=== PATIENT | female | born 1935 | race Caucasian/White ===

== ENCOUNTER 2017-03-30 15:25 | Inpatient (IN) | payer OTHER ==
[~2017-03-30] VITALS: Ht 157.5 cm; Wt 77.6 kg
[~2017-03-30 15:25] MED LIST: ASPCH81X PO; ATOR-22 PO; DOCU-94 PO; GLIP-199 PO; LOSA50TA6 PO; METF500T PO; MULT-506 PO; NRN/100 PO
[2017-03-30 15:54] LABS: ISTAT CREATININE 0.9 mg/dl (0.6-1.3); ISTAT IONIZED CALCIUM 1.37 mmol/l (1.12-1.32)
[2017-03-30] MEDS ORDERED: GLIP10TA10 PO (15:57)
[2017-03-30] MEDS ORDERED: GLC500 PO (15:57)
--- NOTE | 2017-03-30 15:58 | DIAGNOSTIC IMAGING REPORT ---
SINGLE VIEW CHEST CLINICAL HISTORY: Generalized abdominal pain. FINDINGS: An AP, portable, upright chest radiograph is compared to study dated 12/19/2008. The examination is degraded by portable technique, large body habitus, and patient rotation. Cardiac pads project over the left chest. The heart is enlarged and there is pulmonary vascular congestion. A hiatal hernia is suspected. There is elevation of the right hemidiaphragm and bibasilar atelectasis. No airspace consolidation is seen typical for pneumonia and there is no large pleural effusion. No pneumothorax is seen. The skeletal structures are osteopenic. Chronic posttraumatic deformity is again seen in the left proximal humerus. Advanced arthritic change is noted in the shoulders. There are healed left-sided rib fractures. IMPRESSION: 1. Cardiomegaly with pulmonary vascular congestion. 2. No airspace consolidation or large pleural effusion is seen. Electronically signed by: Barry Klein M.D. 03/30/2017 3:57 PM Dictated Date/Time: 03/30/2017 3:55 PM
[2017-03-30 16:08] LABS: BUN/CREATININE RATIO 17.5 (10-20); CALCIUM 10.6 mg/dl (8.5-10.1); CREATININE 1.1 mg/dl (0.60-1.20); MAGNESIUM 1.6 mg/dl (1.8-2.4); POTASSIUM 4.8 mmol/L (3.5-5.1)
[2017-03-30] MEDS ORDERED: MAGNESIUM SULFATE 1GM / D5W 1 GM BAG IV STA (16:13)
[2017-03-30 16:16] LABS: CKMB/CK RATIO 5.5 (0-3.0)
[2017-03-30] MEDS ORDERED: FENTANYL CITRATE INJ 50 MCG/1 ML 2 ML VIAL ONE ×2 (16:28→16:30)
[2017-03-30] MEDS ORDERED: MIDAZOLAM HCL 1 MG/ML 2ML VIAL ONE (16:28)
[2017-03-30] MEDS ORDERED: ONDANSETRON INJ 2 MG/ML 2 ML VIAL ONE (16:35)
[2017-03-30 16:36] LABS: URINE APPEARANCE CLEAR (CLEAR); URINE BILIRUBIN NEG (NEG); URINE COLOR DK YELLOW; URINE NITRITE NEG (NEG); URINE PH 7.5 (4.5-7.5); URINE SPECIFIC GRAVITY 1.012 (1.000-1.030); UROBILINOGEN NEG (NEG)
[2017-03-30 16:38] LABS: MANUAL MICROSCOPIC REQUIRED? NO; REVIEW REQ? NO; SULFASALICYLIC ACID POS (NEG)
[2017-03-30 16:40] LABS: THYROID STIMULATING HORMONE 1.14 uIu/ml (0.300-4.500)
[2017-03-30 16:51] LABS: BASO % 0.3 %; BASO ABS # 0.02 K/uL (0-0.2); COMPLETE YES; EOS % 1.6 %; HEMATOCRIT 44.7 % (37-47); INR 1.1 (0.9-1.1); LYMPH % 16.9 %; MEAN CELL VOLUME 90.7 fL (80-100); MEAN CORPUSCULAR HEMOGLOBIN 29.2 pg (25-34); MEAN CORPUSCULAR HGB CONC 32.2 g/dl (32-36); MEAN PLATELET VOLUME 11.7 fL (7.4-10.4); MONO % 6.9 %; NEUT % 74.3 %; PLATELET COUNT 241 K/uL (130-400); PROTHROMBIN TIME (PATIENT) 11.4 SECONDS (9.0-12.0); RED BLOOD COUNT 4.93 M/uL (4.2-5.4); WHITE BLOOD COUNT 7.08 K/uL (4.8-10.8)
[2017-03-30] MEDS ORDERED: ATROPINE SULFATE 0.1 MG/ML 10 ML SYR ONE (17:13)
--- NOTE | 2017-03-30 17:14 | Cardiology Procedure Brief Nt ---
Preliminary Cardiology Note Procedure Date Placement of a temporary transvenous pacemaker via right subclavian vein, accomplished without difficulty or complication on March 30, 2017. Pre-Procedure Diagnosis Symptomatic bradycardia, heart block Post-Procedure Diagnosis Same Procedure(s) Performed Placement of a temporary transvenous pacemaker via right subclavian vein, accomplished without difficulty or complication on March 30, 2017. 6 bengali sheath with a 5 bengali balloon tipped pacing wire Manager Membership Dr. Patrice Hamilton Residential Manager(s) Keegan Hoang Estimated Blood Loss Less than 5 cc's Medication(s) Atropine 0.5mg given immediate pre-procedure, otherwise no meds given Preliminary Findings High grade heart block, bradycardia, with poor escape rhythm Recommendations The patient will likely need a permanent pacemaker Temporary pacer set at pacing mode VOO, 80 bpm, 5.0 mA Keep pacer site sterilely dressed and pacing wire secured to patient near entry site Consult EP Specimens No specimens Anesthesia No sedation given Complication(s) None Disposition Surgical ICU
[2017-03-30 17:17] LABS: LYME DISEASE AB IGG NEG (NEG)
[2017-03-30 17:18] LABS: LYME DISEASE AB IGM NEG (NEG)
--- NOTE | 2017-03-30 18:06 | CARDIOLOGY CONSULTATION ---
DATE OF CONSULTATION: 03/30/2017 TIME: 1655 p.m. CONSULTING PHYSICIAN: Heath Robles DO REASON FOR CONSULTATION: Complete heart block. HISTORY OF PRESENT ILLNESS: Mrs. Donaldson is a pleasant 81-year-old female with a history significant for type 2 diabetes, hypertension, left bundle branch block; who presented to [facility] in complete heart block. She is a poor historian and very hard of hearing and therefore it is difficult to obtain history. When asked why she came to the Emergency Department, she was not sure. According to nursing staff and Dr. Robles, her son found her in her apartment and she apparently had mental status changes or possibly some degree of unresponsiveness. She was reportedly found to be hypoglycemic; however, the actual lab value was not available at the time of this dictation. She reportedly was given D10 prehospital and was found to be in complete heart block. She initially had a heart rate in the 40s according to reports when I was contacted for consultation by Dr. Robles. She denies chest pain, shortness of breath, syncope, near syncope; however, it is difficult to communicate with her as she is very hard of hearing. She was able to maintain adequate blood pressure in the Emergency Department. These were obtained via manual cuff as the automatic cuffs were unable to obtain a blood pressure. She was uncertain of her medications. She brought a list but however, the list apparently is outdated. Nursing staff was able to track down the last time some of her medications were refilled; however, it is not clear if this is an accurate list completely. She states that she does not see a physician on a regular basis as it is difficult for her to travel. She is quite concerned about finances as well. REVIEW OF SYSTEMS: As above and review of systems otherwise unremarkable or unobtainable due to being a poor historian and possibly related somewhat to her hearing. PAST MEDICAL HISTORY: 1. Hypertension. 2. Dyslipidemia. 3. Left bundle branch block. 4. Type 2 diabetes. 5. According to Dr. Hampton's records, there is a history of DVT. 6. History of noncompliance with prescribed therapy. 7. Status post cholecystectomy. 8. Palatoplasty for cleft palate. HOME MEDICATIONS: Possibly; 1. Glipizide. 2. Metformin. 3. Gabapentin. It is difficult to know her update medications; however, she states that she takes a lot of medications. ALLERGIES: No known drug allergies. SOCIAL HISTORY: Denies smoking, alcohol or drug abuse. She had 3 children; however, 2 of her children have . She does have 1 living son. She reportedly lives in an apartment. Her son was not present at the bedside. Several attempts were made by Emergency Department physician, Dr. Robles to contact him via telephone; however, he was unsuccessful. He apparently is coming to the hospital at some point. FAMILY HISTORY: No known premature CAD. However, she states that her son may have some heart problem but does not know details. PHYSICAL EXAMINATION: VITAL SIGNS: Temperature 36.8 degrees, heart rate 25 beats per minute, respiration rate 19, blood pressure 112/80 mmHg, oxygen saturation 100% on 3 liters per nasal cannula. Weight 80 kg. GENERAL: No acute distress. She is alert and appears oriented. Very hard of hearing. HEENT: Anicteric sclerae. NECK: No appreciable JVD. No bruits. Normal carotid upstrokes bilaterally. CARDIAC EXAMINATION: PMI was nonpalpable. There was no ventricular heave. Regular with ectopy. Normal S1, S2. 1/6 systolic murmur best heard at the left and right upper sternal border. No rubs or gallops. LUNGS: Clear to auscultation bilaterally without wheezes, rales or rhonchi. ABDOMEN: Soft, nontender, nondistended, normoactive bowel sounds, no bruits. EXTREMITIES: No cyanosis or pitting edema. 2+ radial pulses bilaterally. 2+ dorsalis pedis pulses bilaterally. No palpable cords. PSYCHIATRIC: Affect appears appropriate. ECG personally reviewed. ECG on 03/30/2017 at 15:32, sinus rhythm with complete heart block and ventricular escape complexes and also PVCs. Heart rate on this ECG is 57 beats per minute. On telemetry, her heart rate after being in the Emergency Department for some time, was more consistently in the upper 20s with complete heart block and ventricular escape rhythm. She was able to maintain adequate perfusing blood pressure, however. LABORATORY DATA: Sodium 142, potassium 4.8, BUN 19, creatinine 1.1, glucose 193. Magnesium 1.6, total bilirubin 1.1, AST 12, ALT 18, CK-MB 42, troponin 0.059, albumin 3.7. TSH 1.14, free T4 of 1.25. Lyme titers are pending. INR is 1.1. WBC 7.08, hemoglobin 14.4, platelets 241. Chest x-ray image personally reviewed. No obvious infiltrate. Radiology has interpreted this as cardiomegaly with pulmonary vascular congestion. No airspace consolidation or large pleural effusion was noted. ASSESSMENT AND PLAN: 1. Complete heart block: She has ventricular escape rhythm/complexes and bradycardia. She does not appear to be overly symptomatic; however, heart rate is consistently in the 20s and with her very difficult hearing, it is difficult to know if she is experiencing any symptoms as she is a poor historian. Given the fact that her heart rate is more consistently in the upper 20s, a temporary venous pacemaker is recommended. Risks and benefits were discussed with her multiple times and also written down for her to review; however, she did not have glasses available. After multiple conversations, she consented to undergo the procedure and is provided informed written consent. Plan would then be for a permanent pacemaker placement when electrophysiology is available. The vegetable canner door to door salesperson, Dr. Hamilton presented to the bedside and presentation and plan of care were discussed with him. Continue to follow Lyme titers. Avoid AV malaika blocking agents or other medications that may slow her heart rate. 2. Elevated troponins: Troponin is slightly elevated and is not diagnostic of myocardial infarction. Could be due to strain/demand ischemia with significant bradycardia and also reported hypoglycemia earlier today. Trend troponin levels. Echocardiogram will be ordered at this time. 3. Hypertension: She has a history of hypertension but does not appear to be on any medications as far as we are able to know. She is not significantly hypertensive at this time and therefore would hold off on any new medications for this. 4. Diabetes: As per primary service. 5. Disposition: Plan of care has been discussed with Dr. Simons of the primary hospitalist service, who will be admitting Mrs. Donaldson following transvenous pacemaker placement. Dr. Gusman was also personally contacted via telephone to update him on Mrs. Donaldson's presentation and plan of care as he is the ICU termite helper door to door salesperson. Electrophysiology was also notified that she is receiving transvenous pacemaker for evaluation of permanent pacemaker placement when they are available, which will likely be in 2-3 days. Highly complex medical issues. Greater than 60 minutes critical care time was spent counseling patient, coordinating care with multiple providers, including for temporary transvenous pacemaker placement as well as permanent pacemaker placement. Greater than 60 minutes critical care time spent also reviewing images, chart and laboratory data. Plan of care was also discussed with Dr. Robles, who was also at the bedside. Thank for allowing me to participate in the care of Mrs. Donaldson.
[2017-03-30] MEDS ORDERED: GLUCOSE 40% GEL 15 GM TUBE PO PRN (18:15)
[2017-03-30] MEDS ORDERED: GLUCAGON FOR INJ 1 MG VIAL SQ PRN (18:15)
[2017-03-30] MEDS ORDERED: NITROGLYCERIN 0.4 MG SL PER TAB CHARGE SL PRN (18:15)
[2017-03-30] MEDS ORDERED: DEXTROSE 50% 50 ML SYR IV PRN (18:15)
[2017-03-30] MEDS ORDERED: GLUCOSE 10 TABS/TUBE PO PRN (18:15)
[2017-03-30 18:23] VITALS: BP 137/108; PULSE 80; TEMP 36.3; O2SAT 98; BMI 31.3
--- NOTE | 2017-03-30 18:33 | History and Physical ---
History & Physical Date & Time of Service: March 30, 2017 at 18:18 Chief Complaint: Cardiac Primary Care Physician: Mateo Hampton M.D. History of Present Illness Source: patient, family 81 y/o F who was brought to [facility] via EMS for SOB. Pt was seen in the ED by ED physician and cardiology, however no family was present and pt is extremely [place]. Once monitoring was initiated, pt was found to be in 3rd degree heart block. A heart alert was called and a temporary pacer was placed shortly after. Per cardiology, there were no complications. Pt is seen in coordinated with her family, including her son who lives with her. It was difficult to get information from pt as she is [place] and her hearing aids are not with her. Her son provided some details. He feels her biggest issue is a hernia that was supposed to have been repaired in the , however just prior to this happening the pt fell and broke her hip "and then no one would touch her". He is not able to clarify further, but repeats this story when asked about pt's health status. I was able to discern that pt always has SOB related to the hernia and has to lay on her L side. At some point this AM her SOB worsened. Son states she did not complain of any pain and that she ate breakfast without issue prior to this. At present, pt denies fever, SOB, chest pain, abd pain, n/v/c/d, LE pain or swelling. She states she is hungry, but otherwise feels fine. There was apparently some sort of concern over hypoglycemia, however this is unclear. ROS as noted above, otherwise neg. Son states that pt is very concerned about using her insurance. She does not go to see her PCP because she does not want claims on her policy. He states he tried to rock picker home O2 for her from [employer], but pt would not allow it because she is afraid her insurance will go up. She also declined an abd binder for her hernia for the same reason. Past Medical/Surgical History DM HLD HTN Hx of DVT LBBB s/p cholecystectomy Social History Smoking Status: Never Smoker Alcohol Use: none Drug Use: none Marital Status: Occupational Status: retired Immunizations History of Influenza Vaccine: Yes Influenza Vaccine Date: Aug 18, 2008 History of Tetanus Vaccine?: Yes Tetanus Immunization Date: Aug 18, 2008 History of Pneumococcal: Yes Pneumococcal Date: Aug 18, 2008 History of Hepatitis B Vaccine: No Multi-Drug Resistant Organisms History of MDRO: No Allergies Coded Allergies: No Known Allergies (Verified , 11/23/15) Home Medications Scheduled Aspirin (Aspirin Chewable), 81 MG PO QAM Atorvastatin (Lipitor), 20 MG PO QPM Docusate Sodium (Colace), 1 CAP PO BID Gabapentin (Neurontin), 100 MG PO BID Glipizide (Glipizide), 10 MG PO BID Losartan Potassium (Cozaar), 50 MG PO QAM Metformin HCl (Metformin HCl), 500 MG PO TID Multivitamin (Multivitamin), 1 TAB PO QAM Physical Exam Vital Signs Date Time Temp Pulse Resp B/P Pulse Ox O2 Delivery O2 Flow Rate FiO2 03/30/17 17:10 80 16 146/78 98 Room Air 03/30/17 17:05 80 16 152/82 98 Room Air 03/30/17 16:55 80 16 158/83 98 Room Air Manual NIBP 03/30/17 16:15 25 19 100 03/30/17 16:00 33 18 112/80 97 Nasal Cannula 3.0 03/30/17 15:53 24 19 120/44 99 Nasal Cannula 3.0 03/30/17 15:45 94 Room Air 03/30/17 15:45 25 23 96 Nasal Cannula 3.0 03/30/17 15:45 36.8 35 24 120/58 94 Room Air 03/30/17 15:35 34 25 146/68 91 03/30/17 15:35 52 General Appearance: WD/WN, no apparent distress Head: normocephalic, atraumatic Respiratory/Chest: lungs clear, normal breath sounds Cardiovascular: regular rate, rhythm, no edema Abdomen/GI: non tender, soft Extremities/Musculoskelatal: no calf tenderness, no pedal edema Neurologic/Psych: alert, normal mood/affect Skin: normal color, warm/dry Diagnostics Laboratory Results Results Past 24 Hours Test 03/30/17 14:35 03/30/17 15:38 03/30/17 15:41 03/30/17 16:16 Range/Units White Blood Count 7.08 4.8-10.8 K/uL Red Blood Count 4.93 4.2-5.4 M/uL Hemoglobin 14.4 12.0-16.0 g/dL Hematocrit 44.7 37-47 % Mean Corpuscular Volume 90.7 80-100 fL Mean Corpuscular Hemoglobin 29.2 25-34 pg Mean Corpuscular Hemoglobin Concent 32.2 32-36 g/dl Platelet Count 241 130-400 K/uL Mean Platelet Volume 11.7 7.4-10.4 fL Neutrophils (%) (Auto) 74.3 % Lymphocytes (%) (Auto) 16.9 % Monocytes (%) (Auto) 6.9 % Eosinophils (%) (Auto) 1.6 % Basophils (%) (Auto) 0.3 % Neutrophils # (Auto) 5.26 1.4-6.5 K/uL Lymphocytes # (Auto) 1.20 1.2-3.4 K/uL Monocytes # (Auto) 0.49 0.11-0.59 K/uL Eosinophils # (Auto) 0.11 0-0.5 K/uL Basophils # (Auto) 0.02 0-0.2 K/uL RDW Standard Deviation 50.0 36.4-46.3 fL RDW Coefficient of Variation 15.0 11.5-14.5 % Immature Granulocyte % (Auto) 0.0 % Immature Granulocyte # (Auto) 0.00 0.00-0.02 K/uL Prothrombin Time 11.4 9.0-12.0 SECONDS Prothromb Time International Ratio 1.1 0.9-1.1 Activated Partial Thromboplast Time 25.1 21.0-31.0 SECONDS Partial Thromboplastin Ratio 1.0 Sodium Level 142 136-145 mmol/L Potassium Level 4.8 3.5-5.1 mmol/L Chloride Level 104 98-107 mmol/L Carbon Dioxide Level 31 21-32 mmol/L Anion Gap 7.0 17.0 16-25 mmol/L Blood Urea Nitrogen 19 7-18 mg/dl Creatinine 1.10 0.60-1.20 mg/dl Est Creatinine Clear Calc Drug Dose 39.3 ml/min Estimated GFR () 54.5 Estimated GFR (Non- 47.0 BUN/Creatinine Ratio 17.5 10-20 Random Glucose 193 70-99 mg/dl Calcium Level 10.6 8.5-10.1 mg/dl Magnesium Level 1.6 1.8-2.4 mg/dl Total Bilirubin 1.1 0.2-1 mg/dl Direct Bilirubin 0.2 0-0.2 mg/dl Aspartate Amino Transf (AST/SGOT) 12 15-37 U/L Alanine Aminotransferase (ALT/SGPT) 18 12-78 U/L Alkaline Phosphatase 59 45-117 U/L Total Creatine Kinase 42 26-192 U/L Creatine Kinase MB 2.3 0.5-3.6 ng/ml Creatine Kinase MB Ratio 5.5 0-3.0 Troponin I 0.059 0-0.045 ng/ml Total Protein 6.6 6.4-8.2 gm/dl Albumin 3.7 3.4-5.0 gm/dl Lipase 212 73-393 U/L Thyroid Stimulating Hormone (TSH) 1.140 0.300-4.500 uIu/ml Free Thyroxine 1.25 0.80-1.60 ng/dl Lyme Disease IgG Antibody NEG NEG Lyme Disease IgM Antibody NEG NEG Bedside Lactic Acid Venous 1.97 0.90-1.70 mmol/L Bedside Hemoglobin 15.0 12.0-16.0 g/dl Bedside Hematocrit 44 37-47 % Bedside Sodium 139 135-144 mEq/L Bedside Potassium 4.7 3.3-5.0 mEq/L Bedside Chloride 100 101-112 mEq/L Bedside Total CO2 28 24-31 mEq/l Bedside Blood Urea Nitrogen 20 7-18 mg/dl Bedside Creatinine 0.9 0.6-1.3 mg/dl Bedside Glucose (other) 184 70-99 mg/dl Bedside Ionized Calcium (Mariaa) 1.37 1.12-1.32 mmol/l Urine Color DK YELLOW Urine Appearance CLEAR CLEAR Urine pH 7.5 4.5-7.5 Urine Specific Milnor 1.012 1.000-1.030 Urine Protein 1+ NEG Urine Glucose (UA) TRACE NEG Urine Ketones TRACE NEG Urine Occult Blood NEG NEG Urine Nitrite NEG NEG Urine Bilirubin NEG NEG Urine Urobilinogen NEG NEG Urine Leukocyte Esterase NEG NEG Urine WBC (Auto) 0 0-5 /hpf Urine RBC (Auto) 0-4 0-4 /hpf Urine Hyaline Casts (Auto) 1-5 0-5 /lpf Urine Epithelial Cells (Auto) 5-10 0-5 /lpf Urine Bacteria (Auto) NEG NEG Microbiology Results 03/30/17 Urine Culture, Received Pending Diagnostic Radiology CXR neg for acute Impression Assessment and Plan 81 y/o F who was admitted on 03/30 after having a temporary pacer placed for 3rd degree heart block 3rd degree heart block: uncertain etiology, currently paced with temporary pacer Trop elevated on admission at 0.059, will monitor and likely trend up TSH WNL CBC, PRP WNL Hx of LBBB Planning for permanent pacer in the next several days DM: SSI PRN Pt on PO only at baseline HTN: continue home meds HLD: continue home meds CAD prevention: pt on 81mg aspirin, will hold this in anticipation of permanent pacer Hx of DVT: not on other anticoagulation per son Will cover with heparin, should be held pre-op Other: Full code per family, this should be discussed with pt once hearing aids are available Heparin for DVT proph DM AHA diet Level of Care Critical Care Resuscitation Status FULL RESUSCITATION VTE Prophylaxis VTE Risk Assessment Done? Y/N: Yes Risk Level: Low
[2017-03-30] MEDS: INSULIN ASPART 100 UNITS/ML 3 ML PEN SC SCH ×2 (19:27→21:00)
[2017-03-30 20:00] VITALS: BP 140/92; PULSE 80; TEMP 37; O2SAT 100
[2017-03-30] MEDS: ATORVASTATIN 20 MG TAB PO SCH (21:09)
[2017-03-30] MEDS: DOCUSATE SODIUM 100 MG CAP PO SCH (21:09)
[2017-03-30] MEDS: GABAPENTIN 100 MG CAP PO SCH (21:09)
[2017-03-30] MEDS: HEPARIN SOD 5000 UNIT/0.5 ML CARP SQ SCH (21:11)
[2017-03-30 22:00] VITALS: BP 164/82; PULSE 80; O2SAT 96
[2017-03-30] MEDS: ACETAMINOPHEN 325 MG TAB PO PRN (22:13)
--- NOTE | 2017-03-30 23:41 | EMERGENCY ROOM VISIT NOTE ---
History Report prepared by Trixie: Saida Gibson Under the Supervision of: Dr. Heath Robles D.O. First contact with patient: 15:19 Stated Complaint: CARDIAC History of Present Illness The patient is an 81 year old female who presents to the Emergency Room with complaints of an episode of shortness of breath just prior to arrival. Per EMS, her son reports that she didn't get up out of bed today and wouldn't eat. EMS states that the son reported she wouldn't wake up and that when he tested her blood sugar, it was extremely low. The patient complains of being dizzy and nausea. She denies being sick recently. The patient reports a past history of a hernia. She denies a headache and weakness in arms and legs. Source of History: patient Onset: prior to arrival Position: other (global) Symptom Intensity: global Timing: other (episode) Associated Symptoms: + nausea, No headache, No weakness (in her arms and legs) Note: The patient complains of being dizzy. Review of Systems See HPI for pertinent positives & negatives. A total of 10 systems reviewed and were otherwise negative. Past Medical & Surgical Medical Problems: (1) Diab Debra Wo Compl, Type Ii Or Unspec Type, Uncontrolled (2) Hx-Venous Thrombosis&Embolism (3) Hypertension Nos (4) SOB (shortness of breath) Surgical Problems: (1) Ventral Hernia Nos Family History No pertinent family history Social History Smoking Status: Never Smoker Alcohol Use: none Marital Status: Housing Status: lives with family Current/Historical Medications Scheduled Aspirin (Aspirin Chewable), 81 MG PO QAM Atorvastatin (Lipitor), 20 MG PO QPM Docusate Sodium (Colace), 1 CAP PO BID Gabapentin (Neurontin), 100 MG PO BID Glipizide (Glipizide), 10 MG PO BID Losartan Potassium (Cozaar), 50 MG PO QAM Metformin HCl (Metformin HCl), 500 MG PO TID Multivitamin (Multivitamin), 1 TAB PO QAM Allergies Coded Allergies: No Known Allergies (Verified , 11/23/15) Physical Exam Vital Signs Date Time Temp Pulse Resp B/P Pulse Ox O2 Delivery O2 Flow Rate FiO2 03/30/17 17:10 80 16 146/78 98 Room Air 03/30/17 17:05 80 16 152/82 98 Room Air 5/27/17 16:55 80 16 158/83 98 Room Air Manual NIBP 03/30/17 16:15 25 19 100 03/30/17 16:00 33 18 112/80 97 Nasal Cannula 3.0 03/30/17 15:53 24 19 120/44 99 Nasal Cannula 3.0 03/30/17 15:45 94 Room Air 03/30/17 15:45 25 23 96 Nasal Cannula 3.0 03/30/17 15:45 36.8 35 24 120/58 94 Room Air 03/30/17 15:35 34 25 146/68 91 03/30/17 15:35 52 Physical Exam GENERAL: Patient is awake, alert, and in no acute distress. Patient is resting comfortably and appears mildly anxious. EYES: The conjunctivae are clear. The pupils are round and reactive. EARS, NOSE, MOUTH AND THROAT: The nose is without any evidence of any deformity. Mucous membranes are moist tongue is midline NECK: The neck is nontender and supple. RESPIRATORY: Diminished breath sounds throughout, no tachypnea. CARDIOVASCULAR: Bradycardiac rate, normal rhythm noted there no murmurs rubs or gallops normal S1 normal S2 GASTROINTESTINAL: Bowel sounds are present in all quadrants. Moderately distended but soft. No rebound or rigidity. Large ventral hernia noted. PELVIS: The Pelvis is stable. No tenderness to palpation is noted. BACK: No midline tenderness or or step-off noted range of motion in flexion extension as well as rotation no signs of muscle spasm noted MUSCULOSKELETAL/EXTREMITIES: There is no evidence of gross deformity full range of motion is noted in the hips and shoulders SKIN: There is no obvious evidence of any rash. There are no petechiae, pallor or cyanosis noted. NEUROLOGIC: Patient is awake alert and oriented x3 strength is symmetric patellar reflexes are 2+ bilaterally Medical Decision & Procedures ER Provider Diagnostic Interpretation: Radiology results as stated below per my review and radiologist interpretation: SINGLE VIEW CHEST CLINICAL HISTORY: Generalized abdominal pain. FINDINGS: An AP, portable, upright chest radiograph is compared to study dated 12/19/2008. The examination is degraded by portable technique, large body habitus, and patient rotation. Cardiac pads project over the left chest. The heart is enlarged and there is pulmonary vascular congestion. A hiatal hernia is suspected. There is elevation of the right hemidiaphragm and bibasilar atelectasis. No airspace consolidation is seen typical for pneumonia and there is no large pleural effusion. No pneumothorax is seen. The skeletal structures are osteopenic. Chronic posttraumatic deformity is again seen in the left proximal humerus. Advanced arthritic change is noted in the shoulders. There are healed left-sided rib fractures. IMPRESSION: 1. Cardiomegaly with pulmonary vascular congestion. 2. No airspace consolidation or large pleural effusion is seen. Electronically signed by: Barry Klein M.D. 03/30/2017 3:57 PM Laboratory Results 03/30/17 14:35 Red Blood Count 4.93, Mean Corpuscular Volume 90.7, Mean Corpuscular Hemoglobin 29.2, Mean Corpuscular Hemoglobin Concent 32.2, Mean Platelet Volume 11.7, Neutrophils (%) (Auto) 74.3, Lymphocytes (%) (Auto) 16.9, Monocytes (%) (Auto) 6.9, Eosinophils (%) (Auto) 1.6, Basophils (%) (Auto) 0.3, Neutrophils # (Auto) 5.26, Lymphocytes # (Auto) 1.20, Monocytes # (Auto) 0.49, Eosinophils # (Auto) 0.11, Basophils # (Auto) 0.02 03/30/17 14:35 Test 03/30/17 14:35 03/30/17 15:38 03/30/17 15:41 03/30/17 16:16 White Blood Count 7.08 K/uL (4.8-10.8) Red Blood Count 4.93 M/uL (4.2-5.4) Hemoglobin 14.4 g/dL (12.0-16.0) Hematocrit 44.7 % (37-47) Mean Corpuscular Volume 90.7 fL (80-100) Mean Corpuscular Hemoglobin 29.2 pg (25-34) Mean Corpuscular Hemoglobin Concent 32.2 g/dl (32-36) Platelet Count 241 K/uL (130-400) Mean Platelet Volume 11.7 fL (7.4-10.4) Neutrophils (%) (Auto) 74.3 % Lymphocytes (%) (Auto) 16.9 % Monocytes (%) (Auto) 6.9 % Eosinophils (%) (Auto) 1.6 % Basophils (%) (Auto) 0.3 % Neutrophils # (Auto) 5.26 K/uL (1.4-6.5) Lymphocytes # (Auto) 1.20 K/uL (1.2-3.4) Monocytes # (Auto) 0.49 K/uL (0.11-0.59) Eosinophils # (Auto) 0.11 K/uL (0-0.5) Basophils # (Auto) 0.02 K/uL (0-0.2) RDW Standard Deviation 50.0 fL (36.4-46.3) RDW Coefficient of Variation 15.0 % (11.5-14.5) Immature Granulocyte % (Auto) 0.0 % Immature Granulocyte # (Auto) 0.00 K/uL (0.00-0.02) Prothrombin Time 11.4 SECONDS (9.0-12.0) Prothromb Time International Ratio 1.1 (0.9-1.1) Activated Partial Thromboplast Time 25.1 SECONDS (21.0-31.0) Partial Thromboplastin Ratio 1.0 Est Creatinine Clear Calc Drug Dose 39.3 ml/min Estimated GFR () 54.5 Estimated GFR (Non- 47.0 BUN/Creatinine Ratio 17.5 (10-20) Calcium Level 10.6 mg/dl (8.5-10.1) Magnesium Level 1.6 mg/dl (1.8-2.4) Total Bilirubin 1.1 mg/dl (0.2-1) Direct Bilirubin 0.2 mg/dl (0-0.2) Aspartate Amino Transf (AST/SGOT) 12 U/L (15-37) Alanine Aminotransferase (ALT/SGPT) 18 U/L (12-78) Alkaline Phosphatase 59 U/L (45-117) Total Creatine Kinase 42 U/L (26-192) Creatine Kinase MB 2.3 ng/ml (0.5-3.6) Creatine Kinase MB Ratio 5.5 (0-3.0) Troponin I 0.059 ng/ml (0-0.045) Total Protein 6.6 gm/dl (6.4-8.2) Albumin 3.7 gm/dl (3.4-5.0) Lipase 212 U/L (73-393) Thyroid Stimulating Hormone (TSH) 1.140 uIu/ml (0.300-4.500) Free Thyroxine 1.25 ng/dl (0.80-1.60) Lyme Disease IgG Antibody NEG (NEG) Lyme Disease IgM Antibody NEG (NEG) Bedside Lactic Acid Venous 1.97 mmol/L (0.90-1.70) Bedside Hemoglobin 15.0 g/dl (12.0-16.0) Bedside Hematocrit 44 % (37-47) Bedside Sodium 139 mEq/L (135-144) Bedside Potassium 4.7 mEq/L (3.3-5.0) Bedside Chloride 100 mEq/L (101-112) Bedside Total CO2 28 mEq/l (24-31) Anion Gap 17.0 mmol/L (16-25) Bedside Blood Urea Nitrogen 20 mg/dl (7-18) Bedside Creatinine 0.9 mg/dl (0.6-1.3) Bedside Glucose (other) 184 mg/dl (70-99) Bedside Ionized Calcium (Mariaa) 1.37 mmol/l (1.12-1.32) Urine Color DK YELLOW Urine Appearance CLEAR (CLEAR) Urine pH 7.5 (4.5-7.5) Urine Specific [place] 1.012 (1.000-1.030) Urine Protein 1+ (NEG) Urine Glucose (UA) TRACE (NEG) Urine Ketones TRACE (NEG) Urine Occult Blood NEG (NEG) Urine Nitrite NEG (NEG) Urine Bilirubin NEG (NEG) Urine Urobilinogen NEG (NEG) Urine Leukocyte Esterase NEG (NEG) Urine WBC (Auto) 0 /hpf (0-5) Urine RBC (Auto) 0-4 /hpf (0-4) Urine Hyaline Casts (Auto) 1-5 /lpf (0-5) Urine Epithelial Cells (Auto) 5-10 /lpf (0-5) Urine Bacteria (Auto) NEG (NEG) Laboratory results per my review. Medications Administered Medications (Trade) Dose Ordered Sig/Linda Route Start Time Stop Time Status Last Admin Dose Admin Magnesium Sulfate (Magnesium Sulfate) 1 gm NOW STAT IV 03/30/17 16:13 03/30/17 16:14 DC 03/30/17 16:13 1 GM Ondansetron HCl (Zofran Inj) 4 mg STK-MED ONCE .ROUTE 03/30/17 16:35 03/30/17 16:36 DC 03/30/17 16:35 4 MG Atropine Sulfate (Atropine Sulfate) 1 mg STK-MED ONCE .ROUTE 5/27/17 17:13 03/30/17 17:14 DC 03/30/17 17:13 0.5 MG Acetaminophen (Tylenol Tab) 650 mg Q4H PRN PO 03/30/17 18:15 04/29/17 18:14 03/30/17 22:13 650 MG ECG Indication: SOB/dyspnea Rate (beats per minute): 57 Rhythm: other (3rd Degree Heart Block) Findings: PVC (frequent), RBBB (underlying) Comparison ECG Date: 12/19/2008 Change: Changes are new. ED Course 1526: The patient was evaluated in room B1. A complete history and physical examination were performed. 1530: I discussed the patient's case with Dr. Rayo.The patient will be further evaluated. 1613: Ordered Magnesium Sulfate 1 gm IV. Medical Decision Differential diagnosis: Etiologies such as metabolic, infection, hypo/hyperglycemia, electrolyte abnormalities, cardiac sources, intracerebral event, toxicologic, neurologic, as well as others were entertained. Medication Reconciliation: I attest that I have personally reviewed the patient' s current medications list. The patient is an 81-year-old female who presented to the emergency department for evaluation of palpitations and dizziness. The patient was found to be hypoglycemic prior to arrival but when this was treated her symptoms did not resolve. She was found to be in third-degree heart block by the prehospital personnel. I received a medical command call about this patient. The patient was treated with transcutaneous pacer in the emergency department. Her blood pressure was monitored closely and she did not require any external pacing. I discussed her case with the on-call container coordinator as well as the on-call dry can tender. She was felt to be a candidate for pacemaker placement at this time. She was taken to the cardiac catheterization lab for pacer placement. Consults Time Called: 152 Consulting Physician: Dr. Rayo Returned Call: 1530 I discussed the patient's case with Dr. Rayo. Impression Primary Impression: Weakness Additional Impressions: Hypoglycemia Third degree heart block Critical Care I have personally spent greater than 40 minutes of critical care time in the direct management of this patient. This includes bedside care, interpretation of diagnostic studies, and testing, discussion with consultants, patient, and family members, and other required patient management activities. This 40 minutes is in excess of all separately billable procedures. Scribe Attestation The scribe's documentation has been prepared under my direction and personally reviewed by me in its entirety. I confirm that the note above accurately reflects all work, treatment, procedures, and medical decision making performed by me. Departure Information Dispostion Being Evaluated By Surgeon Problem Qualifiers
[2017-03-31] VITALS (30 sets, daily range): BP systolic 97–165; BP diastolic 60–99; PULSE 70–81; TEMP 36.8–36.9; O2SAT 87–100
[2017-03-31 05:55] LABS: BASO % 0.3 %; BASO ABS # 0.02 K/uL (0-0.2); COMPLETE YES; EOS % 3.2 %; HEMATOCRIT 43.4 % (37-47); IG% 0.1 %; LYMPH % 19.7 %; LYMPH ABS # 1.35 K/uL (1.2-3.4); MEAN CELL VOLUME 91.6 fL (80-100); MEAN CORPUSCULAR HEMOGLOBIN 29.5 pg (25-34); MEAN CORPUSCULAR HGB CONC 32.3 g/dl (32-36); MEAN PLATELET VOLUME 10.9 fL (7.4-10.4); MONO % 9.6 %; NEUT % 67.1 %; PLATELET COUNT 218 K/uL (130-400); RED BLOOD COUNT 4.74 M/uL (4.2-5.4); WHITE BLOOD COUNT 6.84 K/uL (4.8-10.8)
[2017-03-31] MEDS: HEPARIN SOD 5000 UNIT/0.5 ML CARP SQ SCH ×3 (06:20→20:29)
[2017-03-31 06:25] LABS: BUN/CREATININE RATIO 17.8 (10-20); CALCIUM 10.3 mg/dl (8.5-10.1); MAGNESIUM 1.9 mg/dl (1.8-2.4); PHOSPHORUS 5.3 mg/dl (2.5-4.9); POTASSIUM 4.7 mmol/L (3.5-5.1)
[2017-03-31] MEDS ORDERED: PERFLUTREN LIPID MICROSPHERE (DEFINITY) IV ONE (06:48)
[2017-03-31] MEDS: GABAPENTIN 100 MG CAP PO SCH ×2 (08:15→20:28)
[2017-03-31] MEDS: MULTIVITAMIN TAB PO SCH (08:15)
[2017-03-31] MEDS: LOSARTAN POTASSIUM 50 MG TAB PO SCH (08:18)
[2017-03-31] MEDS: DOCUSATE SODIUM 100 MG CAP PO SCH ×2 (08:18→20:27)
--- NOTE | 2017-03-31 09:41 | DIAGNOSTIC IMAGING REPORT ---
CHEST ONE VIEW PORTABLE CLINICAL HISTORY: Temporary pacer. COMPARISON STUDY: Chest radiograph March 30, 2017. FINDINGS: Chronic deformity of the proximal left humerus is incidentally noted. There are old bilateral rib fractures. A small left pleural effusion is noted. There is left basilar opacity. Moderate cardiomegaly is noted. There is a suspected hiatal hernia. A right subclavian catheter is in place. Catheter tip is difficult to visualize but likely projects over the right atrium. There is pulmonary congestion. IMPRESSION: 1. Interval placement of a right subclavian catheter. Catheter tip partially obscured but likely projects over the right atrium 2. Small bilateral pleural effusions with left basilar opacity. 3. Pulmonary vascular congestion. Electronically signed by: Abram Peck M.D. 03/31/2017 9:39 AM Dictated Date/Time: 03/31/2017 9:37 AM
[2017-03-31] MEDS: INSULIN ASPART 100 UNITS/ML 3 ML PEN SC SCH ×4 (09:51→20:28)
--- NOTE | 2017-03-31 10:20 | Critical Care Consultation ---
Critical Care Consultation Date of Consultation: March 31, 2017. Attending Physician: Iban Yousif MD Reason for Consultation: Complete Heart Block Temporary Pacemaker placement Awaiting permanent pacemaker History of Present Illness 81 year old female was brought to the ED by ambulance yesterday for shortness of breath. In the ED she was found to be in complete heart block. Cardiology was consulted in the ED and brought to the cardiac catheterization lab for transvenous pacemaker placement as a bridge to permanent pacemaker placement. She was subsequently transferred to the ICU for monitoring. Other medical history includes: HTN, hyperlipidemia, LBBB, type 2 DM. Surgical history includes cholecystectomy and palatoplasty. There is no known history of myocardial infarction. I do not see in the EMR that she had a recent echocardiogram. Patient at this time is doing well. She denies chest pain, shortness of breath , coughing, wheezing, orthopnea or leg swelling. She has not had fevers, chills nightsweats or malaise. The patient is very hard of hearing and it is difficult to obtain a cogent history otherwise. Family History No other known family history, though patient is a poor historian Social History Smoking Status: Never Smoker Alcohol Use: none Drug Use: none Marital Status: Housing Status: lives with family Occupation Status: retired Allergies Coded Allergies: No Known Allergies (Verified , 11/23/15) Home Medications Scheduled Aspirin (Aspirin Chewable), 81 MG PO QAM Atorvastatin (Lipitor), 20 MG PO QPM Docusate Sodium (Colace), 1 CAP PO BID Gabapentin (Neurontin), 100 MG PO BID Glipizide (Glipizide), 10 MG PO BID Losartan Potassium (Cozaar), 50 MG PO QAM Metformin HCl (Metformin HCl), 500 MG PO TID Multivitamin (Multivitamin), 1 TAB PO QAM Current Inpatient Medications Current Inpatient Medications Medications (Trade) Dose Ordered Sig/Linda Route Start Time Stop Time Status Last Admin Dose Admin Acetaminophen (Tylenol Tab) 650 mg Q4H PRN PO 03/30/17 18:15 04/29/17 18:14 03/30/17 22:13 650 MG Nitroglycerin (Nitrostat Tab) 0.4 mg UD PRN SL 03/30/17 18:15 04/29/17 18:14 Insulin Aspart (novoLOG ASPART) SLIDING SCALE If C... ACHS SC 03/30/17 18:30 04/29/17 18:29 03/31/17 09:51 2 UNITS Glucose (Glucose 40% Gel) 15-30 GRAMS 15 GRAMS... UD PRN PO 03/30/17 18:15 04/29/17 18:14 Glucose (Glucose Chew Tab) 4-8 Tablets 4 Tabl... UD PRN PO 03/30/17 18:15 04/29/17 18:14 Dextrose (Dextrose 50% 50ML Syringe) 25-50ML OF 50% DW IV FOR... UD PRN IV 03/30/17 18:15 04/29/17 18:14 Glucagon (Glucagon Inj) 1 mg UD PRN SQ 03/30/17 18:15 04/29/17 18:14 Atorvastatin Calcium (Lipitor Tab) 20 mg QPM PO 03/30/17 21:00 04/29/17 20:59 03/30/17 21:09 20 MG Docusate Sodium (coLACE CAP) 100 mg BID PO 03/30/17 21:00 04/29/17 20:59 03/31/17 08:18 100 MG Gabapentin (Neurontin Cap) 100 mg BID PO 03/30/17 21:00 04/29/17 20:59 03/31/17 08:15 100 MG Losartan Potassium (coZAAR TAB) 50 mg QAM PO 03/31/17 09:00 04/30/17 08:59 03/31/17 08:18 50 MG Multivitamins (Multivitamin Tab) 1 tab QAM PO 03/31/17 09:00 04/30/17 08:59 03/31/17 08:15 1 TAB Heparin Sodium (Porcine) (Heparin Sq 5000 Unit/0.5ml) 5,000 unit Q8 SQ 03/30/17 22:00 04/29/17 21:59 03/31/17 06:20 5,000 UNIT Review of Systems A 10 point review of systems was negative unless stated above. Physical Exam Date Time Temp Pulse Resp B/P Pulse Ox O2 Delivery O2 Flow Rate FiO2 03/31/17 06:00 80 22 98/63 96 03/31/17 04:00 80 15 100/68 97 Nasal Cannula 3.0 03/31/17 04:00 97 Nasal Cannula 3.0 03/31/17 02:00 80 13 111/71 96 Nasal Cannula 3.0 03/31/17 00:01 36.9 80 23 165/99 96 Nasal Cannula 3.0 03/31/17 00:00 100 Nasal Cannula 2.0 03/30/17 22:00 80 18 164/82 96 Nasal Cannula 3.0 03/30/17 20:00 100 Nasal Cannula 2.0 03/30/17 20:00 37.0 80 22 140/92 100 Nasal Cannula 2.0 03/30/17 18:23 36.3 80 21 137/108 98 Nasal Cannula 2.0 03/30/17 17:10 80 16 146/78 98 Room Air 03/30/17 17:05 80 16 152/82 98 Room Air 03/30/17 16:55 80 16 158/83 98 Room Air Manual NIBP 03/30/17 16:15 25 19 100 03/30/17 16:00 33 18 112/80 97 Nasal Cannula 3.0 03/30/17 15:53 24 19 120/44 99 Nasal Cannula 3.0 03/30/17 15:45 94 Room Air 03/30/17 15:45 25 23 96 Nasal Cannula 3.0 03/30/17 15:45 36.8 35 24 120/58 94 Room Air 03/30/17 15:35 34 25 146/68 91 03/30/17 15:35 52 General Appearance: well-appearing, WD/WN Head: normocephalic, atraumatic Eyes: PERRLA, EOMI ENT: normal ear exam, normal nasal exam, normal mouth exam Neck: no tenderness, no stridor, supple Respiratory: breath sounds normal, clear to auscultation, other (mild crackles at bases) Cardiovasular: regular rate/rhythm, normal S1S2, no murmur, no JVD, other ( Transvenous pacemaker in situ with right subclavian approach) Abdomen: non tender, normal bowel sounds, no rebound Back: normal inspection, no CVA tenderness Upper Extremities: no edema Lower Extremities: no edema Neuro: alert, oriented x 3 Psychiatric: normal affect Laboratory Results Last 24 Hours Test 03/30/17 14:35 03/30/17 15:38 03/30/17 15:41 03/30/17 16:16 White Blood Count 7.08 K/uL Red Blood Count 4.93 M/uL Hemoglobin 14.4 g/dL Hematocrit 44.7 % Mean Corpuscular Volume 90.7 fL Mean Corpuscular Hemoglobin 29.2 pg Mean Corpuscular Hemoglobin Concent 32.2 g/dl Platelet Count 241 K/uL Mean Platelet Volume 11.7 fL Neutrophils (%) (Auto) 74.3 % Lymphocytes (%) (Auto) 16.9 % Monocytes (%) (Auto) 6.9 % Eosinophils (%) (Auto) 1.6 % Basophils (%) (Auto) 0.3 % Neutrophils # (Auto) 5.26 K/uL Lymphocytes # (Auto) 1.20 K/uL Monocytes # (Auto) 0.49 K/uL Eosinophils # (Auto) 0.11 K/uL Basophils # (Auto) 0.02 K/uL RDW Standard Deviation 50.0 fL RDW Coefficient of Variation 15.0 % Immature Granulocyte % (Auto) 0.0 % Immature Granulocyte # (Auto) 0.00 K/uL Prothrombin Time 11.4 SECONDS Prothromb Time International Ratio 1.1 Activated Partial Thromboplast Time 25.1 SECONDS Partial Thromboplastin Ratio 1.0 Sodium Level 142 mmol/L Potassium Level 4.8 mmol/L Chloride Level 104 mmol/L Carbon Dioxide Level 31 mmol/L Anion Gap 7.0 mmol/L 17.0 mmol/L Blood Urea Nitrogen 19 mg/dl Creatinine 1.10 mg/dl Est Creatinine Clear Calc Drug Dose 39.3 ml/min Estimated GFR () 54.5 Estimated GFR (Non- 47.0 BUN/Creatinine Ratio 17.5 Random Glucose 193 mg/dl Calcium Level 10.6 mg/dl Magnesium Level 1.6 mg/dl Total Bilirubin 1.1 mg/dl Direct Bilirubin 0.2 mg/dl Aspartate Amino Transf (AST/SGOT) 12 U/L Alanine Aminotransferase (ALT/SGPT) 18 U/L Alkaline Phosphatase 59 U/L Total Creatine Kinase 42 U/L Creatine Kinase MB 2.3 ng/ml Creatine Kinase MB Ratio 5.5 Troponin I 0.059 ng/ml Total Protein 6.6 gm/dl Albumin 3.7 gm/dl Lipase 212 U/L Thyroid Stimulating Hormone (TSH) 1.140 uIu/ml Free Thyroxine 1.25 ng/dl Lyme Disease IgG Antibody NEG Lyme Disease IgM Antibody NEG Bedside Lactic Acid Venous 1.97 mmol/L Bedside Hemoglobin 15.0 g/dl Bedside Hematocrit 44 % Bedside Sodium 139 mEq/L Bedside Potassium 4.7 mEq/L Bedside Chloride 100 mEq/L Bedside Total CO2 28 mEq/l Bedside Blood Urea Nitrogen 20 mg/dl Bedside Creatinine 0.9 mg/dl Bedside Glucose (other) 184 mg/dl Bedside Ionized Calcium (Mariaa) 1.37 mmol/l Urine Color DK YELLOW Urine Appearance CLEAR Urine pH 7.5 Urine Specific [place] 1.012 Urine Protein 1+ Urine Glucose (UA) TRACE Urine Ketones TRACE Urine Occult Blood NEG Urine Nitrite NEG Urine Bilirubin NEG Urine Urobilinogen NEG Urine Leukocyte Esterase NEG Urine WBC (Auto) 0 /hpf Urine RBC (Auto) 0-4 /hpf Urine Hyaline Casts (Auto) 1-5 /lpf Urine Epithelial Cells (Auto) 5-10 /lpf Urine Bacteria (Auto) NEG Test 03/30/17 21:09 03/30/17 23:30 03/31/17 05:29 03/31/17 05:30 Bedside Glucose 86 mg/dl 73 mg/dl 74 mg/dl White Blood Count 6.84 K/uL Red Blood Count 4.74 M/uL Hemoglobin 14.0 g/dL Hematocrit 43.4 % Mean Corpuscular Volume 91.6 fL Mean Corpuscular Hemoglobin 29.5 pg Mean Corpuscular Hemoglobin Concent 32.3 g/dl Platelet Count 218 K/uL Mean Platelet Volume 10.9 fL Neutrophils (%) (Auto) 67.1 % Lymphocytes (%) (Auto) 19.7 % Monocytes (%) (Auto) 9.6 % Eosinophils (%) (Auto) 3.2 % Basophils (%) (Auto) 0.3 % Neutrophils # (Auto) 4.58 K/uL Lymphocytes # (Auto) 1.35 K/uL Monocytes # (Auto) 0.66 K/uL Eosinophils # (Auto) 0.22 K/uL Basophils # (Auto) 0.02 K/uL RDW Standard Deviation 50.4 fL RDW Coefficient of Variation 14.9 % Immature Granulocyte % (Auto) 0.1 % Immature Granulocyte # (Auto) 0.01 K/uL Sodium Level 144 mmol/L Potassium Level 4.7 mmol/L Chloride Level 107 mmol/L Carbon Dioxide Level 33 mmol/L Anion Gap 4.0 mmol/L Blood Urea Nitrogen 18 mg/dl Creatinine 1.00 mg/dl Est Creatinine Clear Calc Drug Dose 42.2 ml/min Estimated GFR () 61.2 Estimated GFR (Non- 52.8 BUN/Creatinine Ratio 17.8 Random Glucose 72 mg/dl Calcium Level 10.3 mg/dl Phosphorus Level 5.3 mg/dl Magnesium Level 1.9 mg/dl Diagnostic Results CHEST ONE VIEW PORTABLE CLINICAL HISTORY: Temporary pacer. COMPARISON STUDY: Chest radiograph March 30, 2017. FINDINGS: Chronic deformity of the proximal left humerus is incidentally noted. There are old bilateral rib fractures. A small left pleural effusion is noted. There is left basilar opacity. Moderate cardiomegaly is noted. There is a suspected hiatal hernia. A right subclavian catheter is in place. Catheter tip is difficult to visualize but likely projects over the right atrium. There is pulmonary congestion. IMPRESSION: 1. Interval placement of a right subclavian catheter. Catheter tip partially obscured but likely projects over the right atrium 2. Small bilateral pleural effusions with left basilar opacity. 3. Pulmonary vascular congestion. Assessment & Plan (1) Third degree heart block (2) History of temporary cardiac pacemaker treatment (3) Hypertension (4) Hyperlipidemia (5) Type 2 diabetes mellitus NEUROLOGICAL - CGS 15; CAM negative; A and O x 3 - Continue home dose of Gabapentin CARDIOVASCULAR - BP: Variable BP 100-160 systolic; goal MAP > 60 - No vasopressor support or IV fluid 3rd Degree AV Block - Temporary transvenous pacemaker as bridge to permanent pacemaker insertion - Cardiology following; recommendations appreciated - Elevated troponin likely 2/2 supply-demand mismatch from bradycardia; no active chest pain or evidence of ACS at this time Hypertension - Continue Losartan Hyperlipidemia - Continue Atorvastatin RESPIRATORY - RR: 50-20 - SpO2 > 96% on 2 L; no known home oxygen need; wean down as tolerated - Stable otherwise; continue to assess daily GASTROINTESTINAL - Diet:Type 2 Diabetes, AHA diet - GI Prophylaxis: None indicated as the patient is taking PO - Bowel regimen: Monitor for BM daily RENAL//ENDOCRINE - Cumulatively - 460 ml; monitor daily I/Os Some congestion on CXR unchanged since admission Good urine output noted; will give small dose of Lasix 20 mg IV today - Cr: 1.0 at baseline - Electrolytes: K 4.7; expected to come down with low dose of Lasix No other gross electrolyte abnormalities - IV Fluids: None, patient tolerating PO diet Type 2 Diabetes - BS-90 Sliding scale insulin Hold home meds HEMATOLOGY/INFECTIOUS DISEASE - Tmax: Afebrile No leukocytosis - Hb/Hct DVT Prophylaxis - Heparin 5000 TID LINES/IV ACCESS - Right Antecubital 18G - Left antecubital 20G - Subclavian introducer with transvenous pacer - [place] Catheter CODE STATUS - Full Code DISPOSITION - OT/PT: ordered - ICU for monitoring s/p pacemaker placement Resident Physician Supervision Note: Dr. Eng was resident physician during care of patient. I separately evaluated patient and did history and exam. I discussed the case with the resident and generally agree with the findings and plan. Likely have permanent pacer Saturday or Saturday. Documented By: Mario Gusman DO
[2017-03-31] MEDS ORDERED: FUROSEMIDE INJ 20 MG in SYRINGE 0 ML IV ONE (10:45)
--- NOTE | 2017-03-31 13:47 | CARDIOLOGY PROGRESS NOTE ---
DATE: 03/31/2017 TIME: 11:48 a.m. SUBJECTIVE: She states that she feels well. She denies shortness of breath, chest pain, syncope, palpitations. Transvenous temporary pacemaker has been placed via the right subclavian vein by Dr. Hamilton yesterday. She is tolerating it well. OBJECTIVE: VITAL SIGNS: Temperature is 36.9 degrees, heart rate 80 beats per minute, respiration rate 22, blood pressure 98/63 mmHg; however, her blood pressure has otherwise been normotensive or hypotensive, oxygen saturation 96% on room air. I's and O's negative 450 mL yesterday. Weight is 76.4 kg. GENERAL: No acute distress. She is alert and hard of hearing. NECK: Minimal JVD. CARDIAC EXAM: No ventricular heave, regular, normal S1, S2, no audible murmurs, rubs or gallops. LUNGS: Clear to auscultation bilaterally without wheezes, rales or rhonchi. ABDOMEN: Soft, nontender, nondistended. Normoactive bowel sounds. EXTREMITIES: No cyanosis or edema. CHEST: Right subclavian transvenous pacemaker site noted. No erythema noted. MEDICATIONS: Include atorvastatin 20 mg daily, heparin 5,000 units subQ q. 8 hours, losartan 50 mg daily. Telemetry reviewed. Paced rhythm. While watching telemetry, the pacemaker was adjusted. The heart rate was turned down and she remained in heart block without AV malaika conduction. The pacemaker was then placed at 70 beats per minute. She was asymptomatic with any adjustment despite heart rate to 30 beats per minute. LABORATORY DATA: White blood cell count 6.84, hemoglobin 14, platelets 218. Sodium 144, potassium 4.7, BUN 18, creatinine 1, magnesium 1.9. Lyme titers are negative. Chest x-ray image reviewed from 03/31/2017. Right subclavian catheter noted. No infiltrate noted. Echocardiogram done 03/31/2017 personally reviewed. Low normal LV systolic function. Septal motion consistent with pacemaker. Cannot exclude other wall motion abnormalities. Mild LVH. Left atrial pressure elevation is suggested by tissue Doppler. No significant valvular abnormalities noted. There is mild RV systolic dysfunction. ASSESSMENT AND PLAN: 1. Complete heart block: Continue temporary transvenous pacemaker at this time. Electrophysiology to evaluate her when available for permanent pacemaker placement. She is agreeable. She is asymptomatic and actually tolerated the complete heart block well despite heart rates in the upper 20s. Can continue with pacing; however, the rate was turned down to 70 beats per minute. 2. Elevated troponins: Troponin was slightly elevated. She had no angina. Possibly secondary to demand ischemia as she was both reportedly hypoglycemic and also quite bradycardic and may have not been perfusing adequately. We will add on a troponin level to this morning's labs to make sure that it has not significantly elevated. 3. Hypervolemia: She does appear slightly hypervolemic with minimal JVD and also estimated left atrial pressure elevation on echo. This may have been due to her heart block. She was given a small dose of Lasix today by primary service. Monitor closely. 4. Hypertension: She has been placed on ARB by primary service. Monitor blood pressure closely. She was slightly hypotensive this morning, but blood pressure currently is normal. 5. Disposition: Cardiology will continue to follow. The patient's care has been discussed with Dr. Yousif of the primary service.
--- NOTE | 2017-03-31 17:44 | Progress Note ---
Subjective Date of Service: March 31, 2017. Subjective Pt evaluation today including: conversation w/ patient, physical exam, chart review, lab review, review of studies (echo), conversation w/ pre sales technical consultant ( critical care, cardiology) Pain: none voiced PO Intake: normal Voiding: kilpatrick catheter in place events of overnight reviewed she continues to be paced via temporary transvenous pacer she is very hard of hearing but based on the limited discussion she has no complaints Problem List Medical Problems: (1) Hypoglycemia Status: Acute (2) Third degree heart block Status: Acute (3) Weakness Status: Acute Review of Systems very difficult to obtain ROS due to hearing impairment Objective Vital Signs Date Time Temp Pulse Resp B/P Pulse Ox O2 Delivery O2 Flow Rate FiO2 03/31/17 16:10 96 Nasal Cannula 3.0 03/31/17 16:01 36.8 70 20 114/70 96 Nasal Cannula 3.0 03/31/17 15:02 70 26 97/60 97 03/31/17 15:01 70 25 96 03/31/17 14:01 70 27 121/66 96 03/31/17 13:01 70 22 124/70 98 Nasal Cannula 3.0 03/31/17 13:00 70 24 98 03/31/17 12:03 70 26 119/77 97 03/31/17 12:00 70 24 98 03/31/17 11:30 97 Nasal Cannula 3.0 03/31/17 11:01 81 22 106/70 03/31/17 11:00 80 26 87 03/31/17 10:02 79 25 115/81 95 03/31/17 10:00 81 24 96 03/31/17 09:00 80 17 96 03/31/17 08:16 80 21 111/76 96 03/31/17 08:00 96 Room Air 03/31/17 08:00 80 23 96 03/31/17 07:01 80 20 123/79 95 03/31/17 07:00 81 21 95 03/31/17 06:00 80 22 98/63 96 03/31/17 04:00 80 15 100/68 97 Nasal Cannula 3.0 03/31/17 04:00 97 Nasal Cannula 3.0 03/31/17 02:00 80 13 111/71 96 Nasal Cannula 3.0 03/31/17 00:01 36.9 80 23 165/99 96 Nasal Cannula 3.0 03/31/17 00:00 100 Nasal Cannula 2.0 03/30/17 22:00 80 18 164/82 96 Nasal Cannula 3.0 03/30/17 20:00 100 Nasal Cannula 2.0 03/30/17 20:00 37.0 80 22 140/92 100 Nasal Cannula 2.0 03/30/17 18:23 36.3 80 21 137/108 98 Nasal Cannula 2.0 Physical Exam General Appearance: no apparent distress ENT: pharynx normal Neck: + JVD Respiratory/Chest: no respiratory distress, no accessory muscle use, + crackles (both bases, worse on left) Cardiovascular: regular rate, rhythm, no gallop, no murmur Abdomen: normal bowel sounds, non tender, soft, no organomegaly Extremities: no pedal edema Neurologic/Psychiatric: alert, oriented x 3 Skin: + pertinent finding (transvenous pacer in place right upper chest ) Laboratory Results Last 24 Hours Test 03/30/17 21:09 03/30/17 23:30 03/31/17 05:29 03/31/17 05:30 Bedside Glucose 86 mg/dl 73 mg/dl 74 mg/dl White Blood Count 6.84 K/uL Red Blood Count 4.74 M/uL Hemoglobin 14.0 g/dL Hematocrit 43.4 % Mean Corpuscular Volume 91.6 fL Mean Corpuscular Hemoglobin 29.5 pg Mean Corpuscular Hemoglobin Concent 32.3 g/dl Platelet Count 218 K/uL Mean Platelet Volume 10.9 fL Neutrophils (%) (Auto) 67.1 % Lymphocytes (%) (Auto) 19.7 % Monocytes (%) (Auto) 9.6 % Eosinophils (%) (Auto) 3.2 % Basophils (%) (Auto) 0.3 % Neutrophils # (Auto) 4.58 K/uL Lymphocytes # (Auto) 1.35 K/uL Monocytes # (Auto) 0.66 K/uL Eosinophils # (Auto) 0.22 K/uL Basophils # (Auto) 0.02 K/uL RDW Standard Deviation 50.4 fL RDW Coefficient of Variation 14.9 % Immature Granulocyte % (Auto) 0.1 % Immature Granulocyte # (Auto) 0.01 K/uL Sodium Level 144 mmol/L Potassium Level 4.7 mmol/L Chloride Level 107 mmol/L Carbon Dioxide Level 33 mmol/L Anion Gap 4.0 mmol/L Blood Urea Nitrogen 18 mg/dl Creatinine 1.00 mg/dl Est Creatinine Clear Calc Drug Dose 42.2 ml/min Estimated GFR () 61.2 Estimated GFR (Non- 52.8 BUN/Creatinine Ratio 17.8 Random Glucose 72 mg/dl Calcium Level 10.3 mg/dl Phosphorus Level 5.3 mg/dl Magnesium Level 1.9 mg/dl Test 03/31/17 11:43 03/31/17 16:07 Bedside Glucose 190 mg/dl 125 mg/dl Assessment and Plan 81yo female: 1. 3rd degree AV block s/p transvenous pacer placement yesterday - plan for permanent pacemaker next 48 hours by EP. 2. acute/chronic diastolic CHF - lasix x 1 IV today. 3. T2DM - glycemic control adequate; defer management to critical care. Hold oral agents. 4. h/o DVT - noted. On heparin SC for DVT proph. 5. HTN - controlled with current meds. 6. hyperlipidemia - statin. 7. CKD stage 3 - Cr stable; bmp in am. 8. hypomagnesemia - replaced, now normal. 9. +troponin - likely due to myocardial demand ischemia. Continued [facility] stay due to: multiple IV medications needed, other (pacemaker placement) Discharge planning: uncertain
[2017-03-31] MEDS: ATORVASTATIN 20 MG TAB PO SCH (20:28)
[2017-03-31] MEDS: ACETAMINOPHEN 325 MG TAB PO PRN (22:13)
[2017-04-01] VITALS (108 sets, daily range): BP systolic 11–161; BP diastolic 51–116; PULSE 27–89; TEMP 36.5–37; O2SAT 83–99; BMI 30.8
--- NOTE | 2017-04-01 04:41 | Progress Note ---
Progress Note Date of Service April 01, 2017. Progress Note transvenous pacer was not catching rhythm, HR was in the 40s and BP was in low 100s systolic, after patient was repositioned and sitting up the pacer started to capture rhythm again and BP improved to 155 systolic CXR was retaken, Dr Rayo was contacted and made aware Patient to be left attached to defibb with crash cart in room in case this were to recur
--- NOTE | 2017-04-01 05:44 | Critical Care Progress Note ---
Critical Care Progress Note Date of Service April 01, 2017. Critical Care Progress Note Notified of loss of pacer capture with patient repositioning. Improved secondary to upright position. I advanced the pacer wire 2 cm and achieved capture. Bedside staff therapist replacing sterile dressing. I reviewed the chest x- ray, pacer wire appears to be in the apex of the right ventricle. Pacer settings remain the same 5 mA output rate 70.
[2017-04-01 05:46] LABS: BASO % 0.2 %; BASO ABS # 0.01 K/uL (0-0.2); COMPLETE YES; EOS % 6.2 %; HEMATOCRIT 42.8 % (37-47); IG% 0.2 %; MEAN CELL VOLUME 91.8 fL (80-100); MEAN CORPUSCULAR HEMOGLOBIN 29.6 pg (25-34); MEAN CORPUSCULAR HGB CONC 32.2 g/dl (32-36); MEAN PLATELET VOLUME 10.9 fL (7.4-10.4); MONO % 9.3 %; NEUT % 59.1 %; PLATELET COUNT 192 K/uL (130-400); RED BLOOD COUNT 4.66 M/uL (4.2-5.4)
[2017-04-01 06:23] LABS: BUN/CREATININE RATIO 19.1 (10-20); CALCIUM 8.8 mg/dl (8.5-10.1); CREATININE 1.4 mg/dl (0.60-1.20); MAGNESIUM 1.8 mg/dl (1.8-2.4); PHOSPHORUS 3.8 mg/dl (2.5-4.9); POTASSIUM 4.7 mmol/L (3.5-5.1)
[2017-04-01] MEDS ORDERED: MIDAZOLAM HCL 1 MG/ML 2ML VIAL ONE (06:49)
[2017-04-01] MEDS: INSULIN ASPART 100 UNITS/ML 3 ML PEN SC SCH ×4 (07:00→20:15)
[2017-04-01 07:33] LABS: ESTIMATED AVERAGE GLUCOSE 128 mg/dl; HA1C FLAG Normal (Normal)
--- NOTE | 2017-04-01 08:11 | DIAGNOSTIC IMAGING REPORT ---
CHEST ONE VIEW PORTABLE HISTORY: pacemaker placement COMPARISON: Chest 04/01/2017. FINDINGS: No pneumothorax. The heart remains enlarged. Mild central pulmonary vascular congestion without overt edema. Old, healed left humeral neck fracture. Low lung volumes. Trace bilateral pleural effusions. Patchy bibasilar densities favor atelectasis. There is a right jugular catheter which terminates over the midline of the lower thoracic spine. Therefore, this likely resides within the proximal main pulmonary artery. IMPRESSION: There is a right jugular catheter which terminates over the midline of the lower thoracic spine. Therefore, this likely resides within the proximal main pulmonary artery. Electronically signed by: Tyrone Salcedo M.D. 04/01/2017 8:10 AM Dictated Date/Time: 04/01/2017 8:07 AM
--- NOTE | 2017-04-01 08:12 | Procedure Note ---
Procedure Note Procedure Date April 01, 2017. Central Line Procedure time out: side/site verified, patient ID confirmed, sterile procedure used Consent obtained: emergent consent implied Time of procedure: 05:00 Performed by: attending Indications: other (transvenous pacer placement) Contraindications: other Prep: chlorhexadine prep Anesthesia: lidocaine 1% without epi (5 ML's) Volume anesthetic (ml's): 5 Central line lumen: double Central line location: internal jugular (R) Additional details: ultrasound guidance, Selinger technique used, line sutured , good blood return CXR: appropriate position, no pneumothorax Complications: none Patient tolerated procedure: well Post-procedure vital signs: reviewed and stable Comments: Temporary pacemaker was inserted down the 6 Mohawk sheath. At 15 mA we were able to achieve ventricular capture intermittently approximately 35 cm. The catheter was adjusted with decrease in the intermittent capture so the catheter was finally positioned at 35 cm secured with the locking mechanism of the CAT 8 post procedure chest x-ray was reviewed which did not reveal a pneumothorax and the patient was directed to the manager labor delivery for formal repositioning under fluoroscopy.
[2017-04-01] MEDS ORDERED: ONDANSETRON INJ 2 MG/ML 2 ML VIAL ONE ×2 (08:19→13:23)
[2017-04-01] MEDS ORDERED: ATROPINE SULFATE 0.1 MG/ML 10 ML SYR ONE (08:27)
--- NOTE | 2017-04-01 08:30 | DIAGNOSTIC IMAGING REPORT ---
CHEST ONE VIEW PORTABLE HISTORY: pacer placement COMPARISON: Chest 03/31/2017. FINDINGS: No pneumothorax. Trace bilateral pleural effusions. The heart is mildly enlarged. Mild central pulmonary vascular congestion without overt edema. There is a right subclavian central venous catheter which terminates in the expected location of the right ventricle. Old, healed left-sided rib fractures. IMPRESSION: The right subclavian catheter terminates in the expected location of the right ventricle. Electronically signed by: Tyrone Salcedo M.D. 04/01/2017 8:28 AM Dictated Date/Time: 04/01/2017 8:26 AM
--- NOTE | 2017-04-01 08:31 | DIAGNOSTIC IMAGING REPORT ---
CHEST ONE VIEW PORTABLE HISTORY: check placement of pacer post reposition COMPARISON: Chest 04/01/2017. FINDINGS: Right subclavian catheter terminates in the expected location of the right ventricle. The heart remains mildly enlarged. Mild central pulmonary vascular congestion without overt edema. No pneumothorax. IMPRESSION: Right subclavian catheter terminates in the expected location of the right ventricle. Electronically signed by: Tyrone Salcedo M.D. 04/01/2017 8:30 AM Dictated Date/Time: 04/01/2017 8:29 AM
--- NOTE | 2017-04-01 09:05 | Procedure Note ---
Procedure Note Procedure Date April 01, 2017. Procedure Description Procedure Name: Temporary venous pacemaker placement Procedure time out: side/site verified Consent obtained: verbal, emergent consent implied Performed by: attending (Perri) Indications: therapeutic Contraindications: none Description: There was a 5 Welsh balloon tipped temporary pacemaker in place via the 6 Welsh right internal jugular sheath. Initially, she was brought to the microbiological lab technician to attempt to reposition of this temporary pacemaker. The pacemaker tip was noted to be intermittently extending into the pulmonary artery. Repositioning was attempted however this catheter was unable to be repositioned into a suitable, pacing position within the right ventricle. Therefore the 5 Welsh temporary pacemaker catheter was removed and a stiffer 5 Welsh balloon tipped temporary pacemaker (Bard) was placed through the 6 Welsh IJ venous sheath which was already in place. This was done with sterile technique. Due to complete heart block with long pauses, she was given atropine 0.5 mg IV x1 when making this change. With the stiffer temporary pacemaker, it was able to be positioned within the right ventricle. Adequate pacing was not obtained with the tip near the RV apex. The tip of the temporary pacemaker was in the inferior portion of the right ventricle but pacing occurred appropriately and continued to capture at 5 mA. The heart rate was placed at 80 bpm. The patient did experience nausea and Zofran 0.4 mg intravenously was administered. Her symptoms resolved after adequate pacing was achieved. Her blood pressure was adequate and her pulse remained strong throughout the procedure. There was no blood loss. Sedation was not administered. Complications: none Patient tolerated procedure: well Post-procedure vital signs: reviewed and stable Comments: After the temporary pacemaker was secured, it was noted under fluoroscopy to remain in stable position with adequate pacing.
[2017-04-01] MEDS: LOSARTAN POTASSIUM 50 MG TAB PO SCH (09:28)
[2017-04-01] MEDS: MULTIVITAMIN TAB PO SCH (09:28)
[2017-04-01] MEDS: DOCUSATE SODIUM 100 MG CAP PO SCH ×2 (09:28→20:08)
[2017-04-01] MEDS: GABAPENTIN 100 MG CAP PO SCH ×2 (09:28→20:08)
[2017-04-01] MEDS: HEPARIN SOD 5000 UNIT/0.5 ML CARP SQ SCH ×3 (09:30→21:47)
--- NOTE | 2017-04-01 11:09 | CARDIOLOGY PROGRESS NOTE ---
DATE: 04/01/2017 TIME: 10:13 a.m. SUBJECTIVE: I was notified at approximately 4:30 a.m. that her temporary pacemaker was not capturing. They repositioned her and it was capturing well. She was asymptomatic with capture and there was no reported symptoms when she was having difficulty with capture. She then apparently developed further issues with noncapture and Dr. Gusman of the minor league baseball player team was present in the unit. He was attempting to reposition the temporary venous pacemaker. He reports that he actually did that at approximately 4:00 a.m. as well and that this issue had reportedly started at approximately 2:00 a.m. He was unable to obtain adequate pacing and states that the pacer wire had actually backed out of the sheath somewhat. He then made the decision to place an right IJ sheath and place a new temporary pacemaker through the right IJ. I was called emergently to the bedside. When I entered the room, he was in the process of removing the old temporary pacemaker. I assisted him in this and then he placed the new pacemaker. Unfortunately, it only intermittently captured in the ventricle. When it was not capturing, she was having pauses that lasted approximately 4-5 seconds long. It was not clear if she was symptomatic. She stated that she felt as though she was not going to do well; however, this apparently occurred when they covered her face with a sterile drape. She denied any chest pain, but did state she was short of breath at times. Because the repositioning was not completely successful, the decision was made to take her to the cardiac catheterization lab to use fluoroscopy and to try to reposition the lead. She continued to complain of shortness of breath; however, when the mask was replaced with nasal cannula she felt much better. She was taken to the pharmaceutical laboratory technician and because the temporary pacemaker was unable to be successfully repositioned, a stiffer pacemaker wire was placed with adequate positioning and capture. Following that procedure, she denied chest pain. She states that her breathing improved. She had intermittent nausea which had resolved after Zofran and adequate pacing. She had no other complaints. OBJECTIVE: VITAL SIGNS: Temperature 36.5 degrees, heart rate 80 beats per minute, respiration rate 16, blood pressure 136/94 mmHg, oxygen saturation 96% on 4 liters per nasal cannula. I's and O's negative 15 mL yesterday. GENERAL: No acute distress even when not pacing adequately; however, perhaps was symptomatic with nausea. HEENT: Anicteric sclerae. NECK: Right IJ sheath was noted. CARDIOVASCULAR: No ventricular heave. Regular, while pacing. No audible murmurs, rubs or gallops. Normal S1, S2. LUNGS: Clear on anterior auscultation without wheezes, rales or rhonchi. ABDOMEN: Soft, nontender, nondistended. Normoactive bowel sounds. EXTREMITIES: No cyanosis or edema. PSYCHIATRIC: Affect appears appropriate. MEDICATIONS: Include heparin 5000 units subQ q. 8 hours, losartan 50 mg daily, atorvastatin 20 mg daily. LABORATORY DATA: White blood cell count is 6, hemoglobin 13.8, platelets 192. Sodium 142, potassium 4.7, and BUN 27 up from 18, creatinine 1.4, glucose 188, magnesium 1.8. Peak troponin was 0.059. Chest x-ray image personally reviewed. No obvious infiltrate. Pacemaker tip noted, possibly near the RVOT or pulmonary artery. This is before the new pacemaker was placed in the pharmaceutical laboratory technician. Radiology interpretation is that the tip likely resides within the proximal main pulmonary artery. ASSESSMENT AND PLAN: 1. Complete heart block: She is now capturing well in the ventricle after placement of a stiffer 5-Mohawk transvenous temporary pacemaker. She did develop some nausea while not pacing adequately and is currently now asymptomatic. She also complained of intermittent shortness of breath. Now that she is asymptomatic, she will await permanent pacemaker placement. Electrophysiology has been notified so that they can place the pacemaker when available. Recommend that she remain at rest in bed, so as not to dislodge the current pacemaker. 2. Elevated troponins: They are not diagnostic of myocardial infarction. She has not presented with acute coronary syndrome or any other anginal symptoms. They are only very slightly elevated and may be due to demand ischemia from port perfusion when she was significantly bradycardic. 3. Hypervolemia: She appeared slightly hypervolemic yesterday. She was given some Lasix. Her BUN and creatinine are elevated today somewhat. From a volume standpoint, she appears reasonable at this time. She did receive some IV fluids from the critical care team earlier today. Would continue to monitor. 4. Hypertension: Blood pressure is normal now. She was transiently hypotensive overnight according to nursing staff and the charted vital signs. This was apparently when she was not capturing well. Would recommend manual blood pressure cuff if she has intermittent issues with noncapture to get a better blood pressure reading. Would not adjust antihypertensive regimen at this point. 5. Disposition: Cardiology will continue to follow. Electrophysiology will assume her cardiology care tomorrow when they are available. The patient's care has been discussed with the critical care team, Dr. Vann and also Dr. Gusman. Sixty minutes critical care time was spent assisting in her critical care, not including the time spent in the pharmaceutical laboratory technician replacing the temporary transvenous pacemaker. The patient's care was also discussed with her son, Ed, who was present in the waiting room. TALHA
--- NOTE | 2017-04-01 11:24 | Critical Care Progress Note ---
Critical Care Progress Note Date of Service April 01, 2017. Attending Dr. Vann Subjective - The patient was admitted with 3rd degree Av block yesterday and a temporary R SC transvenous pacemaker was placed initially with goof capture but later in the night the pacer stopped capturing after the patient moved and desplaced the tip. In the occupational health nurse manager hours Dr Mccartney stabilized it but then the capture was lost and the patient was taked to the laborer with a new pacemaker wire placed in with good capture. She is hard of hearing and has no coomplaints and understands that she will get a permanent pacer. She agrees to that. Objective General Appearance: no acute distress Head: normocephalic, atraumatic Eyes: PERRLA, EOMI ENT: normal nasal exam, normal mouth exam Neck: no tenderness, no stridor, supple, right SC pacer Respiratory: breath sounds normal, clear to auscultation, Cardiovasular: regular rate/rhythm, normal S1S2, no murmur, no JVD, other ( Transvenous pacemaker in situ with right subclavian approach) Abdomen: non tender, normal bowel sounds, no rebound, she has an oblique scar of prior surgery and a ventral hernia. Back: normal inspection, no CVA tenderness Extremities: no edema no cyanosis no clubbing Neuro: alert, oriented x 3 Psychiatric: normal affect Current SOFA Score SOFA Score Response (Comments) Value PaO2/FiO2 (mmHg) < 400 1 Platelets (x10) > 150 0 Bilirubin (mg/dL) 1.2 - 1.9 1 Shabbir Coma Score 15 0 Level of Hypotension No Hypotension 0 Creatinine (mg/dL) < 1.2 0 Total 2 Previous SOFA Scores not done on day 1 Assessment & Plan Assessment & Plan (1) Third degree heart block of unclear etiology but given DM, HT and hyperlipidemia underlying CAD may be the culprit. (2) History of temporary cardiac pacemaker treatment (3) Hypertension (4) Hyperlipidemia (5) Type 2 diabetes mellitus NEUROLOGICAL - Continue home dose of Gabapentin CARDIOVASCULAR MAP maintained > 60 NTG to continue. 3rd Degree AV Block - Temporary transvenous pacemaker as bridge to permanent pacemaker insertion - Cardiology following and management appreciated - Elevated troponin likely 2/2 supply-demand mismatch from bradycardia and it is trending down at this point. no active chest pain or evidence of ACS at this time Hypertension - Continue Losartan Hyperlipidemia - Continue Atorvastatin RESPIRATORY - SpO2 > 96% on 2 L; no known home oxygen need but patient desaturates when she sleeps even on 2 liters and requires 3 liters. She may need outpatient sleep study. CXR shows mild congestion likely due to bradycardia GASTROINTESTINAL - Diet:Type 2 Diabetes, AHA diet - GI Prophylaxis: None indicated as the patient is taking PO - Bowel regimen: Monitor for BM daily RENAL//ENDOCRINE - Cumulatively - 475ml; monitor daily I/Os Good urine output noted FU and replete lytes. endocrine Type 2 Diabetes - BS-90 Sliding scale insulin Hold home meds INFECTIOUS DISEASE - Tmax: Afebrile No leukocytosis - Hb/Hct DVT Prophylaxis - Heparin 5000 TID LINES/IV ACCESS - Right Antecubital 18G - Left antecubital 20G - Subclavian introducer with transvenous pacer - Arroyo Catheter CODE STATUS - Full Code DISPOSITION - OT/PT: ordered - ICU for monitoring s/p pacemaker placement 40 minutes of critical care time Consults & Procedures Consultants: Cardiology Dr Kaplan please see his procedure and recommendations below Procedures: ASSESSMENT AND PLAN: 1. Complete heart block: She is now capturing well in the ventricle after placement of a stiffer 5-Ecu[place] transvenous temporary pacemaker. She did develop some nausea while not pacing adequately and is currently now asymptomatic. She also complained of intermittent shortness of breath. Now that she is asymptomatic, she will await permanent pacemaker placement. Electrophysiology has been notified so that they can place the pacemaker when available. Recommend that she remain at rest in bed, so as not to dislodge the current pacemaker. 2. Elevated troponins: They are not diagnostic of myocardial infarction. She has not presented with acute coronary syndrome or any other anginal symptoms. They are only very slightly elevated and may be due to demand ischemia from port perfusion when she was significantly bradycardic. 3. Hypervolemia: She appeared slightly hypervolemic yesterday. She was given some Lasix. Her BUN and creatinine are elevated today somewhat. From a volume standpoint, she appears reasonable at this time. She did receive some IV fluids from the critical care team earlier today. Would continue to monitor. 4. Hypertension: Blood pressure is normal now. She was transiently hypotensive overnight according to nursing staff and the charted vital signs. This was apparently when she was not capturing well. Would recommend manual blood pressure cuff if she has intermittent issues with noncapture to get a better blood pressure reading. Would not adjust antihypertensive regimen at this point. 5. Disposition: Cardiology will continue to follow. Electrophysiology will assume her cardiology care tomorrow when they are available. The patient's care has been discussed with the critical care team, Dr. Vann and also Dr. Gusman. Data Medications: Current Inpatient Medications Medications (Trade) Dose Ordered Sig/Linda Route Start Time Stop Time Status Last Admin Dose Admin Acetaminophen (Tylenol Tab) 650 mg Q4H PRN PO 03/30/17 18:15 04/29/17 18:14 03/31/17 22:13 650 MG Nitroglycerin (Nitrostat Tab) 0.4 mg UD PRN SL 03/30/17 18:15 04/29/17 18:14 Insulin Aspart (novoLOG ASPART) SLIDING SCALE If C... ACHS SC 03/30/17 18:30 04/29/17 18:29 03/31/17 17:35 4 UNITS Glucose (Glucose 40% Gel) 15-30 GRAMS 15 GRAMS... UD PRN PO 03/30/17 18:15 04/29/17 18:14 Glucose (Glucose Chew Tab) 4-8 Tablets 4 Tabl... UD PRN PO 03/30/17 18:15 04/29/17 18:14 Dextrose (Dextrose 50% 50ML Syringe) 25-50ML OF 50% DW IV FOR... UD PRN IV 03/30/17 18:15 04/29/17 18:14 Glucagon (Glucagon Inj) 1 mg UD PRN SQ 03/30/17 18:15 04/29/17 18:14 Atorvastatin Calcium (Lipitor Tab) 20 mg QPM PO 03/30/17 21:00 04/29/17 20:59 03/31/17 20:28 20 MG Docusate Sodium (coLACE CAP) 100 mg BID PO 03/30/17 21:00 04/29/17 20:59 04/01/17 09:28 100 MG Gabapentin (Neurontin Cap) 100 mg BID PO 03/30/17 21:00 04/29/17 20:59 04/01/17 09:28 100 MG Losartan Potassium (coZAAR TAB) 50 mg QAM PO 03/31/17 09:00 04/30/17 08:59 04/01/17 09:28 50 MG Multivitamins (Multivitamin Tab) 1 tab QAM PO 03/31/17 09:00 04/30/17 08:59 04/01/17 09:28 1 TAB Heparin Sodium (Porcine) (Heparin Sq 5000 Unit/0.5ml) 5,000 unit Q8 SQ 03/30/17 22:00 04/29/17 21:59 04/01/17 09:30 5,000 UNIT I & O: 24-Hour Column 04/01/17 07:59 Intake Total 1385 ml Output Total 1400 ml Balance -15 ml Vital Signs: Date Time Temp Pulse Resp B/P Pulse Ox O2 Delivery O2 Flow Rate FiO2 04/01/17 09:01 94 Nasal Cannula 3.0 04/01/17 08:45 80 16 136/94 96 Nasal Cannula 4 04/01/17 06:18 89 30 98 04/01/17 06:17 30 12 98 04/01/17 06:16 33 10 97 04/01/17 06:15 53 8 99 04/01/17 06:14 70 25 99 04/01/17 06:13 62 22 161/71 89 04/01/17 06:12 27 11 97 04/01/17 06:11 61 22 97 04/01/17 06:10 69 16 98 04/01/17 06:09 70 21 97 04/01/17 06:08 70 22 97 04/01/17 06:07 70 23 97 04/01/17 06:06 70 23 97 04/01/17 06:05 70 24 97 04/01/17 06:04 70 24 96 04/01/17 06:03 70 27 97 04/01/17 06:02 69 14 97 04/01/17 06:01 70 29 134/98 04/01/17 06:00 70 18 97 04/01/17 05:02 70 25 158/101 98 04/01/17 04:39 70 21 98 04/01/17 04:38 70 20 98 04/01/17 04:37 70 26 98 04/01/17 04:36 70 23 99 04/01/17 04:35 70 24 98 04/01/17 04:34 70 27 98 04/01/17 04:33 70 21 99 04/01/17 04:32 70 20 98 04/01/17 04:31 71 19 155/86 98 04/01/17 04:31 71 19 155/86 98 04/01/17 04:30 72 21 88 04/01/17 04:29 71 24 97 04/01/17 04:28 71 26 99 04/01/17 04:27 72 20 97 04/01/17 04:26 69 23 97 04/01/17 04:25 61 19 92 04/01/17 04:24 53 24 95 04/01/17 04:23 49 19 96 04/01/17 04:22 43 14 95 04/01/17 04:21 30 19 95 04/01/17 04:20 56 25 95 04/01/17 04:19 44 15 95 04/01/17 04:18 56 37 95 04/01/17 04:17 60 14 97 04/01/17 04:16 59 14 96 04/01/17 04:15 52 19 99 04/01/17 04:14 61 18 139/91 94 04/01/17 04:13 47 14 93 04/01/17 04:12 48 15 97 04/01/17 04:11 67 18 95 04/01/17 04:10 55 26 96 04/01/17 04:09 60 22 96 04/01/17 04:08 70 15 97 04/01/17 04:07 61 15 97 04/01/17 04:06 70 20 98 04/01/17 04:05 70 22 98 04/01/17 04:04 70 23 97 04/01/17 04:03 70 23 97 04/01/17 04:02 70 23 98 04/01/17 04:01 69 25 131/85 04/01/17 04:01 36.5 69 25 131/85 04/01/17 04:00 70 22 97 04/01/17 04:00 96 Nasal Cannula 3.0 04/01/17 03:01 71 25 130/86 96 04/01/17 02:10 70 24 111/68 97 04/01/17 02:02 56 23 85/51 96 04/01/17 02:00 64 23 11/68 97 Nasal Cannula 3.0 04/01/17 01:44 54 21 97 04/01/17 01:43 61 23 96 04/01/17 01:42 60 26 96 04/01/17 01:41 58 21 95 04/01/17 01:40 59 20 96 04/01/17 01:39 63 23 97 04/01/17 01:38 60 21 96 04/01/17 01:37 59 21 97 04/01/17 01:36 59 19 96 04/01/17 01:35 65 23 96 04/01/17 01:34 56 19 97 04/01/17 01:33 52 20 96 04/01/17 01:30 70 23 98 04/01/17 00:01 36.9 70 24 130/74 96 04/01/17 00:00 96 Nasal Cannula 3.0 03/31/17 22:00 70 19 140/99 97 03/31/17 20:00 36.9 70 22 107/67 97 03/31/17 20:00 96 Nasal Cannula 3.0 03/31/17 18:02 70 15 122/90 95 03/31/17 18:00 70 22 96 03/31/17 17:01 71 26 110/86 03/31/17 17:00 70 29 97 03/31/17 16:10 96 Nasal Cannula 3.0 03/31/17 16:01 36.8 70 20 114/70 96 Nasal Cannula 3.0 03/31/17 15:02 70 26 97/60 97 03/31/17 15:01 70 25 96 03/31/17 14:01 70 27 121/66 96 03/31/17 13:01 70 22 124/70 98 Nasal Cannula 3.0 03/31/17 13:00 70 24 98 03/31/17 12:03 70 26 119/77 97 03/31/17 12:00 70 24 98 03/31/17 11:30 97 Nasal Cannula 3.0 Laboratory Results: Last 24 Hours Test 03/31/17 11:43 03/31/17 16:07 03/31/17 20:26 04/01/17 02:18 Bedside Glucose 190 mg/dl 125 mg/dl 133 mg/dl 182 mg/dl Test 04/01/17 05:24 White Blood Count 6.00 K/uL Red Blood Count 4.66 M/uL Hemoglobin 13.8 g/dL Hematocrit 42.8 % Mean Corpuscular Volume 91.8 fL Mean Corpuscular Hemoglobin 29.6 pg Mean Corpuscular Hemoglobin Concent 32.2 g/dl Platelet Count 192 K/uL Mean Platelet Volume 10.9 fL Neutrophils (%) (Auto) 59.1 % Lymphocytes (%) (Auto) 25.0 % Monocytes (%) (Auto) 9.3 % Eosinophils (%) (Auto) 6.2 % Basophils (%) (Auto) 0.2 % Neutrophils # (Auto) 3.55 K/uL Lymphocytes # (Auto) 1.50 K/uL Monocytes # (Auto) 0.56 K/uL Eosinophils # (Auto) 0.37 K/uL Basophils # (Auto) 0.01 K/uL RDW Standard Deviation 49.6 fL RDW Coefficient of Variation 14.8 % Immature Granulocyte % (Auto) 0.2 % Immature Granulocyte # (Auto) 0.01 K/uL Sodium Level 142 mmol/L Potassium Level 4.7 mmol/L Chloride Level 104 mmol/L Carbon Dioxide Level 33 mmol/L Anion Gap 5.0 mmol/L Blood Urea Nitrogen 27 mg/dl Creatinine 1.40 mg/dl Est Creatinine Clear Calc Drug Dose 30.2 ml/min Estimated GFR () 40.7 Estimated GFR (Non- 35.1 BUN/Creatinine Ratio 19.1 Random Glucose 188 mg/dl Calcium Level 8.8 mg/dl Phosphorus Level 3.8 mg/dl Magnesium Level 1.8 mg/dl Troponin I 0.051 ng/ml
--- NOTE | 2017-04-01 13:01 | ECHOCARDIOGRAM REPORT ---
*NOTICE TO RECEIVING REPUBLICAN AGENCY This information is strictly Confidential and protected under [place] law. [place] law prohibits you from making any further disclosure of this information unless further disclosure is expressly permitted by the written consent of the person to whom it pertains or is authorized by law. A general authorization for the release of medical or other information is not sufficient for this purpose. Hospital accepts no responsibility if the information is made available to any other person, INCLUDING THE PATIENT. Interpretation Summary * Name: GENET RAZO Study Date: 03/31/2017 06:31 AM BP: 100/68 mmHg * Patient Location: .MSICU\S\E103\S\1 HR: 80 * : 1935 (M/d/yyy) Gender: Female Height: 62 in * Age: 81 yrs Ethnicity: [place] Weight: 176 lb * Ordering Physician: Cisco Rayo MD * Performed By: Ramya Gomez * * Reason For Study: COMPLETE HEART BLOCK * BSA: 1.8 m2 * -- Conclusions -- * 1. Normal left ventricular size with low-normal systolic function. Estimated EF 50-55%. Septal motion consistent with pacemaker. Cannot exclude other wall motion abnormalities. Mild concentric left ventricular hypertrophy. * 2. The right ventricle is normal size. The right ventricular systolic function is mildly reduced. * 3. The left atrium is moderately dilated. * 4. No significant valvular abnormalities visualized. * 5. Normal estimated right ventricular systolic pressure; RVSP 22 mmHg. * 6. Tissue Doppler suggests elevated left atrial pressure. * 7. Technically difficult study, enhanced with IV Definity. * 8. No prior study available for comparison. Procedure Details * A complete two-dimensional transthoracic echocardiogram was performed (2D, M-mode, Doppler and color flow Doppler). * The study was technically difficult. * There were technical limitations due to patient'sinability to cooperate * A contrast injection of Definity was performed to improve assessment of LV function. * Contrast was injected into an intravenous site in the right arm. * One vial of Definity ultrasound contrast was diluted in normal saline to a total volume of 10 ml. A total of '4' ml of solution was administered during imaging. * Lot # [id number] of Definity utilized for procedure. * Expiration date 04/21. Left Ventricle * Normal left ventricular size with low-normal systolic function. Estimated EF 50-55%. Septal motion consistent with pacemaker. Cannot exclude other wall motion abnormalities. Mild concentric left ventricular hypertrophy. * Ejection Fraction = 45-50%. Right Ventricle * There is a pacemaker lead in the right ventricle. * The right ventricle is normal size. * The right ventricular systolic function is reduced as assessed by tricuspid annular plane systolic excursion (TAPSE) (TAPSE <1.6 cm). * The right ventricular systolic function is mildly reduced. Atria * The left atrium is moderately dilated. * Right atrial size is normal. * There is no evidence of atrial septal defect, but resolution does not allow assessment for a patent foramen ovale. Mitral Valve * The mitral valve is grossly normal. * There is no mitral valve stenosis. * Significant mitral regurgitation is absent. Tricuspid Valve * The tricuspid valve is not well visualized, but is grossly normal. * There is no tricuspid stenosis. * Significant tricuspid regurgitation is absent. Aortic Valve * The aortic valve is trileaflet. * No hemodynamically significant valvular aortic stenosis. * No aortic regurgitation is present. Pulmonic Valve * The pulmonary valve is inadequately visualized, but the Doppler data is adequate for interpretation. * There is no pulmonic valvular stenosis. * There is no significant pulmonary regurgitation. Great Vessels * The aortic root is normal size. Pericardium/Pleural * There is no pericardial effusion. Great Vessels * Normal inferior vena cava size and collapsability with sniff indicates a normal right atrial pressure of 3 mmHg MMode 2D Measurements and Calculations IVSd 1.3 cm IVSs 2.0 cm LVIDd 4.3 cm LVIDs 3.2 cm LVPWd 1.2 cm LVPWs 1.3 cm IVS/LVPW 1.1 FS 24.4 % EDV(Teich) 81.0 ml ESV(Teich) 41.4 ml EF(Teich) 48.8 % EDV(cubed) 77.0 ml ESV(cubed) 33.2 ml EF(cubed) 56.8 % % IVS thick 48.5 % % LVPW thick 4.1 % LV mass(C)d 198.5 grams LV mass(C)dI 109.6 grams/m\S\2 LV mass(C)s 197.4 grams LV mass(C)sI 109.0 grams/m\S\2 SV(Teich) 39.6 ml SI(Teich) 21.8 ml/m\S\2 SV(cubed) 43.8 ml SI(cubed) 24.2 ml/m\S\2 Ao root diam 3.0 cm Ao root area 6.9 cm\S\2 ACS 1.3 cm asc Aorta Diam 3.4 cm LVOT diam 1.9 cm LVOT area 2.9 cm\S\2 LVAd ap4 30.2 cm\S\2 LVLd ap4 7.4 cm EDV(MOD-sp4) 99.4 ml EDV(sp4-el) 103.8 ml LVAs ap4 20.0 cm\S\2 LVLs ap4 6.7 cm ESV(MOD-sp4) 50.2 ml ESV(sp4-el) 50.8 ml EF(MOD-sp4) 49.5 % EF(sp4-el) 51.1 % LVAd ap2 22.8 cm\S\2 LVLd ap2 6.6 cm EDV(MOD-sp2) 64.4 ml EDV(sp2-el) 66.5 ml LVAs ap2 14.0 cm\S\2 LVLs ap2 6.0 cm ESV(MOD-sp2) 27.3 ml ESV(sp2-el) 27.8 ml EF(MOD-sp2) 57.7 % EF(sp2-el) 58.1 % LVLd %diff -12.09 % EDV(MOD-bp) 85.3 ml LVLs %diff -11.40 % ESV(MOD-bp) 39.7 ml EF(MOD-bp) 53.5 % SV(MOD-sp4) 49.2 ml SI(MOD-sp4) 27.2 ml/m\S\2 SV(MOD-sp2) 37.2 ml SI(MOD-sp2) 20.5 ml/m\S\2 SV(MOD-bp) 45.6 ml SI(MOD-bp) 25.2 ml/m\S\2 SV(sp4-el) 53.1 ml SI(sp4-el) 29.3 ml/m\S\2 SV(sp2-el) 38.7 ml SI(sp2-el) 21.3 ml/m\S\2 Doppler Measurements and Calculations MV E max maurilio 69.6 cm/sec MV dec time 0.21 sec Ao V2 max 110.7 cm/sec Ao max PG 4.9 mmHg Ao max PG (full) 0.78 mmHg JOSH(V,A) 2.7 cm\S\2 JOSH(V,D) 2.7 cm\S\2 LV V1 max PG 4.1 mmHg LV V1 max 101.4 cm/sec PA V2 max 88.4 cm/sec PA max PG 3.1 mmHg TR max maurilio 216.2 cm/sec RVSP(TR) 21.7 mmHg RAP systole 3.0 mmHg
--- NOTE | 2017-04-01 15:06 | DIAGNOSTIC IMAGING REPORT ---
CHEST ONE VIEW PORTABLE CLINICAL HISTORY: Pacemaker changed and is coughing ? pneumothorax. COMPARISON STUDY: Chest radiograph April 01, 2017 at 7:56 AM. FINDINGS: A right internal jugular catheter remains in place. The tip is difficult to visualize but likely projects over the proximal aspect of the right ventricle. There is no pneumothorax. There is a trace right pleural effusion. There is pleural vascular congestion without overt pulmonary edema. Cardiomegaly is unchanged. Mediastinal widening is unchanged and accentuated by patient rotation. IMPRESSION: 1. Tip of right internal jugular catheter likely projects over the proximal right ventricle. 2. No pneumothorax. 3. Small bilateral pleural effusions and pulmonary vascular congestion. Electronically signed by: Abram Peck M.D. 04/01/2017 3:04 PM Dictated Date/Time: 04/01/2017 2:55 PM
--- NOTE | 2017-04-01 15:09 | DIAGNOSTIC IMAGING REPORT ---
LOAN CLINICAL HISTORY: Intractable vomiting. Large abdominal hernia. COMPARISON STUDY: KUB July 09, 2008. FINDINGS: There is no evidence for a bowel obstruction. There is a moderate to large amount stool within the colon and rectum. Gas-filled loops of bowel projecting over the pelvis may be within the hernia. IMPRESSION: 1. No evidence for a bowel obstruction. 2. Moderate to large amount stool within the colon and rectum. Electronically signed by: Abram Peck M.D. 04/01/2017 3:07 PM Dictated Date/Time: 04/01/2017 3:06 PM
--- NOTE | 2017-04-01 15:28 | Progress Note ---
Subjective Date of Service: April 01, 2017. Subjective heart alert called this am and pt taken to cardiac lab[facility] to replace temp pacemaker, earlier in the night the pacemaker lead did move. The pt herself is without chest pain, she has complaints of shortness of breath which resolved with removal of NRB mask, did have central line site moved at night, emergent CXR this am without pathology. Problem List Medical Problems: (1) Hypoglycemia Status: Acute (2) Third degree heart block Status: Acute (3) Weakness Status: Acute Review of Systems Constitutional: + weakness, No chills, No fever Respiratory: + shortness of breath, No cough, No sputum Cardiac: No PND, No chest pain, No edema Abdomen: No diarrhea, No nausea, No pain, No vomiting Musculoskeletal: No joint pain, No muscle pain, No swelling Neurologic: + memory loss, + problem reported (extreme hard of hearing) Objective Vital Signs Date Time Temp Pulse Resp B/P Pulse Ox O2 Delivery O2 Flow Rate FiO2 04/01/17 12:15 95 Nasal Cannula 3.0 04/01/17 11:03 36.8 79 14 132/74 93 Nasal Cannula 3.0 04/01/17 11:00 81 21 93 04/01/17 10:06 80 20 150/76 93 04/01/17 10:02 82 15 135/104 83 04/01/17 10:00 82 26 95 04/01/17 09:10 80 21 150/116 92 04/01/17 09:06 78 20 152/106 95 04/01/17 09:05 36.7 81 23 143/112 97 Nasal Cannula 3.0 04/01/17 09:01 94 Nasal Cannula 3.0 04/01/17 08:45 80 16 136/94 96 Nasal Cannula 4 04/01/17 07:02 31 11 148/89 99 04/01/17 07:00 35 11 99 04/01/17 06:18 89 30 98 04/01/17 06:17 30 12 98 04/01/17 06:16 33 10 97 04/01/17 06:15 53 8 99 04/01/17 06:14 70 25 99 04/01/17 06:13 62 22 161/71 89 04/01/17 06:12 27 11 97 04/01/17 06:11 61 22 97 04/01/17 06:10 69 16 98 04/01/17 06:09 70 21 97 04/01/17 06:08 70 22 97 04/01/17 06:07 70 23 97 04/01/17 06:06 70 23 97 04/01/17 06:05 70 24 97 04/01/17 06:04 70 24 96 04/01/17 06:03 70 27 97 04/01/17 06:02 69 14 97 04/01/17 06:01 70 29 134/98 04/01/17 06:00 70 18 97 04/01/17 05:02 70 25 158/101 98 04/01/17 04:39 70 21 98 04/01/17 04:38 70 20 98 04/01/17 04:37 70 26 98 04/01/17 04:36 70 23 99 04/01/17 04:35 70 24 98 04/01/17 04:34 70 27 98 04/01/17 04:33 70 21 99 04/01/17 04:32 70 20 98 04/01/17 04:31 71 19 155/86 98 04/01/17 04:31 71 19 155/86 98 04/01/17 04:30 72 21 88 04/01/17 04:29 71 24 97 04/01/17 04:28 71 26 99 04/01/17 04:27 72 20 97 04/01/17 04:26 69 23 97 04/01/17 04:25 61 19 92 04/01/17 04:24 53 24 95 04/01/17 04:23 49 19 96 04/01/17 04:22 43 14 95 04/01/17 04:21 30 19 95 04/01/17 04:20 56 25 95 04/01/17 04:19 44 15 95 04/01/17 04:18 56 37 95 04/01/17 04:17 60 14 97 04/01/17 04:16 59 14 96 04/01/17 04:15 52 19 99 04/01/17 04:14 61 18 139/91 94 04/01/17 04:13 47 14 93 04/01/17 04:12 48 15 97 04/01/17 04:11 67 18 95 04/01/17 04:10 55 26 96 04/01/17 04:09 60 22 96 04/01/17 04:08 70 15 97 04/01/17 04:07 61 15 97 04/01/17 04:06 70 20 98 04/01/17 04:05 70 22 98 04/01/17 04:04 70 23 97 04/01/17 04:03 70 23 97 04/01/17 04:02 70 23 98 04/01/17 04:01 69 25 131/85 04/01/17 04:01 36.5 69 25 131/85 04/01/17 04:00 70 22 97 04/01/17 04:00 96 Nasal Cannula 3.0 04/01/17 03:01 71 25 130/86 96 04/01/17 02:10 70 24 111/68 97 04/01/17 02:02 56 23 85/51 96 04/01/17 02:00 64 23 97 Nasal Cannula 3.0 04/01/17 01:44 54 21 97 04/01/17 01:43 61 23 96 04/01/17 01:42 60 26 96 04/01/17 01:41 58 21 95 04/01/17 01:40 59 20 96 04/01/17 01:39 63 23 97 04/01/17 01:38 60 21 96 04/01/17 01:37 59 21 97 04/01/17 01:36 59 19 96 04/01/17 01:35 65 23 96 04/01/17 01:34 56 19 97 04/01/17 01:33 52 20 96 04/01/17 01:30 70 23 98 04/01/17 00:01 36.9 70 24 130/74 96 04/01/17 00:00 96 Nasal Cannula 3.0 03/31/17 22:00 70 19 140/99 97 03/31/17 20:00 36.9 70 22 107/67 97 03/31/17 20:00 96 Nasal Cannula 3.0 03/31/17 18:02 70 15 122/90 95 03/31/17 18:00 70 22 96 03/31/17 17:01 71 26 110/86 03/31/17 17:00 70 29 97 03/31/17 16:10 96 Nasal Cannula 3.0 03/31/17 16:01 36.8 70 20 114/70 96 Nasal Cannula 3.0 Physical Exam General Appearance: WD/WN, + mild distress Eyes: PERRL, EOMI Neck: supple, no JVD Respiratory/Chest: chest non-tender, lungs clear, normal breath sounds Cardiovascular: + bradycardia, + systolic murmur Abdomen: normal bowel sounds, non tender, soft Extremities: no pedal edema, no calf tenderness Laboratory Results Last 24 Hours Test 03/31/17 16:07 03/31/17 20:26 04/01/17 02:18 04/01/17 05:24 Bedside Glucose 125 mg/dl 133 mg/dl 182 mg/dl White Blood Count 6.00 K/uL Red Blood Count 4.66 M/uL Hemoglobin 13.8 g/dL Hematocrit 42.8 % Mean Corpuscular Volume 91.8 fL Mean Corpuscular Hemoglobin 29.6 pg Mean Corpuscular Hemoglobin Concent 32.2 g/dl Platelet Count 192 K/uL Mean Platelet Volume 10.9 fL Neutrophils (%) (Auto) 59.1 % Lymphocytes (%) (Auto) 25.0 % Monocytes (%) (Auto) 9.3 % Eosinophils (%) (Auto) 6.2 % Basophils (%) (Auto) 0.2 % Neutrophils # (Auto) 3.55 K/uL Lymphocytes # (Auto) 1.50 K/uL Monocytes # (Auto) 0.56 K/uL Eosinophils # (Auto) 0.37 K/uL Basophils # (Auto) 0.01 K/uL RDW Standard Deviation 49.6 fL RDW Coefficient of Variation 14.8 % Immature Granulocyte % (Auto) 0.2 % Immature Granulocyte # (Auto) 0.01 K/uL Sodium Level 142 mmol/L Potassium Level 4.7 mmol/L Chloride Level 104 mmol/L Carbon Dioxide Level 33 mmol/L Anion Gap 5.0 mmol/L Blood Urea Nitrogen 27 mg/dl Creatinine 1.40 mg/dl Est Creatinine Clear Calc Drug Dose 30.2 ml/min Estimated GFR () 40.7 Estimated GFR (Non- 35.1 BUN/Creatinine Ratio 19.1 Random Glucose 188 mg/dl Calcium Level 8.8 mg/dl Phosphorus Level 3.8 mg/dl Magnesium Level 1.8 mg/dl Troponin I 0.051 ng/ml Test 04/01/17 11:49 04/01/17 14:25 Bedside Glucose 239 mg/dl Assessment and Plan 81F with 3rd degree heart block and elevated troponin 3rd degree AV block s/p transvenous pacer with requirement for replacement plan for permanent pacemaker by EP. acute/chronic diastolic CHF - lasix x 1, elevated troponin felt not to be acs but likely supply demand. T2DM -Hold oral agents, ssi h/o DVT - heparin SC for DVT proph. CKD stage 3 - remains stable follow with bradycardia Continued [facility] stay due to: multiple IV medications needed, other (pacemaker placement) Discharge planning: uncertain
[2017-04-01] MEDS: ATORVASTATIN 20 MG TAB PO SCH (20:08)
[2017-04-01] MEDS: ACETAMINOPHEN 325 MG TAB PO PRN (21:49)
[2017-04-02] VITALS (55 sets, daily range): BP systolic 70–151; BP diastolic 45–93; PULSE 60–80; TEMP 36.7; O2SAT 90–99
[2017-04-02] MEDS: HEPARIN SOD 5000 UNIT/0.5 ML CARP SQ SCH (05:37)
[2017-04-02] MEDS: INSULIN ASPART 100 UNITS/ML 3 ML PEN SC SCH ×4 (05:38→22:19)
[2017-04-02 06:01] LABS: BASO % 0.1 %; BASO ABS # 0.01 K/uL (0-0.2); COMPLETE YES; EOS % 6.9 %; HEMATOCRIT 43.1 % (37-47); IG% 0.3 %; LYMPH % 17.7 %; LYMPH ABS # 1.36 K/uL (1.2-3.4); MEAN CELL VOLUME 92.9 fL (80-100); MEAN CORPUSCULAR HEMOGLOBIN 28.7 pg (25-34); MEAN CORPUSCULAR HGB CONC 30.9 g/dl (32-36); MONO % 11.4 %; NEUT % 63.6 %; PLATELET COUNT 199 K/uL (130-400); RED BLOOD COUNT 4.64 M/uL (4.2-5.4)
[2017-04-02 06:42] LABS: BUN/CREATININE RATIO 27.6 (10-20); CALCIUM 8.6 mg/dl (8.5-10.1); CREATININE 1.2 mg/dl (0.60-1.20); MAGNESIUM 1.9 mg/dl (1.8-2.4); PHOSPHORUS 3.3 mg/dl (2.5-4.9); POTASSIUM 4.9 mmol/L (3.5-5.1)
--- NOTE | 2017-04-02 07:07 | OPERATIVE REPORT ---
DATE OF OPERATION: 03/30/2017 INDICATIONS: The patient is a pleasant 81-year-old woman who presented to the hospital with poor responsiveness and near syncope and was found to be extremely bradycardic with high grade heart block and a poor to absent escape rhythm. She was, however, awake and alert, although extremely hard of hearing. She had a stable blood pressure of 100 mmHg systolic and higher. As best as we can ascertain, she is not on any medications that would cause her bradycardia or heart block. She was seen by cardiology in consultation. I was consulted for the placement of a temporary transvenous pacemaker. DESCRIPTION OF PROCEDURE: The patient was brought to the cardiac catheterization laboratory. Utilizing fluoroscopic guidance, we successfully placed a temporary pacing wire into the right ventricle. The approach was the right subclavian vein. Using a sterile Seldinger technique, the right subclavian vein was successfully cannulated with a 6-Uzbek sheath. Then under fluoroscopic guidance, a 5 Uzbek balloon tip pacing wire was advanced into the RV and as best we can tell positioned in the RV apex. The patient's cardiac silhouette is rotated and therefore image interpretation and wire location was challenging. We did, however, confirm optimal pacing thresholds, capture established with less than 1 milliamp current. The introducer sheath was then sutured in place. The pacing wire was sutured as well at its entry to the venous sheath. The entire site was then sterilely dressed. The temporary pacemaker is now programmed at VOO 80 beats per minute with 5 milliamperes. Please note the patient's blood pressure was stable throughout the procedure. Moderate conscious sedation was not administered with this procedure. There was a minimal procedure related blood loss, less than 5 mL. There were no specimens collected. There were no complications. Successful placement of a temporary transvenous pacemaker via the right subclavian vein with the pacemaker were now programmed at 80 beats per minute, pacing mode VOO, 5 milliamperes. Electrophysiology will be consulted for likely need of a permanent pacemaker. I attest to the content of the Intraoperative Record and any orders documented therein. Any exceptio ns are noted below.
--- NOTE | 2017-04-02 08:55 | Cardiology Follow-Up ---
Subjective Date of Service: April 02, 2017. Pt evaluation today including: conversation w/ patient, conversation w/ family , physical exam, lab review, review of studies, review of inpatient medication list History of Present Illness This is a very pleasant 81-year-old woman with a history of diabetes, hypertension and prior left bundle branch block. She was evidently found with mental status changes and some degree of unresponsiveness, and she was identified as having complete heart block with a slow escape rhythm. There appeared to be no readily reversible cause for her heart block and a temporary pacemaker was urgently placed. Evidently capture was poor at the right ventricular apex and the temporary pacemaker lost capture, necessitating repositioning. There is no evidence that she was on AV malaika blocking medications prior to admission but she is not certain about her medications but in any case has been on none here (she is now day 3 of admission) and her Lyme test was negative. This therefore appears to be progression of left bundle branch block to complete heart block. Today she feels well, she has no discomfort at the pacemaker site, no chest discomfort and no complaints. It is difficult to communicate with her due to extreme hardness of hearing, she can hear somewhat in her left ear. Her son is also present to help. Social History Smoking Status: Never Smoker History of Alcohol Use: No Review of Systems Respiratory: No cough, No shortness of breath, No sputum Cardiac: + see HPI, No PND, No chest pain, No edema Medications Cardiovascular: Item Value Date Time Losartan Potassium 50 mg 03/31/17 0900 (coZAAR TAB) QAM/PO 04/01/17 0928 Heparin Sodium 5,000 unit 03/30/17 2200 (Porcine) Q8/SQ 04/02/17 0537 (Heparin Sq 5000 Unit/0.5ml) Atorvastatin 20 mg 03/30/17 2100 Calcium QPM/PO 04/01/172007 (Lipitor Tab) Objective Vital Signs Past 12 Hours Date Time Temp Pulse Resp B/P Pulse Ox O2 Delivery O2 Flow Rate FiO2 04/02/17 06:00 80 25 117/79 90 Room Air 04/02/17 04:00 98 Nasal Cannula 3.0 04/02/17 04:00 80 23 105/78 96 Nasal Cannula 3.0 04/02/17 02:01 80 25 97/58 95 04/02/17 00:02 36.7 80 26 105/61 96 Nasal Cannula 3.0 04/01/17 23:59 98 Nasal Cannula 3.0 04/01/17 22:01 80 19 114/64 95 Nasal Cannula 3.0 Last Recorded Weight-Kilograms: 74.000 Intake & Output 8-Hour Column 04/01/17 04/01/17 04/02/17 15:59 23:59 07:59 Intake Total 607 ml 640 ml 230 ml Output Total 350 ml 450 ml 250 ml Balance 257 ml 190 ml -20 ml 24-Hour Column 04/02/17 07:59 Intake Total 1477 ml Output Total 1050 ml Balance 427 ml Physical Exam Constitutional: Level of Distress: NAD Lungs: Auscultation: breath sounds normal Cardiovascular: Heart Auscultation: RRR, no rubs Extremities: no edema Data Laboratory Results: Last 24 Hours Test 04/01/17 11:49 04/01/17 15:53 04/01/17 16:23 04/01/17 20:11 Bedside Glucose 239 mg/dl 124 mg/dl 146 mg/dl Troponin I 0.106 ng/ml Test 04/02/17 05:29 04/02/17 05:30 Bedside Glucose 122 mg/dl White Blood Count 7.70 K/uL Red Blood Count 4.64 M/uL Hemoglobin 13.3 g/dL Hematocrit 43.1 % Mean Corpuscular Volume 92.9 fL Mean Corpuscular Hemoglobin 28.7 pg Mean Corpuscular Hemoglobin Concent 30.9 g/dl Platelet Count 199 K/uL Mean Platelet Volume 11.0 fL Neutrophils (%) (Auto) 63.6 % Lymphocytes (%) (Auto) 17.7 % Monocytes (%) (Auto) 11.4 % Eosinophils (%) (Auto) 6.9 % Basophils (%) (Auto) 0.1 % Neutrophils # (Auto) 4.90 K/uL Lymphocytes # (Auto) 1.36 K/uL Monocytes # (Auto) 0.88 K/uL Eosinophils # (Auto) 0.53 K/uL Basophils # (Auto) 0.01 K/uL RDW Standard Deviation 49.5 fL RDW Coefficient of Variation 14.5 % Immature Granulocyte % (Auto) 0.3 % Immature Granulocyte # (Auto) 0.02 K/uL Sodium Level 145 mmol/L Potassium Level 4.9 mmol/L Chloride Level 109 mmol/L Carbon Dioxide Level 33 mmol/L Anion Gap 3.0 mmol/L Blood Urea Nitrogen 33 mg/dl Creatinine 1.20 mg/dl Est Creatinine Clear Calc Drug Dose 35.2 ml/min Estimated GFR () 49.1 Estimated GFR (Non- 42.4 BUN/Creatinine Ratio 27.6 Random Glucose 138 mg/dl Calcium Level 8.6 mg/dl Phosphorus Level 3.3 mg/dl Magnesium Level 1.9 mg/dl Telemetry reviewed: Pacemaker functioning normally, set at 80 bpm Temp or a pacemaker: When turning the rate of temporary pacemaker down to 40 bpm she was pacing at that rate consistent with complete heart block remaining Assessment and Plan #1. Complete heart block: She remains in complete heart block, there is no evidence of a reversible cause. This probably represents progression of conduction system disease. Her temporary pacemaker is working and she remains dependent on it. She will need a permanent pacemaker. I did discussed the indications, procedure, risks and alternatives of pacemaker implantation with her and her son. Although she is hard of hearing speaking loudly in her left ear allows her to understand and she seems to comprehend. We'll plan on pacemaker implantation secondary. She did sign consent for the procedure. #2. Temporary pacemaker: Her temporary pacemaker continues to work well and will remain in place, we will remove that at the time of the terminal pacemaker implantation. Thank you for allowing me to participate in her care.
[2017-04-02] MEDS ORDERED: LACTATED RINGER'S 1000ML 1,000 ML IV ONE (08:56)
[2017-04-02] MEDS: LOSARTAN POTASSIUM 50 MG TAB PO SCH ×2 (09:00→09:07)
[2017-04-02] MEDS: DOCUSATE SODIUM 100 MG CAP PO SCH ×2 (09:07→19:45)
[2017-04-02] MEDS: MULTIVITAMIN TAB PO SCH (09:07)
[2017-04-02] MEDS: GABAPENTIN 100 MG CAP PO SCH ×2 (09:07→19:45)
[2017-04-02] MEDS ORDERED: NURSING VERBAL MED ORDER ONE (09:15)
--- NOTE | 2017-04-02 09:30 | Critical Care Progress Note ---
Critical Care Progress Note Date of Service April 02, 2017. Attending Dr. Edwar Lloyd The patient was admitted 03/30 with 3rd degree heart block. She received a temporary pacemaker (VVI) via R SC route and then failed to capture early on so ultimately that was changed to R IJ pacer in the cathlab and she briefly developped intractable cough. The cough subsided with decreasing the current to 3 mAmp with good capture and she is ready to go to permanent pacemaker this pm. by Dr Salcedo. She will get 1 gm ancef preop. Overnight there were no events and she has no complaints son Ed is at bedside. Objective General Appearance: no acute distress Head: normocephalic, atraumatic Eyes: PERRLA, EOMI ENT: normal nasal exam, normal mouth exam Neck: no tenderness, no stridor, supple, right IJ pacer wires Respiratory: breath sounds normal, clear to auscultation, Cardiovasular: regular rate/rhythm, normal S1S2, no murmur, no JVD, other ( Transvenous pacemaker in situ with right IJ approach) Abdomen: non tender, normal bowel sounds, no rebound, she has an oblique scar of prior surgery and a large ventral hernia. Back: normal inspection, no CVA tenderness Extremities: no edema no cyanosis no clubbing Neuro: alert, oriented x 3 Psychiatric: normal affect Current SOFA Score SOFA Score Response (Comments) Value PaO2/FiO2 (mmHg) < 400 1 Platelets (x10) > 150 0 Bilirubin (mg/dL) 1.2 - 1.9 1 Shabbir Coma Score 15 0 Level of Hypotension No Hypotension 0 Creatinine (mg/dL) 1.2 - 1.9 1 Total 3 Previous SOFA Scores 2 Assessment & Plan A/P (1) Third degree heart block of unclear etiology but given DM, HT and hyperlipidemia underlying CAD may be the culprit. (2) History of temporary cardiac pacemaker treatment (3) Hypertension (4) Hyperlipidemia (5) Type 2 diabetes mellitus NEUROLOGICAL - Continue home dose of Gabapentin CARDIOVASCULAR MAP maintained > 60 NTG to continue. 3rd Degree AV Block - Temporary transvenous pacemaker as bridge to permanent pacemaker insertion - Cardiology following and management appreciated - Elevated troponin likely 2/2 supply-demand mismatch from bradycardia and it is trending down at this point. no active chest pain or evidence of ACS at this time. Post manipulation of the pacer it went up again. Hypertension - Continue Losartan but hold if SBP <100 Hyperlipidemia - Continue Atorvastatin RESPIRATORY - SpO2 > 96% on 2 L; no known home oxygen need but patient desaturates when she sleeps even on 2 liters and requires 3 liters. She may need outpatient sleep study. CXR shows mild congestion likely due to bradycardia GASTROINTESTINAL - Diet:Type 2 Diabetes, AHA diet - GI Prophylaxis: None indicated as the patient is taking PO - Bowel regimen: Monitor for BM daily RENAL//ENDOCRINE - 48 ml; monitor daily I/Os Good urine output noted 0.57 ml/Kg BW-hr FU and replete lytes. endocrine Type 2 Diabetes - BS-182 with one level at 239. It seems he highest levels are at 11-12 noon. Sliding scale insulin Hold home meds INFECTIOUS DISEASE - Tmax: Afebrile No leukocytosis Will give ancef preop DVT Prophylaxis - Heparin 5000 TID her Cr was 1.4 yesterday. If it stabilizes at a GFR >60 will use lovenox LINES/IV ACCESS peripheral lines - IJ introducer with transvenous pacer one day old - Arroyo Catheter CODE STATUS - Full Code DISPOSITION - OT/PT: ordered - ICU for monitoring s/p pacemaker placement 42 minutes of critical care time Consults & Procedures Consultants: Cardiology Dr Kaplan Consults & Procedures Consultants: Cardiology Apple Rayo and Tunde Procedures: had 2 transvernous pacer IJ nd SC Data Medications: Current Inpatient Medications Medications (Trade) Dose Ordered Sig/Linda Route Start Time Stop Time Status Last Admin Dose Admin Acetaminophen (Tylenol Tab) 650 mg Q4H PRN PO 03/30/17 18:15 04/29/17 18:14 04/01/17 21:49 650 MG Nitroglycerin (Nitrostat Tab) 0.4 mg UD PRN SL 03/30/17 18:15 04/29/17 18:14 Insulin Aspart (novoLOG ASPART) SLIDING SCALE If C... ACHS SC 03/30/17 18:30 04/29/17 18:29 04/01/17 20:15 1 UNITS Glucose (Glucose 40% Gel) 15-30 GRAMS 15 GRAMS... UD PRN PO 03/30/17 18:15 04/29/17 18:14 Glucose (Glucose Chew Tab) 4-8 Tablets 4 Tabl... UD PRN PO 03/30/17 18:15 04/29/17 18:14 Dextrose (Dextrose 50% 50ML Syringe) 25-50ML OF 50% DW IV FOR... UD PRN IV 03/30/17 18:15 04/29/17 18:14 Glucagon (Glucagon Inj) 1 mg UD PRN SQ 03/30/17 18:15 04/29/17 18:14 Atorvastatin Calcium (Lipitor Tab) 20 mg QPM PO 03/30/17 21:00 04/29/17 20:59 04/01/17 20:08 20 MG Docusate Sodium (coLACE CAP) 100 mg BID PO 03/30/17 21:00 04/29/17 20:59 04/02/17 09:07 100 MG Gabapentin (Neurontin Cap) 100 mg BID PO 03/30/17 21:00 04/29/17 20:59 04/02/17 09:07 100 MG Losartan Potassium (coZAAR TAB) 50 mg QAM PO 03/31/17 09:00 04/30/17 08:59 04/02/17 09:07 50 MG Multivitamins 1 tab 1 tab QAM PO 03/31/17 09:00 04/30/17 08:59 04/02/17 09:07 1 TAB Lactated Ringer's 1,000 ml @ 15 mls/hr Q24H ONCE IV 04/02/17 08:56 04/03/17 08:55 04/02/17 09:06 15 MLS/HR Cefazolin Sodium/ Dextrose (Ancef Iv/D5 50ml) 55 ml @ 110 mls/hr PREOP IV 04/02/17 12:00 04/02/17 12:29 Miscellaneous Information (Nursing Verbal Med Order) 1 ea ONE ONCE N/A 04/02/17 09:15 04/02/17 09:16 UNV I & O: 24-Hour Column 04/02/17 08:00 Intake Total 1477 ml Output Total 1050 ml Balance 427 ml Vital Signs: Date Time Temp Pulse Resp B/P Pulse Ox O2 Delivery O2 Flow Rate FiO2 04/02/17 06:00 80 25 117/79 90 Room Air 04/02/17 04:00 98 Nasal Cannula 3.0 04/02/17 04:00 80 23 105/78 96 Nasal Cannula 3.0 04/02/17 02:01 80 25 97/58 95 04/02/17 00:02 36.7 80 26 105/61 96 Nasal Cannula 3.0 04/01/17 23:59 98 Nasal Cannula 3.0 04/01/17 22:01 80 19 114/64 95 Nasal Cannula 3.0 04/01/17 20:00 37.0 80 23 130/76 98 Nasal Cannula 3.0 04/01/17 20:00 98 Nasal Cannula 3.0 04/01/17 19:02 82 17 101/63 96 Nasal Cannula 3.0 04/01/17 19:00 72 26 96 04/01/17 18:00 80 21 97 04/01/17 17:59 80 19 137/102 96 04/01/17 17:01 81 16 137/102 04/01/17 17:00 36.7 80 16 96 04/01/17 16:00 96 Nasal Cannula 3.0 04/01/17 16:00 80 27 96 Nasal Cannula 3.0 04/01/17 15:01 80 21 120/80 04/01/17 15:00 83 20 96 04/01/17 14:23 84 20 112/86 96 Nasal Cannula 3.0 04/01/17 14:00 79 14 93 04/01/17 13:01 80 15 131/81 95 04/01/17 13:00 81 15 97 04/01/17 12:15 95 Nasal Cannula 3.0 04/01/17 12:00 79 16 96 04/01/17 11:03 36.8 79 14 132/74 93 Nasal Cannula 3.0 04/01/17 11:00 81 21 93 04/01/17 10:06 80 20 150/76 93 04/01/17 10:02 82 15 135/104 83 04/01/17 10:00 82 26 95 Laboratory Results: Last 24 Hours Test 04/01/17 11:49 04/01/17 15:53 04/01/17 16:23 04/01/17 20:11 Bedside Glucose 239 mg/dl 124 mg/dl 146 mg/dl Troponin I 0.106 ng/ml Test 04/02/17 05:29 04/02/17 05:30 Bedside Glucose 122 mg/dl White Blood Count 7.70 K/uL Red Blood Count 4.64 M/uL Hemoglobin 13.3 g/dL Hematocrit 43.1 % Mean Corpuscular Volume 92.9 fL Mean Corpuscular Hemoglobin 28.7 pg Mean Corpuscular Hemoglobin Concent 30.9 g/dl Platelet Count 199 K/uL Mean Platelet Volume 11.0 fL Neutrophils (%) (Auto) 63.6 % Lymphocytes (%) (Auto) 17.7 % Monocytes (%) (Auto) 11.4 % Eosinophils (%) (Auto) 6.9 % Basophils (%) (Auto) 0.1 % Neutrophils # (Auto) 4.90 K/uL Lymphocytes # (Auto) 1.36 K/uL Monocytes # (Auto) 0.88 K/uL Eosinophils # (Auto) 0.53 K/uL Basophils # (Auto) 0.01 K/uL RDW Standard Deviation 49.5 fL RDW Coefficient of Variation 14.5 % Immature Granulocyte % (Auto) 0.3 % Immature Granulocyte # (Auto) 0.02 K/uL Sodium Level 145 mmol/L Potassium Level 4.9 mmol/L Chloride Level 109 mmol/L Carbon Dioxide Level 33 mmol/L Anion Gap 3.0 mmol/L Blood Urea Nitrogen 33 mg/dl Creatinine 1.20 mg/dl Est Creatinine Clear Calc Drug Dose 35.2 ml/min Estimated GFR () 49.1 Estimated GFR (Non- 42.4 BUN/Creatinine Ratio 27.6 Random Glucose 138 mg/dl Calcium Level 8.6 mg/dl Phosphorus Level 3.3 mg/dl Magnesium Level 1.9 mg/dl
[2017-04-02] MEDS ORDERED: CEFAZOLIN IV 1,000 MG in DEXTROSE 5% 50ML 50 ML IV SCH (12:00)
[2017-04-02] MEDS ORDERED: CEFAZOLIN SOD 1000MG/55 ML D5W IV ONE (12:00)
[2017-04-02] MEDS ORDERED: SODIUM CHLORIDE 0.9% 500ML 500 ML IV ONE (12:45)
[2017-04-02] MEDS ORDERED: LIDOCAINE HCL 1% 20 ML VIAL ONE (13:11)
[2017-04-02] MEDS ORDERED: BACITRACIN 50000 UNIT VIAL ONE (13:11)
[2017-04-02] MEDS ORDERED: BACITRACIN OINT 0.9 GM PKT ONE (13:11)
--- NOTE | 2017-04-02 13:29 | Procedure Note ---
Pre-Mod Sedation Assessment General Date of Moderate Sedation: April 02, 2017. Vital Signs: Vital Signs Past 12 Hours Date Time Temp Pulse Resp B/P Pulse Ox O2 Delivery O2 Flow Rate FiO2 04/02/17 12:52 70 23 99/59 96 Nasal Cannula 3.0 04/02/17 12:46 70 23 92/62 97 Nasal Cannula 3.0 04/02/17 12:36 68 19 89/56 96 Nasal Cannula 3.0 04/02/17 12:30 79 24 73/55 93 Nasal Cannula 3.0 04/02/17 12:27 69 23 77/49 95 Nasal Cannula 3.0 04/02/17 12:19 69 25 74/51 96 Nasal Cannula 3.0 04/02/17 12:18 65 20 70/45 95 Nasal Cannula 3.0 04/02/17 12:00 Nasal Cannula 3.0 04/02/17 12:00 36.7 66 18 116/84 96 Nasal Cannula 3.0 04/02/17 09:00 69 19 90/73 96 Nasal Cannula 3.0 04/02/17 08:00 Nasal Cannula 3.0 04/02/17 08:00 80 21 113/61 97 Nasal Cannula 3.0 04/02/17 06:00 80 25 117/79 90 Room Air 04/02/17 04:00 98 Nasal Cannula 3.0 04/02/17 04:00 80 23 105/78 96 Nasal Cannula 3.0 04/02/17 02:01 80 25 97/58 95 Review Cardiovascular: regular rate, rhythm Abdomen: normal bowel sounds Lungs: lungs clear Pre-Sedation Airway Assessment Smoking Status: Never Smoker Procedure Planning Contraindications-for Mod Sed: None Yes Notes The planned sedation has been discussed with the patient and consent obtained. I have identified the patient, determined the appropriateness of sedation and have assessed the patient immediately prior to the procedure. All medicine(s) and interventions are by my order.
[2017-04-02] MEDS ORDERED: FENTANYL CITRATE INJ 50 MCG/1 ML 2 ML VIAL ONE (13:42)
[2017-04-02] MEDS ORDERED: MIDAZOLAM HCL 1 MG/ML 2ML VIAL ONE ×2 (13:43→14:40)
--- NOTE | 2017-04-02 15:09 | Procedure Note ---
Post-Mod Sedation Assessment General Date of Moderate Sedation April 02, 2017. Vital Signs: Vital Signs Past 12 Hours Date Time Temp Pulse Resp B/P Pulse Ox O2 Delivery O2 Flow Rate FiO2 04/02/17 12:52 70 23 99/59 96 Nasal Cannula 3.0 04/02/17 12:46 70 23 92/62 97 Nasal Cannula 3.0 04/02/17 12:36 68 19 89/56 96 Nasal Cannula 3.0 04/02/17 12:30 79 24 73/55 93 Nasal Cannula 3.0 04/02/17 12:27 69 23 77/49 95 Nasal Cannula 3.0 04/02/17 12:19 69 25 74/51 96 Nasal Cannula 3.0 04/02/17 12:18 65 20 70/45 95 Nasal Cannula 3.0 04/02/17 12:00 Nasal Cannula 3.0 04/02/17 12:00 36.7 66 18 116/84 96 Nasal Cannula 3.0 04/02/17 09:00 69 19 90/73 96 Nasal Cannula 3.0 04/02/17 08:00 Nasal Cannula 3.0 04/02/17 08:00 80 21 113/61 97 Nasal Cannula 3.0 04/02/17 06:00 80 25 117/79 90 Room Air 04/02/17 04:00 98 Nasal Cannula 3.0 04/02/17 04:00 80 23 105/78 96 Nasal Cannula 3.0 Review - Discharge Criteria Vital Signs Stable: Yes Alert/Oriented/Conversant: Yes Returned to Baseline Mental St: Yes Nausea Absent/Minimal: Yes Pain/Discomfort/Absent/Minimal: Yes Normal/Baseline Respirations: Yes Active Bleeding?: No
--- NOTE | 2017-04-02 15:13 | Cardiology Procedure Brief Nt ---
Preliminary Cardiology Note Procedure Date April 02, 2017. Pre-Procedure Diagnosis [facility]B Post-Procedure Diagnosis Same Procedure(s) Performed Left subclavian venogram Dual chamber pacemaker implantation Right IJ pacemaker removal Parole Supervisor Dr. 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 This necessitated venous access beneath the clavicle, the artery was entered but no hematoma was evident, the long was not entered. Good lead measurements with a very rotated right ventricle. Right IJ temporary pacemaker removed under echo guidance to look for a change in pericardial effusion. Recommendations Monitored overnight in ICU, repeat echo in a.m. Specimens None Anesthesia local with sedation Complication(s) None Disposition Surgical ICU
[2017-04-02] MEDS ORDERED: ACETAMINOPHEN 325 MG TAB PO PRN (15:15)
[2017-04-02] MEDS ORDERED: KETOROLAC TROMETHAMINE 10 MG TAB PO PRN (15:15)
--- NOTE | 2017-04-02 16:26 | ECHOCARDIOGRAM REPORT ---
*NOTICE TO RECEIVING LIBERTARIAN AGENCY This information is strictly Confidential and protected under [place] law. [place] law prohibits you from making any further disclosure of this information unless further disclosure is expressly permitted by the written consent of the person to whom it pertains or is authorized by law. A general authorization for the release of medical or other information is not sufficient for this purpose. Hospital accepts no responsibility if the information is made available to any other person, INCLUDING THE PATIENT. Interpretation Summary * Name: GENET RAZO Study Date: 04/02/2017 03:25 PM BP: 130/70 mmHg * Patient Location: [facility] HR: 60 * : 1935 (M/d/yyyy) Gender: Female Height: 62 in * Age: 81 yrs Ethnicity: CA Weight: 163 lb * Ordering Physician: Nadir Griffiths MD * Performed By: Ramya Gomez/Deonte Bedolla * * Reason For Study: FOLLOW UP- EFFUSION * BSA: 1.8 m2 * -- Conclusions -- * Left ventricular systolic function is low normal. * Regional wall motion abnormalities cannot be excluded due to limited visualization. * Ejection Fraction = 50-55%. * The pericardium appears mildly thickened. * Trivial pericardial effusion. Procedure Details * The study was technically limited. Left Ventricle * The left ventricle is normal in size. * There is mild concentric left ventricular hypertrophy. * Left ventricular systolic function is low normal. * Ejection Fraction = 50-55%. * Regional wall motion abnormalities cannot be excluded due to limited visualization. * Apical wall motion abnormality may reflect pacemaker activation. Right Ventricle * The right ventricle is not well visualized. * Right ventricular function cannot be assessed due to poor image quality. Atria * The left atrial size is normal. * Right atrium not well visualized. Mitral Valve * The mitral valve is grossly normal. * Significant mitral regurgitation is absent. Tricuspid Valve * The tricuspid valve is not well visualized, but is grossly normal. * Significant tricuspid regurgitation is absent. Aortic Valve * The aortic valve is not well visualized. * The aortic valve opens well. * No hemodynamically significant valvular aortic stenosis. * There is no significant aortic regurgitation. Pulmonic Valve * The pulmonic valve is not well visualized. Great Vessels * The aortic root is normal size. Pericardium/Pleural * The pericardium appears mildly thickened. * Trivial pericardial effusion. Great Vessels * Normal inferior vena cava size and collapsability with sniff indicates a normal right atrial pressure of 3 mmHg MMode 2D Measurements and Calculations IVSd 2.0 cm IVSs 2.4 cm LVIDd 4.1 cm LVIDs 3.0 cm LVPWd 1.4 cm LVPWs 2.3 cm IVS/LVPW 1.5 FS 26.7 % EDV(Teich) 74.1 ml ESV(Teich) 35.1 ml EF(Teich) 52.6 % EDV(cubed) 68.7 ml ESV(cubed) 27.1 ml EF(cubed) 60.6 % % IVS thick 17.8 % % LVPW thick 70.2 % LV mass(C)d 294.7 grams LV mass(C)dI 168.2 grams/m\S\2 LV mass(C)s 362.7 grams LV mass(C)sI 207.0 grams/m\S\2 SV(Teich) 39.0 ml SI(Teich) 22.2 ml/m\S\2 SV(cubed) 41.7 ml SI(cubed) 23.8 ml/m\S\2 LA dimension 4.0 cm
--- NOTE | 2017-04-02 16:36 | Progress Note ---
Subjective Date of Service: April 02, 2017. Subjective pt is resting comfortably has no complaints other than neck issues from right IJ line, for permanent placement of Pacer, son at bedside and updated. Problem List Medical Problems: (1) Hypoglycemia Status: Acute (2) Third degree heart block Status: Acute (3) Weakness Status: Acute Review of Systems Constitutional: + fatigue, + weakness, No chills, No fever ENT: + hearing loss, No unusual epistaxis Respiratory: No cough, No shortness of breath Cardiac: No chest pain, No edema, No orthopnea Abdomen: No diarrhea, No nausea, No pain Neurologic: No memory loss, No paralysis Objective Vital Signs Date Time Temp Pulse Resp B/P Pulse Ox O2 Delivery O2 Flow Rate FiO2 04/02/17 04:00 98 Nasal Cannula 3.0 04/02/17 04:00 80 23 105/78 96 Nasal Cannula 3.0 04/02/17 02:01 80 25 97/58 95 04/02/17 00:02 36.7 80 26 105/61 96 Nasal Cannula 3.0 04/01/17 23:59 98 Nasal Cannula 3.0 04/01/17 22:01 80 19 114/64 95 Nasal Cannula 3.0 04/01/17 20:00 37.0 80 23 130/76 98 Nasal Cannula 3.0 04/01/17 20:00 98 Nasal Cannula 3.0 04/01/17 19:02 82 17 101/63 96 Nasal Cannula 3.0 04/01/17 19:00 72 26 96 04/01/17 18:00 80 21 97 04/01/17 17:59 80 19 137/102 96 04/01/17 17:01 81 16 137/102 04/01/17 17:00 36.7 80 16 96 04/01/17 16:00 96 Nasal Cannula 3.0 04/01/17 16:00 80 27 96 Nasal Cannula 3.0 04/01/17 15:01 80 21 120/80 04/01/17 15:00 83 20 96 04/01/17 14:23 84 20 112/86 96 Nasal Cannula 3.0 04/01/17 14:00 79 14 93 04/01/17 13:01 80 15 131/81 95 04/01/17 13:00 81 15 97 04/01/17 12:15 95 Nasal Cannula 3.0 04/01/17 12:00 79 16 96 04/01/17 11:03 36.8 79 14 132/74 93 Nasal Cannula 3.0 04/01/17 11:00 81 21 93 04/01/17 10:06 80 20 150/76 93 04/01/17 10:02 82 15 135/104 83 04/01/17 10:00 82 26 95 04/01/17 09:10 80 21 150/116 92 04/01/17 09:06 78 20 152/106 95 04/01/17 09:05 36.7 81 23 143/112 97 Nasal Cannula 3.0 04/01/17 09:01 94 Nasal Cannula 3.0 04/01/17 08:45 80 16 136/94 96 Nasal Cannula 4 04/01/17 07:02 31 11 148/89 99 04/01/17 07:00 35 11 99 04/01/17 06:18 89 30 98 04/01/17 06:17 30 12 98 04/01/17 06:16 33 10 97 04/01/17 06:15 53 8 99 04/01/17 06:14 70 25 99 04/01/17 06:13 62 22 161/71 89 04/01/17 06:12 27 11 97 04/01/17 06:11 61 22 97 04/01/17 06:10 69 16 98 04/01/17 06:09 70 21 97 04/01/17 06:08 70 22 97 04/01/17 06:07 70 23 97 Physical Exam General Appearance: WD/WN, no apparent distress Neck: supple, no JVD Respiratory/Chest: chest non-tender, lungs clear, normal breath sounds Cardiovascular: no murmur, + bradycardia Abdomen: normal bowel sounds, non tender, soft Extremities: no pedal edema, no calf tenderness Neurologic/Psychiatric: alert, oriented x 3 Laboratory Results Last 24 Hours Test 04/01/17 11:49 04/01/17 15:53 04/01/17 16:23 04/01/17 20:11 Bedside Glucose 239 mg/dl 124 mg/dl 146 mg/dl Troponin I 0.106 ng/ml Test 04/02/17 05:29 04/02/17 05:30 Bedside Glucose 122 mg/dl White Blood Count 7.70 K/uL Red Blood Count 4.64 M/uL Hemoglobin 13.3 g/dL Hematocrit 43.1 % Mean Corpuscular Volume 92.9 fL Mean Corpuscular Hemoglobin 28.7 pg Mean Corpuscular Hemoglobin Concent 30.9 g/dl Platelet Count 199 K/uL Mean Platelet Volume 11.0 fL Neutrophils (%) (Auto) 63.6 % Lymphocytes (%) (Auto) 17.7 % Monocytes (%) (Auto) 11.4 % Eosinophils (%) (Auto) 6.9 % Basophils (%) (Auto) 0.1 % Neutrophils # (Auto) 4.90 K/uL Lymphocytes # (Auto) 1.36 K/uL Monocytes # (Auto) 0.88 K/uL Eosinophils # (Auto) 0.53 K/uL Basophils # (Auto) 0.01 K/uL RDW Standard Deviation 49.5 fL RDW Coefficient of Variation 14.5 % Immature Granulocyte % (Auto) 0.3 % Immature Granulocyte # (Auto) 0.02 K/uL Assessment and Plan 81F with 3rd degree heart block and elevated troponin 3rd degree AV block s/p transvenous pacer with requirement for permanent pacemaker by EP 04/02. acute/chronic diastolic CHF - elevated troponin felt not to be acs but likely supply demand. fluid overload from bradycardia T2DM resume oral agents, post procedure when taking po well, ssi h/o DVT - heparin SC for DVT proph. CKD stage 3 - remains stable follow with bradycardia Continued [facility] stay due to: multiple IV medications needed, other (pacemaker placement) Discharge planning: uncertain
--- NOTE | 2017-04-02 18:13 | OPERATIVE REPORT ---
DATE OF OPERATION: 04/02/2017 PREOPERATIVE DIAGNOSIS: Complete heart block. POSTOPERATIVE DIAGNOSIS: Same. PROCEDURES: 1. Left subclavian venography. 2. Dual-chamber pacemaker implantation. 3. Right IJ temporary pacemaker removal. SURGEON: Nadir Griffiths MD ANESTHESIA: Local with sedation. HISTORY: This is an 81-year-old woman with a long history of left bundle-branch block, who presented with some degree of unresponsiveness and complete heart block. She had a temporary pacemaker placed, subsequently that lost capture and required repositioning, which was not successful, though the catheter was replaced in the wharf laborer. That second temporary pacemaker has remained stable. She remains in complete heart block and is therefore brought to the laboratory for permanent pacemaker implantation. DESCRIPTION OF PROCEDURE: After obtaining informed consent for the procedure, she was brought to the laboratory on the afternoon of 04/02/2017 being n.p.o. after midnight. She was identified in the laboratory, prepped and draped in standard sterile manner for a left-sided pacemaker implantation. The left prepectoral region was anesthetized with 1% lidocaine local anesthetic and left subclavian venipuncture was attempted by percutaneous technique. The artery was entered several times, venous access could not be obtained. Left subclavian venography was therefore performed using dye injected via the left arm IV site. Left subclavian venography showed that the vein was stenotic and nearly occluded or possibly completely occluded where the vein crossed under the left clavicle. It reconstituted with collateral flow just medial to the clavicle. Once visualized, left subclavian venipuncture was performed by percutaneous technique at a site medial to the left clavicle. The guidewire was placed through the left subclavian vein into the right atrium. The area was further infiltrated with 1% lidocaine local anesthetic and a 5 cm incision was made 2 cm below the left clavicle and carried down to the anterior pectoralis fascia. A pacemaker pocket was formed by blunt dissection anterior to the pectoralis fascia and a bacitracin-soaked sponge (50,000 units in 50 mL normal saline solution) was placed in the pocket. An 8-[place] Medtronic lead introducer was placed over the guidewire into the left subclavian vein, the dilator and guidewire were removed and a bipolar active fixation steroid-tipped ventricular lead was advanced through the introducer into the superior vena cava. The guidewire was placed through the introducer and introducer stripped away from lead and guidewire. Another 8-[place] Medtronic lead introducer was placed over the guidewire into the left subclavian vein, the dilator and guidewire were removed and a bipolar active fixation steroid-tipped atrial lead was advanced through introducer into the superior vena cava. The guidewire was placed through the introducer and introducer stripped away from lead and guidewire. Using a curved stylette, the ventricular lead was advanced through the right ventricular outflow tract into the pulmonary artery and then using a straight stylette was positioned in the right ventricular apex. Once in position, the ventricular pacing threshold was evaluated in bipolar configuration at a pulse width of 0.5 milliseconds. The final ventricular pacing threshold was 0.6 volts with a current of 0.8 milliamp, 5-volt lead impedance was 884 ohms and diaphragmatic pacing was not present with a 10 volt bipolar output. The atrial lead was then positioned in the region of the atrial appendage and the screw extended fixing the lead in position. Atrial pacing threshold was evaluated in bipolar configuration at a pulse width of 0.5 milliseconds. Final atrial pacing threshold was 0.5 volts with a current of 1.3 milliamp, 5-volt lead impedance was 456 ohms and P-waves were sensed at 3.0 millivolts. Diaphragmatic pacing was not present with a 10 volt bipolar output. Once leads were in position, they were attached to the anterior pectoralis fascia using 2 sutures of 2-0 silk around each lead collar. The bacitracin-soaked sponge was removed from the pocket, the guidewire was removed from the left subclavian vein and hemostasis was obtained. The pacemaker was connected to the leads and found to be functioning normally. It was placed in the pocket with the leads coiled beneath it and the incision was closed with a running double subcutaneous closure of 3-0 Vicryl followed by running subcuticular skin closure of 4-0 Vicryl. Bacitracin ointment was placed on incision and a pressure dressing applied. Of note, the ventricle was very much rotated in a counterclockwise direction, an RAMOS 30 projection yielded a similar view to a PA projection normally does. A small pericardial effusion had been observed prior to surgery, possibly from one of the prior temporary pacemakers, therefore echocardiography was performed at the time of temporary pacemaker removal in the laboratory. The initial echo images did not look much different from preop, the temporary pacemaker was removed and after several minutes, there was a possibility the fusion was slightly larger although it may have just been projection. Hemodynamically, the patient was very stable. There is no evidence of tamponade. The sheath was also removed from the right IJ location. The patient tolerated the procedure well, there were no complications and estimated blood loss was 30 mL. The patient was transferred to the ICU for observation. The atrial lead is a Medtronic model 5076, serial #[id number] and is a bipolar active fixation steroid-tipped MRI compatible lead. The ventricular lead is a Medtronic model 5076, serial #[id number] and is a bipolar active fixation steroid-tipped MRI compatible lead. The pacemaker is a Medtronic Advisa DR MRI SureScan model A2DR01, serial #[id number]. The pacemaker was reprogrammed in the laboratory to final settings. TALHA
[2017-04-02] MEDS: CEFAZOLIN IV 1,000 MG in DEXTROSE 5% 50ML 50 ML IV SCH (19:44)
[2017-04-02] MEDS: ATORVASTATIN 20 MG TAB PO SCH (19:44)
[2017-04-03] VITALS (13 sets, daily range): BP systolic 115–168; BP diastolic 59–83; PULSE 60–87; TEMP 36.6–37.3; O2SAT 90–100; Ht 157.5 cm; Wt 77.6 kg
[2017-04-03] MEDS: CEFAZOLIN IV 1,000 MG in DEXTROSE 5% 50ML 50 ML IV SCH ×2 (04:05→11:43)
[2017-04-03 05:47] LABS: BASO % 0.3 %; BASO ABS # 0.02 K/uL (0-0.2); COMPLETE YES; EOS % 6.7 %; HEMATOCRIT 41.9 % (37-47); IG% 0.1 %; LYMPH % 11.4 %; LYMPH ABS # 0.78 K/uL (1.2-3.4); MEAN CELL VOLUME 93.3 fL (80-100); MEAN CORPUSCULAR HEMOGLOBIN 27.8 pg (25-34); MEAN CORPUSCULAR HGB CONC 29.8 g/dl (32-36); MEAN PLATELET VOLUME 10.8 fL (7.4-10.4); MONO % 9.5 %; PLATELET COUNT 172 K/uL (130-400); RED BLOOD COUNT 4.49 M/uL (4.2-5.4); WHITE BLOOD COUNT 6.82 K/uL (4.8-10.8)
[2017-04-03 06:20] LABS: BUN/CREATININE RATIO 32.3 (10-20); CALCIUM 8.4 mg/dl (8.5-10.1); CREATININE 0.91 mg/dl (0.60-1.20); MAGNESIUM 1.9 mg/dl (1.8-2.4); PHOSPHORUS 3.1 mg/dl (2.5-4.9); POTASSIUM 4.5 mmol/L (3.5-5.1)
[2017-04-03] MEDS: INSULIN ASPART 100 UNITS/ML 3 ML PEN SC SCH ×4 (06:45→21:00)
[2017-04-03] MEDS ORDERED: SODIUM CHLORIDE 0.9% 1000ML 1,000 ML IV SCH (08:00)
[2017-04-03] MEDS ORDERED: MAGNESIUM SULFATE 1GM / D5W 1 GM in PREMIXED IN D5W 100 ML IV STA (08:02)
--- NOTE | 2017-04-03 08:06 | DIAGNOSTIC IMAGING REPORT ---
CHEST 2 VIEWS ROUTINE HISTORY: Pacemaker placement. EXACT TIME ORDERED Evaluate for pneumothorax and lead placement COMPARISON: Chest 04/01/2017. FINDINGS: Interval placement of a left-sided dual-chamber pacemaker. The leads appear intact. No pneumothorax. Low lung volumes. Cardiomegaly, mild pulmonary vascular congestion, and small bilateral pleural effusions persist. IMPRESSION: 1. Left-sided dual-chamber pacemaker. No pneumothorax. 2. Mild pulmonary vascular congestion and small bilateral pleural effusions, unchanged. Electronically signed by: Tyrone Salcedo M.D. 04/03/2017 8:05 AM Dictated Date/Time: 04/03/2017 8:04 AM
[2017-04-03] MEDS: MULTIVITAMIN TAB PO SCH (08:53)
[2017-04-03] MEDS: LOSARTAN POTASSIUM 50 MG TAB PO SCH (08:54)
[2017-04-03] MEDS: DOCUSATE SODIUM 100 MG CAP PO SCH ×2 (08:54→21:20)
[2017-04-03] MEDS: GABAPENTIN 100 MG CAP PO SCH ×2 (08:54→21:20)
[2017-04-03] MEDS: ACETAMINOPHEN 325 MG TAB PO PRN (08:54)
[2017-04-03] MEDS: ENOXAPARIN 40 MG/0.4 ML SYR SQ SCH (08:55)
--- NOTE | 2017-04-03 10:04 | Cardiology Follow-Up ---
Subjective Date of Service: April 03, 2017. Pt evaluation today including: conversation w/ patient, physical exam, lab review, review of studies, review of inpatient medication list History of Present Illness This is a very pleasant 81-year-old woman with a history of diabetes, hypertension and prior left bundle branch block. She was evidently found with mental status changes and some degree of unresponsiveness, and she was identified as having complete heart block with a slow escape rhythm. There appeared to be no readily reversible cause for her heart block and a temporary pacemaker was urgently placed. Evidently capture was poor at the right ventricular apex and the temporary pacemaker lost capture, necessitating repositioning. There is no evidence that she was on AV malaika blocking medications prior to admission but she is not certain about her medications but in any case has been on none here (she is now day 3 of admission) and her Lyme test was negative. This therefore appears to be progression of left bundle branch block to complete heart block. A pacemaker was implanted yesterday with no significant difficulty. Today she is doing well. It is difficult to communicate with her due to extreme hardness of hearing, she can hear somewhat in her left ear. Her son is also present to help. She does not seem to be having any significant discomfort or incisional pain. Social History Smoking Status: Never Smoker History of Alcohol Use: No Review of Systems Respiratory: No cough, No shortness of breath Cardiac: No chest pain, No edema, No orthopnea Objective Vital Signs Past 12 Hours Date Time Temp Pulse Resp B/P Pulse Ox O2 Delivery O2 Flow Rate FiO2 04/03/17 09:42 37.0 69 22 90 2.0 04/03/17 09:30 37.0 69 22 141/68 90 Nasal Cannula 2.0 04/03/17 07:30 97 Nasal Cannula 3.0 04/03/17 07:30 37.0 60 22 135/83 95 Nasal Cannula 3.0 04/03/17 06:02 63 26 168/73 97 Nasal Cannula 3.0 04/03/17 04:02 37.2 60 19 151/80 98 Nasal Cannula 3.0 04/03/17 04:00 100 Nasal Cannula 3.0 04/03/17 02:02 87 19 142/67 96 Nasal Cannula 3.0 04/03/17 00:02 36.9 62 24 121/71 96 Nasal Cannula 3.0 04/02/17 23:59 98 Nasal Cannula 3.0 04/02/17 23:02 61 21 110/71 98 Nasal Cannula 3.0 04/02/17 23:00 61 22 97 04/02/17 22:33 65 25 114/66 99 04/02/17 22:17 64 24 106/68 96 Nasal Cannula 3.0 04/02/17 22:02 62 21 110/70 97 04/02/17 22:00 64 21 96 Last Recorded Weight-Kilograms: 74.000 Intake & Output 8-Hour Column 04/02/17 04/02/17 04/03/17 15:59 23:59 07:59 Intake Total 810 ml 425 ml 337 ml Output Total 200 ml 250 ml 250 ml Balance 610 ml 175 ml 87 ml 24-Hour Column 04/03/17 07:59 Intake Total 1572 ml Output Total 700 ml Balance 872 ml Physical Exam Constitutional: Level of Distress: NAD Lungs: Auscultation: breath sounds normal Cardiovascular: Heart Auscultation: RRR, no rubs Extremities: no edema The incision is clean and dry, no swelling or ecchymosis. Data Laboratory Results: Last 24 Hours Test 04/02/17 11:43 04/02/17 12:45 04/02/17 12:55 04/02/17 16:24 Bedside Glucose 116 mg/dl 139 mg/dl Creatine Kinase MB Ratio Creatine Kinase MB 1.0 ng/ml Troponin I 0.065 ng/ml Test 04/02/17 22:12 04/03/17 05:18 04/03/17 06:47 Bedside Glucose 180 mg/dl 107 mg/dl White Blood Count 6.82 K/uL Red Blood Count 4.49 M/uL Hemoglobin 12.5 g/dL Hematocrit 41.9 % Mean Corpuscular Volume 93.3 fL Mean Corpuscular Hemoglobin 27.8 pg Mean Corpuscular Hemoglobin Concent 29.8 g/dl Platelet Count 172 K/uL Mean Platelet Volume 10.8 fL Neutrophils (%) (Auto) 72.0 % Lymphocytes (%) (Auto) 11.4 % Monocytes (%) (Auto) 9.5 % Eosinophils (%) (Auto) 6.7 % Basophils (%) (Auto) 0.3 % Neutrophils # (Auto) 4.90 K/uL Lymphocytes # (Auto) 0.78 K/uL Monocytes # (Auto) 0.65 K/uL Eosinophils # (Auto) 0.46 K/uL Basophils # (Auto) 0.02 K/uL RDW Standard Deviation 49.3 fL RDW Coefficient of Variation 14.5 % Immature Granulocyte % (Auto) 0.1 % Immature Granulocyte # (Auto) 0.01 K/uL Sodium Level 144 mmol/L Potassium Level 4.5 mmol/L Chloride Level 107 mmol/L Carbon Dioxide Level 33 mmol/L Anion Gap 4.0 mmol/L Blood Urea Nitrogen 29 mg/dl Creatinine 0.91 mg/dl Est Creatinine Clear Calc Drug Dose 45.7 ml/min Estimated GFR () 68.6 Estimated GFR (Non- 59.2 BUN/Creatinine Ratio 32.3 Random Glucose 89 mg/dl Calcium Level 8.4 mg/dl Phosphorus Level 3.1 mg/dl Magnesium Level 1.9 mg/dl Imaging: Chest x-ray shows good lead position, no pneumothorax EKG: AV sequential pacing with appropriate atrial and ventricular capture Telemetry reviewed: Predominantly dual chamber pacemaking, some ventricular pacing. Pacemaker evaluation: Excellent pacing and sensing characteristics. Normal pacer operation. Assessment and Plan #1. Dual-chamber pacemaker: Functioning well, the site looks good and the chest x-ray looks good. She is stable from my standpoint, she can go home when she is stable otherwise. We will arrange follow-up. #2. Complete heart block: She remains in complete heart block. This probably represents progression of conduction system disease. Now with a ventricular paced rhythm appropriately. Thank you for allowing me to participate in her care.
--- NOTE | 2017-04-03 16:44 | Progress Note ---
Subjective Date of Service: April 03, 2017. Subjective this pt is smiling and has no complaints, her son at the bedside is requesting her go to [facility] for rehab after discharge, case managment is involved she has no chest pain or shortness of breath and feels improved overall, has minor pain at venous access sites in neck Problem List Medical Problems: (1) Hypoglycemia Status: Acute (2) Third degree heart block Status: Acute (3) Weakness Status: Acute Review of Systems Constitutional: + weakness, No chills, No fever Respiratory: No cough, No dyspnea on exertion, No shortness of breath Cardiac: No PND, No chest pain, No edema, No orthopnea Abdomen: No diarrhea, No nausea, No pain Musculoskeletal: No joint pain, No muscle pain Female : No dysuria, No urinary frequency Neurologic: + balance problems, + weakness Objective Vital Signs Date Time Temp Pulse Resp B/P Pulse Ox O2 Delivery O2 Flow Rate FiO2 04/03/17 16:00 Nasal Cannula 2.0 04/03/17 15:31 36.7 60 18 121/75 97 Nasal Cannula 2.0 04/03/17 12:00 37.3 62 20 122/59 93 Nasal Cannula 2.0 04/03/17 12:00 Nasal Cannula 2.0 04/03/17 11:41 65 96 04/03/17 09:42 37.0 69 22 90 2.0 04/03/17 09:30 37.0 69 22 141/68 90 Nasal Cannula 2.0 04/03/17 07:30 97 Nasal Cannula 3.0 04/03/17 07:30 37.0 60 22 135/83 95 Nasal Cannula 3.0 04/03/17 06:02 63 26 168/73 97 Nasal Cannula 3.0 04/03/17 04:02 37.2 60 19 151/80 98 Nasal Cannula 3.0 04/03/17 04:00 100 Nasal Cannula 3.0 04/03/17 02:02 87 19 142/67 96 Nasal Cannula 3.0 04/03/17 00:02 36.9 62 24 121/71 96 Nasal Cannula 3.0 04/02/17 23:59 98 Nasal Cannula 3.0 04/02/17 23:02 61 21 110/71 98 Nasal Cannula 3.0 04/02/17 23:00 61 22 97 04/02/17 22:33 65 25 114/66 99 04/02/17 22:17 64 24 106/68 96 Nasal Cannula 3.0 04/02/17 22:02 62 21 110/70 97 04/02/17 22:00 64 21 96 04/02/17 21:47 61 25 119/63 96 04/02/17 21:32 60 27 119/57 96 Nasal Cannula 3.0 04/02/17 21:17 62 21 109/68 97 04/02/17 21:02 67 17 120/64 97 04/02/17 21:00 36.7 65 17 97 04/02/17 20:17 69 18 131/70 97 Nasal Cannula 3.0 04/02/17 20:02 63 21 138/78 97 04/02/17 20:00 97 Nasal Cannula 3.0 04/02/17 20:00 72 17 97 04/02/17 19:47 64 22 120/86 98 Nasal Cannula 3.0 04/02/17 19:32 67 18 146/84 97 04/02/17 19:30 69 20 97 04/02/17 19:17 61 20 133/83 99 Nasal Cannula 3.0 04/02/17 19:02 62 20 135/75 99 04/02/17 19:00 62 21 99 04/02/17 18:46 61 24 136/74 97 04/02/17 18:32 62 17 103/67 97 04/02/17 18:30 64 23 98 04/02/17 18:16 66 16 134/93 98 04/02/17 18:01 62 21 117/82 97 04/02/17 18:00 64 20 97 04/02/17 17:47 64 21 109/71 97 04/02/17 17:32 64 21 110/60 97 04/02/17 17:30 63 20 97 04/02/17 17:02 63 20 90/65 98 Nasal Cannula 3.0 04/02/17 17:00 64 21 98 04/02/17 16:47 62 20 127/70 97 04/02/17 16:45 62 25 98 Physical Exam General Appearance: WD/WN, + mild distress Eyes: PERRL, EOMI Neck: supple, no JVD, trachea midline Respiratory/Chest: chest non-tender, lungs clear, + decreased breath sounds ( bases) Cardiovascular: regular rate, rhythm, no murmur Abdomen: normal bowel sounds, non tender, soft Extremities: no calf tenderness, + pedal edema (trace) Laboratory Results Last 24 Hours Test 04/02/17 22:12 04/03/17 05:18 04/03/17 06:47 04/03/17 10:58 Bedside Glucose 180 mg/dl 107 mg/dl 237 mg/dl White Blood Count 6.82 K/uL Red Blood Count 4.49 M/uL Hemoglobin 12.5 g/dL Hematocrit 41.9 % Mean Corpuscular Volume 93.3 fL Mean Corpuscular Hemoglobin 27.8 pg Mean Corpuscular Hemoglobin Concent 29.8 g/dl Platelet Count 172 K/uL Mean Platelet Volume 10.8 fL Neutrophils (%) (Auto) 72.0 % Lymphocytes (%) (Auto) 11.4 % Monocytes (%) (Auto) 9.5 % Eosinophils (%) (Auto) 6.7 % Basophils (%) (Auto) 0.3 % Neutrophils # (Auto) 4.90 K/uL Lymphocytes # (Auto) 0.78 K/uL Monocytes # (Auto) 0.65 K/uL Eosinophils # (Auto) 0.46 K/uL Basophils # (Auto) 0.02 K/uL RDW Standard Deviation 49.3 fL RDW Coefficient of Variation 14.5 % Immature Granulocyte % (Auto) 0.1 % Immature Granulocyte # (Auto) 0.01 K/uL Sodium Level 144 mmol/L Potassium Level 4.5 mmol/L Chloride Level 107 mmol/L Carbon Dioxide Level 33 mmol/L Anion Gap 4.0 mmol/L Blood Urea Nitrogen 29 mg/dl Creatinine 0.91 mg/dl Est Creatinine Clear Calc Drug Dose 45.7 ml/min Estimated GFR () 68.6 Estimated GFR (Non- 59.2 BUN/Creatinine Ratio 32.3 Random Glucose 89 mg/dl Calcium Level 8.4 mg/dl Phosphorus Level 3.1 mg/dl Magnesium Level 1.9 mg/dl Assessment and Plan 81F with 3rd degree heart block and elevated troponin, now s/p permanent pacemaker04/02,for snf rehab 3rd degree AV block s/p transvenous pacer with requirement for permanent pacemaker by EP 04/02. acute/chronic diastolic CHF - elevated troponin felt not to be acs but likely supply demand. fluid overload from bradycardia has resolved T2DM resume oral agents, post procedure when taking po well, ssi h/o DVT - heparin SC for DVT proph. CKD stage 3 - remains stable Continued [facility] stay due to: multiple IV medications needed, other (pacemaker placement) Discharge planning: uncertain
--- NOTE | 2017-04-03 17:06 | ECHOCARDIOGRAM REPORT ---
*NOTICE TO RECEIVING [employer] This information is strictly Confidential and protected under [place] law. [place] law prohibits you from making any further disclosure of this information unless further disclosure is expressly permitted by the written consent of the person to whom it pertains or is authorized by law. A general authorization for the release of medical or other information is not sufficient for this purpose. Hospital accepts no responsibility if the information is made available to any other person, INCLUDING THE PATIENT. Interpretation Summary * Name: GENET RAZO Study Date: 04/03/2017 07:15 AM BP: 168/73 mmHg * Patient Location: .MSICU\S\E103\S\1 HR: 63 * : 1935 (M/d/yyyy) Gender: Female Height: 62 in * Age: 81 yrs Ethnicity: [place] Weight: 163 lb * Ordering Physician: Nadir Griffiths * Performed By: Ramya Gomez * * Reason For Study: FOLLOW UP- PERICARDIAL EFFUSION * BSA: 1.8 m2 * Low normal left ventricular systolic function. * Mild concentric left ventricular hypertrophy. * No significant pericardial effusion. * Compared to an echo of 04/02/17 there is no significant interval change. Procedure Details * Limited 2D follow up echocardiogram. * Limited views were obtained. * The study was technically difficult. Left Ventricle * The left ventricle is normal in size. * There is mild concentric left ventricular hypertrophy. * Left ventricular systolic function is low normal. * Ejection Fraction = 50-55%. * Septal motion is consistent with conduction abnormality. Right Ventricle * The right ventricle is normal in size and function. Atria * The left atrium is not well visualized. * Right atrium not well visualized. Mitral Valve * There is mild mitral annular calcification. * The mitral valve is not well visualized. * There is no mitral valve stenosis. Tricuspid Valve * The tricuspid valve is not well visualized. Aortic Valve * The aortic valve opens well. * The aortic valve is not well visualized. Great Vessels * The aortic root is not well visualized. Pericardium/Pleural * Can't exclude a very small posterior pericardial effusion. * There are no echocardiographic indications of cardiac tamponade. Great Vessels * Normal inferior vena cava diameter and respiratory variation suggests normal central venous pressure.
[2017-04-03] MEDS: METFORMIN HCL 500 MG TAB PO SCH (17:58)
[2017-04-03] MEDS: ATORVASTATIN 20 MG TAB PO SCH (21:20)
[2017-04-03] MEDS ORDERED: ZOLPIDEM TARTRATE 5 MG TAB PO PRN (23:45)
[2017-04-03] MEDS ORDERED: NURSING VERBAL MED ORDER ONE (23:45)
[2017-04-04 04:36] VITALS: BP 100/62; PULSE 60; TEMP 36; O2SAT 96
[2017-04-04] MEDS: INSULIN ASPART 100 UNITS/ML 3 ML PEN SC SCH ×4 (07:00→20:32)
[2017-04-04 07:36] LABS: BASO % 0.2 %; BASO ABS # 0.01 K/uL (0-0.2); COMPLETE YES; EOS % 5.2 %; HEMATOCRIT 40.4 % (37-47); IG% 0.2 %; LYMPH % 12.1 %; LYMPH ABS # 0.61 K/uL (1.2-3.4); MEAN CELL VOLUME 91.2 fL (80-100); MEAN CORPUSCULAR HEMOGLOBIN 28.9 pg (25-34); MEAN CORPUSCULAR HGB CONC 31.7 g/dl (32-36); MEAN PLATELET VOLUME 10.6 fL (7.4-10.4); NEUT % 74.3 %; PLATELET COUNT 154 K/uL (130-400); RED BLOOD COUNT 4.43 M/uL (4.2-5.4); WHITE BLOOD COUNT 5.03 K/uL (4.8-10.8)
[2017-04-04 08:05] LABS: BUN/CREATININE RATIO 31.2 (10-20); CREATININE 0.9 mg/dl (0.60-1.20); MAGNESIUM 1.9 mg/dl (1.8-2.4); PHOSPHORUS 2.6 mg/dl (2.5-4.9); POTASSIUM 4.3 mmol/L (3.5-5.1)
[2017-04-04 08:11] VITALS: BP 119/68; PULSE 71; TEMP 36.4; O2SAT 92
--- NOTE | 2017-04-04 08:16 | Discharge Instructions ---
Discharge Instructions Date of Service Apr 04, 2017. Admission Reason for Admission: SOB Discharge Discharge Diagnosis / Problem: bradycardia and heart failure realted to this Discharge Goals Goal(s): Diagnostic testing, Therapeutic intervention Activity Recommendations Activity Limitations: resume your previous activity . Instructions / Follow-Up Instructions / Follow-Up Call your Primary Care doctor if any of the following symptoms or problems start or get worse: * Shortness of breath or difficulty breathing * Wake up at night short of breath * Chest pain * Cough * Swelling of your hands, feet, or legs * More fatigued or tired with your normal activity * Palpitations - sudden fast heart beats WEIGHT * Weigh yourself every morning after using the bathroom. * Use the same scale. * Wear the same amount of clothing. * Write your weight down on a chart. * Call your Primary Care doctor if you gain more than 2-3 pounds in 1-2 days. MEDICATIONS * Use this discharge instruction sheet for medication instructions. * Take your medications at the time your doctor ordered. * Do not skip a dose of your medicines. * If you miss a dose of medicine, take it as soon as possible, but DO NOT DOUBLE A DOSE. * Read your medicine information when you get home. * Know all of the side effects of your medicine. If in doubt, ask your pharmacist * Call your Primary Care doctor's office if you have any side effects. * Be sure all of your doctors know what medicine and herbs you take (including cold, flu, and herbal medicine). Take the following with you to your follow-up doctor appointments: * Weight Chart * Medication List * List of questions Do not drink excessive alcohol, beer or wine. Current Hospital Diet Patient's current hospital diet: Diabetes Type 2 Diet, AHA Diet (Heart Healthy) Discharge Diet Recommended Diet: Diabetes Type 2 Diet Pending Studies Studies pending at discharge: no Laboratory Results Hemoglobin A1c Test 03/31/17 05:30 Range/Units Estimated Average Glucose 128 mg/dl Hemoglobin A1c 6.1 H 4.5-5.6 % Medical Emergencies . Who to Call and When: Call 911 or go to the Emergency Room if: * If at any time you feel your situation is an emergency * You have tightness or pain in your chest that does not go away with rest or Nitroglycerin * You are very short of breath even with rest . Non-Emergent Contact Non-Emergency issues call your: Primary Care Provider, Clinical Lab Clerk Call Non-Emergent contact if: temperature is above 101, your pain is unusual for you . . "Provider Documentation" section prepared by Mau Padilla. . VTE Core Measure Inpt VTE Proph given/why not?: Unfractionated heparin SQ
[2017-04-04 08:49] LABS: CALCIUM 9.1 mg/dl (8.5-10.1)
[2017-04-04] MEDS: GABAPENTIN 100 MG CAP PO SCH ×2 (08:55→20:32)
[2017-04-04] MEDS: ENOXAPARIN 40 MG/0.4 ML SYR SQ SCH (08:56)
[2017-04-04] MEDS: METFORMIN HCL 500 MG TAB PO SCH ×3 (08:57→16:45)
[2017-04-04] MEDS: MULTIVITAMIN TAB PO SCH (08:57)
[2017-04-04] MEDS: DOCUSATE SODIUM 100 MG CAP PO SCH ×2 (08:57→20:32)
[2017-04-04] MEDS: LOSARTAN POTASSIUM 50 MG TAB PO SCH (08:59)
--- NOTE | 2017-04-04 09:11 | Consultant Recommendations ---
Filling Machine Set Up Mechanic Recommendations Date of Service April 03, 2017. Filling Machine Set Up Mechanic Recommendations ACTIVITY RECOMMENDATIONS: * Do not raise affected arm over head for 2 weeks. SPECIAL CARE INSTRUCTIONS: * If bleeding occurs, apply direct pressure to area for 5 minutes. * Call your doctor if you have severe pain, fever, drainage or bleeding at site. * Keep dressing on and dry until 04/05/2017 then remove. * Keep any scheduled doctor's appointment. * Implant Card - hand held device with website information given. SKIN IRRITATION: * You may experience some redness and/or swelling in the area where radiation was administered. If any skin irritation occurs, please contact your family physician. FOLLOW UP VISIT: Keep any scheduled doctor appointments.
[2017-04-04 12:00] VITALS: BP 125/82; PULSE 78; TEMP 37; O2SAT 98
--- NOTE | 2017-04-04 13:04 | Discharge Summary ---
Discharge Summary Date of Service Apr 04, 2017. Discharge Summary Admission Date: March 30, 2017 at 18:15 Discharge Date: Apr 04, 2017 Discharge Disposition: Home with services Principal Diagnosis: bradycardia, acute diastolic heart failure resolved Immunizations: Have You Had Influenza Vaccine: Yes Influenza Vaccine Date: Aug 18, 2008 History of Tetanus Vaccine?: Yes Tetanus Immunization Date: Aug 18, 2008 History of Pneumococcal: Yes Pneumococcal Date: Aug 18, 2008 History of Hepatitis B Vaccine: No Procedures: PPM placement after temp pacer Consultations: Dr Griffiths Medication Reconciliation Continued Medications: Aspirin (Aspirin Chewable) 81 Mg Chew 81 MG PO QAM Atorvastatin (Lipitor) 20 Mg Tab 20 MG PO QPM, TAB Docusate Sodium (Colace) 100 Mg Cap 1 CAP PO BID for 30 Days, #60 CAP Gabapentin (Neurontin) 100 Mg Cap 100 MG PO BID, CAP Glipizide (Glipizide) 10 Mg Tab 10 MG PO BID, #60 Losartan Potassium (Cozaar) 50 Mg Tab 50 MG PO QAM, TAB Metformin HCl (Metformin HCl) 500 Mg Tab 500 MG PO TID, #90 Multivitamin (Multivitamin) Tab 1 TAB PO QAM, TAB Discharge Exam Review of Systems: Constitutional: No fever, No chills Respiratory: No cough, No sputum, No wheezing Cardiovascular: No chest pain, No orthopnea, No PND Physical Exam: General Appearance: no apparent distress, + obese Neck: supple, thyroid normal Respiratory/Chest: chest non-tender, lungs clear, normal breath sounds Cardiovascular: regular rate, rhythm, no murmur Hospital Course 81F with 3rd degree heart block and elevated troponin, now s/p permanent pacemaker04/02,for snf rehab but son refused, states he will care for mother at home himself 3rd degree AV block s/p transvenous pacer with requirement for permanent pacemaker by EP 04/02, will need follow up with dr griffiths and pcp acute/chronic diastolic CHF - elevated troponin felt not to be acs but likely supply demand. fluid overload from bradycardia has resolved T2DM resume oral agents, CKD stage 3 - remains stable Total Time Spent: Greater than 30 minutes This includes examination of the patient, discharge planning, medication reconciliation, and communication with other providers. Discharge Instructions Please refer to the electronic Patient Visit Report (Discharge Instructions) for additional information.
[2017-04-04 15:50] VITALS: BP 147/84; PULSE 88; TEMP 37.4; O2SAT 94
[2017-04-04 17:50] VITALS: BP 104/66; PULSE 156
[2017-04-04] MEDS: ATORVASTATIN 20 MG TAB PO SCH (20:32)
[2017-04-04 20:35] VITALS: BP 142/84; PULSE 82; TEMP 36.9; O2SAT 94
== END 2017-04-04 21:13 | disposition home health service (06) | DRG 242 ==
LOC: ENRESERVDT → ENRESERVTM → EDBD 15:25 → C.EDB 15:30 → C.MSICU 18:15 → C.2T 04-03 14:19
PROVIDERS: ADMIT Family Medicine; ATTEND Internal Medicine
PROC: 5A1213Z Performance of Cardiac Pacing, Intermittent (ICD-10-PCS; 2017-03-30)
PROC: 5A1213Z Performance of Cardiac Pacing, Intermittent (ICD-10-PCS; 2017-04-01)
PROC: 05HM33Z Insertion of Infusion Device into Right Internal Jugular Vein, Percutaneous Approach (ICD-10-PCS; 2017-04-01)
PROC: 02HK3JZ Insertion of Pacemaker Lead into Right Ventricle, Percutaneous Approach (ICD-10-PCS; principal; 2017-04-02 13:33)
PROC: 0JH606Z Insertion of Pacemaker, Dual Chamber into Chest Subcutaneous Tissue and Fascia, Open Approach (ICD-10-PCS; principal; 2017-04-02 13:33)
PROC: 02H63JZ Insertion of Pacemaker Lead into Right Atrium, Percutaneous Approach (ICD-10-PCS; principal; 2017-04-02 13:33)
DX: I44.2 Atrioventricular block, complete (principal); I50.33 Acute on chronic diastolic (congestive) heart failure; I13.0 Hypertensive heart and chronic kidney disease with heart failure and stage 1 through stage 4 chronic kidney disease, or unspecified chronic kidney disease; R00.1 Bradycardia, unspecified; E11.22 Type 2 diabetes mellitus with diabetic chronic kidney disease; N18.3 Chronic kidney disease, stage 3 (moderate); E78.5 Hyperlipidemia, unspecified; Z86.718 Personal history of other venous thrombosis and embolism; I25.10 Atherosclerotic heart disease of native coronary artery without angina pectoris; H91.90 Unspecified hearing loss, unspecified ear; E66.9 Obesity, unspecified; Z68.31 Body mass index [BMI] 31.0-31.9, adult; E87.70 Fluid overload, unspecified; E83.42 Hypomagnesemia; Z79.82 Long term (current) use of aspirin; Z79.899 Other long term (current) drug therapy; Z90.49 Acquired absence of other specified parts of digestive tract

== ENCOUNTER → 2017-05-14 | Outpatient (CLI) | payer OTHER ==
[~2017-05-14] MED LIST changes: +GLC500 PO; -GLIP-199 PO; +GLIP10TA10 PO; -METF500T PO
[2017-05-14 12:11] LABS: BASO % 0.4 %; BASO ABS # 0.03 K/uL (0-0.2); COMPLETE YES; EOS % 3.2 %; HEMATOCRIT 42.8 % (37-47); IG% 0.1 %; LYMPH % 13.8 %; LYMPH ABS # 1.04 K/uL (1.2-3.4); MEAN CELL VOLUME 91.3 fL (80-100); MEAN CORPUSCULAR HEMOGLOBIN 28.8 pg (25-34); MEAN CORPUSCULAR HGB CONC 31.5 g/dl (32-36); MEAN PLATELET VOLUME 10.3 fL (7.4-10.4); MONO % 6.6 %; NEUT % 75.9 %; PLATELET COUNT 284 K/uL (130-400); RED BLOOD COUNT 4.69 M/uL (4.2-5.4); WHITE BLOOD COUNT 7.56 K/uL (4.8-10.8)
[2017-05-14 12:21] LABS: ALT/SGPT 16 U/L (12-78); BLOOD UREA NITROGEN 14 mg/dl (7-18); BUN/CREATININE RATIO 15.8 (10-20); CALCIUM 9.4 mg/dl (8.5-10.1); CARBON DIOXIDE 31 mmol/L (21-32); CHLORIDE 105 mmol/L (98-107); CHOLESTEROL 205 mg/dl (0-200); CREATININE 0.91 mg/dl (0.60-1.20); GLUCOSE 138 mg/dl (70-99); POTASSIUM 4.1 mmol/L (3.5-5.1); SODIUM 141 mmol/L (136-145)
[2017-05-14 12:24] LABS: ALB/GLOB RATIO 1.1 (0.9-2); ALKALINE PHOSPHATASE 61 U/L (45-117); AST/SGOT 12 U/L (15-37); HDL CHOLESTEROL 69 mg/dl; LDL CHOLESTEROL CALCULATED 120 mg/dl; TRIGLYCERIDES 81 mg/dl (0-150); VERY LOW DENSITY LIPOPROT CALC 16 mg/dl
[2017-05-16 06:53] LABS: ESTIMATED AVERAGE GLUCOSE 126 mg/dl; HA1C FLAG Normal (Normal)
== END | disposition home or self-care (01) ==
LOC: C.LABBFT 10:38
PROVIDERS: ATTEND Physician Assistant Medical
DX: E11.9 Type 2 diabetes mellitus without complications (principal); R41.3 Other amnesia

== ENCOUNTER 2021-04-13 15:06 | Observation (INO) ==
[2021-04-13] MEDS: SODIUM CHLORIDE 0.9% 1000ML 1,000 ML IV SCH (15:44)
[2021-04-13 15:45] LABS: Basophils # (auto) 0.02 K/uL (0-0.2); Basophils % (auto) 0.4 %; Eosinophils # (auto) 0.22 K/uL (0-0.5); Eosinophils % (auto) 4.3 %; Hematocrit (blood only) 44.9 % (37-47); Immature Granulocytes # (auto) 0.01 K/uL (0.00-0.02); Immature Granulocytes % (auto) 0.2 %; Lymphocytes # (auto) 1.16 K/uL (1.2-3.4); Lymphocytes % (auto) 22.7 %; Mean Corpuscular Hemoglobin 30.2 pg (25-34); Mean Corpuscular Hgb Conc 33.4 g/dL (32-36); Mean Corpuscular Volume 90.5 fL (80-100); Mean Platelet Volume 10.4 fL (7.4-10.4); Monocytes # (auto) 0.36 K/uL (0.11-0.59); Neutrophils # (auto) 3.35 K/uL (1.4-6.5); Neutrophils % (auto) 65.4 %; Platelet Count 255 K/uL (130-400); RDW Coefficient of Variation 13.8 % (11.5-14.5); RDW Standard Deviation 45.5 fL (36.4-46.3); Red Blood Count 4.96 M/uL (4.2-5.4); White Blood Count 5.12 K/uL (4.8-10.8)
[2021-04-13 15:55] LABS: INR 1.1 (0.9-1.1); Partial Thromboplastin Ratio 0.9; Partial Thromboplastin Time 22.8 Seconds (21.0-31.0); Prothrombin Time 10.7 Seconds (9.0-12.0)
--- NOTE | 2021-04-13 15:56 | XRay Report ---
XR chest 1V portable HISTORY: SEPSIS COMPARISON: Chest 08/05/2020. FINDINGS: No pneumothorax. No pleural effusions. Stable linear density at the left lung base likely r epresenting scarring or atelectasis. Old, healed left-sided rib fractures are again noted. There is m ild chronic interstitial thickening. No new focal lung consolidations to suggest pneumonia. No eviden ce for pulmonary edema. There is a left-sided dual-chamber pacemaker. The heart remains mildly enlarg ed. There is a moderate hiatus hernia, unchanged. Old posttraumatic changes within the left humeral n heath. IMPRESSION: No significant change compared to the prior study. No acute process. ACT 112: Negative or not required by law. Electronically signed by: Tyrone Salcedo M.D. 04/13/2021 3:54 PM
[2021-04-13 16:12] LABS: Alanine Aminotransferase 14 U/L (12-78); Albumin Level 3.9 gm/dl (3.4-5.0); Aspartate Aminotransferase 10 U/L (15-37); BUN Creatinine Ratio 21.2 (10-20); Blood Urea Nitrogen 19 mg/dl (7-18); Calcium 9.6 mg/dl (8.5-10.1); Carbon Dioxide 26 mmol/L (21-32); Chloride 106 mmol/L (98-107); Creatinine Clr Calc Pharmacy 43.5 ml/min; Est GFR (African American) 68.5 ml/min; Est GFR (Non-African American) 59.1 ml/min; Glucose 106 mg/dl (70-99); Magnesium 1.9 mg/dl (1.8-2.4); Sodium 140 mmol/L (136-145)
--- NOTE | 2021-04-13 16:14 | CT Scan Report ---
CT head/brain wo con CLINICAL HISTORY: Acute change in mental status COMPARISON STUDY: 08/05/2020 TECHNIQUE: Axial CT of the brain is performed from the vertex to the skull base. IV contrast was not administered for this examination. A dose lowering technique was utilized adhering to the principles of ALARA. CT DOSE: 638.56 mGycm FINDINGS: No intra or extra-axial mass lesions are visualized. There is no CT evidence of acute cortical infarc tion. There is no evidence of midline shift. There is no acute hemorrhage. No calvarial fractures ar e visualized. There are patchy white matter hypodensities likely on a small vessel basis. There is no evidence of pathologic ventricular dilatation. There are chronic bilateral mastoid effusions. There is fluid within both middle ear cavities. IMPRESSION: 1. No acute intracranial findings 2. Chronic bilateral mastoid effusions. There is fluid within both middle ear cavities. ACT 112: Negative or not required by law. Electronically signed by: Alex Carpenter M.D. 04/13/2021 4:12 PM
[2021-04-13 16:17] LABS: Albumin Globulin Ratio 1.2 (0.9-2); Alkaline Phosphatase 70 U/L (45-117); Bilirubin,Total 1.4 mg/dl (0.2-1); Globulin 3.2 gm/dl (2.5-4.0); Total Protein 7.1 gm/dl (6.4-8.2); Troponin I < 0.015 ng/ml (0-0.045)
--- NOTE | 2021-04-13 17:26 | Emergency Department Note ---
Impression & Plan AMS (altered mental status), Fever ED Provider Note INFORMANT: Patient ED PROVIDER(S): Jose Ornelas MD CHIEF COMPLAINT: AMS PLAN: Disposition: Admitted Condition: Good Outpatient prescription management: none Referral: None MEDICAL DECISION MAKING: Patient presented to emergency department with reported fever by EMS and confusion. She was oriented to person only. Patient was gently hydrated. Blood work was obtained. Catheter urinalysis specimen was done. Head CT was negative for acute process. The patient has some fluid in the mastoids but she has no headache. CBC and chemistry panel are unremarkable. Urinalysis did have moderate white blood cells and esterase. No nitrite. Patient was treated with IV Rocephin. Urine culture sent. On reassessment she was doing well without any significant changes. Her family was present and they were notified. Patient will need further management in the hospital. Consultation was made with Dr. Stevens of the [facility] service. Patient was evaluated in the ER for further management. Triage Nursing notes reviewed and agree them. Vital Signs: reviewed and remarkable for no significant abnormalities Differential diagnosis: Infection, hypoglycemia, electrolyte abnormalities, overdose, toxicologic, cardiac sources, intracerebral event, neurologic, trauma, as well as other pathologies. Diagnostics interpreted by me: ECG: Twelve-lead ECG reveals a paced rhythm at 72 bpm. Atrial sensed ventricular paced. No ST elevation. No PVCs. Cardiac Monitoring: Cardiac monitoring ordered by me: The patient was placed on continuous cardiac monitoring and observed. It revealed a paced rhythm at 70 beats per minute without ectopy or evidence of dysrhythmia. Imaging studies: Chest x-ray. Findings: A chest x-ray was performed and revealed no pneumothorax, effusion, infiltrate, pulmonary edema, free air under the diaphragm, or wide mediastinum. Impression: No acute disease. Head CT: A noncontrast CT scan of the head was performed and was negative for tumor, fracture, intracranial hemorrhage, or other acute pathology. HPI: The patient is a 85 year old female who presents to the Emergency Room with altered mental status. This started afternoon. The patient was found on her porch by her neighbors and EMS noted that they were concerned about confusion. They were summoned. On their arrival the patient was disoriented and had a fever over 100. The patient was transported to the ER. The patient also notes the following associated symptoms, none. The patient is oriented to person only. Patient denies any pain. Pt denies LOC, headache, fevers, chills, neck pain, chest pain, breathing difficulties, nausea, vomiting, abdominal pain, back pain, urinary symptoms, or other complaints. History is limited secondary to patient's confusion. ROS: See above HPI for pertinent positives & negatives. Limited secondary to the patient's confusion. PAST MEDICAL HISTORY:See Below , high blood pressure PAST SURGICAL HISTORY:See Below, pacemaker FAMILY HISTORY:See Below SOCIAL HISTORY:See Below, lives alone HOME MEDICATIONS:See Below ALLERGIES:See Below VITALS:See Below PHYSICAL EXAMINATION: GENERAL: Awake, alert, [id number], in no distress HENT: Normocephalic, atraumatic. Oropharynx unremarkable. EYES: Normal conjunctiva. Sclera non-icteric. NECK: Inspection normal. Non-tender. Supple. No nuchal rigidity. FROM. No masses. RESPIRATORY: Clear to auscultation. No wheezes. No rales. Normal respiratory effort. CARDIAC: Normal rate. Normal rhythm. No murmurs. No rubs. Extremities warm and well perfused. Pulses equal. No JVD. GI: Soft, non-distended. No tenderness to palpation. No rebound or guarding. No masses. RECTAL: Deferred. MUSCULOSKELETAL: Atraumatic. Chest examination reveals no tenderness. The back is symmetrical on inspection without obvious abnormality. There is no CVA tenderness to palpation. No joint edema. LOWER EXTREMITIES: Calves are equal size bilaterally and non-tender. No edema. No discoloration. NEURO: Altered sensorium. Oriented to person only. No sensory or motor deficits noted. SKIN: No rash or jaundice noted. Jose Ornelas MD Past Med/Surg History Medical History Anxiety CHF (congestive heart failure) Constipation Debility Disc degeneration, lumbar Facial contusion Hernia History of temporary cardiac pacemaker treatment Hypercholesterolemia Hyperlipidemia Hypertension Impacted cerumen of both ears Left bundle-branch block Low back pain Memory loss Seborrheic keratosis Seborrheic keratosis SOB (shortness of breath) Tubular adenoma of colon Type 2 diabetes mellitus Urinary incontinence Surgical History History of ankle surgery History of cholecystectomy History of palate surgery History of throat surgery Family History Unknown Diabetes Mother Cancer Father Cancer Brother Cancer Other Hypertension Denies family history of Ovarian cancer Prostate cancer Myocardial infarction Breast cancer Colorectal cancer Social History Smoking Status: Unknown if ever smoked Preferred Language: Andorran Communication Ability: Effective Visual Impairment: No Limitations Hearing Ability: Hard of Hearing current occupational status: retired Feels Safe at Home: Yes Allergies Allergies Allergy/AdvReac Type Severity Reaction Status Date / Time No Known Drug Allergies Allergy Unknown Verified 04/13/21 15:32 Home Meds Home Medications Medication Instructions Recorded Confirmed metformin 500 mg tablet 1,000 mg PO BID tab 01/09/21 04/13/21 cholecalciferol (vitamin D3) 25 mcg PO DAILY 04/13/21 04/13/21 [Vitamin D3] multivitamin 1 tab PO DAILY 04/13/21 04/13/21 Results & Data (ED) Vital Signs Vital Signs - 24 hr 04/13/21 15:10 04/13/21 15:22 04/13/21 15:30 Temperature Temperature Source Pulse Rate 71 71 72 Pulse Rate [Right Finger] Pulse Rate from SpO2 Sensor 72 73 Pulse Rhythm Pulse Strength Respiratory Rate 18 16 19 Respiratory Effort / Characteristics Respiratory Depth Respiratory Pattern Blood Pressure 173/131 H Blood Pressure Mean 145 Blood Pressure Position Pulse Oximetry 91 96 Oxygen Delivery Method Room Air Room Air Room Air Sepsis Recent Fever Within 48 Hours Sepsis New/Unexplained Change in Mental Status Sepsis Action Taken by Nursing 04/13/21 15:40 04/13/21 15:50 04/13/21 16:35 Temperature 36.8 C Temperature Source Oral Pulse Rate 70 69 64 Pulse Rate [Right Finger] Pulse Rate from SpO2 Sensor 70 62 64 Pulse Rhythm Regular Pulse Strength Normal Respiratory Rate 36 H 14 17 Respiratory Effort / Characteristics Non-Labored Spontaneous Respiratory Depth Normal Respiratory Pattern Regular Blood Pressure 173/131 H Blood Pressure Mean 145 Blood Pressure Position Sitting Pulse Oximetry 94 96 96 Oxygen Delivery Method Room Air Room Air Room Air Sepsis Recent Fever Within 48 Hours No Sepsis New/Unexplained Change in Mental Status Yes Sepsis Action Taken by Nursing No Action Required 04/13/21 16:40 04/13/21 17:14 04/13/21 19:11 Temperature Temperature Source Pulse Rate 62 Pulse Rate [Right Finger] 60 Pulse Rate from SpO2 Sensor 62 Pulse Rhythm Pulse Strength Respiratory Rate 17 20 16 Respiratory Effort / Characteristics Non-Labored Spontaneous Respiratory Depth Respiratory Pattern Blood Pressure Blood Pressure Mean Blood Pressure Position Pulse Oximetry 96 93 Oxygen Delivery Method Room Air Room Air Room Air Sepsis Recent Fever Within 48 Hours Sepsis New/Unexplained Change in Mental Status Sepsis Action Taken by Nursing Laboratory Data Result diagrams: 04/13/21 15:36 04/13/21 15:36 Lab Results 04/13/21 04/13/21 04/13/21 Range/Units 15:36 15:36 15:36 WBC 5.12 (4.8-10.8) K/uL RBC 4.96 (4.2-5.4) M/uL Hgb 15.0 (12.0-16.0) g/dL Hct 44.9 (37-47) % MCV 90.5 (80-100) fL MCH 30.2 (25-34) pg MCHC 33.4 (32-36) g/dL RDW Std Deviation 45.5 (36.4-46.3) fL RDW Coeff of Sheridan 13.8 (11.5-14.5) % Plt Count 255 (130-400) K/uL MPV 10.4 (7.4-10.4) fL Immature Gran % (Auto) 0.2 % Neut % (Auto) 65.4 % Lymph % (Auto) 22.7 % Karnes % (Auto) 7.0 % Eos % (Auto) 4.3 % Baso % (Auto) 0.4 % Neut # (Auto) 3.35 (1.4-6.5) K/uL Lymph # (Auto) 1.16 L (1.2-3.4) K/uL Karnes # (Auto) 0.36 (0.11-0.59) K/uL Eos # (Auto) 0.22 (0-0.5) K/uL Baso # (Auto) 0.02 (0-0.2) K/uL Immature Gran # (Auto) 0.01 (0.00-0.02) K/uL PT 10.7 (9.0-12.0) Seconds INR 1.1 (0.9-1.1) APTT 22.8 (21.0-31.0) Seconds PTT Ratio 0.9 Sodium 140 (136-145) mmol/L Potassium 4.0 (3.5-5.1) mmol/L Chloride 106 (98-107) mmol/L Carbon Dioxide 26 (21-32) mmol/L Anion Gap 8.0 (3-11) BUN 19 H (7-18) mg/dl Creatinine 0.89 (0.6-1.2) mg/dl Est Cr Clr Drug Dosing 43.5 ml/min Est GFR ( Amer) 68.5 ml/min Est GFR (Non-Af Amer) 59.1 ml/min BUN/Creatinine Ratio 21.2 H (10-20) Glucose 106 H (70-99) mg/dl Lactate (0.4-2.0) mmol/L Calcium 9.6 (8.5-10.1) mg/dl Magnesium 1.9 (1.8-2.4) mg/dl Total Bilirubin 1.4 H (0.2-1) mg/dl AST 10 L (15-37) U/L ALT 14 (12-78) U/L Alkaline Phosphatase 70 (45-117) U/L Troponin I < 0.015 (0-0.045) ng/ml Total Protein 7.1 (6.4-8.2) gm/dl Albumin 3.9 (3.4-5.0) gm/dl Globulin 3.2 (2.5-4.0) gm/dl Albumin/Globulin Ratio 1.2 (0.9-2) Urine Color Urine Appearance (Clear) Urine pH (4.5-7.5) Ur Specific Sidman (1.000-1.030) Urine Protein (Negative) Urine Glucose (UA) (Negative) Urine Ketones (Negative) Urine Blood (Negative) Urine Nitrite (Negative) Urine Bilirubin (Negative) Urine Urobilinogen (Negative) Ur Leukocyte Esterase (Negative) Urine WBC (Auto) (0-5) /hpf Urine RBC (Auto) (0-4) /hpf U Hyaline Cast (Auto) (0-5) /lpf U Epithel Cells (Auto) (0-5) /lpf Urine Bacteria (Auto) (Negative) COVID-19 Eval Order SARS-CoV-2 (PCR) (Negative) 04/13/21 04/13/21 04/13/21 Range/Units 15:36 16:38 16:38 WBC (4.8-10.8) K/uL RBC (4.2-5.4) M/uL Hgb (12.0-16.0) g/dL Hct (37-47) % MCV (80-100) fL MCH (25-34) pg MCHC (32-36) g/dL RDW Std Deviation (36.4-46.3) fL RDW Coeff of Sheridan (11.5-14.5) % Plt Count (130-400) K/uL MPV (7.4-10.4) fL Immature Gran % (Auto) % Neut % (Auto) % Lymph % (Auto) % Karnes % (Auto) % Eos % (Auto) % Baso % (Auto) % Neut # (Auto) (1.4-6.5) K/uL Lymph # (Auto) (1.2-3.4) K/uL Karnes # (Auto) (0.11-0.59) K/uL Eos # (Auto) (0-0.5) K/uL Baso # (Auto) (0-0.2) K/uL Immature Gran # (Auto) (0.00-0.02) K/uL PT (9.0-12.0) Seconds INR (0.9-1.1) APTT (21.0-31.0) Seconds PTT Ratio Sodium (136-145) mmol/L Potassium (3.5-5.1) mmol/L Chloride (98-107) mmol/L Carbon Dioxide (21-32) mmol/L Anion Gap (3-11) BUN (7-18) mg/dl Creatinine (0.6-1.2) mg/dl Est Cr Clr Drug Dosing ml/min Est GFR ( Amer) ml/min Est GFR (Non-Af Amer) ml/min BUN/Creatinine Ratio (10-20) Glucose (70-99) mg/dl Lactate 1.2 (0.4-2.0) mmol/L Calcium (8.5-10.1) mg/dl Magnesium (1.8-2.4) mg/dl Total Bilirubin (0.2-1) mg/dl AST (15-37) U/L ALT (12-78) U/L Alkaline Phosphatase (45-117) U/L Troponin I (0-0.045) ng/ml Total Protein (6.4-8.2) gm/dl Albumin (3.4-5.0) gm/dl Globulin (2.5-4.0) gm/dl Albumin/Globulin Ratio (0.9-2) Urine Color Urine Appearance (Clear) Urine pH (4.5-7.5) Ur Specific Sidman (1.000-1.030) Urine Protein (Negative) Urine Glucose (UA) (Negative) Urine Ketones (Negative) Urine Blood (Negative) Urine Nitrite (Negative) Urine Bilirubin (Negative) Urine Urobilinogen (Negative) Ur Leukocyte Esterase (Negative) Urine WBC (Auto) (0-5) /hpf Urine RBC (Auto) (0-4) /hpf U Hyaline Cast (Auto) (0-5) /lpf U Epithel Cells (Auto) (0-5) /lpf Urine Bacteria (Auto) (Negative) COVID-19 Eval Order Covid19 at [facility] SARS-CoV-2 (PCR) NEGATIVE (Negative) 04/13/21 Range/Units 17:05 WBC (4.8-10.8) K/uL RBC (4.2-5.4) M/uL Hgb (12.0-16.0) g/dL Hct (37-47) % MCV (80-100) fL MCH (25-34) pg MCHC (32-36) g/dL RDW Std Deviation (36.4-46.3) fL RDW Coeff of Sheridan (11.5-14.5) % Plt Count (130-400) K/uL MPV (7.4-10.4) fL Immature Gran % (Auto) % Neut % (Auto) % Lymph % (Auto) % Karnes % (Auto) % Eos % (Auto) % Baso % (Auto) % Neut # (Auto) (1.4-6.5) K/uL Lymph # (Auto) (1.2-3.4) K/uL Karnes # (Auto) (0.11-0.59) K/uL Eos # (Auto) (0-0.5) K/uL Baso # (Auto) (0-0.2) K/uL Immature Gran # (Auto) (0.00-0.02) K/uL PT (9.0-12.0) Seconds INR (0.9-1.1) APTT (21.0-31.0) Seconds PTT Ratio Sodium (136-145) mmol/L Potassium (3.5-5.1) mmol/L Chloride (98-107) mmol/L Carbon Dioxide (21-32) mmol/L Anion Gap (3-11) BUN (7-18) mg/dl Creatinine (0.6-1.2) mg/dl Est Cr Clr Drug Dosing ml/min Est GFR ( Amer) ml/min Est GFR (Non-Af Amer) ml/min BUN/Creatinine Ratio (10-20) Glucose (70-99) mg/dl Lactate (0.4-2.0) mmol/L Calcium (8.5-10.1) mg/dl Magnesium (1.8-2.4) mg/dl Total Bilirubin (0.2-1) mg/dl AST (15-37) U/L ALT (12-78) U/L Alkaline Phosphatase (45-117) U/L Troponin I (0-0.045) ng/ml Total Protein (6.4-8.2) gm/dl Albumin (3.4-5.0) gm/dl Globulin (2.5-4.0) gm/dl Albumin/Globulin Ratio (0.9-2) Urine Color Yellow Urine Appearance Clear (Clear) Urine pH 7.0 (4.5-7.5) Ur Specific Sidman 1.012 (1.000-1.030) Urine Protein Negative (Negative) Urine Glucose (UA) Negative (Negative) Urine Ketones Trace H (Negative) Urine Blood Negative (Negative) Urine Nitrite Negative (Negative) Urine Bilirubin Negative (Negative) Urine Urobilinogen Negative (Negative) Ur Leukocyte Esterase 1+ H (Negative) Urine WBC (Auto) 10-30 H (0-5) /hpf Urine RBC (Auto) 0-4 (0-4) /hpf U Hyaline Cast (Auto) 1-5 (0-5) /lpf U Epithel Cells (Auto) >30 H (0-5) /lpf Urine Bacteria (Auto) Negative (Negative) COVID-19 Eval Order SARS-CoV-2 (PCR) (Negative) Administered Medications Sodium Chloride (Nss 1000ml) 1,000 mls @ 150 mls/hr IV [id number] CALEB Stop: 05/13/21 15:29 Last Admin: 04/13/21 15:44 Dose: 150 mls/hr Documented by: [id number] Discontinued Medications Ceftriaxone Sodium (Rocephin) 1,000 mg in 50 mls @ 100 mls/hr IV NOW STA Stop: 04/13/21 18:37 Last Infusion: 04/13/21 19:18 Dose: 0 mls/hr Documented by: [id number] Admin: 04/13/21 18:41 Dose: 100 mls/hr Documented by: [id number] Imaging Data Radiologist's Impression: Head CT 04/13/21 15:17 CT head/brain wo con CLINICAL HISTORY: Acute change in mental status COMPARISON STUDY: 08/05/2020 TECHNIQUE: Axial CT of the brain is performed from the vertex to the skull base. IV contrast was not administered for this examination. A dose lowering technique was utilized adhering to the principles of ALARA. CT DOSE: 638.56 mGycm FINDINGS: No intra or extra-axial mass lesions are visualized. There is no CT evidence of acute cortical infarction. There is no evidence of midline shift. There is no acute hemorrhage. No calvarial fractures are visualized. There are patchy white matter hypodensities likely on a small vessel basis. There is no evidence of pathologic ventricular dilatation. There are chronic bilateral mastoid effusions. There is fluid within both middle ear cavities. IMPRESSION: 1. No acute intracranial findings 2. Chronic bilateral mastoid effusions. There is fluid within both middle ear cavities. ACT 112: Negative or not required by law. Electronically signed by: Alex Carpenter M.D. 04/13/2021 4:12 PM Chest X-Ray 04/13/21 15:18 XR chest 1V portable HISTORY: SEPSIS COMPARISON: Chest 08/05/2020. FINDINGS: No pneumothorax. No pleural effusions. Stable linear density at the left lung base likely representing scarring or atelectasis. Old, healed left- sided rib fractures are again noted. There is mild chronic interstitial thickening. No new focal lung consolidations to suggest pneumonia. No evidence for pulmonary edema. There is a left-sided dual-chamber pacemaker. The heart remains mildly enlarged. There is a moderate hiatus hernia, unchanged. Old posttraumatic changes within the left humeral neck. IMPRESSION: No significant change compared to the prior study. No acute process. ACT 112: Negative or not required by law. Electronically signed by: Tyrone Salcedo M.D. 04/13/2021 3:54 PM Discharge Plan Visit Data Chief Complaint: Altered Mental Status Stated Complaint: AMS ED Provider: Jose Ornelas Discharge Problem: AMS (altered mental status), Fever Forms Stand Alone Forms: My [facility] Prescriptions Prescriptions: No Action metformin 500 mg tablet 1,000 mg PO BID RF: 0 multivitamin Tablet 1 tab PO DAILY RF: 0 cholecalciferol (vitamin D3) [Vitamin D3] 25 mcg (1,000 unit) Tablet 25 mcg PO DAILY RF: 0
[2021-04-13 17:33] LABS: Appearance Urine Clear (Clear); Bacteria Urine Automated Negative (Negative); Bilirubin Urine Negative (Negative); Blood Urine Negative (Negative); Color Urine Yellow; Epithelial Cell Urine Auto >30 /lpf (0-5); Glucose Urine UA Negative (Negative); Ketones Urine Trace (Negative); Leukocyte Esterase Urine 1+ (Negative); Nitrite Urine Negative (Negative); Protein Urine Negative (Negative); RBC Urine Automated 0-4 /hpf (0-4); Specific Gravity Urine 1.012 (1.000-1.030); Urobilinogen Urine Negative (Negative)
[2021-04-13] MEDS ORDERED: cefTRIAXone SODIUM 1,000 MG/50 ML BAG IV STA (18:08)
--- NOTE | 2021-04-13 20:04 | History & Physical Report ---
Date of Service April 13, 2021 Assessment & Plan (1) AMS (altered mental status): 85yo female presenting with confusion. Patient presently near baseline per grandson at bedside. No obvious source of confusion. Reported Tmax of 101 by EMS, patient has been afebrile here with no overt evidence of infection. Most likely with some underlying dementia. Afebrile, HD stable, NAD. No concerning laboratory findings. Patient administered IV Ceftriaxone x 1 dose for possible UTI Per ER attending - Office of Aging is presently assessing patient's home environment and safety. Her grandson states that he checks on her every other day - he cooks for her, does grocery shopping and helps her manage her medications. He is in the process of obtaining POA -Observation to medical floor -PT/OT evaluation for any placement needs or home services -Will check CK - patient down on porch, temp of 101 reported - ?exposure -Aspiration precautions -Fall precautions Present on Admission?: Yes (2) Hearing loss: Patient with bilateral hearing loss. Needs to have things written down for communication. Patient has been seen by Audiology in the past. Present on Admission?: Yes (3) Type 2 diabetes mellitus: Blood sugar 106. Last Hgb A1C = 6.3 on 12/21/20 -ISS -Goal blood sugar 100 - 140 Present on Admission?: Yes (4) Complete heart block: Patient with pacemaker in place -no issues F/E/N - administered IVF in ER - patient is able to tolerate PO without difficulty, appears euvolemic, encourage PO intake, electrolytes WNL, Regular diet as tolerated Ppx - Lovenox Code - Full Dispo - Observation to medical Present on Admission?: Yes History of Present Illness Chief Complaint: AMS Primary Care Provider: Mateo Hampton MD Kristal Donaldson is an 85 yo female with history of HTN, HLP, DM and anxiety presenting with concern for mental status. Patient lives alone. She has a grandson that checks on her every other day. Today she was found outside on her porch, confused. Neighbors called EMS due to concerns for AMS. By report, pat ient with elevated temperature initially 101. Presently she is doing well. She has no complaints. She does not recollect what happened this afternoon or why she is in the hospital. Her grandson states that she has good days and bad days. She will sometimes get confused which improves after eating. He states that she has significant gas pains on occasion which is relieved by GasX. Grandson is in the process of obtaining POA. ER Course: Ceftriaxone Allergies Allergy/AdvReac Type Severity Reaction Status Date / Time No Known Drug Allergies Allergy Unknown Verified 04/13/21 15:32 Home Medications Medication Instructions Recorded Confirmed Type metformin 500 mg tablet 1,000 mg PO BID tab 01/09/21 04/13/21 History cholecalciferol (vitamin D3) 25 mcg PO DAILY 04/13/21 04/13/21 History [Vitamin D3] multivitamin 1 tab PO DAILY 04/13/21 04/13/21 History Past Med/Surg History Medical History (Updated 04/13/21 @ 23:13 by Meenu Carrasco DO) Anxiety CHF (congestive heart failure) Constipation Debility Disc degeneration, lumbar Facial contusion Hernia History of temporary cardiac pacemaker treatment Hyperlipidemia Hypertension Impacted cerumen of both ears Left bundle-branch block Low back pain Memory loss Tubular adenoma of colon Type 2 diabetes mellitus Urinary incontinence Surgical History History of ankle surgery History of cholecystectomy History of palate surgery History of Palatoplasty For Cleft Palate Soft Palate History of throat surgery Family History Unknown Diabetes Mother Cancer Father Cancer Brother Cancer Other Hypertension Denies family history of Ovarian cancer Prostate cancer Myocardial infarction Breast cancer Colorectal cancer Social History Smoking Status: Unknown if ever smoked Preferred Language: Slovenian Communication Ability: Effective Visual Impairment: No Limitations Hearing Ability: Hard of Hearing current occupational status: retired Feels Safe at Home: Yes Review of Systems Review of Systems: All systems reviewed & are unremarkable except as noted in HPI & below Physical Exam Physical Exam: General: elderly female patient resting comfortably in bed eating without difficulty. Patient is extremely hard of hearing - needs things to be written down for her. She is able to read without difficulty. Skin: warm, dry, intact, no rashes or lesions HEENT: NC/AT, PERRL, EOMI, anicteric sclera, conjunctiva without injection, external ear normal to inspection and nontender, nares patent, moist mucus membranes, dentition intact, no oropharyngeal lesions, neck supple, trachea midline, no LAD, no thyromegaly, no JVD Heart: +S1/S2, regular, no m/r/g Lungs: equal air entry bilaterally, no rales/rhonchi/wheezes Abd: +BS, soft, NT/ND, no masses/organomegaly/ascites Ext: warm, 2+ pulses in UE/LE bilaterally, no clubbing/cyanosis or edema Neuro: nonfocal, patient AA&O to self and location, speech intact, no facial droop, moving all extremities on command with equal strength 5/5 Results & Data Results & Data ([facility]) Vital Signs (Past 12 Hours) Vital Signs Temp Pulse Pulse Resp BP Pulse Ox 04/13/21 19:11 60 16 93 04/13/21 17:14 20 04/13/21 16:40 62 17 96 04/13/21 16:35 64 17 96 04/13/21 15:50 36.8 C 69 14 173/131 H 96 04/13/21 15:40 70 36 H 94 04/13/21 15:30 72 19 96 04/13/21 15:22 71 16 91 04/13/21 15:10 71 18 173/131 H Laboratory Results Laboratory Results WBC 5.12 K/uL (4.8-10.8) 04/13/21 15:36 RBC 4.96 M/uL (4.2-5.4) 04/13/21 15:36 Hgb 15.0 g/dL (12.0-16.0) 04/13/21 15:36 Hct 44.9 % (37-47) 04/13/21 15:36 MCV 90.5 fL (80-100) 04/13/21 15:36 MCH 30.2 pg (25-34) 04/13/21 15:36 MCHC 33.4 g/dL (32-36) 04/13/21 15:36 RDW Std Deviation 45.5 fL (36.4-46.3) 04/13/21 15:36 RDW Coeff of Sheridan 13.8 % (11.5-14.5) 04/13/21 15:36 Plt Count 255 K/uL (130-400) 04/13/21 15:36 MPV 10.4 fL (7.4-10.4) 04/13/21 15:36 Immature Gran % (Auto) 0.2 % 04/13/21 15:36 Neut % (Auto) 65.4 % 04/13/21 15:36 Lymph % (Auto) 22.7 % 04/13/21 15:36 Will % (Auto) 7.0 % 04/13/21 15:36 Eos % (Auto) 4.3 % 04/13/21 15:36 Baso % (Auto) 0.4 % 04/13/21 15:36 Neut # (Auto) 3.35 K/uL (1.4-6.5) 04/13/21 15:36 Lymph # (Auto) 1.16 K/uL (1.2-3.4) L 04/13/21 15:36 Will # (Auto) 0.36 K/uL (0.11-0.59) 04/13/21 15:36 Eos # (Auto) 0.22 K/uL (0-0.5) 04/13/21 15:36 Baso # (Auto) 0.02 K/uL (0-0.2) 04/13/21 15:36 Immature Gran # (Auto) 0.01 K/uL (0.00-0.02) 04/13/21 15:36 PT 10.7 Seconds (9.0-12.0) 04/13/21 15:36 INR 1.1 (0.9-1.1) 04/13/21 15:36 APTT 22.8 Seconds (21.0-31.0) 04/13/21 15:36 PTT Ratio 0.9 04/13/21 15:36 Sodium 140 mmol/L (136-145) 04/13/21 15:36 Potassium 4.0 mmol/L (3.5-5.1) 04/13/21 15:36 Chloride 106 mmol/L (98-107) 04/13/21 15:36 Carbon Dioxide 26 mmol/L (21-32) 04/13/21 15:36 Anion Gap 8.0 (3-11) 04/13/21 15:36 BUN 19 mg/dl (7-18) H 04/13/21 15:36 Creatinine 0.89 mg/dl (0.6-1.2) 04/13/21 15:36 Est Cr Clr Drug Dosing 43.5 ml/min 04/13/21 15:36 Est GFR ( Amer) 68.5 ml/min 04/13/21 15:36 Est GFR (Non-Af Amer) 59.1 ml/min 04/13/21 15:36 BUN/Creatinine Ratio 21.2 (10-20) H 04/13/21 15:36 Glucose 106 mg/dl (70-99) H 04/13/21 15:36 Lactate 1.2 mmol/L (0.4-2.0) 04/13/21 15:36 Calcium 9.6 mg/dl (8.5-10.1) 04/13/21 15:36 Magnesium 1.9 mg/dl (1.8-2.4) 04/13/21 15:36 Total Bilirubin 1.4 mg/dl (0.2-1) H 04/13/21 15:36 AST 10 U/L (15-37) L 04/13/21 15:36 ALT 14 U/L (12-78) 04/13/21 15:36 Alkaline Phosphatase 70 U/L (45-117) 04/13/21 15:36 Troponin I < 0.015 ng/ml (0-0.045) 04/13/21 15:36 Total Protein 7.1 gm/dl (6.4-8.2) 04/13/21 15:36 Albumin 3.9 gm/dl (3.4-5.0) 04/13/21 15:36 Globulin 3.2 gm/dl (2.5-4.0) 04/13/21 15:36 Albumin/Globulin Ratio 1.2 (0.9-2) 04/13/21 15:36 Urine Color Yellow 04/13/21 17:05 Urine Appearance Clear (Clear) 04/13/21 17:05 Urine pH 7.0 (4.5-7.5) 04/13/21 17:05 Ur Specific [place] 1.012 (1.000-1.030) 04/13/21 17:05 Urine Protein Negative (Negative) 04/13/21 17:05 Urine Glucose (UA) Negative (Negative) 04/13/21 17:05 Urine Ketones Trace (Negative) H 04/13/21 17:05 Urine Blood Negative (Negative) 04/13/21 17:05 Urine Nitrite Negative (Negative) 04/13/21 17:05 Urine Bilirubin Negative (Negative) 04/13/21 17:05 Urine Urobilinogen Negative (Negative) 04/13/21 17:05 Ur Leukocyte Esterase 1+ (Negative) H 04/13/21 17:05 Urine WBC (Auto) 10-30 /hpf (0-5) H 04/13/21 17:05 Urine RBC (Auto) 0-4 /hpf (0-4) 04/13/21 17:05 U Hyaline Cast (Auto) 1-5 /lpf (0-5) 04/13/21 17:05 U Epithel Cells (Auto) >30 /lpf (0-5) H 04/13/21 17:05 Urine Bacteria (Auto) Negative (Negative) 04/13/21 17:05 COVID-19 Eval Order Covid19 at [facility] 04/13/21 16:38 SARS-CoV-2 (PCR) NEGATIVE (Negative) 04/13/21 16:[address] 04/13/21 15:17 CT head/brain wo con CLINICAL HISTORY: Acute change in mental status COMPARISON STUDY: 08/05/2020 TECHNIQUE: Axial CT of the brain is performed from the vertex to the skull base. IV contrast was not administered for this examination. A dose lowering technique was utilized adhering to the principles of ALARA. CT DOSE: 638.56 mGycm FINDINGS: No intra or extra-axial mass lesions are visualized. There is no CT evidence of acute cortical infarction. There is no evidence of midline shift. There is no acute hemorrhage. No calvarial fractures are visualized. There are patchy white matter hypodensities likely on a small vessel basis. There is no evidence of pathologic ventricular dilatation. There are chronic bilateral mastoid effusions. There is fluid within both middle ear cavities. IMPRESSION: 1. No acute intracranial findings 2. Chronic bilateral mastoid effusions. There is fluid within both middle ear cavities. ACT 112: Negative or not required by law. Electronically signed by: Alex Carpenter M.D. 04/13/2021 4:12 PM Chest X-Ray 04/13/21 15:18 XR chest 1V portable HISTORY: SEPSIS COMPARISON: Chest 08/05/2020. FINDINGS: No pneumothorax. No pleural effusions. Stable linear density at the left lung base likely representing scarring or atelectasis. Old, healed left- sided rib fractures are again noted. There is mild chronic interstitial thickening. No new focal lung consolidations to suggest pneumonia. No evidence for pulmonary edema. There is a left-sided dual-chamber pacemaker. The heart remains mildly enlarged. There is a moderate hiatus hernia, unchanged. Old posttraumatic changes within the left humeral neck. IMPRESSION: No significant change compared to the prior study. No acute process. ACT 112: Negative or not required by law. Electronically signed by: Tyrone Salcedo M.D. 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: without buttermilk drier operator use Diabetes mellitus complication status: without complication Complete heart block I44.2 (1) AMS (altered mental status) Altered mental status type: unspecified Qualified Code(s): R41.82 - Altered mental status, unspecified (2) Hearing loss Laterality: bilateral Hearing loss type: unspecified Qualified Code(s): H91.93 - Unspecified hearing loss, bilateral (3) Type 2 diabetes mellitus Diabetes mellitus custodial insulin use: without custodial use Diabetes mellitus complication status: without complication Qualified Code(s): E11.9 - Type 2 diabetes mellitus without complications
[2021-04-13] MEDS ORDERED: ACETAMINOPHEN 325 MG TAB PO PRN (23:05)
[2021-04-13] MEDS ORDERED: GLUCOSE 10 TABS/TUBE PO PRN (23:05)
[2021-04-13] MEDS ORDERED: DEXTROSE 50% 50 ML SYRINGE IV PRN (23:05)
[2021-04-13] MEDS ORDERED: CARBOHYDRATES FOR HYPOGLYCEMIA PO PRN (23:05)
[2021-04-13] MEDS ORDERED: ONDANSETRON INJ 2 MG/ML 2 ML VIAL IV PRN (23:05)
[2021-04-13] MEDS ORDERED: GLUCOSE 40% GEL 15 GM TUBE PO PRN (23:05)
[2021-04-13] MEDS ORDERED: GLUCAGON FOR INJ 1 MG VIAL SQ PRN (23:05)
[2021-04-14 00:15] LABS: Creatine Kinase 60 U/L (26-192)
[2021-04-14] MEDS: SODIUM CHLORIDE 0.9% 1000ML 1,000 ML IV SCH (06:04)
[2021-04-14 07:07] LABS: Basophils # (auto) 0.01 K/uL (0-0.2); Basophils % (auto) 0.2 %; Eosinophils # (auto) 0.29 K/uL (0-0.5); Eosinophils % (auto) 5.1 %; Hematocrit (blood only) 40.2 % (37-47); Hemoglobin 13.3 g/dL (12.0-16.0); Immature Granulocytes # (auto) 0.01 K/uL (0.00-0.02); Immature Granulocytes % (auto) 0.2 %; Lymphocytes % (auto) 21.2 %; Mean Corpuscular Hgb Conc 33.1 g/dL (32-36); Mean Corpuscular Volume 90.5 fL (80-100); Mean Platelet Volume 10.2 fL (7.4-10.4); Monocytes # (auto) 0.45 K/uL (0.11-0.59); Neutrophils # (auto) 3.69 K/uL (1.4-6.5); Neutrophils % (auto) 65.3 %; Platelet Count 227 K/uL (130-400); RDW Coefficient of Variation 13.9 % (11.5-14.5); Red Blood Count 4.44 M/uL (4.2-5.4); White Blood Count 5.65 K/uL (4.8-10.8)
[2021-04-14 07:43] LABS: Albumin Level 3.1 gm/dl (3.4-5.0); BUN Creatinine Ratio 20.3 (10-20); Bilirubin Direct 0.2 mg/dl (0-0.2); Calcium 8.5 mg/dl (8.5-10.1); Est GFR (African American) 82.9 ml/min; Est GFR (Non-African American) 71.5 ml/min; Potassium 3.8 mmol/L (3.5-5.1)
[2021-04-14 07:46] LABS: Total Protein 5.9 gm/dl (6.4-8.2)
[2021-04-14] MEDS ORDERED: ENOXAPARIN INJ 40 MG/0.4 ML SYR SQ SCH (09:00)
[2021-04-14] MEDS: INSULIN ASPART 100 UNITS/ML 3 ML PEN SC SCH ×2 (10:36→13:16)
--- NOTE | 2021-04-14 18:39 | Discharge Summary ---
Date of Service April 14, 2021 Admission HPI Per Admitting Provider Kristal Donaldson is an 85 yo female with history of HTN, HLP, DM and anxiety presenting with concern for mental status. Patient lives alone. She has a grandson that checks on her every other day. Today she was found outside on her porch, confused. Neighbors called EMS due to concerns for AMS. By report, patient with elevated temperature initially 101. Presently she is doing well. She has no complaints. She does not recollect what happened this afternoon or why she is in the hospital. Her grandson states that she has good days and bad days. She will sometimes get confused which improves after eating. He states that she has significant gas pains on occasion which is relieved by GasX. Grandson is in the process of obtaining POA. ER Course: Ceftriaxone Principal Diagnosis Confusion from Alzheimer's dementia Discharge Exam Constitutional WD/WN, vitals as above Hard of hearing Eyes EOM intact bilaterally; no conjunctival abnormality ENMT external ear and nose normal, oropharynx normal Neck trachea midline, no thyromegaly normal visual inspection Respiratory normal respiratory effort, lungs clear to auscultation no respiratory distress Cardiovascular RRR, no murmur, no edema Gastrointestinal (Abdomen) Inspection/Auscultation: abdomen normal to inspection; abdomen not distended Musculoskeletal no cyanosis or clubbing, extremities motor strength 5/5 Skin no rashes, warm and dry Neurologic moves all extremities and awake Psychiatric Orientation: alert, oriented to person and cooperative Discharge Data Allergies Allergy/AdvReac Type Severity Reaction Status Date / Time No Known Drug Allergies Allergy Unknown Verified 04/13/21 15:32 Consultations 04/13/21 18:09 ED Decision to Admit Stat Ordered Studies 04/13/21 15:17 CT head/brain wo con Stat Hospital Course (1) AMS (altered mental status): 85yo female presenting with confusion. Patient presently near baseline per grandson at bedside. No obvious source of confusion. Reported Tmax of 101 by EMS, patient has been afebrile here with no overt evidence of infection. - Met with patient's grandson, Enrique, at bedside. He felt patient was at baseline. He reports she has Alzheimer's, and he is working with a tetryl blender operator to obtain POA. He reports she *did not* fall at home, but was just out on her porch. The metformin causes gas pain, and he relates that the neighbors did not know this. He feels she is more confused in the hospital (which is likely true), and feels she would do best at home. I did discuss the PT/OT recs with him, but he felt that she would be safe at home and planned to stay with her for several nights. He is already arranging home RN care for the days he cannot visit her. I discussed with CM who also reached out. Gunjan is willing to do a direct admission if he feels she could benefit from rehab. [facility] will do a safety check next week. Given the fact that Enrique seems to be doing his best to take good care of his grandmother, I was willing to discharge her per his wishes and have her get follow-up outpatient. (2) Hearing loss: Patient with bilateral hearing loss. Needs to have things written down for communication. Patient has been seen by Audiology in the past. (3) Type 2 diabetes mellitus: Blood sugar 106. Last Hgb A1C = 6.3% on 12/21/20. Enrique (grandson) is already reducing the metformin to daily to reduce gas symptoms in conjunction with PCP. He preferred to follow up with PCP rather than make further adjustments in the hospital. (4) Complete heart block: Patient with pacemaker in place. - No issues Total Time Total Time Spent Total Time Spent (In Minutes): 35 Discharge Plan Discharge Items Patient Disposition: Home - Self-Care Reason For Visit: DISORIENTED AT HOME Discharge Diagnosis: Alzheimer's disease Activity: Resume your previous activity Non-emergency contact: Primary Care Provider Call non-emergency contact if: your symptoms worsen Follow-up/Referrals: Nicholas Hampton MD [Primary Care Provider] - 04/21/21 2:00 pm Diet: Carb Consistent or DM2 Addtl Attending Provider Instructions: Please follow up with your PCP. Pending Studies at Discharge: No Stand-Alone Forms: My [employer], Smoking Cessation Medications and DC Order Prescriptions: Continued multivitamin Tablet 1 tab PO DAILY RF: 0 cholecalciferol (vitamin D3) [Vitamin D3] 25 mcg (1,000 unit) Tablet 25 mcg PO DAILY RF: 0 Changed metformin 500 mg tablet 1,000 mg PO DAILY Qty: 0 RF: 0 Discharge Orders: Discharge Order (Routine); Ordered 04/14/21 Ordered By: Colin Crenshaw/Other Patient Handouts: ED Confusion Admission Data Admit Date/Time: 04/13/21 20:03 Attending Provider: Colin Gomez Admit Provider: Meenu Carrasco Primary Care Provider: Nicholas Hampton Other Providers: Colin Gomez ; [facility] Other Interventions: Discharge Summary Assessment (RN) Last Done: 04/14/21 15:26 Coding Level of Care Code 23627 OBS Care - Discharge Diagnoses AMS (altered mental status) R41.82 Altered mental status type: unspecified Hearing loss H91.93 Hearing loss type: unspecified Laterality: bilateral Type 2 diabetes mellitus E11.9 Diabetes mellitus long-term insulin use: without superintendent terminal use Diabetes mellitus complication status: without complication Complete heart block I44.2
--- NOTE | 2021-04-15 07:33 | Electrocardiogram Report ---
Test Reason : Blood Pressure : / mmHG Vent. Rate : 072 BPM Atrial Rate : 072 BPM P-R Int : 194 ms QRS Dur : 178 ms QT Int : 456 ms P-R-T Axes : 017 -56 099 degrees QTc Int : 499 ms Poor data quality, interpretation may be adversely affected Atrial-sensed ventricular-paced rhythm Abnormal ECG When compared with ECG of 05-AUG-2020 13:11, Vent. rate has increased BY 4 BPM Confirmed by Cisco Rayo ([id number]) on 04/15/2021 7:32:49 AM Referred By: Confirmed By:Cisco Rayo
== END 2021-04-14 15:53 | disposition home or self-care (01) ==
LOC: 3N 15:06 → ED 15:06 → SUATTDRO 20:03 → 3N 22:21

== ENCOUNTER 2022-05-19 23:35 | Inpatient (IN) ==
--- NOTE | 2022-05-20 00:02 | Emergency Department Note ---
Impression & Plan Elevated troponin ADMIT ED Provider Note HPI: The patient is an 86-year-old female with history of Alzheimer dementia, third- degree heart block status post pacemaker, presents emergency department after she was found outside her home. Per EMS report at some point the patient complained of chest discomfort. She is very hard of hearing and is unable to provide me with any history on arrival. Patient is hemodynamically stable on arrival, no apparent distress, no outward evidence of trauma is noted. ROS: -Cardio: Chest pain reported *10 point review systems was conducted and is otherwise negative unless stated above *Outpatient medications and allergy history reviewed PE: General: Alert, NAD, frail-appearing HEENT: Normocephalic, atraumatic Eyes: Extraocular eye movement is intact, no scleral erythema Pulmonary: Clear to auscultation bilaterally, no wheezing Cardio: Regular rate and rhythm GI: Abdomen is soft, nontender : No suprapubic tenderness MSK: No evidence of trauma or malformation of the extremities, no edema Skin: No evidence of rash Neuro: Alert, no focal deficits Psychiatric: Cooperative straightening machine feeder: - An order was placed for continuous cardiac monitoring - Patient was noted to be in a paced rhythm with a rate of 74 EKG: Rate: 74 Rhythm: Atrial sensed ventricular paced rhythm Intervals: AR interval 210 ms, QTC 510 ms, QRS [address] changes: No ST elevation Time: 2344 CT HEAD: No acute intracranial findings. Chronic, small vessel ischemic changes in the white matter. No change from August 05, 2020. Radiologist: Ed Chaves MD Medical Decision Making: Patient presented to the emergency department with a chief complaint of chest discomfort, she was found outside her home. Patient is very hard of hearing, it was discovered by the bedside RN that she actually is able to answer questions appropriately if you write them down on a piece of paper. I did do this, patient did state that she was having chest pain in the left upper chest area. States this had been ongoing since earlier today. Patient is a limited historian but is able to answer the simple questions appropriately. CT imaging of the head was obtained that does not show any evidence of any acute intracranial bleeding. Her EKG shows a paced rhythm, no apparent ischemic changes/sgarbossa criteria noted. High-sensitivity troponin level is elevated at 65, chest x-ray does not show any evidence of acute pathology per my interpretation, there is evidence of a chronic deformity of the proximal left humerus. This is noted on previous x-rays.. Patient does not have chest pain currently on my reevaluation. Given her elevated troponin I do feel that she should be admitted for trending of troponin levels and observation admission. Patient was informed of this and expressed an understanding. I did discuss the case with the patient's grandson, Enrique, on the phone who is aware that she is here and she will be staying tonight. He is unclear what her CODE STATUS would be and they have not discussed it previously according to the grandson. [facility] was consulted for admission and the patient was admitted in stable condition. Patient was given aspirin prior to admission. Diagnosis: 1. Chest pain, acute 2. Elevated high-sensitivity troponin level 3. History of dementia 4. History of pacemaker Disposition: Admission Erik Earl DO Emergency Medicine Past Med/Surg History Medical History Anxiety CHF (congestive heart failure) Constipation Debility Disc degeneration, lumbar Facial contusion Hernia History of temporary cardiac pacemaker treatment Hyperlipidemia Hypertension Impacted cerumen of both ears Left bundle-branch block Low back pain Memory loss Tubular adenoma of colon Type 2 diabetes mellitus Urinary incontinence Surgical History History of ankle surgery History of cholecystectomy History of palate surgery History of Palatoplasty For Cleft Palate Soft Palate History of throat surgery Family History Unknown Diabetes Mother Cancer Father Cancer Brother Cancer Other Hypertension Denies family history of Ovarian cancer Prostate cancer Myocardial infarction Breast cancer Colorectal cancer Social History Smoking Status: Unknown if ever smoked Preferred Language: [place] Communication Ability: Impaired Visual Impairment: No Limitations Hearing Ability: Hard of Hearing Beliefs That Will Affect Care: None Current Living Situation: Alone Current Living Situation Comment: unknown current occupational status: retired Feels Safe at Home: Yes Allergies Allergies Allergy/AdvReac Type Severity Reaction Status Date / Time No Known Drug Allergies Allergy Unknown Verified 04/21/21 13:59 Home Meds Home Medications Medication Instructions Recorded Confirmed cholecalciferol (vitamin D3) 25 25 mcg PO DAILY 04/13/21 04/21/21 mcg (1,000 unit) tablet (Vitamin D3) multivitamin 1 tab PO DAILY 04/13/21 04/21/21 Previous Rx's Medication Instructions Recorded metformin 500 mg tablet 1,000 mg PO DAILY #0 tabs 04/14/21 Results & Data (ED) Vital Signs Vital Signs - 24 hr 05/19/22 23:47 05/20/22 00:16 05/20/22 01:46 Temperature 37.0 C Temperature Source Oral Pulse Rate 79 Pulse Rate [Apical] 68 Respiratory Rate 20 18 Blood Pressure 163/92 H Blood Pressure [Right Arm] 162/89 H Blood Pressure Mean 115 Blood Pressure Mean [Right Arm] 113 Pulse Oximetry 94 94 93 Oxygen Delivery Method Room Air Room Air Room Air Sepsis Recent Fever Within 48 Hours No Sepsis New/Unexplained Change in Mental Status No Sepsis Action Taken by Nursing No Action Required Laboratory Data Result diagrams: 05/20/22 00:13 05/20/22 00:13 Lab Results 05/20/22 05/20/22 05/20/22 Range/Units 00:13 00:13 00:13 WBC 6.78 (4.8-10.8) K/ul RBC 4.54 (3.93-5.22) M/uL Hgb 13.3 (12.0-16.0) g/dl Hct 40.7 (34.1-44.9) % MCV 89.6 (80.0-100.0) fL MCH 29.3 (25.0-34.0) pg MCHC 32.7 (32.0-36.0) g/dL RDW Std Deviation 43.3 (36.4-46.3) fL RDW Coeff of Sheridan 13.2 (11.5-14.5) % Plt Count 207 (130-400) K/uL MPV 11.0 (9.4-12.3) fL Immature Gran % (Auto) 0.3 % Neut % (Auto) 68.3 % Lymph % (Auto) 14.9 % [place] % (Auto) 11.5 % Eos % (Auto) 4.4 % Baso % (Auto) 0.6 % Neut # (Auto) 4.63 (1.4-6.5) K/uL Lymph # (Auto) 1.01 L (1.2-3.4) K/uL [place] # (Auto) 0.78 (0.24-0.82) K/uL Eos # (Auto) 0.30 (0-0.50) K/uL Baso # (Auto) 0.04 (0-0.2) K/uL Immature Gran # (Auto) 0.02 (0.00-0.02) K/uL PT 11.7 (9.0-12.0) Seconds INR 1.1 (0.9-1.1) APTT 24.4 (21.0-31.0) Seconds PTT Ratio 0.9 Sodium 140 (136-145) mmol/L Potassium 3.7 (3.5-5.1) mmol/L Chloride 107 (98-107) mmol/L Carbon Dioxide 23 (21-32) mmol/L Anion Gap 10 (3-11) BUN 26 H (6-23) mg/dl Creatinine 0.94 (0.6-1.2) mg/dl Est Cr Clr Drug Dosing Not Reportable Est GFR ( Amer) 63.7 ml/min Est GFR (Non-Af Amer) 54.9 ml/min BUN/Creatinine Ratio 27.7 H (10-20) Glucose 134 H (70-99(Fasting)) mg/dl Calcium 8.5 (8.5-10.1) mg/dl Total Bilirubin 0.9 (0.2-1.0) mg/dl AST 12 L (13-39) U/L ALT 7 (7-52) U/L Alkaline Phosphatase 62 (34-104) U/L Troponin I High Sens 65.4 H* (0-14) pg/ml Total Protein 6.1 (6.0-8.3) gm/dl Albumin 3.7 (3.4-5.0) gm/dl Globulin 2.4 L (2.5-4.0) gm/dl Albumin/Globulin Ratio 1.5 (0.9-2) Lipase 30 (11-82) U/L Administered Medications Discontinued Medications Aspirin (Aspirin Chew 324 Mg) 324 mg PO NOW STA Stop: 05/20/22 01:58 Last Admin: 05/20/22 02:05 Dose: 324 mg Documented By: Discharge Plan Visit Data Chief Complaint: Chest Pain Stated Complaint: CHEST PAIN ED Provider: Erik Earl Discharge Problem: Elevated troponin Forms Stand Alone Forms: My [facility] Prescriptions Prescriptions: No Action multivitamin Tablet 1 tab PO DAILY cholecalciferol (vitamin D3) [Vitamin D3] 25 mcg (1,000 unit) Tablet 25 mcg PO DAILY metformin 500 mg tablet 1,000 mg PO DAILY Qty: 0 0RF Referrals Referrals: Mateo Hampton MD [Primary Care Provider] -
[2022-05-20 00:41] LABS: Basophils # (auto) 0.04 K/uL (0-0.2); Basophils % (auto) 0.6 %; Eosinophils % (auto) 4.4 %; Hematocrit (blood only) 40.7 % (34.1-44.9); Hemoglobin 13.3 g/dl (12.0-16.0); Immature Granulocytes # (auto) 0.02 K/uL (0.00-0.02); Immature Granulocytes % (auto) 0.3 %; Lymphocytes # (auto) 1.01 K/uL (1.2-3.4); Lymphocytes % (auto) 14.9 %; Mean Corpuscular Hemoglobin 29.3 pg (25.0-34.0); Mean Corpuscular Hgb Conc 32.7 g/dL (32.0-36.0); Mean Corpuscular Volume 89.6 fL (80.0-100.0); Monocytes # (auto) 0.78 K/uL (0.24-0.82); Monocytes % (auto) 11.5 %; Neutrophils # (auto) 4.63 K/uL (1.4-6.5); Neutrophils % (auto) 68.3 %; Platelet Count 207 K/uL (130-400); RDW Coefficient of Variation 13.2 % (11.5-14.5); RDW Standard Deviation 43.3 fL (36.4-46.3); Red Blood Count 4.54 M/uL (3.93-5.22); White Blood Count 6.78 K/ul (4.8-10.8)
[2022-05-20 00:54] LABS: INR 1.1 (0.9-1.1); Partial Thromboplastin Ratio 0.9; Partial Thromboplastin Time 24.4 Seconds (21.0-31.0); Prothrombin Time 11.7 Seconds (9.0-12.0)
[2022-05-20 01:18] LABS: Alanine Aminotransferase 7 U/L (7-52); Albumin Globulin Ratio 1.5 (0.9-2); Albumin Level 3.7 gm/dl (3.4-5.0); Alkaline Phosphatase 62 U/L (34-104); Anion Gap 10 (3-11); Aspartate Aminotransferase 12 U/L (13-39); BUN Creatinine Ratio 27.7 (10-20); Bilirubin,Total 0.9 mg/dl (0.2-1.0); Blood Urea Nitrogen 26 mg/dl (6-23); Calcium 8.5 mg/dl (8.5-10.1); Carbon Dioxide 23 mmol/L (21-32); Chloride 107 mmol/L (98-107); Est GFR (African American) 63.7 ml/min; Est GFR (Non-African American) 54.9 ml/min; Globulin 2.4 gm/dl (2.5-4.0); Glucose 134 mg/dl (70-99(Fasting)); Lipase 30 U/L (11-82); Potassium 3.7 mmol/L (3.5-5.1); Sodium 140 mmol/L (136-145); Total Protein 6.1 gm/dl (6.0-8.3)
[2022-05-20 01:20] LABS: Troponin I High Sensitivity 65.4 pg/ml (0-14)
[2022-05-20] MEDS ORDERED: ASPIRIN CHEW 324 MG PO STA (01:57)
--- NOTE | 2022-05-20 02:24 | History & Physical Report ---
Date of Service May 20, 2022 Assessment & Plan (1) Elevated troponin: Plan: 86yo female with history of HTN, HLP and DM presenting from home with chest pain. Now resolved. Patient HD stable. Troponin elevated at 65. No acute ischemic changes on EKG -Admit to medical with telemetry -Monitor troponin -EKG as needed -Nitro as needed -Check 2D echo (2) Alzheimer's dementia: Plan: Frequent orientation Avoid delirium inducing agents (3) CHF (congestive heart failure): Plan: Appears to be compensated -Monitor volume status (4) Hyperlipidemia: Plan: Chronic. Presently not on any medication -Check lipid panel (5) Hypertension: Plan: Blood pressure elevated at 173/91. Patient not on medication currently -Continue to monitor (6) Type 2 diabetes mellitus: Plan: On Metformin. Last KfyV7N=6.3 on 12/21/20 -ISS -Check A1C in AM -Goal blood sugar 100 - 140 History of Present Illness Chief Complaint: chest pain Primary Care Provider: Mateo Hampton MD Kristal Donalsdon is an 86yo female with history of HTN, HLP, DM and Alzheimer's dementia presenting with chest pain. Patient was found outside her home yelling that she was having chest pain. Patient is extremely brown of hearing and needs to have things written down so she can answer questions. She reports pain was in her left upper chest, ongoing throughout the day. Presently she has no chest pain. She denies shortness of breath, nausea, vomiting, diarrhea or constipation. No additional complaints at this time. ER Course: ASA Allergies Allergy/AdvReac Type Severity Reaction Status Date / Time No Known Drug Allergies Allergy Unknown Verified 04/21/21 13:59 Home Medications Medication Instructions Recorded Confirmed Type cholecalciferol (vitamin D3) 25 25 mcg PO DAILY 04/13/21 04/21/21 History mcg (1,000 unit) tablet (Vitamin D3) multivitamin 1 tab PO DAILY 04/13/21 04/21/21 History metformin 500 mg tablet 1,000 mg PO DAILY #0 tabs 04/14/21 04/21/21 Rx Past Med/Surg History Medical History Anxiety CHF (congestive heart failure) Constipation Debility Disc degeneration, lumbar Facial contusion Hernia History of temporary cardiac pacemaker treatment Hyperlipidemia Hypertension Impacted cerumen of both ears Left bundle-branch block Low back pain Memory loss Tubular adenoma of colon Type 2 diabetes mellitus Urinary incontinence Surgical History History of ankle surgery History of cholecystectomy History of palate surgery History of Palatoplasty For Cleft Palate Soft Palate History of throat surgery Family History Unknown Diabetes Mother Cancer Father Cancer Brother Cancer Other Hypertension Denies family history of Ovarian cancer Prostate cancer Myocardial infarction Breast cancer Colorectal cancer Social History Smoking Status: Unknown if ever smoked Preferred Language: Romanian Communication Ability: Impaired Visual Impairment: No Limitations Hearing Ability: Hard of Hearing Beliefs That Will Affect Care: None Current Living Situation: Alone Current Living Situation Comment: unknown current occupational status: retired Feels Safe at Home: Yes Review of Systems Review of Systems: All systems reviewed & are unremarkable except as noted in HPI & below Physical Exam Physical Exam: General: frail, elderly female patient resting comfortably, NAD, non-toxic in appearance, extremely hard of hearing - needs to have things written down to answer questions Skin: warm, dry, intact, no rashes or lesions HEENT: NC/AT, PERRL, EOMI, anicteric sclera, conjunctiva without injection, external ear normal to inspection and nontender, nares patent, moist mucus membranes, dentition intact, no oropharyngeal lesions, neck supple, trachea midline, no LAD, no thyromegaly, no JVD Heart: +S1/S2, regular, no m/r/g Lungs: equal air entry bilaterally, no rales/rhonchi/wheezes Abd: +BS, soft, NT/ND, no masses/organomegaly/ascites Ext: warm, 2+ pulses in UE/LE bilaterally, no clubbing/cyanosis or edema Neuro: nonfocal, speech intact, no facial droop, moving all extremities on command with equal strength 5/5 Results & Data Results & Data ([facility]) Vital Signs (Past 12 Hours) Vital Signs Temp Pulse Pulse Resp BP BP Pulse Ox 05/20/22 01:46 68 18 162/89 H 93 05/20/22 00:16 94 05/19/22 23:47 37.0 C 79 20 163/92 H 94 O2 Del Method 05/20/22 01:46 Room Air 05/20/22 00:16 Room Air 05/19/22 23:47 Room Air Laboratory Results Laboratory Results WBC 6.78 K/ul (4.8-10.8) 05/20/22 00:13 RBC 4.54 M/uL (3.93-5.22) 05/20/22 00:13 Hgb 13.3 g/dl (12.0-16.0) 05/20/22 00:13 Hct 40.7 % (34.1-44.9) 05/20/22 00:13 MCV 89.6 fL (80.0-100.0) 05/20/22 00:13 MCH 29.3 pg (25.0-34.0) 05/20/22 00:13 MCHC 32.7 g/dL (32.0-36.0) 05/20/22 00:13 RDW Std Deviation 43.3 fL (36.4-46.3) 05/20/22 00:13 RDW Coeff of Sheridan 13.2 % (11.5-14.5) 05/20/22 00:13 Plt Count 207 K/uL (130-400) 05/20/22 00:13 MPV 11.0 fL (9.4-12.3) 05/20/22 00:13 Immature Gran % (Auto) 0.3 % 05/20/22 00:13 Neut % (Auto) 68.3 % 05/20/22 00:13 Lymph % (Auto) 14.9 % 05/20/22 00:13 [place] % (Auto) 11.5 % 05/20/22 00:13 Eos % (Auto) 4.4 % 05/20/22 00:13 Baso % (Auto) 0.6 % 05/20/22 00:13 Neut # (Auto) 4.63 K/uL (1.4-6.5) 05/20/22 00:13 Lymph # (Auto) 1.01 K/uL (1.2-3.4) L 05/20/22 00:13 [place] # (Auto) 0.78 K/uL (0.24-0.82) 05/20/22 00:13 Eos # (Auto) 0.30 K/uL (0-0.50) 05/20/22 00:13 Baso # (Auto) 0.04 K/uL (0-0.2) 05/20/22 00:13 Immature Gran # (Auto) 0.02 K/uL (0.00-0.02) 05/20/22 00:13 PT 11.7 Seconds (9.0-12.0) 05/20/22 00:13 INR 1.1 (0.9-1.1) 05/20/22 00:13 APTT 24.4 Seconds (21.0-31.0) 05/20/22 00:13 PTT Ratio 0.9 05/20/22 00:13 Sodium 140 mmol/L (136-145) 05/20/22 00:13 Potassium 3.7 mmol/L (3.5-5.1) 05/20/22 00:13 Chloride 107 mmol/L (98-107) 05/20/22 00:13 Carbon Dioxide 23 mmol/L (21-32) 05/20/22 00:13 Anion Gap 10 (3-11) 05/20/22 00:13 BUN 26 mg/dl (6-23) H 05/20/22 00:13 Creatinine 0.94 mg/dl (0.6-1.2) 05/20/22 00:13 Est Cr Clr Drug Dosing Not Reportable 05/20/22 00:13 Est GFR ( Amer) 63.7 ml/min 05/20/22 00:13 Est GFR (Non-Af Amer) 54.9 ml/min 05/20/22 00:13 BUN/Creatinine Ratio 27.7 (10-20) H 05/20/22 00:13 Glucose 134 mg/dl (70-99(Fasting)) H 05/20/22 00:13 Calcium 8.5 mg/dl (8.5-10.1) 05/20/22 00:13 Total Bilirubin 0.9 mg/dl (0.2-1.0) 05/20/22 00:13 AST 12 U/L (13-39) L 05/20/22 00:13 ALT 7 U/L (7-52) 05/20/22 00:13 Alkaline Phosphatase 62 U/L (34-104) 05/20/22 00:13 Troponin I High Sens 65.4 pg/ml (0-14) H* 05/20/22 00:13 Total Protein 6.1 gm/dl (6.0-8.3) 05/20/22 00:13 Albumin 3.7 gm/dl (3.4-5.0) 05/20/22 00:13 Globulin 2.4 gm/dl (2.5-4.0) L 05/20/22 00:13 Albumin/Globulin Ratio 1.5 (0.9-2) 05/20/22 00:13 Lipase 30 U/L (11-82) 05/20/22 00:13 SARS-CoV-2, RNA, NAAT NEGATIVE (NEGATIVE) 05/20/22 01:57 ECG Additional Comments: A-sensed, V-paced, no acute ischemic changes PG Care Time/CCT Total # of Minutes Spent Total Time Spent with Patient: Total time spent is greater than 50% in coordination of care (as documented) at patient's floor/unit and/or counseling patient: Coding Level of Care Code INT OBSERVATION CARE 50M LVL 2 Diagnoses Elevated troponin R77.8 Alzheimer's dementia G30.9; F02.80 CHF (congestive heart failure) I50.9 Heart failure type: unspecified Hyperlipidemia E78.5 Hypertension I10 Type 2 diabetes mellitus E11.9 Diabetes mellitus net ui developer insulin use: without net ui developer use Diabetes mellitus complication status: without complication (1) CHF (congestive heart failure) Heart failure type: unspecified (2) Type 2 diabetes mellitus Diabetes mellitus net ui developer insulin use: without assisted use Diabetes mellitus complication status: without complication Qualified Code(s): E11.9 - Type 2 diabetes mellitus without complications
[2022-05-20] MEDS ORDERED: GLUCOSE 40% GEL 15 GM TUBE PO PRN (04:23)
[2022-05-20] MEDS ORDERED: CARBOHYDRATES FOR HYPOGLYCEMIA PO PRN (04:23)
[2022-05-20] MEDS ORDERED: NITROGLYCERIN SL 0.4 MG/TAB TAB SL PRN (04:23)
[2022-05-20] MEDS ORDERED: DEXTROSE 50% 50 ML SYRINGE IV PRN (04:23)
[2022-05-20] MEDS ORDERED: GLUCAGON FOR INJ 1 MG VIAL SQ PRN (04:23)
[2022-05-20] MEDS ORDERED: GLUCOSE 10 TAB/TUBE PO PRN (04:23)
[2022-05-20] MEDS ORDERED: ONDANSETRON INJ 2 MG/ML 2 ML VIAL IV PRN (04:23)
--- NOTE | 2022-05-20 07:10 | CT Scan Report ---
HEAD CT NONCONTRAST CT DOSE: 537.48 mGy.cm HISTORY: Altered mental status. TECHNIQUE: Multiaxial CT images of the head were performed without the use of intravenous contrast. A utomated exposure control was utilized for this study. A dose lowering technique was utilized adheri ng to the principles of ALARA. Comparison: Head CT 04/13/2021. Findings: The paranasal sinuses are clear. Chronic bilateral mastoid effusions, unchanged. The calvar ium and skull base are intact. There is no mass, hematoma, midline shift, acute infarct. White matter hypodensity is nonspecific but suggestive of microvascular ischemic change. The ventricles and sulci demonstrate mild age-related involutional changes. Impression: No significant change compared to the prior study. No acute intracranial abnormality. ACT 112: Negative or not required by law. Electronically signed by: Tyrone Salcedo M.D. 05/20/2022 7:07 AM
[2022-05-20 07:22] LABS: Chol HDL Ratio 3.4 (0-5); Magnesium 1.7 mg/dl (1.7-2.4); Phosphorus 3.2 mg/dl (2.5-4.9); Troponin I High Sensitivity 439.6 pg/ml (0-14)
--- NOTE | 2022-05-20 07:44 | Hospitalist Progress Note ---
Date of Service May 20, 2022 Assessment & Plan (1) Elevated troponin: Plan: 86yo female with history of HTN, HLP and DM presenting from home with chest pain. Now resolved. Patient HD stable. Troponin elevated at 65 [place]te to 439. No acute ischemic changes on EKG but difficult to determine as paced and LBBB on aspirin -Nitro as needed -Echo shows Left ventricular function is normal, no RWMA, mild valvular heart disease troponin peaked in 400 range, given age will likley have some CAD, will confer with cardiology has see EP may need medical management (2) Alzheimer's dementia: Plan: Frequent orientation Avoid delirium inducing agents (3) Hyperlipidemia: Plan: Chronic. Presently not on any medication (4) Hypertension: Plan: Blood pressure elevated at 173/91. Patient not on medication currently (5) Type 2 diabetes mellitus: Plan: On Metformin. Last [id number]=0.3 on 12/21/20 -ISS -Check A1C in AM -Goal blood sugar 100 - 140 Admission and Anticipated Discharge Date Admission Date: May 20, 2022 Subjective this pt is very hard of hearing and communicates by writing, she states she has no further chest pain but maybe mildly short of breath with walking Review of Systems Review of Systems: Mild distress and fatigue no headache, no visual changes no speech or swallowing issues no additional chest pain, pressure or palpitations exertional shortness of breath, cough or wheezes no abdominal pain, nausea or vomiting, diarrhea or constipation no dysuria, hematuria or frequency no focal joint pain or swelling no back pain, CVA tenderness or radicular pain no bruising, bleeding or rashes no focal signs of weakness or numbness or altered sensation no complaints of anxiety or depression.. Physical Exam Physical Exam: The patient appeared well nourished and normally developed. Patient is extremely hard of hearing needs to communicate by writing Vital signs as documented. Head exam is normocephalic atraumatic Neck is without JVD, thyromegaly, or carotid bruits. Lungs are clear but diminished at the left base Cardiac exam, Rhythm is regular.. yasmin is heard Abdominal exam reveals normal bowel sounds, soft non tender, no masses Extremities are nonedematous and both pedal pulses are present Neurologic exam is alert and oriented, no focal loss of strength or sensation Skin is without bruises or rashes Psychologically is without concerns for anxiety or depression.. Results & Data Results & Data ([facility]) Vital Signs (Past 12 Hours) Vital Signs Temp Pulse Pulse Pulse Resp BP BP 05/20/22 07:28 63 05/20/22 04:50 66 05/20/22 04:23 05/20/22 04:24 98.1 F 64 18 146/78 H 05/20/22 03:00 68 21 173/91 H 05/20/22 01:46 68 18 162/89 H 05/20/22 00:16 05/19/22 23:47 98.6 F 79 20 163/92 H Pulse Ox O2 Del Method 05/20/22 07:28 05/20/22 04:50 05/20/22 04:23 Room Air 05/20/22 04:24 94 Room Air 05/20/22 03:00 93 Room Air 05/20/22 01:46 93 Room Air 05/20/22 00:16 94 Room Air 05/19/22 23:47 94 Room Air PG Care Time/CCT Total # of Minutes Spent Total Time Spent with Patient: Total time spent is greater than 50% in coordination of care (as documented) at patient's floor/unit and/or counseling patient: Coding Level of Care Code 34114 Subseq Hosp Care Lvl 2 Diagnoses Elevated troponin R77.8 Alzheimer's dementia G30.9; F02.80 Hyperlipidemia E78.5 Hypertension I10 Type 2 diabetes mellitus E11.9 Diabetes mellitus complication status: without complication Diabetes mellitus chcf insulin use: without chcf use (1) Type 2 diabetes mellitus Diabetes mellitus complication status: without complication Diabetes mellitus roasterman insulin use: without roasterman use Qualified Code(s): E11.9 - Type 2 diabetes mellitus without complications
--- NOTE | 2022-05-20 08:39 | XRay Report ---
SINGLE VIEW CHEST CLINICAL HISTORY: Atypical chest pain. FINDINGS: An AP, portable, upright chest radiograph is compared to study dated 04/13/2021. A hiatal he rnia is noted. A 2-lead cardiac pacemaker is unchanged in position. The heart is enlarged noting athe rosclerotic calcification of the thoracic aorta. There is mild pulmonary vascular congestion. Chronic interstitial thickening similar to previous. There is bibasilar scarring/atelectasis. No airspace co nsolidation or large pleural effusion is identified. No pneumothorax is seen. The skeletal structures are osteopenic. There is chronic posttraumatic deformity of the left proximal humerus. IMPRESSION: 1. Cardiomegaly and cardiac pacemaker with mild pulmonary vascular congestion. 2. No airspace consolidation or large pleural effusion is identified. ACT 112: Negative or not required by law. Electronically signed by: Barry Klein M.D. 05/20/2022 8:38 AM
[2022-05-20] MEDS: INSULIN ASPART PER UNIT SC SCH ×4 (09:02→20:15)
[2022-05-20] MEDS: ASPIRIN 81 MG ECTAB PO SCH (09:02)
--- NOTE | 2022-05-20 12:09 | XCELERA ---
[id number]
--- NOTE | 2022-05-20 12:48 | Electrocardiogram Report ---
Test Reason : Blood Pressure : / mmHG Vent. Rate : 074 BPM Atrial Rate : 074 BPM P-R Int : 210 ms QRS Dur : 190 ms QT Int : 460 ms P-R-T Axes : 074 -61 106 degrees QTc Int : 510 ms Poor data quality, interpretation may be adversely affected Atrial-sensed ventricular-paced rhythm with prolonged AV conduction Abnormal ECG When compared with ECG of 13-APR-2021 15:21, Vent. rate has increased BY 2 BPM Confirmed by Heath Naylor ([id number]) on 05/20/2022 12:48:48 PM Referred By: REFERRED SELF Confirmed By:Heath Naylor
[2022-05-20] MEDS: ACETAMINOPHEN 325 MG TAB PO PRN (20:15)
[2022-05-20] MEDS ORDERED: POLYETHYLENE (MIRALAX) 17 GM PACK PO STA (20:59)
[2022-05-21 07:51] LABS: Basophils # (auto) 0.03 K/uL (0-0.2); Basophils % (auto) 0.6 %; Eosinophils # (auto) 0.38 K/uL (0-0.50); Eosinophils % (auto) 8.2 %; Hematocrit (blood only) 41.6 % (34.1-44.9); Hemoglobin 13.6 g/dl (12.0-16.0); Immature Granulocytes # (auto) 0.01 K/uL (0.00-0.02); Immature Granulocytes % (auto) 0.2 %; Lymphocytes # (auto) 0.91 K/uL (1.2-3.4); Lymphocytes % (auto) 19.6 %; Mean Corpuscular Hemoglobin 29.1 pg (25.0-34.0); Mean Corpuscular Hgb Conc 32.7 g/dL (32.0-36.0); Mean Corpuscular Volume 88.9 fL (80.0-100.0); Mean Platelet Volume 10.7 fL (9.4-12.3); Monocytes # (auto) 0.53 K/uL (0.24-0.82); Monocytes % (auto) 11.4 %; Neutrophils # (auto) 2.79 K/uL (1.4-6.5); Platelet Count 203 K/uL (130-400); RDW Coefficient of Variation 13.2 % (11.5-14.5); RDW Standard Deviation 42.8 fL (36.4-46.3); Red Blood Count 4.68 M/uL (3.93-5.22); White Blood Count 4.65 K/ul (4.8-10.8)
[2022-05-21 07:53] LABS: Estimated Average Glucose 134 mg/dl; Hemoglobin A1C 6.3 % (4.5-5.6)
[2022-05-21 08:20] LABS: BUN Creatinine Ratio 27.7 (10-20); Calcium 8.6 mg/dl (8.5-10.1); Creatinine Clr Calc Pharmacy 41.4 ml/min; Est GFR (Non-African American) 63.9 ml/min; Potassium 3.9 mmol/L (3.5-5.1)
[2022-05-21] MEDS: INSULIN ASPART PER UNIT SC SCH ×4 (08:25→20:10)
[2022-05-21] MEDS: POLYETHYLENE (MIRALAX) 17 GM PACK PO SCH (08:30)
[2022-05-21] MEDS: ASPIRIN 81 MG ECTAB PO SCH (08:30)
--- NOTE | 2022-05-21 11:19 | Cardiology Consultation ---
Date of Consultation May 21, 2022 History of Present Illness Reason for Consultation: Chest Pain/Elevated High Sensitivity Troponin Attending Physician: Mau Padilla MD History of Present Illness Kristal is an 86 F with PMH of complete heart block (requiring pacemaker in 2017), hypertension, hyperlipidemia, CHF and T2DM. Allergies Allergy/AdvReac Type Severity Reaction Status Date / Time No Known Drug Allergies Allergy Unknown Verified 04/21/21 13:59 Home Medications Medication Instructions Recorded Confirmed Type cholecalciferol (vitamin D3) 25 25 mcg PO DAILY 04/13/21 04/21/21 History mcg (1,000 unit) tablet (Vitamin D3) multivitamin 1 tab PO DAILY 04/13/21 04/21/21 History metformin 500 mg tablet 1,000 mg PO DAILY #0 tabs 04/14/21 04/21/21 Rx Patient History Medical History Anxiety CHF (congestive heart failure) Constipation Debility Disc degeneration, lumbar Facial contusion Hernia History of temporary cardiac pacemaker treatment Hyperlipidemia Hypertension Impacted cerumen of both ears Left bundle-branch block Low back pain Memory loss Tubular adenoma of colon Type 2 diabetes mellitus Urinary incontinence Surgical History History of ankle surgery History of cholecystectomy History of palate surgery History of Palatoplasty For Cleft Palate Soft Palate History of throat surgery Family History Unknown Diabetes Mother Cancer Father Cancer Brother Cancer Other Hypertension Denies family history of Ovarian cancer Prostate cancer Myocardial infarction Breast cancer Colorectal cancer Social History Smoking Status: Never smoker Hx Alcohol Use: No Hx Substance Use: No Preferred Language: Citizen Of [place] Communication Ability: Impaired Communication Ability Comment: Extremely hard of hearing Visual Impairment: No Limitations Hearing Ability: Hard of Hearing Stevedoring Superintendent Required: No Beliefs That Will Affect Care: None Current Living Situation: Alone Current Living Situation Comment: unknown current occupational status: retired Feels Safe at Home: Yes Safety Concerns: Feels Safe At This Time Assistive Devices: Cane and Walker Results & Data ([facility]) Vital Signs (Past 12 Hours) Vital Signs Temp Pulse Pulse Resp BP Pulse Ox O2 Del Method 07/18/22 08:23 36.7 C 61 18 157/83 H 94 Room Air 05/21/22 07:14 62 05/20/22 23:54 60
--- NOTE | 2022-05-21 11:26 | Cardiology Consultation ---
Date of Consultation May 21, 2022 Assessment & Plan (1) Elevated troponin: See plan below. (2) Complete heart block: S/p pacemaker placement in 2017. (3) History of cardiac pacemaker: Placed in 2017. (4) CHF (congestive heart failure): Patient sleeps flat, has an EF of 50-55%, and is not on a diuretic, which suggests Class I Chronic Diastolic Heart Failure/HFpEF. (5) Hypertension: Elevated blood pressure on admission. Not on antihypertensive. Continue to monitor BP. Plan Elevated High Sensitivity Troponin: Ddx: LVH Demand Ischemia vs. NSTEMI LVH - Supply demand mismatch supported by patient's chest pain, mild dyspnea, hypertension on admission, and mild concentric left ventricular hypertrophy on Echocardiogram. Patient's minimal elevation of troponin is more consistent with demand ischemia than that of a true NSTEMI. NSTEMI - While less likely d/t minimal elevation in troponin, this consideration is supported by patient's symptoms, lack of ST segment changes on EKG, and elevation in high sensitivity troponin. Patient is no longer having chest pain and is mildly short of breath (this may be her baseline). Will continue to monitor for symptoms and trend troponin levels. Patient already received 325 mg Aspirin on admission, will encourage the addition of a statin to her outpatient medications, recommend starting patient on isosorbide mononitrate. Patient is to follow up with Dr. Griffiths. Supervising Physician Co-Signing Physician Notes Patient seen and examined. Agree with Dr. Rodriguez' assessment and plan. Elevated high sensitivity troponin likely related to supply demand mismatch. Was hypertensive on presentation. She does have evidence of left ventricular hypertrophy along with normal left ventricular systolic function. Continue conservative medical care. Heath Naylor MD History of Present Illness Reason for Consultation: Chest Pain/ High Sensitivity Troponin Elevated Attending Physician: Mau Padilla MD History of Present Illness HPI: Kristal is an 86 F with PMH of complete heart block, hypertension, hyperlipidemia, CHF, and T2DM who who presented 05/19 for evaluation of chest pain after being found outside of her home complaining of pain in her left upper chest. On presentation, she noted that her symptoms started early in the day on Saturday. On presentation her troponin was found to be elevated to 65.4. Patient was admitted 05/20/22 for troponin trending and was given Aspirin 325 mg. At present, patient denies chest pain and is uncertain as to why she is here. Patient is significantly hard of hearing and repeatedly states that she does not know the answer when asked questions. She states that she is mildly short of breath but is uncertain if this is her normal. She denies nausea or emesis. Cardiac PMH: Complete Heart Block (req. Pacemaker in place since April 02, 2017) patient originally presented with mental status changes and was found to be in complete heart block, a temporary pacemaker was placed which ultimately turned into a permanent pacemaker. LBBB has been present since at least 2018 on EKG. CHF Consistently noted in PCP and ED notes since 2018 without NYHA Classification. Patient sleeps flat, has an EF of 50-55%, and is not on a diuretic, suggesting Class I Chronic Diastolic Heart Failure/HFpEF. HLD chronic, not on statin HTN current BP is elevated, not on antihypertensive T2DM managed with metformin 1000 mg daily SH: Living with grandson and [id number] as of December 2020 when her son . Per chart, patient is retired. Patient never smoked tobacco products. Patient does not use alcohol or any illicit substances. FH: Chart indicates that patients mother, father, and bother have unspecified cancer but that the patientenied any specific history of breast cancer, colon cancer, ovarian cancer, or prostate cancer. Patient also denied family history of myocardial infarction. Allergies Allergy/AdvReac Type Severity Reaction Status Date / Time No Known Drug Allergies Allergy Unknown Verified 04/21/21 13:59 Home Medications Medication Instructions Recorded Confirmed Type cholecalciferol (vitamin D3) 25 25 mcg PO DAILY 04/13/21 04/21/21 History mcg (1,000 unit) tablet (Vitamin D3) multivitamin 1 tab PO DAILY 04/13/21 04/21/21 History metformin 500 mg tablet 1,000 mg PO DAILY #0 tabs 04/14/21 04/21/21 Rx Patient History Medical History Anxiety CHF (congestive heart failure) Constipation Debility Disc degeneration, lumbar Facial contusion Hernia History of temporary cardiac pacemaker treatment Hyperlipidemia Hypertension Impacted cerumen of both ears Left bundle-branch block Low back pain Memory loss Tubular adenoma of colon Type 2 diabetes mellitus Urinary incontinence Surgical History History of ankle surgery History of cholecystectomy History of palate surgery History of Palatoplasty For Cleft Palate Soft Palate History of throat surgery Family History Unknown Diabetes Mother Cancer Father Cancer Brother Cancer Other Hypertension Denies family history of Ovarian cancer Prostate cancer Myocardial infarction Breast cancer Colorectal cancer Social History Smoking Status: Never smoker Hx Alcohol Use: No Hx Substance Use: No Preferred Language: Italian Communication Ability: Effective Communication Ability Comment: Extremely hard of hearing Visual Impairment: No Limitations Hearing Ability: Hard of Hearing [employer] Manager Required: No Beliefs That Will Affect Care: None Current Living Situation: Alone Current Living Situation Comment: unknown current occupational status: retired Feels Safe at Home: Yes Safety Concerns: Feels Safe At This Time Assistive Devices: Glasses and Hearing Aid - Bilateral Review of Systems Constitutional: No fever. Respiratory: Mild shortness of breath, no pain with breathing. Cardiovascular: Additional Comments: No chest pain today. No palpitations. Gastrointestinal: No nausea. No vomitting. Physical Exam Constitutional: well nourished, disoriented Respiratory: appropriate respiratory effort, CTAB, no wheezing/rhonchi/rales Cardiovascular: RRR, normal S1/S2, no murmurs/rubs/gallops, no peripheral edema, no JVD Neurologic: AOx1 (knows name, not place/time/reason for presentation) Results & Data ([facility]) Vital Signs (Past 12 Hours) Vital Signs Temp Pulse Pulse Resp BP Pulse Ox O2 Del Method 05/21/22 08:23 36.7 C 61 18 157/83 H 94 Room Air 05/21/22 07:14 62 05/20/22 23:54 60 Laboratory Results CBC/CMP - unremarkable, except BUN/Cr 27.7 H, GLucose 103 H Troponin - presentation 65.4 pg/ml H, peak 455.3 pg/ml H, today 379.5 pg/ml Diagnostic Findings XR Chest: 1. Cardiomegaly and cardiac pacemaker with mild pulmonary vascular congestion. 2. No airspace consolidation or large pleural effusion is identified. Echocardiogram: mild concentric left ventricular hypertrophy, EF 50-55%, mild mitral and tricuspid regurgitation CT Head: No acute intracranial findings Medications Administered Aspirin 325 mg given on admission. ECG Additional Comments: ECG: atrial sensed, ventricular paced rhythm with prolonged AV conduction PG Care Time/CCT Total # of Minutes Spent Total Time Spent with Patient: Total time spent is greater than 50% in coordination of care (as documented) at patient's floor/unit and/or counseling patient: 45 [place] [address] Inpt Consult Level 5 Patient Type New Medical Decision Making Moderate Complexity Diagnoses Elevated troponin R77.8 Complete heart block I44.2 History of cardiac pacemaker Z95.0 CHF (congestive heart failure) I50.9 Heart failure type: unspecified Hypertension I10 Time Spent (min) 45 (1) CHF (congestive heart failure) Heart failure type: unspecified
--- NOTE | 2022-05-21 17:47 | Hospitalist Progress Note ---
Date of Service May 21, 2022 Assessment & Plan (1) Elevated troponin: Plan: 86yo female with history of HTN, HLP and DM presenting from home with chest pain. Now resolved. Patient HD stable. Troponin elevated at 65 [address] to 439. No acute ischemic changes on EKG but difficult to determine as paced and LBBB on aspirin -demand ischemia. will use asa and isosorbide -Echo shows Left ventricular function is normal, no RWMA, mild valvular heart disease (2) Alzheimer's dementia: Plan: Frequent orientation Avoid delirium inducing agents (3) Hyperlipidemia: Plan: Chronic. Presently not on any medication (4) Hypertension: Plan: Blood pressure elevated at 173/91. Patient not on medication currently (5) Type 2 diabetes mellitus: Plan: On Metformin. Last AvaH4Y=8.3 on 12/21/20 -ISS -Check A1C in AM -Goal blood sugar 100 - 140 Admission and Anticipated Discharge Date Admission Date: May 20, 2022 Subjective this pt is very hard of hearing and communicates by writing, she states she has no further chest pain but maybe mildly short of breath with walking family updated at the bedside Review of Systems Review of Systems: Mild distress and fatigue no headache, no visual changes no speech or swallowing issues no additional chest pain, pressure or palpitations exertional shortness of breath, cough or wheezes no abdominal pain, nausea or vomiting, diarrhea or constipation no dysuria, hematuria or frequency no focal joint pain or swelling no back pain, CVA tenderness or radicular pain no bruising, bleeding or rashes no focal signs of weakness or numbness or altered sensation no complaints of anxiety or depression.. Physical Exam Physical Exam: The patient appeared well nourished and normally developed. Patient is extremely hard of hearing needs to communicate by writing Vital signs as documented. Head exam is normocephalic atraumatic Neck is without JVD, thyromegaly, or carotid bruits. Lungs are clear but diminished at the left base Cardiac exam, Rhythm is regular.. yasmin is heard Abdominal exam reveals normal bowel sounds, soft non tender, no masses Extremities are nonedematous and both pedal pulses are present Neurologic exam is alert and oriented, no focal loss of strength or sensation Skin is without bruises or rashes Psychologically is without concerns for anxiety or depression.. Results & Data Results & Data ([facility]) Vital Signs (Past 12 Hours) Vital Signs Temp Pulse Pulse Resp BP Pulse Ox O2 Del Method 05/21/22 16:11 98.2 F 59 L 18 106/71 94 Room Air 05/21/22 15:39 60 05/21/22 11:50 97.9 F 61 18 130/85 92 Room Air 05/21/22 08:23 98.1 F 61 18 157/83 H 94 Room Air 05/21/22 07:14 62 PG Care Time/CCT Total # of Minutes Spent Total Time Spent with Patient: Total time spent is greater than 50% in coordination of care (as documented) at patient's floor/unit and/or counseling patient: Coding Level of Care Code 86701 Subseq Hosp Care Lvl 2 Diagnoses Elevated troponin R77.8 Alzheimer's dementia G30.9; F02.80 Hyperlipidemia E78.5 Hypertension I10 Type 2 diabetes mellitus E11.9 Diabetes mellitus rodent exterminator insulin use: without rodent exterminator use Diabetes mellitus complication status: without complication (1) Type 2 diabetes mellitus Diabetes mellitus half-way insulin use: without rodent exterminator use Diabetes mellitus complication status: without complication Qualified Code(s): E11.9 - Type 2 diabetes mellitus without complications
[2022-05-21] MEDS: ISOSORBIDE DINITRATE 5 MG TAB PO SCH (18:22)
[2022-05-21] MEDS ORDERED: SODIUM CHLORIDE 0.9% 1000ML 500 ML IV ONE (19:39)
[2022-05-21] MEDS ORDERED: POLYETHYLENE (MIRALAX) 17 GM PACK PO STA (19:39)
--- NOTE | 2022-05-22 07:57 | XRay Report ---
XR KUB/Abdomen 1 view CLINICAL HISTORY: abdominal pain TECHNIQUE: 1 view of the abdomen was obtained. Comparison: Comparison is made to abdomen radiograph 04/01/2017 FINDINGS: Lung bases are unremarkable. Degenerative changes are seen in the visualized skeleton. Multiple ill-d efined loops of bowel are seen without evidence of huan obstruction. A moderate amount of stool is n oted within the large bowel. Partial visualization of a calcified fibroid. IMPRESSION: Nonobstructive bowel gas pattern. ACT 112: Negative or not required by law. Electronically signed by: Chuy Rossi M.D. 05/22/2022 7:54 AM
[2022-05-22] MEDS: POLYETHYLENE (MIRALAX) 17 GM PACK PO SCH (08:26)
[2022-05-22] MEDS: INSULIN ASPART PER UNIT SC SCH ×4 (08:26→20:22)
[2022-05-22] MEDS: ASPIRIN 81 MG ECTAB PO SCH (08:26)
[2022-05-22] MEDS: ISOSORBIDE DINITRATE 5 MG TAB PO SCH ×2 (08:26→12:19)
--- NOTE | 2022-05-22 16:49 | Cardiology Progress Note ---
Date of Service May 22, 2022 Assessment & Plan (1) Elevated troponin: (2) History of cardiac pacemaker: Plan 1. Elevated troponin: Although she may have underlying coronary artery disease her symptoms and troponin elevation is more consistent with demand ischemia rather than acute ischemic event. Her symptoms have resolved. I would not pursue further evaluation. Her left ventricular ejection fraction is normal on echocardiography. 2. Pacemaker: Her pacemaker is working well on telemetry. She tells me that she wants to go home, from my standpoint that would be acceptable. Admission and Anticipated Discharge Date Admission Date: May 20, 2022 Subjective She is hard to communicate with but tells me that she is feeling very well and is anxious to go home. She denies cardiovascular symptoms. She is sitting in a chair at her bedside. Physical Exam Physical Exam: Constitutional: Alert, cooperative and in no distress. HEENT: Unremarkable other than being extremely hard of hearing Neck: No jugular venous distention, carotid pulses are normal and equal bilaterally without bruits. Pulmonary: Clear to auscultation bilaterally. Cardiac: Regular rhythm with no murmur, gallop or rub. Abdomen: Soft, nontender with normal bowel sounds. Extremities: No edema. Distal pulses intact. Neurologic: No focal findings. Gait was not tested. Skin: The device site is well-healed without erythema, swelling or tenderness. No rash, ecchymoses or petechiae. Results & Data ([facility]) Vital Signs (Past 12 Hours) Vital Signs Temp Pulse Pulse Resp BP Pulse Ox O2 Del Method 05/22/22 16:22 36.9 C 75 94 H 111/64 94 Room Air 05/22/22 11:33 36.6 C 65 19 147/82 H 93 Room Air 05/22/22 08:28 36.6 C 64 18 145/78 H 92 Room Air 05/22/22 06:02 60 Laboratory Results Intake and Output 05/22/22 05/22/22 05/22/22 06:59 14:59 22:59 Intake Total 100 / 940 240 / 240 Balance 100 / 940 240 / 240 Intake: Oral 100 / 440 240 / 240 Other: Weight 65.5 kg Weight Measurement Method Built in [facility] Diagnostic Findings Telemetry: Ventricular pacing throughout PG Care Time/CCT Total # of Minutes Spent Total Time Spent with Patient: Total time spent is greater than 50% in coordination of care (as documented) at patient's floor/unit and/or counseling patient: Coding Level of Care Code 82485 Subseq Hosp Care Lvl 2 Diagnoses Elevated troponin R77.8 History of cardiac pacemaker Z95.0
--- NOTE | 2022-05-22 18:03 | Hospitalist Progress Note ---
Date of Service May 22, 2022 Assessment & Plan (1) Elevated troponin: Plan: 86yo female with history of HTN, HLP and DM presenting from home with chest pain. Now resolved. Patient HD stable. Troponin elevated at 65 [address] to 439. No acute ischemic changes on EKG but difficult to determine as paced and LBBB on aspirin -demand ischemia. will use asa and isosorbide increase isosorbide dose 05/22 Will add Pepcid per family's recommendation -Echo shows Left ventricular function is normal, no RWMA, mild valvular heart disease (2) Alzheimer's dementia: Plan: Frequent orientation Avoid delirium inducing agents (3) Hyperlipidemia: Plan: Chronic. Presently not on any medication (4) Hypertension: Plan: Blood pressure elevated at 173/91. Patient not on medication currently (5) Type 2 diabetes mellitus: Plan: On Metformin. Last GmlG6G=7.3 on 12/21/20 -ISS -Check A1C in AM -Goal blood sugar 100 - 140 Admission and Anticipated Discharge Date Admission Date: May 20, 2022 Subjective She is hard to communicate with but tells me that she is feeling very well and is anxious to go home. Patient denies chest pain with ambulation however Occupational Therapy states she complained of pain with ambulation Family seems to believe her chest pain is reflux Review of Systems Review of Systems: Mild distress and fatigue no headache, no visual changes no speech or swallowing issues no additional chest pain, by her account, no pressure or palpitations exertional shortness of breath, cough or wheezes no abdominal pain, nausea or vomiting, diarrhea or constipation no dysuria, hematuria or frequency no focal joint pain or swelling no back pain, CVA tenderness or radicular pain no bruising, bleeding or rashes no focal signs of weakness or numbness or altered sensation no complaints of anxiety or depression.. Physical Exam Physical Exam: The patient appeared well nourished and normally developed. Patient is extremely hard of hearing needs to communicate by writing Vital signs as documented. Head exam is normocephalic atraumatic Neck is without JVD, thyromegaly, or carotid bruits. Lungs are clear but diminished at the left base Cardiac exam, Rhythm is regular.. yasmin is heard Abdominal exam reveals normal bowel sounds, soft non tender, no masses Extremities are nonedematous and both pedal pulses are present Neurologic exam is alert and oriented, no focal loss of strength or sensation Skin is without bruises or rashes Psychologically is without concerns for anxiety or depression.. Results & Data Results & Data ([facility]) Vital Signs (Past 12 Hours) Vital Signs Temp Pulse Pulse Resp BP Pulse Ox O2 Del Method 05/22/22 14:18 84 05/22/22 16:22 98.4 F 75 94 H 111/64 94 Room Air 05/22/22 11:33 97.9 F 65 19 147/82 H 93 Room Air 05/22/22 08:28 97.9 F 64 18 145/78 H 92 Room Air 05/22/22 06:02 60 PG Care Time/CCT Total # of Minutes Spent Total Time Spent with Patient: Total time spent is greater than 50% in coordination of care (as documented) at patient's floor/unit and/or counseling patient: Coding Level of Care Code 95141 Subseq Hosp Care Lvl 2 Diagnoses Elevated troponin R77.8 Alzheimer's dementia G30.9; F02.80 Hyperlipidemia E78.5 Hypertension I10 Type 2 diabetes mellitus E11.9 Diabetes mellitus [facility] insulin use: without [facility] use Diabetes mellitus complication status: without complication (1) Type 2 diabetes mellitus Diabetes mellitus manager long term care insulin use: without [facility] use Diabetes mellitus complication status: without complication Qualified Code(s): E11.9 - T ype 2 diabetes mellitus without complications
[2022-05-22] MEDS: FAMOTIDINE 20 MG TAB PO SCH (20:23)
[2022-05-23] MEDS: ISOSORBIDE DINITRATE 10 MG TAB PO SCH ×2 (08:12→12:11)
[2022-05-23] MEDS: ASPIRIN 81 MG ECTAB PO SCH (08:12)
[2022-05-23] MEDS: INSULIN ASPART PER UNIT SC SCH ×4 (08:12→21:06)
[2022-05-23] MEDS: FAMOTIDINE 20 MG TAB PO SCH ×2 (08:12→21:05)
[2022-05-23] MEDS: POLYETHYLENE (MIRALAX) 17 GM PACK PO SCH (08:13)
--- NOTE | 2022-05-23 11:18 | Hospitalist Progress Note ---
Date of Service May 23, 2022 Assessment & Plan (1) Chest pain: Plan: present on admission. resolved. has not recurred. did have elevated troponin at admission, but seen by cardiology and ischemia felt unlikely. etiology? GI? other? monitor for recurrence. (2) Elevated troponin: Plan: Peak troponin 439. No acute ischemic changes on EKG but difficult to determine as paced and LBBB Echo with normal LV function and normal LV wall motion. Seen by cardiology - ACS felt unlikely; elevated troponin likely from demand ischemia. Remains on low-dose aspirin along with nitrates. (3) Alzheimer's dementia: Plan: no issues at this time pleasant confusion only (4) Hyperlipidemia: Plan: not on meds at this time (5) Hypertension: Plan: Patient placed on isosorbide dinitrate earlier this stay with improved BPs. Cont for now. (6) Type 2 diabetes mellitus: Plan: HgbA1C 6.3% this admission. BSGs controlled. Novolog SSI as needed. 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 no issues at this time Plan B12 level is low-normal -- add B12 1000mcg daily left message for pt's grandson this evening on voicemail cleared by PT for d/c home with family if they can provide 24/7 care will d/w case management in the am Admission and Anticipated Discharge Date Admission Date: May 22, 2022 Subjective tele overnight - pacing patient resting comfortably during the visit ate a good breakfast per nursing flowsheets I communicated with her by writing questions on paper - and she would answer by verbal answers denied ALL complaints denied cp, dyspnea, abd pain, nausea denied ANY pain in any location (no arthralgias, no myalgias, etc) per staff no issues overnight Review of Systems Review of Systems: gen - no fevers or chills cv - no chest pain, no orthopnea pulm - no cough GI - no pain or nausea/emesis Physical Exam Physical Exam: gen - NAD, pleasant HENT - MMM; hearing impairment neck - no JVD heart - RRR, s1 s2 lungs - CTA b/l abd - soft NT ND BS+ ext - no edema, pulses 2+ b/l musculo - no joint effusions Results & Data Results & Data ([facility]) Vital Signs (Past 12 Hours) Vital Signs Temp Pulse Pulse Resp BP Pulse Ox O2 Del Method 05/23/22 07:37 36.7 C 68 16 140/74 91 Room Air 05/23/22 06:10 73 Laboratory Results Laboratory Results - last 24 hr 05/23/22 05/23/22 05/23/22 07:48 11:24 11:24 WBC 6.28 RBC 4.72 Hgb 14.1 Hct 42.6 MCV 90.3 MCH 29.9 MCHC 33.1 RDW Std Deviation 44.3 RDW Coeff of [place] 13.4 Plt Count 247 MPV 10.8 Immature Gran % (Auto) 0.3 Neut % (Auto) 68.3 Lymph % (Auto) 14.6 [place] % (Auto) 10.5 Eos % (Auto) 5.7 Baso % (Auto) 0.6 Neut # (Auto) 4.28 Lymph # (Auto) 0.[address] [place] # (Auto) 0.66 Eos # (Auto) 0.36 Baso # (Auto) 0.04 Immature Gran # (Auto) 0.02 ESR Sodium 138 Potassium 4.5 Chloride 106 Carbon Dioxide 25 Anion Gap 7 BUN 25 H Creatinine 0.93 Est Cr Clr Drug Dosing 38.4 Est GFR ( Amer) 64.5 Est GFR (Non-Af Amer) 55.6 BUN/Creatinine Ratio 26.9 H Glucose 173 H POC Glucose 98 Calcium 9.1 Total Creatine Kinase 36 C-Reactive Protein < 0.50 Vitamin B12 TSH 05/23/22 05/23/22 05/23/22 11:24 11:24 11:24 WBC RBC Hgb Hct MCV MCH MCHC RDW Std Deviation RDW Coeff of [place] Plt Count MPV Immature Gran % (Auto) Neut % (Auto) Lymph % (Auto) [place] % (Auto) Eos % (Auto) Baso % (Auto) Neut # (Auto) Lymph # (Auto) [place] # (Auto) Eos # (Auto) Baso # (Auto) Immature Gran # (Auto) ESR 22 Sodium Potassium Chloride Carbon Dioxide Anion Gap BUN Creatinine Est Cr Clr Drug Dosing Est GFR ( Amer) Est GFR (Non-Af Amer) BUN/Creatinine Ratio Glucose POC Glucose Calcium Total Creatine Kinase C-Reactive Protein Vitamin B12 275 TSH 1.831 05/23/22 05/23/2222 11:27 16:26 20:01 WBC RBC Hgb Hct MCV MCH MCHC RDW Std Deviation RDW Coeff of [place] Plt Count MPV Immature Gran % (Auto) Neut % (Auto) Lymph % (Auto) [place] % (Auto) Eos % (Auto) Baso % (Auto) Neut # (Auto) Lymph # (Auto) [place] # (Auto) Eos # (Auto) Baso # (Auto) Immature Gran # (Auto) ESR Sodium Potassium Chloride Carbon Dioxide Anion Gap BUN Creatinine Est Cr Clr Drug Dosing Est GFR ( Amer) Est GFR (Non-Af Amer) BUN/Creatinine Ratio Glucose POC Glucose 164 H 113 H 139 H Calcium Total Creatine Kinase C-Reactive Protein Vitamin B12 TSH PG Care Time/CCT Total # of Minutes Spent Total Time Spent with Patient: Total time spent is greater than 50% in coordination of care (as documented) at patient's floor/unit and/or counseling patient: Coding Level of Care Code 86718 Subseq Hosp Care Lvl 2 Diagnoses Chest pain R07.9 Elevated troponin R77.8 Alzheimer's dementia G30.9; F02.80 Hyperlipidemia E78.5 Hypertension I10 Type 2 diabetes mellitus E11.9 Diabetes mellitus complication status: without complication Diabetes mellitus shelter insulin use: without termite renewal inspector use Chronic renal failure, stage 3b N18.32 DVT prophylaxis Z29.9 History of cardiac pacemaker Z95.0 (1) Type 2 diabetes mellitus Diabetes mellitus complication status: without complication Diabetes mellitus shelter insulin use: without termite renewal inspector use Qualified Code(s): E11.9 - Type 2 diabetes mellitus without complications
[2022-05-23 11:50] LABS: Basophils # (auto) 0.04 K/uL (0-0.2); Basophils % (auto) 0.6 %; Eosinophils # (auto) 0.36 K/uL (0-0.50); Eosinophils % (auto) 5.7 %; Hematocrit (blood only) 42.6 % (34.1-44.9); Hemoglobin 14.1 g/dl (12.0-16.0); Immature Granulocytes # (auto) 0.02 K/uL (0.00-0.02); Immature Granulocytes % (auto) 0.3 %; Lymphocytes # (auto) 0.92 K/uL (1.2-3.4); Lymphocytes % (auto) 14.6 %; Mean Corpuscular Hemoglobin 29.9 pg (25.0-34.0); Mean Corpuscular Hgb Conc 33.1 g/dL (32.0-36.0); Mean Corpuscular Volume 90.3 fL (80.0-100.0); Mean Platelet Volume 10.8 fL (9.4-12.3); Monocytes # (auto) 0.66 K/uL (0.24-0.82); Monocytes % (auto) 10.5 %; Neutrophils # (auto) 4.28 K/uL (1.4-6.5); Neutrophils % (auto) 68.3 %; Platelet Count 247 K/uL (130-400); RDW Coefficient of Variation 13.4 % (11.5-14.5); RDW Standard Deviation 44.3 fL (36.4-46.3); Red Blood Count 4.72 M/uL (3.93-5.22); White Blood Count 6.28 K/ul (4.8-10.8)
[2022-05-23 12:20] LABS: Anion Gap 7 (3-11); BUN Creatinine Ratio 26.9 (10-20); Blood Urea Nitrogen 25 mg/dl (6-23); C Reactive Protein < 0.50 mg/dl (0-0.5); Calcium 9.1 mg/dl (8.5-10.1); Carbon Dioxide 25 mmol/L (21-32); Chloride 106 mmol/L (98-107); Creatine Kinase 36 U/L (26-192); Creatinine Clr Calc Pharmacy 38.4 ml/min; Est GFR (African American) 64.5 ml/min; Est GFR (Non-African American) 55.6 ml/min; Glucose 173 mg/dl (70-99(Fasting)); Potassium 4.5 mmol/L (3.5-5.1); Sodium 138 mmol/L (136-145)
[2022-05-23] MEDS: CYANOCOBALAMIN (B-12) 500 MCG TABLET PO SCH (13:45)
[2022-05-23] MEDS: ACETAMINOPHEN 325 MG TAB PO PRN (21:04)
[2022-05-23] MEDS: HEPARIN SOD 5,000 UNIT/0.5 ML VIAL SQ SCH (21:06)
[2022-05-24] MEDS: ISOSORBIDE DINITRATE 10 MG TAB PO SCH ×2 (05:52→12:35)
[2022-05-24] MEDS: INSULIN ASPART PER UNIT SC SCH ×4 (08:31→20:55)
[2022-05-24] MEDS: POLYETHYLENE (MIRALAX) 17 GM PACK PO SCH (08:37)
[2022-05-24] MEDS: HEPARIN SOD 5,000 UNIT/0.5 ML VIAL SQ SCH ×2 (08:38→19:47)
[2022-05-24] MEDS: FAMOTIDINE 20 MG TAB PO SCH ×2 (08:38→19:46)
[2022-05-24] MEDS: CYANOCOBALAMIN (B-12) 500 MCG TABLET PO SCH (08:38)
[2022-05-24] MEDS: ASPIRIN 81 MG ECTAB PO SCH (08:38)
[2022-05-24 11:10] LABS: D Dimer 1040 ug/L FEU (0-500)
[2022-05-24] MEDS ORDERED: SODIUM CHLORIDE 0.9% 500 ML IV SCH (11:30)
[2022-05-24] MEDS ORDERED: OPTIRAY 320 125ml IV ONE (12:50)
--- NOTE | 2022-05-24 13:26 | CT Scan Report ---
CHEST CTA for PULMONARY ARTERIES CT DOSE: 476.85 mGycm HISTORY: recent chest pain, elevated dimer; eval PE TECHNIQUE: Multiaxial CT images of the chest were performed following the intravenous administration of contrast to evaluate the pulmonary arteries. Maximal intensity projection images were also obtaine d. A dose lowering technique was utilized adhering to the principles of ALARA. COMPARISON STUDY: None. FINDINGS: The visualized liver and spleen are unremarkable. Bilateral thyroid nodules with the larges t on the right measuring 1 cm. These do not meet CT criteria for follow-up. A right shoulder effusion is noted. This is likely chronic. No mediastinal or hilar lymphadenopathy. Is left-sided pacemaker n oted. There is a large hiatus hernia. The heart is mildly enlarged. Normal caliber thoracic aorta wit h no evidence for dissection. The right lower lobe segmental/subsegmental pulmonary arteries are esse ntially nondiagnostic due to the motion artifact. Otherwise, no filling defects within the remaining pulmonary arteries to suggest a pulmonary embolus. Moderate coronary artery calcifications are noted. There are old, healed left-sided rib fractures. Advanced degenerative changes within the bilateral s houlders with an old fracture deformity of the left humeral neck. No pneumothorax. The central airway s are patent. Mild dependent changes seen at the lung bases. No focal lung consolidations to suggest pneumonia. No evidence for pulmonary edema. IMPRESSION: 1. No evidence for pulmonary embolus with limitations as described above. 2. Bibasilar densities favor subsegmental atelectasis. Otherwise, no focal lung consolidations to sug gest pneumonia. 3. Mild cardiomegaly. 4. Large hiatus hernia. ACT 112: Negative or not required by law. Electronically signed by: Tyrone Salcedo M.D. 05/24/2022 1:25 PM
[2022-05-24] MEDS: ACETAMINOPHEN 325 MG TAB PO PRN (19:46)
--- NOTE | 2022-05-24 20:29 | Hospitalist Progress Note ---
Date of Service May 24, 2022 Assessment & Plan (1) Chest pain: Plan: present on admission. resolved. has not recurred. did have elevated troponin at admission, but seen by cardiology and ischemia felt unlikely. CTA chest today due to elevated D-dimer (even corrected for age) along with low- normal O2 sats at times -- NO PE. NO infiltrates. Large hiatal hernia, however. Given the large hiatal hernia perhaps the presenting chest pain was severe reflux disease/esophageal spasm. To that end start PPI once daily. Stop H2 ese. (2) Hiatal hernia: Plan: severe reflux episode in setting of her hiatal hernia may have been the cause of her presentation. PPI at discharge. (3) Elevated troponin: Plan: Peak troponin 439. No acute ischemic changes on EKG but difficult to determine as paced and LBBB. Echo with normal LV function and normal LV wall motion. Seen by cardiology - ACS felt unlikely; elevated troponin likely from demand ischemia. Remains on low-dose aspirin. Given that suspicion is that a GI etiology was the cause of her pain will stop the nitrates. (4) Alzheimer's dementia: Plan: no issues at this time pleasant confusion only (5) Hyperlipidemia: Plan: not on meds at this time (6) Hypertension: Plan: Patient placed on isosorbide dinitrate earlier this stay with improved BPs. Now BPs are low-normal. Stop isosorbide dinitrate. (7) Type 2 diabetes mellitus: Plan: HgbA1C 6.3% this admission. BSGs controlled. Novolog SSI as needed. (8) Chronic renal failure, stage 3b: Plan: BMP wnl yesterday. Give 500cc of NS post-CT contrast use. Repeat BMP am. (9) DVT prophylaxis: Plan: cont heparin 5000 BID (10) History of cardiac pacemaker: Plan: 2nd to complete heart block in 2017 no issues at this time Plan B12 level is low-normal -- added B12 1000mcg daily left message for pt's grandson this evening once again on voicemail cleared by PT for d/c home with family can d/c home tomorrow AM Admission and Anticipated Discharge Date Admission Date: May 22, 2022 Subjective no events overnight paced on tele sitting in chair during my visit using paper and pen to communicate with her she denies all complaints staff report good appetite Review of Systems Review of Systems: cv - no chest pain pulm - no dyspnea GI - no abd pain, nausea, emesis Physical Exam Physical Exam: gen - NAD, pleasant, sitting in chair comfortably HENT - MMM; hearing impairment - severe neck - no JVD heart - RRR, s1 s2, no murmur lungs - CTA b/l abd - soft NT ND BS+ ext - no edema, pulses 2+ b/l Results & Data Results & Data ([facility]) Vital Signs (Past 12 Hours) Vital Signs Temp Pulse Pulse Resp BP BP Pulse Ox 05/24/22 19:20 36.7 C 72 20 106/53 L 92 05/24/22 16:02 74 05/24/22 16:00 36.8 C 61 18 99/66 L 91 05/24/22 12:38 100/56 L 05/24/22 11:18 37.1 C 68 16 90/58 L 90 O2 Del Method 05/24/22 19:20 Room Air 05/24/22 16:02 05/24/22 16:00 05/24/22 12:38 05/24/22 11:18 Room Air Laboratory Results Laboratory Results - last 24 hr 05/24/22 05/24/22 05/24/22 07:35 09:47 11:37 D-Dimer 1040 H* POC Glucose 101 H 107 H 05/24/22 05/24/22 16:50 20:17 D-Dimer POC Glucose 144 H 107 H Diagnostic Findings Chest CTA 05/24/22 11:22 CHEST CTA for PULMONARY ARTERIES CT DOSE: 476.85 mGycm HISTORY: recent chest pain, elevated dimer; eval PE TECHNIQUE: Multiaxial CT images of the chest were performed following the intravenous administration of contrast to evaluate the pulmonary arteries. Maximal intensity projection images were also obtained. A dose lowering technique was utilized adhering to the principles of ALARA. COMPARISON STUDY: None. FINDINGS: The visualized liver and spleen are unremarkable. Bilateral thyroid nodules with the largest on the right measuring 1 cm. These do not meet CT criteria for follow-up. A right shoulder effusion is noted. This is likely chronic. No mediastinal or hilar lymphadenopathy. Is left-sided pacemaker noted. There is a large hiatus hernia. The heart is mildly enlarged. Normal caliber thoracic aorta with no evidence for dissection. The right lower lobe segmental/subsegmental pulmonary arteries are essentially nondiagnostic due to the motion artifact. Otherwise, no filling defects within the remaining pulmonary arteries to suggest a pulmonary embolus. Moderate coronary artery calcifications are noted. There are old, healed left-sided rib fractures. Advanced degenerative changes within the bilateral shoulders with an old fracture deformity of the left humeral neck. No pneumothorax. The central airways are patent. Mild dependent changes seen at the lung bases. No focal lung consolidations to suggest pneumonia. No evidence for pulmonary edema. IMPRESSION: 1. No evidence for pulmonary embolus with limitations as described above. 2. Bibasilar densities favor subsegmental atelectasis. Otherwise, no focal lung consolidations to suggest pneumonia. 3. Mild cardiomegaly. 4. Large hiatus hernia. ACT 112: Negative or not required by law. Electronically signed by: Tyrone Salcedo M.D. 05/24/2022 1:25 PM PG Care Time/CCT Total # of Minutes Spent Total Time Spent with Patient: Total time spent is greater than 50% in coordination of care (as documented) at patient's floor/unit and/or counseling patient: Coding Level of Care Code 45295 Subseq Hosp Care Lvl 2 Diagnoses Chest pain R07.9 Hiatal hernia K44.9 Elevated troponin R77.8 Alzheimer's dementia G30.9; F02.80 Hyperlipidemia E78.5 Hypertension I10 Type 2 diabetes mellitus E11.9 Diabetes mellitus complication status: without complication Diabetes mellitus custodial insulin use: without ferry terminal agent use Chronic renal failure, stage 3b N18.32 DVT prophylaxis Z29.9 History of cardiac pacemaker Z95.0 (1) Type 2 diabetes mellitus Diabetes mellitus complication status: without complication Diabetes mellitus ferry terminal agent insulin use: without custodial use Qualified Code(s): E11.9 - Type 2 diabetes mellitus without complications
[2022-05-25] MEDS ORDERED: PANTOprazole 40 MG TAB PO SCH (09:00)
[2022-05-25] MEDS: CYANOCOBALAMIN (B-12) 500 MCG TABLET PO SCH (09:02)
[2022-05-25] MEDS: ASPIRIN 81 MG ECTAB PO SCH (09:02)
[2022-05-25] MEDS: POLYETHYLENE (MIRALAX) 17 GM PACK PO SCH (09:04)
[2022-05-25] MEDS: HEPARIN SOD 5,000 UNIT/0.5 ML VIAL SQ SCH (09:06)
[2022-05-25] MEDS: INSULIN ASPART PER UNIT SC SCH ×2 (09:14→12:31)
[2022-05-25 11:13] LABS: BUN Creatinine Ratio 34.7 (10-20); Calcium 8.8 mg/dl (8.5-10.1); Est GFR (African American) 58.4 ml/min; Est GFR (Non-African American) 50.4 ml/min; Potassium 4.1 mmol/L (3.5-5.1)
--- NOTE | 2022-05-25 12:14 | Discharge Summary ---
Date of Service May 25, 2022 Admission HPI Per Admitting Provider Kristal Donaldson is an 86yo female with history of HTN, HLP, DM and Alzheimer's dementia presenting with chest pain. Patient was found outside her home yelling that she was having chest pain. Patient is extremely brown of hearing and needs to have things written down so she can answer questions. She reports pain was in her left upper chest, ongoing throughout the day. Presently she has no chest pain. She denies shortness of breath, nausea, vomiting, diarrhea or constipation. No additional complaints at this time. ER Course: ASA Discharge Data Allergies Allergy/AdvReac Type Severity Reaction Status Date / Time No Known Drug Allergies Allergy Unknown Verified 04/21/21 13:59 Consultations 05/21/22 08:12 Consult Cardiology Routine Ordered Studies 05/20/22 00:01 CT head/brain wo con Urgent 05/24/22 11:22 CT angio chest PE protocol Urgent Hospital Course (1) Chest pain: present on admission. resolved. has not recurred. did have elevated troponin at admission, but seen by cardiology and ischemia felt unlikely. CTA chest today due to elevated D-dimer (even corrected for age) along with low- normal O2 sats at times -- NO PE. NO infiltrates. Large hiatal hernia, however. Given the large hiatal hernia perhaps the presenting chest pain was severe reflux disease/esophageal spasm. To that end start PPI once daily. Stop H2 ese. (2) Hiatal hernia: severe reflux episode in setting of her hiatal hernia may have been the cause of her presentation. PPI at discharge. (3) Elevated troponin: Peak troponin 439. No acute ischemic changes on EKG but difficult to determine as paced and LBBB. Echo with normal LV function and normal LV wall motion. Seen by cardiology - ACS felt unlikely; elevated troponin likely from demand ischemia. Remains on low-dose aspirin. Given that suspicion is that a GI etiology was the cause of her pain will stop the nitrates. (4) Alzheimer's dementia: no issues at this time pleasant confusion only (5) Hyperlipidemia: not on meds at this time (6) Hypertension: Patient placed on isosorbide dinitrate earlier this stay with improved BPs. Now BPs are low-normal. Stop isosorbide dinitrate. (7) Type 2 diabetes mellitus: HgbA1C 6.3% this admission. BSGs controlled. Novolog SSI as needed. (8) Chronic renal failure, stage 3b: BMP wnl yesterday. Give 500cc of NS post-CT contrast use. Repeat BMP am. (9) DVT prophylaxis: cont heparin 5000 BID (10) History of cardiac pacemaker: 2nd to complete heart block in 2017 no issues at this time Plan B12 level is low-normal -- added B12 1000mcg daily left message for pt's grandson this evening once again on voicemail cleared by PT for d/c home with family can d/c home tomorrow AM Discharge Plan Discharge Items Patient Disposition: Home - Self-Care Reason For Visit: CHEST PAIN Discharge Diagnosis: 1. Chest pain - felt not to be due to a heart problem. Gastrointestinal cause suspected. 2. Large hiatal hernia. Activity: Resume your previous activity Non-emergency contact: Primary Care Provider Call non-emergency contact if: you have any medication questions, your symptoms worsen and your pain is not controlled Follow-up/Referrals: Mateo Hampton MD [Primary Care Provider] - (within 1 week ) Diet: Carb Consistent or DM2 and Heart Healthy Diet Texture: Easy to Chew Addtl Attending Provider Instructions: Mrs Donaldson, You were hospitalized for chest pain. The [facility] cardiologst saw you and felt that your chest pain was not coming from your heart. We did some additional tests including a CT scan. This showed a very large hiatal hernia (see handouts). We did NOT find blood clots, pneumonia, or any other lung condition that would have explained your chest pain. A hiatal hernia is when the stomach is no longer located in the abdomen but slides up into the chest cavity. People with hiatal hernias - especially when large - are prone to reflux disease, stomach upset, ulcers, etc. It is possible that your chest pain could have been coming from either the esophagus or stomach. I would recommend that you take a once-daily acid ingot stripper every morning. This will help prevent reflux disease and protect your stomach. Recommendations - 1. pantoprazole 40mg once daily every morning for reflux disease/stomach/hiatal hernia 2. your vitamin B12 level was borderline low. I would recommend an [id number] vitamin B12 supplement - 1000mcg every day for about 1 year. 3. Please HOLD your metformin at this time. Your blood sugars were nicely controlled without taking it during the hospital stay. Your hemoglobin a1c level was 6.3% - very good level. Again please hold your metformin at this time. Follow-up - see Dr Hsieh within 1 week Return to [facility] if - * you have fevers over 100 degrees * you have recurrent chest pains * you are short of breath * you have abdominal pains * any other concerns It was our pleasure caring for you at [facility]! Continue to feel better, Dr Yousif Pending Studies at Discharge: No Stand-Alone Forms: My [facility] [address], Smoking Cessation Medications and DC Order Prescriptions: New pantoprazole 40 mg Tablet,Delayed Release (Dr/Ec) 40 mg PO QAM Qty: 30 5RF cyanocobalamin (vitamin B-12) 1,000 mcg capsule 1,000 mcg PO DAILY Qty: 90 3RF Rx Instructions: purchase [id number] Continued multivitamin Tablet 1 tab PO DAILY cholecalciferol (vitamin D3) [Vitamin D3] 25 mcg (1,000 unit) Tablet 25 mcg PO DAILY Discontinued metformin 500 mg tablet 1,000 mg PO DAILY Qty: 0 0RF Discharge Orders: Discharge Order (Routine); Ordered 05/25/22 Ordered By: Iban Crenshaw/Other Patient Handouts: High Blood Sugar (Hyperglycemia), Hypoglycemia (Low Blood Sugar), Managing Type 2 Diabetes, What Is a Hiatal Hernia?, ED Hiatal Hernia Admission Data Admit Date/Time: 05/22/22 18:00 Attending Provider: Iban Yousif Admit Provider: Meenu Carrasco Primary Care Provider: Mateo Hampton Other Providers: Heath Naylor Coding Diagnoses Chest pain R07.9 Hiatal hernia K44.9 Elevated troponin R77.8 Alzheimer's dementia G30.9; F02.80 Hyperlipidemia E78.5 Hypertension I10 Type 2 diabetes mellitus E11.9 Diabetes mellitus jail insulin use: without termite technician use Diabetes mellitus complication status: without complication Chronic renal failure, stage 3b N18.32 DVT prophylaxis Z29.9 History of cardiac pacemaker Z95.0
== END 2022-05-25 14:40 | disposition home or self-care (01) | DRG 311 ==
LOC: ED 23:35 → 2N 05-20 02:48 → SUATTDRO 05-20 02:48 → INTOOBSV 05-20 02:48 → 2N 05-20 03:34 → SUATTDRO 05-22 18:00

== ENCOUNTER 2023-03-07 14:44 | Inpatient (IN) ==
[2023-03-07] MEDS ORDERED: SODIUM CHLORIDE 0.9% 500 ML IV STA (15:00)
--- NOTE | 2023-03-07 15:03 | Emergency Department Note ---
Impression & Plan Dementia ADMIT ED Provider Note HPI: The patient is an 87-year-old female with history of Alzheimer dementia, who presents the emergency department with a chief complaint of nosebleed. Patient presents with her grandson at the bedside, states that the patient developed a nosebleed earlier today and they were able to stop it at home. He states when he returned home from work around 2 PM he again noticed that she was having difficulty with nosebleed. He states that she may be picking at it, she is demented and unable to provide me with any history. On arrival the bleeding has stopped, edwige at the bedside states that he has been trying to get her placed in a fpc over the past several months that she has been wandering from home and at times has been picked up by police. Patient is otherwise alert and hemodynamically stable on arrival. ROS: - Per HPI *Outpatient medications and allergy history reviewed. *Pertinent external medical records reviewed. PE: General: Alert, frail-appearing HEENT: Normocephalic, trachea midline, dried blood at the bilateral nares without any active epistaxis Eyes: Extraocular eye movement is intact, no scleral erythema Pulmonary: Clear to auscultation bilaterally, no wheezing Cardio: Regular rate and rhythm GI: Abdomen is soft to palpation : No suprapubic tenderness MSK: No evidence of trauma or malformation of the extremities, no edema Skin: No evidence of rash Neuro: Alert, no focal deficits Psychiatric: Cooperative court recording monitor: (As interpreted by myself): - An order was placed for continuous cardiac monitoring - Patient was noted to be in paced rhythm with a rate of 65 EKG: (As interpreted by myself): Rate: 70 Rhythm: Paced rhythm Intervals: QRS 174 ms, QTc [address] changes: No ST elevation Time: 1512 Interventions provided in ED: -IV fluid bolus, oral potassium Differential Diagnosis: Acute anterior epistaxis, posterior epistaxis, dementia, nasal fracture/facial trauma, amongst other potential pathologies. Medical Decision Making: The patient is an 87-year-old female with history of Alzheimer dementia, presents to the emergency department with her grandson at the bedside over concern for epistaxis today. Edwige notes that she had 2 separate episodes of epistaxis, once in the morning that was resolved and then another such episode when he returned home from work around 2 PM and therefore was brought to the ED to be assessed. On arrival the bleeding is stopped. Patient is otherwise in no acute distress. She is frail appearing and also appears somewhat disheveled. He states that they have been having difficulty taking care of her at home and she frequently wanders off. They work for large portions of the day and they no longer feel that she is safe to be at home and he does feel that she needs placed in a fpc. He states he has been working on this with the office of [facility] but as of yet has been unsuccessful placing her. Given the grandson's concerns, I did consult case management, placement is not possible for today. Patient's lab work does not show any critical findings, chest x-ray does not show any evidence of pneumonia or acute process. Potassium was slightly low here in the ED and this was ordered for oral repletion. Given the patient's inability to care for self at home hospitalist service was consulted and I did discuss the case with the on-call midlevel provider. Patient was placed for admission in stable condition with plan for fpc placement. [facility] Disposition discussion held by myself with: Patient's grandson at the bedside Diagnosis: 1. Acute anterior epistaxis, resolved 2. Dementia 3. Inability to care for self Disposition: Admission Erik Earl DO Emergency Medicine Past Med/Surg History Medical History (Updated 03/07/23 @ 18:06 by Erik Earl DO) Alzheimer's dementia Anxiety Chest pain CHF (congestive heart failure) Chronic renal failure, stage 3b Complete heart block Constipation Debility Disc degeneration, lumbar Elevated troponin Facial contusion Hernia Hiatal hernia History of cardiac pacemaker Medtronic. Implanted 2016 History of temporary cardiac pacemaker treatment Hyperlipidemia Hypertension Impacted cerumen of both ears Left bundle-branch block Low back pain Memory loss Tubular adenoma of colon Type 2 diabetes mellitus Urinary incontinence Surgical History History of ankle surgery History of cholecystectomy History of palate surgery History of Palatoplasty For Cleft Palate Soft Palate History of throat surgery Family History Unknown Diabetes Mother Cancer Father Cancer Brother Cancer Other Hypertension Denies family history of Ovarian cancer Prostate cancer Myocardial infarction Breast cancer Colorectal cancer Social History (Updated 07/13/22 @ 16:15 by Cindy Sevilla LPN) Smoking Status: Unknown if ever smoked Hx Alcohol Use: No Hx Substance Use: No Preferred Language: Burmese Communication Ability: Impaired Communication Ability Comment: Extremely hard of hearing Communication Tools: Writing Tablet Visual Impairment: No Limitations Hearing Ability: Hard of Hearing Family Health Nurse Practitioner Required: Yes Beliefs That Will Affect Care: None Current Living Situation: Alone Current Living Situation Comment: unknown current occupational status: retired Feels Safe at Home: Yes Assistive Devices: Glasses and Hearing Aid - Bilateral Allergies Allergies Allergy/AdvReac Type Severity Reaction Status Date / Time No Known Allergies Allergy Verified 03/07/23 16:03 Home Meds Home Medications Medication Instructions Recorded Confirmed cholecalciferol (vitamin D3) 25 25 mcg PO DAILY 04/13/21 03/07/23 mcg (1,000 unit) tablet (Vitamin D3) multivitamin 1 tab PO DAILY 04/13/21 03/07/23 aluminum-mag hydroxide-simethicone 10 ml PO DIRECTED PRN 03/07/23 03/07/23 200 mg-200 mg-20 mg/5 mL oral susp HEARTBURN/INDIGESTION (Antacid) Previous Rx's Medication Instructions Recorded cyanocobalamin (vitamin B-12) 1,000 mcg PO DAILY #90 caps 05/25/22 1,000 mcg capsule Results & Data (ED) Vital Signs Vital Signs - 24 hr 03/07/23 14:51 03/07/23 15:28 03/07/23 15:31 Temperature 36.5 C Temperature Source Oral Pulse Rate 75 67 Pulse Rate [Apical] Pulse Rhythm [Apical] Respiratory Rate 18 Respiratory Effort / Characteristics Non-Labored Spontaneous Respiratory Depth Normal Respiratory Pattern Blood Pressure 121/72 Blood Pressure [Right Arm] Blood Pressure Mean 88 Blood Pressure Mean [Right Arm] Blood Pressure Position [Right Arm] Pulse Oximetry 95 96 Oxygen Delivery Method Room Air Room Air Sepsis Recent Fever Within 48 Hours No Sepsis New/Unexplained Change in Mental Status No Sepsis Action Taken by Nursing No Action Required 03/07/23 17:31 Temperature Temperature Source Pulse Rate Pulse Rate [Apical] 62 Pulse Rhythm [Apical] Regular Respiratory Rate 18 Respiratory Effort / Characteristics Non-Labored Spontaneous Respiratory Depth Normal Respiratory Pattern Regular Blood Pressure Blood Pressure [Right Arm] 154/86 H Blood Pressure Mean Blood Pressure Mean [Right Arm] 108 Blood Pressure Position [Right Arm] Lying Pulse Oximetry 98 Oxygen Delivery Method Room Air Sepsis Recent Fever Within 48 Hours Sepsis New/Unexplained Change in Mental Status Sepsis Action Taken by Nursing Laboratory Data 03/07/23 15:31 03/07/23 15:31 Lab Results 03/07/23 03/07/23 03/07/23 Range/Units 15:31 15:31 17:02 WBC 6.88 (4.8-10.8) K/ul RBC 4.48 (4.20-5.40) M/uL Hgb 13.4 (12.0-16.0) g/dl Hct 40.7 (37.0-47.0) % MCV 90.8 (80.0-100.0) fL MCH 29.9 (25.0-34.0) pg MCHC 32.9 (32.0-36.0) g/dL RDW Std Deviation 44.2 (36.4-46.3) fL RDW Coeff of [place]idan 13.3 (11.5-14.5) % Plt Count 248 (130-400) K/uL MPV 10.6 (9.4-12.4) fL Immature Gran % (Auto) 0.1 % Neut % (Auto) 76.0 % Lymph % (Auto) 12.4 % Woodward % (Auto) 9.3 % Eos % (Auto) 1.9 % Baso % (Auto) 0.3 % Neut # (Auto) 5.23 (1.40-6.50) K/uL Lymph # (Auto) 0.85 L (1.2-3.4) K/uL Woodward # (Auto) 0.64 H (0.11-0.59) K/uL Eos # (Auto) 0.13 (0-0.50) K/uL Baso # (Auto) 0.02 (0-0.2) K/uL Immature Gran # (Auto) 0.01 (0.01-0.20) K/uL Sodium 143 (136-145) mmol/L Potassium 3.4 L (3.5-5.1) mmol/L Chloride 111 H (98-107) mmol/L Carbon Dioxide 28 (21-32) mmol/L Anion Gap 4 (3-11) BUN 24 H (6-23) mg/dl Creatinine 0.87 (0.6-1.2) mg/dl Est Cr Clr Drug Dosing 39.3 ml/min Est GFR ( Amer) 69.4 ml/min Est GFR (Non-Af Amer) 59.9 ml/min BUN/Creatinine Ratio 27.6 H (10-20) Glucose 127 H (70-99(Fasting)) mg/dl Calcium 8.9 (8.6-10.3) mg/dl Magnesium 1.7 Cancelled (1.7-2.4) mg/dl Total Bilirubin 0.9 (0.2-1.0) mg/dl AST 14 (13-39) U/L ALT 9 (7-52) U/L Alkaline Phosphatase 64 (34-104) U/L Total Protein 6.3 (6.0-8.3) gm/dl Albumin 3.9 (3.4-5.0) gm/dl Globulin 2.4 L (2.5-4.0) gm/dl Albumin/Globulin Ratio 1.6 (0.9-2) Administered Medications Potassium Chloride (Potassium Chloride Crtab 20 Meq Tabcr) 20 meq PO Q2H CALEB Stop: 03/07/23 19:16 Last Admin: 03/07/23 17:29 Dose: 20 meq Documented By: PUJA Discontinued Medications Sodium Chloride (Nss) 500 mls @ 999 mls/hr IV .Q31M STA Stop: 03/07/23 15:30 Last Infusion: 03/07/23 17:39 Dose: 0 mls/hr Documented By: Admin: 03/07/23 15:26 Dose: 999 mls/hr Documented By: PUJA Imaging Data Radiologist's Impression: Chest X-Ray 03/07/23 15:00 XR chest 1V portable CLINICAL HISTORY: Chest pain, nonspecific COMPARISON STUDY: Chest CT May 24, 2022. Chest radiograph July 05, 2022. FINDINGS: A left subclavian pacer is in place. There is no pneumothorax or pleural effusion. Cardiomegaly is unchanged. A hiatal hernia is again noted. There is no consolidation to suggest pneumonia. Chronic deformity of the proximal left humerus is incidentally noted. This is unchanged. IMPRESSION: No acute cardiopulmonary findings. No significant change in appearance of the chest. ACT 112: Negative or not required by law. Electronically signed by: Abram Peck M.D. 03/07/2023 4:41 PM Discharge Plan Visit Data Chief Complaint: Nose Bleed (Minor) Stated Complaint: NOSE BLEED ED Provider: Erik Earl Discharge Problem: Dementia Forms Stand Alone Forms: [facility] Recommendo Prescriptions Prescriptions: No Action multivitamin Tablet 1 tab PO DAILY cholecalciferol (vitamin D3) [Vitamin D3] 25 mcg (1,000 unit) Tablet 25 mcg PO DAILY cyanocobalamin (vitamin B-12) 1,000 mcg capsule 1,000 mcg PO DAILY Qty: 90 3RF Rx Instructions: purchase [id number] alum-mag hydroxide-simeth [Antacid] 200-200-20 mg/5 mL Suspension 10 ml PO DIRECTED PRN (Reason: HEARTBURN/INDIGESTION) Referrals Referrals: Mateo Hampton MD [Primary Care Provider] -
[2023-03-07 16:02] LABS: Basophils # (auto) 0.02 K/uL (0-0.2); Basophils % (auto) 0.3 %; Eosinophils # (auto) 0.13 K/uL (0-0.50); Eosinophils % (auto) 1.9 %; Hematocrit (blood only) 40.7 % (37.0-47.0); Hemoglobin 13.4 g/dl (12.0-16.0); Immature Granulocytes # (auto) 0.01 K/uL (0.01-0.20); Immature Granulocytes % (auto) 0.1 %; Lymphocytes # (auto) 0.85 K/uL (1.2-3.4); Lymphocytes % (auto) 12.4 %; Mean Corpuscular Hemoglobin 29.9 pg (25.0-34.0); Mean Corpuscular Hgb Conc 32.9 g/dL (32.0-36.0); Mean Corpuscular Volume 90.8 fL (80.0-100.0); Mean Platelet Volume 10.6 fL (9.4-12.4); Monocytes # (auto) 0.64 K/uL (0.11-0.59); Monocytes % (auto) 9.3 %; Neutrophils # (auto) 5.23 K/uL (1.40-6.50); Platelet Count 248 K/uL (130-400); RDW Coefficient of Variation 13.3 % (11.5-14.5); RDW Standard Deviation 44.2 fL (36.4-46.3); Red Blood Count 4.48 M/uL (4.20-5.40); White Blood Count 6.88 K/ul (4.8-10.8)
[2023-03-07 16:12] LABS: Albumin Globulin Ratio 1.6 (0.9-2); Albumin Level 3.9 gm/dl (3.4-5.0); BUN Creatinine Ratio 27.6 (10-20); Bilirubin,Total 0.9 mg/dl (0.2-1.0); Calcium 8.9 mg/dl (8.6-10.3); Creatinine Clr Calc Pharmacy 39.3 ml/min; Est GFR (African American) 69.4 ml/min; Est GFR (Non-African American) 59.9 ml/min; Globulin 2.4 gm/dl (2.5-4.0); Potassium 3.4 mmol/L (3.5-5.1); Total Protein 6.3 gm/dl (6.0-8.3)
--- NOTE | 2023-03-07 16:44 | XRay Report ---
XR chest 1V portable CLINICAL HISTORY: Chest pain, nonspecific COMPARISON STUDY: Chest CT May 24, 2022. Chest radiograph July 05, 2022. FINDINGS: A left subclavian pacer is in place. There is no pneumothorax or pleural effusion. Cardiome yvan is unchanged. A hiatal hernia is again noted. There is no consolidation to suggest pneumonia. Ch ronic deformity of the proximal left humerus is incidentally noted. This is unchanged. IMPRESSION: No acute cardiopulmonary findings. No significant change in appearance of the chest. ACT 112: Negative or not required by law. Electronically signed by: Abram Peck M.D. 03/07/2023 4:41 PM
--- NOTE | 2023-03-07 17:00 | History & Physical Report ---
Date of Service March 07, 2023 Assessment & Plan (1) Failure to thrive: Plan: -Admit to med/surge -Patient is unsafe to live at home due to consistent wandering when family isn't there -Will need to be placed -PT/OT consults placed, will consult Case management -Fall precautions and aspiration precautions ordered -BL SCD's for DVT PPX -AM CBC, BMP, Mag (2) Bleeding from the nose: Plan: -Resolved -Hemodynamically stable with stable Hgb -Will order TID saline nasal spray to keep mucus membranes moist to try and prevent easy bleeding -If she bleeds again will order afrin (3) Hypokalemia: Plan: -Noted to be 3.4 today -likely due to poor oral intake -Will give 20 meq PO KCL q2h for 2 doses -Mag level ordered -Monitor am electrolytes (4) Alzheimer's dementia: Plan: -Severe and progressive -Not currently on medication for her dementia -Monitor and re-direct for now -Fall precautions and aspiration precautions ordered (5) Type 2 diabetes mellitus: Plan: -Previous history, was on metformin in the past -Hgb A1c was 6.3 on 05/20/22 -Will monitor BSG ACHS for now, goal is 110-160 -Will start with just a CF of 50 for now -AM A1C ordered -Adjust regimen as needed Plan The patient was discussed with Dr. Price at the time of the admission -Diet: Regular; minced and moist -DVT PPX:BL SCD's History of Present Illness Chief Complaint: Nosebleed Primary Care Provider: MD Kristal Burger is [place], HLP, S/P pacemaker placement, DM and Alzheimer's dementiawho presented to the [facility] via EMS on 03/07/23 due to a nosebleed. Per the ED staff the patient had a nosebleed prior to arriving to the ED, but this was controlled by EMS. The patient currently lives at home alone and all of her children have passed. Her grandchildren have been trying to care for her but are not able to be at the house 27/05, she has wandered out of the house multiple times and has been picked up by police. At this time the patient is unsafe to return home, her Grandson has been working with the area of aging to get her placed but she has still been on a waiting list. She has been stable since arrival. Labs were significant for a potassium of 3.4. Prior to admission the patient was given 500 mL NSS. At the time of the admission the patient was sitting in bed in no acute distress with her Grandson (Dyllan Donaldson [phone]) bedside; history was obtained from the patient's Grandson. He states that since he and his siblings have been trying to care for their grandmother she has wandered out of her multiple times. The latest time was 3 nights ago, during a rainstorm. Her grandson often works double shifts at work and is not able to be with her 27/05. At this time they would like assistance with placing the patient as it is unsafe for her to be home alone. We discussed code status, the patient is a DNR/DNI and Dyllan is the primary contact. Of note, the patient will act as though she cannot hear you at times. Her grandson explains that she can and she communicated with us while he was in the room. Please refer to Dr. Price's attestation for any changes to the treatment plan Allergies Allergy/AdvReac Type Severity Reaction Status Date / Time No Known Allergies Allergy Verified 03/07/23 16:03 Home Medications Medication Instructions Recorded Confirmed Type cholecalciferol (vitamin D3) 25 25 mcg PO DAILY 04/13/21 03/07/23 History mcg (1,000 unit) tablet (Vitamin D3) multivitamin 1 tab PO DAILY 04/13/21 03/07/23 History cyanocobalamin (vitamin B-12) 1,000 mcg PO DAILY #90 caps 05/25/22 03/07/23 Rx 1,000 mcg capsule aluminum-mag hydroxide-simethicone 10 ml PO DIRECTED PRN 03/07/23 03/07/23 History 200 mg-200 mg-20 mg/5 mL oral susp HEARTBURN/INDIGESTION (Antacid) Past Med/Surg History Medical History (Updated 03/07/23 @ 18:06 by Erik Earl DO) Alzheimer's dementia Anxiety Chest pain CHF (congestive heart failure) Chronic renal failure, stage 3b Complete heart block Constipation Debility Disc degeneration, lumbar Elevated troponin Facial contusion Hernia Hiatal hernia History of cardiac pacemaker Medtronic. Implanted 2016 History of temporary cardiac pacemaker treatment Hyperlipidemia Hypertension Impacted cerumen of both ears Left bundle-branch block Low back pain Memory loss Tubular adenoma of colon Type 2 diabetes mellitus Urinary incontinence Surgical History History of ankle surgery History of cholecystectomy History of palate surgery History of Palatoplasty For Cleft Palate Soft Palate History of throat surgery Family History Unknown Diabetes Mother Cancer Father Cancer Brother Cancer Other Hypertension Denies family history of Ovarian cancer Prostate cancer Myocardial infarction Breast cancer Colorectal cancer Social History (Updated 07/13/22 @ 16:15 by Cindy Sevilla LPN) Smoking Status: Unknown if ever smoked Hx Alcohol Use: No Hx Substance Use: No Preferred Language: Colombian Communication Ability: Unable Communication Ability Comment: Extremely hard of hearing Communication Tools: Writing Tablet Visual Impairment: No Limitations Hearing Ability: Hard of Hearing Professional Programmer Analyst Required: Yes Beliefs That Will Affect Care: None Current Living Situation: Family Current Living Situation Comment: unknown current occupational status: retired Feels Safe at Home: Declines to Answer Assistive Devices: None Physical Exam Physical Exam: Physical Exam: General: In no acute distress, stated age, chronically ill appearing and malnourished, non-toxic appearing HEENT: Normocephalic, patient with dried blood at the BL nares and on her chin, no active bleeding noted, no scleral icterus, pupils around round, symmetrical, and reactive to light, moist mucus membranes, trachea midline, no thyromegaly Chest/Pulm: No respiratory distress, symmetrical chest expansion, clear breath sounds throughout Cardiac: RRR, no murmurs noted Abdomen: Negative for ascites and bruising, normoactive bowel sounds, soft, non-tender to palpation throughout Musculoskeletal: Symmetrical and without signs of acute trauma, upper and lower extremities with full ROM, no atrophy, spasticity, or flaccidity Extremities: Radial, dorsalis pedis, and posterior tibial pulses are intact and symmetrical, no edema noted in the BL LE's Skin: Dried blood noted at the BL nares, chin, BL hands, and BL shins, no active bleeding noted Neuro: Alert, does not answer orientation questions appropiately, no focal defects, will not follow commands for CN testing Psych: No acute distress, pleasantly confused cooperative during the exam at times Results & Data Results & Data Vital Signs (Past 12 Hours) Vital Signs Temp Pulse Resp BP Pulse Ox O2 Del Method 03/07/23 15:31 67 03/07/23 15:28 96 Room Air 03/07/23 14:51 36.5 C 75 18 121/72 95 Room Air Laboratory Results Abnormal lab results 03/07/23 03/07/23 Range/Units 15:31 15:31 Lymph # (Auto) 0.85 L (1.2-3.4) K/uL [place] # (Auto) 0.64 H (0.11-0.59) K/uL Potassium 3.4 L (3.5-5.1) mmol/L Chloride 111 H (98-107) mmol/L BUN 24 H (6-23) mg/dl BUN/Creatinine Ratio 27.6 H (10-20) Glucose 127 H (70-99(Fasting)) mg/dl Globulin 2.4 L (2.5-4.0) gm/dl Diagnostic Findings Chest X-Ray 03/07/23 15:00 XR chest 1V portable CLINICAL HISTORY: Chest pain, nonspecific COMPARISON STUDY: Chest CT May 24, 2022. Chest radiograph July 05, 2022. FINDINGS: A left subclavian pacer is in place. There is no pneumothorax or pleural effusion. Cardiomegaly is unchanged. A hiatal hernia is again noted. There is no consolidation to suggest pneumonia. Chronic deformity of the proximal left humerus is incidentally noted. This is unchanged. IMPRESSION: No acute cardiopulmonary findings. No significant change in appearance of the chest. ACT 112: Negative or not required by law. Electronically signed by: Abram Peck M.D. 03/07/2023 4:41 PM ECG Additional Comments: Atrial-sensed ventricular-paced rhythm Abnormal ECG When compared with ECG of 05-JUL-2022 05:04, Vent. rate has decreased BY 10 BPM Code Status & VTE Plan Code Status DNR/DNI VTE Prophylaxis Plan VTE Prophylaxis will be ordered: Yes Supervising Physician Co-Signing Physician Notes I personally saw and examined the patient. I verified all kim points and agree with Nitin Stroud PA-C with the following exceptions and/or additions: 87 year old female presents to the ER with chief complaint of nose bleed without any active nose bleed in the ER. Increasingly unable to be at home safely and family now requesting custodial placement as unable to return home safely. Unable to get any history from the patient due to dementia. O/E Alert but not orientated x3, HS RRR, no murmurs, Chest CTAB, Abdo SNT A/P Failure to thrive - PT/OT case management to discuss placement with family Epistaxis - appears to be from her picking her nose. Appears to have resolved at this time. Continue to monitor. PG Care Time/CCT Total # of Minutes Spent Total Time Spent with Patient: Total time spent is greater than 50% in coordination of care (as documented) at patient's floor/unit and/or counseling patient: C[place] [address] INT INP/OBS CARE 1/40MIN Patient Type Established Medical Decision Making Moderate Complexity Diagnoses Failure to thrive Bleeding from the nose R04.0 Hypokalemia E87.6 Alzheimer's dementia G30.9; F02.80 Type 2 diabetes mellitus E11.9 Diabetes mellitus complication status: without complication Diabetes mellitus continuous churn buttermaker insulin use: without custodial use (5) Type 2 diabetes mellitus Diabetes mellitus complication status: without complication Diabetes mellitus continuous churn buttermaker insulin use: without continuous churn buttermaker use Qualified Code(s): E11.9 - Type 2 diabetes mellitus without complications
[2023-03-07] MEDS ORDERED: CARBOHYDRATES FOR HYPOGLYCEMIA PO PRN (17:22)
[2023-03-07] MEDS ORDERED: GLUCOSE 10 TAB/TUBE PO PRN (17:22)
[2023-03-07] MEDS ORDERED: DEXTROSE 50% 50 ML SYRINGE IV PRN (17:22)
[2023-03-07] MEDS ORDERED: GLUCAGON FOR INJ 1 MG VIAL SQ PRN (17:22)
[2023-03-07] MEDS ORDERED: GLUCOSE 40% GEL 15 GM TUBE PO PRN (17:22)
[2023-03-07 17:29] LABS: Magnesium 1.7 mg/dl (1.7-2.4)
[2023-03-07] MEDS: POTASSIUM CHLORIDE CRTAB 20 MEQ TABCR PO SCH ×2 (17:29→19:58)
[2023-03-07] MEDS: FAMOTIDINE 20 MG in SYRINGE 3 ML IV SCH (18:52)
[2023-03-07 19:22] LABS: Appearance Urine Cloudy (Clear); Bacteria Urine Automated 1+ (Negative); Bilirubin Urine Negative (Negative); Blood Urine 2+ (Negative); Color Urine Yellow; Epithelial Cell Urine Auto >30 /lpf (0-5); Glucose Urine UA Negative (Negative); Ketones Urine Trace (Negative); Leukocyte Esterase Urine 2+ (Negative); Nitrite Urine Negative (Negative); Protein Urine Negative (Negative); Specific Gravity Urine 1.021 (1.000-1.030); Urobilinogen Urine Negative (Negative)
[2023-03-07] MEDS ORDERED: MAGNESIUM SULFATE / D5W 1 GM/100 ML BAG IV ONE (20:03)
[2023-03-07] MEDS ORDERED: INSULIN ASPART PER UNIT CHARGE SC SCH (21:00)
[2023-03-07] MEDS: SODIUM CHLORIDE 0.65% NA SOLN 45 ML (OCEAN) SCH (23:24)
[2023-03-08] MEDS ORDERED: OLANZapine 10 MG/2.1 ML SDV IM STA (00:59)
[2023-03-08 07:55] LABS: Hematocrit (blood only) 36.4 % (37.0-47.0); Mean Corpuscular Hemoglobin 30.3 pg (25.0-34.0); Mean Corpuscular Volume 91.9 fL (80.0-100.0); Mean Platelet Volume 10.2 fL (9.4-12.4); Platelet Count 216 K/uL (130-400); RDW Coefficient of Variation 13.6 % (11.5-14.5); RDW Standard Deviation 45.9 fL (36.4-46.3); Red Blood Count 3.96 M/uL (4.20-5.40); White Blood Count 4.65 K/ul (4.8-10.8)
[2023-03-08] MEDS: SODIUM CHLORIDE 0.65% NA SOLN 45 ML (OCEAN) SCH ×3 (07:59→20:01)
[2023-03-08] MEDS: FAMOTIDINE 20 MG in SYRINGE 3 ML IV SCH (07:59)
[2023-03-08 08:42] LABS: Calcium 8.6 mg/dl (8.6-10.3); Creatinine Clr Calc Pharmacy 42.9 ml/min; Est GFR (African American) 84.4 ml/min; Est GFR (Non-African American) 72.8 ml/min; Magnesium 1.9 mg/dl (1.7-2.4); Potassium 4.4 mmol/L (3.5-5.1)
[2023-03-08] MEDS: MULTIVITAMIN TAB PO SCH (10:15)
[2023-03-08] MEDS: ACETAMINOPHEN 325 MG TAB PO PRN (20:04)
--- NOTE | 2023-03-08 21:19 | Electrocardiogram Report ---
Test Reason : Blood Pressure : / mmHG Vent. Rate : 070 BPM Atrial Rate : 070 BPM P-R Int : 198 ms QRS Dur : 174 ms QT Int : 476 ms P-R-T Axes : 014 -56 109 degrees QTc Int : 514 ms Atrial-sensed ventricular-paced rhythm Abnormal ECG When compared with ECG of 05-JUL-2022 05:04, Vent. rate has decreased BY 10 BPM Confirmed by Nadir Griffiths ([id number]) on 03/08/2023 9:18:57 PM Referred By: REFERRED SELF Confirmed By:Nadir Griffiths
--- NOTE | 2023-03-08 22:09 | Hospitalist Progress Note ---
Date of Service March 08, 2023 Assessment & Plan (1) Failure to thrive: Plan: -Admit to med/surge -Patient is unsafe to live at home due to consistent wandering when family isn't there -Will need to be placed -PT/OT consults placed, will consult Case management -Fall precautions and aspiration precautions ordered - SCD's for DVT PPX (2) Bleeding from the nose: Plan: -Resolved -Hemodynamically stable with stable Hgb -Will order TID saline nasal spray to keep mucus membranes moist to try and prevent easy bleeding -no bleeding today (3) Hypokalemia: Plan: -will continue to replenish (4) Alzheimer's dementia: Plan: -Severe and progressive -Not currently on medication for her dementia -Monitor and re-direct for now -Fall precautions and aspiration precautions ordered (5) Type 2 diabetes mellitus: Plan: -Previous history, was on metformin in the past -Hgb A1c was 6.3 on 05/20/22 -Will monitor BSG ACHS for now, goal is 110-160 -Will start with just a CF of 50 for now -AM A1C ordered -Adjust regimen as needed Plan The patient was discussed with Dr. Price at the time of the admission -Diet: Regular; minced and moist -DVT PPX: SCD's Admission and Anticipated Discharge Date Admission Date: March 07, 2023 Subjective Patient is a poor historian. Review of Systems Review of Systems: All systems reviewed & are unremarkable except as noted in HPI & below Physical Exam Physical Exam: General: In no acute distress, stated age, chronically ill appearing and malnourished, non-toxic appearing HEENT: Normocephalic, patient with dried blood at the BL nares and on her chin, no active bleeding noted, no scleral icterus, pupils around round, symmetrical, and reactive to light, moist mucus membranes, trachea midline, no thyromegaly Chest/Pulm: No respiratory distress, symmetrical chest expansion, clear breath sounds throughout Cardiac: RRR, no murmurs noted Abdomen: Negative for ascites and bruising, normoactive bowel sounds, soft, non- tender to palpation throughout Musculoskeletal: Symmetrical and without signs of acute trauma, upper and lower extremities with full ROM, no atrophy, spasticity, or flaccidity Extremities: Radial, dorsalis pedis, and posterior tibial pulses are intact and symmetrical, no edema noted in the LE's Skin: Dried blood noted at the BL nares, chin, BL hands, and BL shins, no active bleeding noted Neuro: Alert, does not answer orientation questions appropiately, no focal defects, will not follow commands for CN testing Psych: No acute distress, pleasantly confused cooperative during the exam at times Results & Data Results & Data Vital Signs (Past 12 Hours) Vital Signs Temp Pulse Resp BP Pulse Ox O2 Del Method 03/08/23 20:54 60 18 125/84 97 Room Air 03/08/23 14:50 36.7 C 16 142/85 H 96 Room Air PG Care Time/CCT Total # of Minutes Spent Total Time Spent with Patient: Total time spent is greater than 50% in coordination of care (as documented) at patient's floor/unit and/or counseling patient: Coding Level of Care Code 53058 SUB INP/OBS CARE 2/35MIN Diagnoses Failure to thrive Bleeding from the nose R04.0 Hypokalemia E87.6 Alzheimer's dementia G30.9; F02.80 Type 2 diabetes mellitus E11.9 Diabetes mellitus complication status: without complication 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
[2023-03-09 07:08] LABS: Hematocrit (blood only) 37.6 % (37.0-47.0); Hemoglobin 12.3 g/dl (12.0-16.0); Mean Corpuscular Hemoglobin 30.1 pg (25.0-34.0); Mean Corpuscular Hgb Conc 32.7 g/dL (32.0-36.0); Mean Corpuscular Volume 91.9 fL (80.0-100.0); Mean Platelet Volume 10.5 fL (9.4-12.4); Platelet Count 214 K/uL (130-400); RDW Coefficient of Variation 13.5 % (11.5-14.5); Red Blood Count 4.09 M/uL (4.20-5.40); White Blood Count 4.74 K/ul (4.8-10.8)
[2023-03-09 07:34] LABS: BUN Creatinine Ratio 21.6 (10-20); Calcium 8.6 mg/dl (8.6-10.3); Creatinine Clr Calc Pharmacy 42.9 ml/min; Est GFR (African American) 84.4 ml/min; Est GFR (Non-African American) 72.8 ml/min
[2023-03-09] MEDS: FAMOTIDINE 20 MG in SYRINGE 3 ML IV SCH (08:14)
[2023-03-09] MEDS: MULTIVITAMIN TAB PO SCH (08:20)
[2023-03-09] MEDS: SODIUM CHLORIDE 0.65% NA SOLN 45 ML (OCEAN) SCH ×3 (08:20→20:39)
[2023-03-09] MEDS: ACETAMINOPHEN 325 MG TAB PO PRN (16:25)
--- NOTE | 2023-03-09 23:03 | Hospitalist Progress Note ---
Date of Service March 09, 2023 Assessment & Plan (1) Failure to thrive: Plan: -Admit to med/surge -Patient is unsafe to live at home due to consistent wandering when family isn't there -Will need to be placed -PT/OT consults placed, will consult Case management -Fall precautions and aspiration precautions ordered - SCD's for DVT PPX (2) Bleeding from the nose: Plan: -Resolved -Hemodynamically stable with stable Hgb -Will order TID saline nasal spray to keep mucus membranes moist to try and prevent easy bleeding -no bleeding today (3) Hypokalemia: Plan: -will continue to replenish (4) Alzheimer's dementia: Plan: -Severe and progressive -Not currently on medication for her dementia -Monitor and re-direct for now -Fall precautions and aspiration precautions ordered (5) Type 2 diabetes mellitus: Plan: -Previous history, was on metformin in the past -Hgb A1c was 6.3 on 05/20/22 -Will monitor BSG ACHS for now, goal is 110-160 -Will start with just a CF of 50 for now -AM A1C ordered -Adjust regimen as needed Plan The patient was discussed with Dr. Price at the time of the admission -Diet: Regular; minced and moist -DVT PPX: SCD's Admission and Anticipated Discharge Date Admission Date: March 07, 2023 Subjective Patient reports no new symptoms. Review of Systems Review of Systems: All systems reviewed & are unremarkable except as noted in HPI & below Physical Exam Physical Exam: General: In no acute distress, stated age, chronically ill appearing and malnourished, non-toxic appearing HEENT: Normocephalic, patient with dried blood at the nares and on her chin, no active bleeding noted, no scleral icterus, pupils around round, symmetrical, and reactive to light, moist mucus membranes, trachea midline, no thyromegaly Chest/Pulm: No respiratory distress, symmetrical chest expansion, clear breath sounds throughout Cardiac: RRR, no murmurs noted Abdomen: Negative for ascites and bruising, normoactive bowel sounds, soft, non- tender to palpation throughout Musculoskeletal: Symmetrical and without signs of acute trauma, upper and lower extremities with full ROM, no atrophy, spasticity, or flaccidity Extremities: Radial, dorsalis pedis, and posterior tibial pulses are intact and symmetrical, no edema noted in the LE's Skin: no active bleeding noted Neuro: Alert, does not answer orientation questions appropiately, no focal defects, will not follow commands for CN testing Psych: No acute distress, pleasantly confused cooperative during the exam at times Results & Data Results & Data Vital Signs (Past 12 Hours) Vital Signs Temp Pulse Pulse Resp BP Pulse Ox O2 Del Method 03/09/23 21:33 36.7 C 60 18 135/75 95 Room Air 03/09/23 15:20 36.7 C 73 16 154/81 H 95 Room Air PG Care Time/CCT Total # of Minutes Spent Total Time Spent with Patient: Total time spent is greater than 50% in coordination of care (as documented) at patient's floor/unit and/or counseling patient: Coding Level of Care Code 52116 SUB INP/OBS CARE 2/35MIN Diagnoses Failure to thrive Bleeding from the nose R04.0 Hypokalemia E87.6 Alzheimer's dementia G30.9; F02.80 Type 2 diabetes mellitus E11.9 Diabetes mellitus complication status: without complication Diabetes mellitus administration dean insulin use: without administration dean use (5) Type 2 diabetes mellitus Diabetes mellitus complication status: without complication Diabetes mellitus nursing home insulin use: without nursing home use Qualified Code(s): E11.9 - Type 2 diabetes mellitus without complications
[2023-03-10] MEDS ORDERED: ONDANSETRON INJ 2 MG/ML 2 ML VIAL IV PRN (00:22)
[2023-03-10] MEDS ORDERED: ONDANSETRON INJ 2 MG/ML 2 ML VIAL ONE (00:33)
[2023-03-10] MEDS: MULTIVITAMIN TAB PO SCH (08:40)
[2023-03-10] MEDS: SODIUM CHLORIDE 0.65% NA SOLN 45 ML (OCEAN) SCH ×3 (08:40→21:11)
[2023-03-10] MEDS: FAMOTIDINE 20 MG in SYRINGE 3 ML IV SCH (09:09)
[2023-03-10] MEDS ORDERED: OLANZapine 10 MG/2.1 ML SDV IM STA (17:00)
--- NOTE | 2023-03-10 20:17 | Hospitalist Progress Note ---
Date of Service March 10, 2023 Assessment & Plan (1) Failure to thrive: Plan: -Admit to med/surge -Patient is unsafe to live at home due to consistent wandering when family isn't there -Will need to be placed -PT/OT consults placed, will consult Case management -Fall precautions and aspiration precautions ordered -BL SCD's for DVT PPX Awaiting placement (2) Bleeding from the nose: Plan: -Resolved -Hemodynamically stable with stable Hgb -Will order TID saline nasal spray to keep mucus membranes moist to try and prevent easy bleeding -no bleeding today (3) Hypokalemia: Plan: -will continue to replenish (4) Alzheimer's dementia: Plan: -Severe and progressive -Not currently on medication for her dementia -Monitor and re-direct for now -Fall precautions and aspiration precautions ordered Ordered zyprexa 5 mg IM however, patient did not require dose as she was able to be redirected on 03/10 (5) Type 2 diabetes mellitus: Plan: -Previous history, was on metformin in the past -Hgb A1c was 6.3 on 05/20/22 -Will monitor BSG ACHS for now, goal is 110-160 -Will start with just a CF of 50 for now -AM A1C ordered -Adjust regimen as needed Chronic diastolic (congestive) heart failure and CKD 3 Patient admitted with epistaxis/failure to thrive has history of diastolic CHF and CKD 3 Risk Factor(s): as above Treatment: Weight, I&O, BMP Plan Awaiting placement, Medically ready for discharge. -Diet: Regular; minced and moist -DVT PPX:BL SCD's Admission and Anticipated Discharge Date Admission Date: March 07, 2023 Subjective Patient is a poor historian. She was confused today and restless in the afternoon but calmed down at the time of dinner. Review of Systems Review of Systems: All systems reviewed & are unremarkable except as noted in HPI & below Physical Exam Physical Exam: General: In no acute distress, stated age, chronically ill appearing and malnourished, non-toxic appearing HEENT: Normocephalic, no blood noted in her nares. Chest/Pulm: No respiratory distress, symmetrical chest expansion, clear breath sounds throughout Cardiac: RRR, no murmurs noted Abdomen: normoactive bowel sounds, soft, non-tender to palpation throughout Extremities: Radial, dorsalis pedis, and posterior tibial pulses are intact and symmetrical, no edema noted in the BL LE's Skin: no active bleeding noted Neuro: Alert, does not answer orientation questions appropiately Psych: pleasantly confused, cooperative Results & Data Results & Data Vital Signs (Past 12 Hours) Vital Signs Temp Pulse Resp BP Pulse Ox O2 Del Method 03/10/23 16:17 37 C 69 15 136/79 94 Room Air 03/10/23 09:52 Room Air PG Care Time/CCT Total # of Minutes Spent Total Time Spent with Patient: Total time spent is greater than 50% in coordination of care (as documented) at patient's floor/unit and/or counseling patient: Coding Level of Care Code 24254 SUB INP/OBS CARE 2/35MIN Diagnoses Failure to thrive Bleeding from the nose R04.0 Hypokalemia E87.6 Alzheimer's dementia G30.9; F02.80 Type 2 diabetes mellitus E11.9 Diabetes mellitus complication status: without complication 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
[2023-03-10] MEDS: MELATONIN 3 MG TAB PO PRN (21:10)
[2023-03-11 07:35] LABS: Hematocrit (blood only) 36.1 % (37.0-47.0); Hemoglobin 12.1 g/dl (12.0-16.0); Mean Corpuscular Hemoglobin 30.3 pg (25.0-34.0); Mean Corpuscular Hgb Conc 33.5 g/dL (32.0-36.0); Mean Corpuscular Volume 90.3 fL (80.0-100.0); Mean Platelet Volume 10.2 fL (9.4-12.4); Platelet Count 225 K/uL (130-400); RDW Coefficient of Variation 13.3 % (11.5-14.5); RDW Standard Deviation 44.2 fL (36.4-46.3); White Blood Count 4.47 K/ul (4.8-10.8)
[2023-03-11 07:57] LABS: BUN Creatinine Ratio 33.3 (10-20); Calcium 8.8 mg/dl (8.6-10.3); Creatinine Clr Calc Pharmacy 41.5 ml/min; Est GFR (African American) 83.1 ml/min; Est GFR (Non-African American) 71.7 ml/min; Magnesium 1.8 mg/dl (1.7-2.4); Phosphorus 4.5 mg/dl (2.5-4.9); Potassium 4.6 mmol/L (3.5-5.1)
[2023-03-11] MEDS: SODIUM CHLORIDE 0.65% NA SOLN 45 ML (OCEAN) SCH ×3 (08:42→22:40)
[2023-03-11] MEDS: MULTIVITAMIN TAB PO SCH (08:42)
[2023-03-11] MEDS: FAMOTIDINE 20 MG in SYRINGE 3 ML IV SCH (08:48)
--- NOTE | 2023-03-11 14:33 | Psychiatric Consultation ---
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 While I can't be certain of the etiology (she has a significant cardiac history, which might be a factor), I am certain that she has a very significant degree of cognitive impairment. She clearly lacks the capacity to make rational and informed decisions about healthcare or other matters, and by history is not able to maintain safe behavior at home. She will require a structured environment in order to prevent dangerous behavior resulting from her lack of awareness of her environment and risks. (1) Dementia due to Alzheimer's disease: Plan Substituted judgment (e.g., from an [id number] designated in a durable power of binder stripper machine for healthcare, or some other legally-designated person) will need to be sought for any decisions that must be made. Strongly recommend placement in a structured, monitored setting where wandering can be prevented (such as an extended care facility). Psych History Identifying Data GENET DONALDSON is a 87-year-old female with a history of Alzheimer-type dementia, admitted on 03/07/2023 for nosebleed. Consult is by the hospitalist service for capacity assessment. Chief Complaint "Yes". History of Present Illness As part of my review of the medical record, I read the following ED physician note: "The patient is an 87-year-old female with history of Alzheimer dementia, who presents the emergency department with a chief complaint of nosebleed. Patient presents with her grandson at the bedside, states that the patient developed a nosebleed earlier today and they were able to stop it at home. He states when he returned home from work around 2 PM he again noticed that she was having difficulty with nosebleed. He states that she may be picking at it, she is demented and unable to provide me with any history. On arrival the bleeding has stopped, grandson at the bedside states that he has been trying to get her placed in a prison over the past several months that she has been wandering from home and at times has been picked up by police." and the following excerpt from the hospitalist's H&P: "Genet is a HTN, HLP, S/P pacemaker placement, DM and Alzheimer's dementia who presented to the [facility] ED via EMS on 5/4/23 due to a nosebleed. Per the ED staff the patient had a nosebleed prior to arriving to the ED, but this was controlled by EMS. The patient currently lives at home alone and all of her children have passed. Her grandchildren have been trying to care for her but are not able to be at the house 27/05, she has wandered out of the house multiple times and has been picked up by police. At this time the patient is unsafe to return home, her Grandson has been working with the area of aging to get her placed but she has still been on a waiting list. She has been stable since arrival. Labs were significant for a potassium of 3.4. Prior to admission the patient was given 500 mL NSS. At the time of the admission the patient was sitting in bed in no acute distress with her Grandson (Dyllan Ledesmaaver [phone]) bedside; history was obtained from the patient's Grandson. He states that since he and his siblings have been trying to care for their grandmother she has wandered out of her multiple times. The latest time was 3 nights ago, during a rainstorm. Her grandson often works double shifts at work and is not able to be with her 27/05. At this time they would like assistance with placing the patient as it is unsafe for her to be home alone. We discussed code status, the patient is a DNR/DNI and Dyllan is the primary contact. Of note, the patient will act as though she cannot hear you at times. Her grandson explains that she can and she communicated with us while he was in the room." On my approach, pt lay in bed holding a spoon with untouched soup on the tray in front of her. She made fleeting eye contact when I introduced myself but barely spoke. She responded "yes" to "please tell me your name" and to "where do you live" but didn't respond to any other questions. Past Psychiatric History Previous Psych History: None clear Current Psychiatric Diagnosis: Dementia due to Alzheimer Disease Previous Psych Admissions: None known Do You Have Access To A Gun?: No History of Previous Suicide Attempt: No Past Medication Trials: None known Allergies Allergy/AdvReac Type Severity Reaction Status Date / Time No Known Allergies Allergy Verified 03/07/23 16:03 Home Medications Medication Instructions Recorded Confirmed Type cholecalciferol (vitamin D3) 25 25 mcg PO DAILY 04/13/21 03/07/23 History mcg (1,000 unit) tablet (Vitamin D3) multivitamin 1 tab PO DAILY 04/13/21 03/07/23 History cyanocobalamin (vitamin B-12) 1,000 mcg PO DAILY #90 caps 05/25/22 03/07/23 Rx 1,000 mcg capsule aluminum-mag hydroxide-simethicone 10 ml PO DIRECTED PRN 03/07/23 03/07/23 History 200 mg-200 mg-20 mg/5 mL oral susp HEARTBURN/INDIGESTION (Antacid) Patient History Medical History Alzheimer's dementia Anxiety Chest pain CHF (congestive heart failure) Chronic renal failure, stage 3b Complete heart block Constipation Debility Disc degeneration, lumbar Elevated troponin Facial contusion Hernia Hiatal hernia History of cardiac pacemaker [employer]. Implanted 2016 History of temporary cardiac pacemaker treatment Hyperlipidemia Hypertension Impacted cerumen of both ears Left bundle-branch block Low back pain Memory loss Tubular adenoma of colon Type 2 diabetes mellitus Urinary incontinence Surgical History History of ankle surgery History of cholecystectomy History of palate surgery History of Palatoplasty For Cleft Palate Soft Palate History of throat surgery Family History Unknown Diabetes Mother Cancer Father Cancer Brother Cancer Other Hypertension Denies family history of Ovarian cancer Prostate cancer Myocardial infarction Breast cancer Colorectal cancer Social History Smoking Status: Unknown if ever smoked Hx Alcohol Use: No Hx Substance Use: No Preferred Language: Maltese Communication Ability: Unable Communication Ability Comment: Extremely hard of hearing Communication Tools: Writing Tablet Visual Impairment: No Limitations Hearing Ability: Hard of Hearing 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 Beliefs That Will Affect Care: None Current Living Situation: Family Current Living Situation Comment: unknown current occupational status: retired Feels Safe at Home: Declines to Answer Assistive Devices: None Physical Exam Vital Signs (Past 24 Hours): Last Vital Signs Temp 36.7 C 03/11/23 07:08 Pulse 58 L 03/11/23 07:08 Resp 16 03/11/23 07:08 BP 123/78 03/11/23 07:08 Pulse Ox 96 03/11/23 07:08 O2 Del Method Room Air 03/11/23 07:08 Exam Statement: I've reviewed the exams done by the ED physician and the hospitalist Review of Systems Pt did not respond to any questions about symptoms or history Results & Data (PSY) Medications Administered Acetaminophen (Acetaminophen 325 Mg Tab) 650 mg PO Q4H PRN PRN Reason: Pain(1,2,3) Or Fever Stop: 04/06/23 18:35 Last Admin: 03/09/23 16:25 Dose: 650 mg Documented By: Admin: 03/08/23 20:04 Dose: 650 mg Documented By: ALLISON Melatonin (Melatonin 3 Mg Tab) 3 mg PO HS PRN PRN Reason: Sleep Stop: 04/09/23 20:58 Last Admin: 03/10/23 21:10 Dose: 3 mg Documented By: ELA Multivitamins (Multivitamin Tab) 1 tab PO QAM [facility] Stop: 04/07/23 08:59 Last Admin: 03/11/23 08:42 Dose: 1 tab Documented By: Admin: 03/10/23 08:40 Dose: 1 tab Documented By: Admin: 03/09/23 08:20 Dose: 1 tab Documented By: Admin: 03/08/23 10:15 Dose: 1 tab Documented By: CORTES Sodium Chloride (Sodium Chloride 0.65% Na Soln 45 Ml ([place])) 1 sprays NA TID [facility] Stop: 04/06/23 20:59 Last Admin: 03/11/23 13:57 Dose: 1 sprays Documented By: Admin: 03/11/23 08:42 Dose: 1 sprays Documented By: Admin: 03/10/23 21:11 Dose: 1 sprays Documented By: Admin: 03/10/23 13:26 Dose: 1 sprays Documented By: Admin: 03/10/23 08:40 Dose: 1 sprays Documented By: Admin: 03/09/23 20:39 Dose: 1 sprays Documented By: Admin: 03/09/23 14:09 Dose: 1 sprays Documented By: Admin: 03/09/23 08:20 Dose: 1 sprays Documented By: Admin: 03/08/23 20:01 Dose: 1 sprays Documented By: Admin: 03/08/23 17:08 Dose: 1 sprays Documented By: Admin: 03/08/23 07:59 Dose: 1 sprays Documented By: Admin: 03/07/23 23:24 Dose: 1 sprays Documented By: JESSICA Coding Level of Care Code 67289 IN/OBS CONSULT LVL 4,60M Diagnoses Dementia due to Alzheimer's disease G30.9; F02.80 Time Spent (min) 71
--- NOTE | 2023-03-11 17:37 | Hospitalist Progress Note ---
Date of Service March 11, 2023 Assessment & Plan (1) Failure to thrive: Plan: -Patient is unsafe to live at home due to consistent wandering when family isn't there. She has not been able to grocery shop or make meals for herself as per reports. -She is not oriented to place or time and does not understand or recall times when she has wandered out of her home in the past. It is clear that she does not have capacity to understand that her current situation of living alone is unsafe therefore she is not able to make decisions on her own. We will consult psychiatry to assist with and confirm that patient does not have capacity for decision-making. -Given progressive dementia, will complete the work-up with B12, B1, RPR, Lyme titer, and TSH in the morning -Start empiric thiamine 200 Mg p.o. twice daily in the morning after B1 level drawn as she is likely nutritionally deficient (2) Bleeding from the nose: Plan: -Resolved-this was the original reason for presentation -Nursing has noted that she tends to pick her nose with her long nails-family is to bring in nail clippers to trim these -Hemodynamically stable with stable Hgb -Continue TID saline nasal spray to keep mucus membranes moist to try and prevent easy bleeding (3) Alzheimer's dementia: Plan: -Severe and progressive-complete work-up as above with B1, B12, RPR, Lyme titer, and TSH -Starting empiric thiamine -Not currently on medication for her dementia -Monitor and re-direct for now, supportive care -Fall precautions and aspiration precautions ordered -Did receive 1 dose of IM Zyprexa for significant agitation on the evening of 03/10 -Has significant hearing loss which also likely contributes to 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 -We will consult psychiatry as above to assist with determination for capacity for medical decision-making (4) Type 2 diabetes mellitus: Plan: -Previous history, was on metformin in the past -Hgb A1c was 6.3 on 05/20/22 -Will monitor BSG ACHS for now, goal is [phone] sugars have been well controlled -Will start with just a CF of 50 for now for sliding scale insulin -AM A1C ordered for tomorrow -Adjust regimen as needed (5) Cardiac pacemaker in situ: Plan: In place for complete heart block-placed on 04/02/2017 With known LBBB Mostly ventricular pacing on last interrogation (6) CHF (congestive heart failure): Plan: Chronic diastolic (congestive) heart failure and CKD 3 Patient admitted with epistaxis/failure to thrive has history of diastolic CHF and CKD 3 Treatment: Weight, I&O, BMP Does not appear volume overloaded Not on diuretics (7) Hiatal hernia: Plan: With known history of large hiatal hernia causing chest pain on a previous admission Convert IV Pepcid to p.o. Pepcid for tomorrow (8) Vitamin B12 deficiency: Plan: With a known B12 deficiency from low level in 09/2022 She is on replacement at home but unclear if compliance with medication-restart for tomorrow Check B12 level in the morning Plan DVT prophylaxis-add on Lovenox as she will likely have a lengthy hospitalization here Disposition-PT/OT evaluations ordered, case management involved for long-term halfway facility placement Admission and Anticipated Discharge Date Admission Date: March 07, 2023 Subjective Patient reports feeling very sleepy today when seen in the early afternoon. She was given melatonin and IM Zyprexa yesterday evening. She is able to tell me her full name and that she is in the hospital, but cannot tell me the name of the hospital or the state or city. She does not know the year. When asked if she knows why she is in the hospital, she does say "I had a nosebleed." I discussed her grandson's concerns that she has wandered outside the house at times and has been found to be confused. She was not able to recall these events. When I discussed concerns about her safety at home, she stated "I am safe at home." She then continued to close her eyes and would not answer any my other questions. Physical Exam Constitutional: WD/WN, vitals as above Respiratory: normal respiratory effort, lungs clear to auscultation Cardiovascular: RRR, no murmur, no edema Gastrointestinal (Abdomen): normal bowel sounds, soft, nontender, no hepatosplenomegaly Psychiatric: Orientation: alert, oriented to person, oriented to place (Only "hospital") and cooperative; + not oriented to time Results & Data Results & Data Vital Signs (Past 12 Hours) Vital Signs Temp Pulse Resp BP Pulse Ox O2 Del Method 03/11/23 15:20 36.3 C L 64 16 113/68 95 Room Air 03/11/23 07:08 36.7 C 58 L 16 123/78 96 Room Air Laboratory Results CBC, BMP reviewed Urine culture with mixed nimco PG Care Time/CCT Total # of Minutes Spent Total Time Spent with Patient: Total time spent is greater than 50% in coordination of care (as documented) at patient's floor/unit and/or counseling patient: Coding Level of Care Code 44552 SUB INP/OBS CARE 2/35MIN Diagnoses Failure to thrive Bleeding from the nose R04.0 Alzheimer's dementia G30.9; F02.80 Type 2 diabetes mellitus E11.9 Diabetes mellitus jail insulin use: without jail use Diabetes mellitus complication status: without complication Cardiac pacemaker in situ Z95.0 CHF (congestive heart failure) I50.9 Heart failure type: unspecified Hiatal hernia K44.9 Vitamin B12 deficiency E53.8 (4) Type 2 diabetes mellitus Diabetes mellitus machine programmer insulin use: without machine programmer use Diabetes mellitus complication status: without complication Qualified Code(s): E11.9 - Type 2 diabetes mellitus without complications (6) CHF (congestive heart failure) Heart failure type: unspecified
[2023-03-11] MEDS: ENOXAPARIN INJ 40 MG/0.4 ML SYR SQ SCH (18:50)
[2023-03-12 07:55] LABS: Est GFR (African American) 67.5 ml/min; Est GFR (Non-African American) 58.3 ml/min
[2023-03-12] MEDS: THIAMINE HCL 100 MG TAB PO SCH ×2 (08:04→19:52)
[2023-03-12] MEDS: MULTIVITAMIN TAB PO SCH (08:05)
[2023-03-12] MEDS: CYANOCOBALAMIN (B-12) 500 MCG TABLET PO SCH (08:05)
[2023-03-12] MEDS: CHOLECALCIFEROL 1,000 UNITS 25 MCG TAB PO SCH (08:06)
[2023-03-12] MEDS: SODIUM CHLORIDE 0.65% NA SOLN 45 ML (OCEAN) SCH ×3 (08:06→19:52)
[2023-03-12] MEDS: FAMOTIDINE 20 MG TAB PO SCH (08:06)
[2023-03-12 08:17] LABS: Estimated Average Glucose 134 mg/dl; Hemoglobin A1C 6.3 % (4.5-5.6)
[2023-03-12 08:31] LABS: Lyme Ab IgG w/WB Rflx Negative (Negative); Lyme Ab IgM w/WB Rflx Negative (Negative)
[2023-03-12] MEDS: ENOXAPARIN INJ 40 MG/0.4 ML SYR SQ SCH (18:00)
[2023-03-12] MEDS: MELATONIN 3 MG TAB PO PRN (19:52)
--- NOTE | 2023-03-12 21:58 | Hospitalist Progress Note ---
Date of Service March 12, 2023 Assessment & Plan (1) Failure to thrive: Plan: -Patient is unsafe to live at home due to consistent wandering when family isn't there. She has not been able to grocery shop or make meals for herself as per reports. -She is not oriented to place or time and does not understand or recall times when she has wandered out of her home in the past. It is clear that she does not have capacity to understand that her current situation of living alone is unsafe therefore she is not able to make decisions on her own. We will consult psychiatry to assist with and confirm that patient does not have capacity for decision-making. -Given progressive dementia, will complete the work-up with B12, B1, RPR, Lyme titer, and TSH in the morning -Start empiric thiamine 200 Mg p.o. twice daily in the morning after B1 level drawn as she is likely nutritionally deficient (2) Bleeding from the nose: Plan: -Resolved-this was the original reason for presentation -Nursing has noted that she tends to pick her nose with her long nails-family is to bring in nail clippers to trim these -Hemodynamically stable with stable Hgb -Continue TID saline nasal spray to keep mucus membranes moist to try and prevent easy bleeding (3) Alzheimer's dementia: Plan: -Severe and progressive-complete work-up as above with B1, B12, RPR, Lyme titer, and TSH -Starting empiric thiamine -Not currently on medication for her dementia -Monitor and re-direct for now, supportive care -Fall precautions and aspiration precautions ordered -Did receive 1 dose of IM Zyprexa for significant agitation on the evening of 03/10 -Has significant hearing loss which also likely contributes to 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 -We will consult psychiatry as above to assist with determination for capacity for medical decision-making (4) Type 2 diabetes mellitus: Plan: -Previous history, was on metformin in the past -Hgb A1c was 6.3 on 05/20/22 -Will monitor BSG ACHS for now, goal is [phone] sugars have been well controlled -Will start with just a CF of 50 for now for sliding scale insulin -AM A1C ordered for tomorrow -Adjust regimen as needed (5) Cardiac pacemaker in situ: Plan: In place for complete heart block-placed on 04/02/2017 With known LBBB Mostly ventricular pacing on last interrogation (6) CHF (congestive heart failure): Plan: Chronic diastolic (congestive) heart failure and CKD 3 Patient admitted with epistaxis/failure to thrive has history of diastolic CHF and CKD 3 Treatment: Weight, I&O, BMP Does not appear volume overloaded Not on diuretics (7) Hiatal hernia: Plan: With known history of large hiatal hernia causing chest pain on a previous admission Convert IV Pepcid to p.o. Pepcid for tomorrow (8) Vitamin B12 deficiency: Plan: With a known B12 deficiency from low level in 09/2022 She is on replacement at home but unclear if compliance with medication-restart for tomorrow Check B12 level in the morning Plan DVT prophylaxis-add on Lovenox as she will likely have a lengthy hospitalization here Disposition-PT/OT evaluations ordered, case management involved for long-term [facility] facility placement Admission and Anticipated Discharge Date Admission Date: March 07, 2023 Subjective 87 yo male reports no new symptoms. She is calm, but is a poor historian. Review of Systems Review of Systems: All systems reviewed & are unremarkable except as noted in HPI & below Physical Exam Physical Exam: Constitutional: WD/WN, vitals as above Respiratory: normal respiratory effort, lungs clear to auscultation Cardiovascular: RRR, no murmur, no edema Gastrointestinal (Abdomen): normal bowel sounds, soft, nontender, no hepatosplenomegaly Psychiatric: Orientation: alert, oriented to person, oriented to place (Only "hospital") and cooperative; + not oriented to time Results & Data Results & Data Vital Signs (Past 12 Hours) Vital Signs Temp Pulse Resp BP Pulse Ox O2 Del Method 03/12/23 14:44 37.2 C 75 16 106/69 95 Room Air PG Care Time/CCT Total # of Minutes Spent Total Time Spent with Patient: Total time spent is greater than 50% in coordination of care (as documented) at patient's floor/unit and/or counseling patient: Coding Level of Care Code 06912 SUB INP/OBS CARE 1/25MIN Diagnoses Failure to thrive Bleeding from the nose R04.0 Alzheimer's dementia G30.9; F02.80 Type 2 diabetes mellitus E11.9 Diabetes mellitus complication status: without complication Diabetes mellitus half-way insulin use: without half-way use Cardiac pacemaker in situ Z95.0 CHF (congestive heart failure) I50.9 Heart failure type: unspecified Hiatal hernia K44.9 Vitamin B12 deficiency E53.8 (4) Type 2 diabetes mellitus Diabetes mellitus complication status: without complication Diabetes mellitus intermediate card tender insulin use: without intermediate card tender use Qualified Code(s): E11.9 - Type 2 diabetes mellitus without complications (6) CHF (congestive heart failure) Heart failure type: unspecified
[2023-03-13 00:59] LABS: Rapid Plasma Reagin Nonreactive (Nonreactive)
[2023-03-13] MEDS: THIAMINE HCL 100 MG TAB PO SCH ×3 (08:34→23:10)
[2023-03-13] MEDS: FAMOTIDINE 20 MG TAB PO SCH (08:34)
[2023-03-13] MEDS: CYANOCOBALAMIN (B-12) 500 MCG TABLET PO SCH (08:34)
[2023-03-13] MEDS: CHOLECALCIFEROL 1,000 UNITS 25 MCG TAB PO SCH (08:34)
[2023-03-13] MEDS: MULTIVITAMIN TAB PO SCH (08:34)
[2023-03-13] MEDS: SODIUM CHLORIDE 0.65% NA SOLN 45 ML (OCEAN) SCH ×3 (08:34→22:45)
--- NOTE | 2023-03-13 13:52 | Hospitalist Progress Note ---
Date of Service March 13, 2023 Assessment & Plan (1) Failure to thrive: Plan: -Patient is unsafe to live at home due to consistent wandering when family isn't there. She has not been able to grocery shop or make meals for herself as per reports. -She is not oriented to place or time and does not understand or recall times when she has wandered out of her home in the past. It is clear that she does not have capacity to understand that her current situation of living alone is unsafe therefore she is not able to make decisions on her own. We will consult psychiatry to assist with and confirm that patient does not have capacity for decision-making. -Given progressive dementia, will complete the work-up with B12, B1, RPR, Lyme titer, and TSH in the morning: work up was negative. -Start empiric thiamine 200 Mg p.o. twice daily in the morning after B1 level drawn as she is likely nutritionally deficient (2) Bleeding from the nose: Plan: -Resolved-this was the original reason for presentation -Nursing has noted that she tends to pick her nose with her long nails-family is to bring in nail clippers to trim these -Hemodynamically stable with stable Hgb -Continue TID saline nasal spray to keep mucus membranes moist to try and prevent easy bleeding (3) Alzheimer's dementia: Plan: -Severe and progressive-complete work-up as above with B1, B12, RPR, Lyme titer, and TSH -Starting empiric thiamine -Not currently on medication for her dementia -Monitor and re-direct for now, supportive care -Fall precautions and aspiration precautions ordered -Did receive 1 dose of IM Zyprexa for significant agitation on the evening of 03/10 -Has significant hearing loss which also likely contributes to 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 -We will consult psychiatry as above to assist with determination for capacity for medical decision-making: patient currently lacks capacity. (4) Type 2 diabetes mellitus: Plan: -Previous history, was on metformin in the past -Hgb A1c was 6.3 on 05/20/22 -Will monitor BSG ACHS for now, goal is [phone] sugars have been well controlled -Will start with just a CF of 50 for now for sliding scale insulin -AM A1C ordered : 6.3 (5) Cardiac pacemaker in situ: Plan: In place for complete heart block-placed on 04/02/2017 With known LBBB Mostly ventricular pacing on last interrogation (6) CHF (congestive heart failure): Plan: Chronic diastolic (congestive) heart failure and CKD 3 Patient admitted with epistaxis/failure to thrive has history of diastolic CHF and CKD 3 Treatment: Weight, I&O, BMP Does not appear volume overloaded Not on diuretics (7) Hiatal hernia: Plan: With known history of large hiatal hernia causing chest pain on a previous admission Convert IV Pepcid to p.o. Pepcid for tomorrow (8) Vitamin B12 deficiency: Plan: With a known B12 deficiency from low level in 09/2022 She is on replacement at home but unclear if compliance with medication Plan DVT prophylaxis-add on Lovenox as she will likely have a lengthy hospitalization here Disposition-PT/OT evaluations ordered, case management involved for long-term [facility] placement Approved for [facility], however family is not picking up phone. Multiple attempts were made. Admission and Anticipated Discharge Date Admission Date: March 07, 2023 Subjective 87 yo female is a poor historian. Review of Systems Review of Systems: All systems reviewed & are unremarkable except as noted in HPI & below Physical Exam Physical Exam: Constitutional: WD/WN, vitals as above Respiratory: normal respiratory effort, lungs clear to auscultation Cardiovascular: RRR, no murmur, no edema Gastrointestinal (Abdomen): normal bowel sounds, soft, nontender, no hepatosplenomegaly Psychiatric: Orientation: alert, oriented to person, oriented to place (Only "hospital") and cooperative; + not oriented to time Results & Data Results & Data Vital Signs (Past 12 Hours) Vital Signs Temp Pulse Resp BP Pulse Ox O2 Del Method 03/13/23 07:41 36.6 C 53 L 16 98/64 L 96 Room Air PG Care Time/CCT Total # of Minutes Spent Total Time Spent with Patient: Total time spent is greater than 50% in coordination of care (as documented) at patient's floor/unit and/or counseling patient: Coding Level of Care Code 84925 SUB INP/OBS CARE 2/35MIN Diagnoses Failure to thrive Bleeding from the nose R04.0 Alzheimer's dementia G30.9; F02.80 Type 2 diabetes mellitus E11.9 Diabetes mellitus complication status: without complication Diabetes mellitus terminal worker insulin use: without terminal worker use Cardiac pacemaker in situ Z95.0 CHF (congestive heart failure) I50.9 Heart failure type: unspecified Hiatal hernia K44.9 Vitamin B12 deficiency E53.8 (4) Type 2 diabetes mellitus Diabetes mellitus complication status: without complication Diabetes mellitus terminal worker insulin use: without terminal worker use Qualified Code(s): E11.9 - Type 2 diabetes mellitus without complications (6) CHF (congestive heart failure) Heart failure type: unspecified
[2023-03-13] MEDS: ENOXAPARIN INJ 40 MG/0.4 ML SYR SQ SCH (17:01)
[2023-03-14] MEDS: FAMOTIDINE 20 MG TAB PO SCH (08:23)
[2023-03-14] MEDS: CYANOCOBALAMIN (B-12) 500 MCG TABLET PO SCH (08:23)
[2023-03-14] MEDS: CHOLECALCIFEROL 1,000 UNITS 25 MCG TAB PO SCH (08:23)
[2023-03-14] MEDS: MULTIVITAMIN TAB PO SCH (08:23)
[2023-03-14] MEDS: THIAMINE HCL 100 MG TAB PO SCH (08:23)
[2023-03-14] MEDS: SODIUM CHLORIDE 0.65% NA SOLN 45 ML (OCEAN) SCH (08:23)
--- NOTE | 2023-03-14 09:00 | Hospitalist Progress Note ---
Date of Service March 14, 2023 Assessment & Plan (1) Failure to thrive: Plan: -Patient is unsafe to live at home due to consistent wandering when family isn't there. She has not been able to grocery shop or make meals for herself as per reports. -She is not oriented to place or time and does not understand or recall times when she has wandered out of her home in the past. It is clear that she does not have capacity to understand that her current situation of living alone is unsafe therefore she is not able to make decisions on her own. -Consult psychiatry Substituted judgment (e.g., from an [id number] designated in a durable power of commonwealth attorney for healthcare, or some other legally- designated person) will need to be sought for any decisions that must be made -Given progressive dementia, will complete the work-up with B12, B1, RPR, Lyme titer, and TSH in the morning: work up was negative. -Started empiric thiamine 200 Mg p.o. twice daily in the morning after B1 level drawn as she is likely nutritionally deficient (2) Bleeding from the nose: Plan: -acute self limited, -Hemodynamically stable with stable Hgb -Continue TID saline nasal spray to keep mucus membranes moist to try and prevent easy bleeding (3) Alzheimer's dementia: Plan: -Severe and progressive-complete work-up as above with B1, B12, RPR, Lyme titer, and TSH -Starting empiric thiamine -Not currently on medication for her dementia -Monitor and re-direct for now, supportive care -Fall precautions and aspiration precautions ordered -Did receive 1 dose of IM Zyprexa for significant agitation on the evening of 03/10 -Has significant hearing loss which also likely contributes to 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 -We will consult psychiatry as above to assist with determination for capacity for medical decision-making: patient currently lacks capacity. (4) Type 2 diabetes mellitus: Plan: -Previous history, was on metformin in the past -Hgb A1c was 6.3 on 05/20/22 -Will monitor BSG ACHS for now, goal is [phone] sugars have been well controlled -Will start with just a CF of 50 for now for sliding scale insulin -AM A1C ordered : 6.3 (5) Cardiac pacemaker in situ: Plan: In place for complete heart block-placed on 04/02/2017 With known LBBB Mostly ventricular pacing on last interrogation (6) CHF (congestive heart failure): Plan: Chronic diastolic (congestive) heart failure and CKD 3 Patient admitted with epistaxis/failure to thrive has history of diastolic CHF and CKD 3 (7) Hiatal hernia: Plan: With known history of large hiatal hernia causing chest pain on a previous admission Pepcid (8) Vitamin B12 deficiency: Plan: With a known B12 deficiency from low level in 09/2022 She is on replacement at home but unclear if compliance with medication Plan DVT prophylaxis-add on Lovenox as she will likely have a lengthy hospitalization here Disposition-PT/OT evaluations ordered, case management involved for long-term halfway facility placement Approved for [facility], however family is not picking up phone. Multiple attempts were made. Admission and Anticipated Discharge Date Admission Date: March 07, 2023 Results & Data Results & Data Vital Signs (Past 12 Hours) Vital Signs Temp Pulse Resp BP Pulse Ox O2 Del Method 03/14/23 07:28 98.4 F 60 18 106/70 95 Room Air 03/13/23 21:45 Room Air 03/13/23 21:50 97.9 F 60 12 105/72 90 Room Air PG Care Time/CCT Total # of Minutes Spent Total Time Spent with Patient: Total time spent is greater than 50% in coordination of care (as documented) at patient's floor/unit and/or counseling patient: Coding Diagnoses Failure to thrive Bleeding from the nose R04.0 Alzheimer's dementia G30.9; F02.80 Type 2 diabetes mellitus E11.9 Diabetes mellitus jail insulin use: without jail use Diabetes mellitus complication status: without complication Cardiac pacemaker in situ Z95.0 CHF (congestive heart failure) I50.9 Heart failure type: unspecified Hiatal hernia K44.9 Vitamin B12 deficiency E53.8 (4) Type 2 diabetes mellitus Diabetes mellitus jail insulin use: without it engineer use Diabetes mellitus complication status: without complication Qualified Code(s): E11.9 - Type 2 diabetes mellitus without complications (6) CHF (congestive heart failure) Heart failure type: unspecified
--- NOTE | 2023-03-14 16:31 | Discharge Summary ---
Date of Service March 14, 2023 Admission HPI Per Admitting Provider Kristal is aHTN, HLP, S/P pacemaker placement, DM and Alzheimer's dementiawho presented to the [facility] ED via EMS on 03/07/23 due to a nosebleed. Per the ED staff the patient had a nosebleed prior to arriving to the ED, but this was controlled by EMS. The patient currently lives at home alone and all of her children have passed. Her grandchildren have been trying to care for her but are not able to be at the house 27/05, she has wandered out of the house multiple times and has been picked up by police. At this time the patient is unsafe to return home, her Grandson has been working with the area of aging to get her placed but she has still been on a waiting list. She has been stable since arrival. Labs were significant for a potassium of 3.4. Prior to admission the patient was given 500 mL NSS. At the time of the admission the patient was sitting in bed in no acute distress with her Grandson (Dyllan Donaldson [phone]) bedside; history was obtained from the patient's Grandson. He states that since he and his siblings have been trying to care for their grandmother she has wandered out of her multiple times. The latest time was 3 nights ago, during a rainstorm. Her grandson often works double shifts at work and is not able to be with her 27/05. At this time they would like assistance with placing the patient as it is unsafe for her to be home alone. We discussed code status, the patient is a DNR/DNI and Dyllan is the primary contact. Of note, the patient will act as though she cannot hear you at times. Her grandson explains that she can and she communicated with us while he was in the room. Please refer to Dr. Price's attestation for any changes to the treatment plan Principal Diagnosis Epistaxis self-limited Dementia chronic and stable Discharge Exam Patient pleasantly confused no obvious epistaxis present at time of discharge Discharge Data Allergies Allergy/AdvReac Type Severity Reaction Status Date / Time No Known Allergies Allergy Verified 03/07/23 16:03 Consultations 03/07/23 16:55 ED Decision to Admit Stat 03/11/23 13:06 Consult Psychiatry Routine Hospital Course (1) Failure to thrive: -Patient is unsafe to live at home due to consistent wandering when family isn't there. She has not been able to grocery shop or make meals for herself as per reports. -She is not oriented to place or time and does not understand or recall times when she has wandered out of her home in the past. It is clear that she does not have capacity to understand that her current situation of living alone is unsafe therefore she is not able to make decisions on her own. -Consult psychiatry Substituted judgment (e.g., from an [id number] yanique gnated in a durable power of divorce attorney for healthcare, or some other legally- designated person) will need to be sought for any decisions that must be made -Given progressive dementia, will complete the work-up with B12, B1, RPR, Lyme titer, and TSH in the morning: work up was negative. -Started empiric thiamine 200 Mg p.o. twice daily in the morning after B1 level drawn as she is likely nutritionally deficient continue oral thiamine once at [facility] facility (2) Bleeding from the nose: -acute self limited, -Hemodynamically stable with stable Hgb -Continue TID saline nasal spray to keep mucus membranes moist to try and prevent easy bleeding (3) Alzheimer's dementia: -Severe and progressive-complete work-up as above with B1, B12, RPR, Lyme titer, and TSH -Continuing empiric thiamine -Not currently on medication for her dementia -Monitor and re-direct for now, supportive care -Fall precautions and aspiration precautions ordered -Has significant hearing loss which also likely contributes to 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 patient currently lacks capacity for decision-making. (4) Type 2 diabetes mellitus: -Previous history, was on metformin in the past -Hgb A1c was 6.3 on 05/20/22 -Patient A1c was 6.3 she may benefit from just watching and not checking for glucose control depending on her dietary intake. If need be she may benefit from returning to more formal glucose control (5) Cardiac pacemaker in situ: In place for complete heart block-placed on 04/02/2017 With known LBBB Mostly ventricular pacing on last interrogation (6) CHF (congestive heart failure): Chronic diastolic (congestive) heart failure and CKD 3 Patient admitted with epistaxis/failure to thrive has history of diastolic CHF and CKD 3 (7) Vitamin B12 deficiency: Continue replacement Total Time Total Time Spent Total Time Spent (In Minutes): It required less than 30 minutes to prepare this patient for discharge Discharge Plan Discharge Items Patient Disposition: Transfer Group Home Fac Reason For Visit: NOSE BLEED Discharge Diagnosis: Epistaxis dementia with recommendation for substituted judgement Activity: Per Instructions section Activity Comment: per PT/OT Non-emergency contact: Primary Care Provider Call non-emergency contact if: your symptoms worsen Follow-up/Referrals: Mateo Hampton MD [Primary Care Provider] - Diet: Regular Addtl Attending Provider Instructions: Patient started on thiamine therapy pending B1 level returning Psychiatry consult while inpatient recommend substituted judgment from a divorce attorney in fact designated durable power of divorce attorney and healthcare or other legally designated person to help make medical decisions Patient's diabetes has been in control in the past with metformin with an hemoglobin A1c of 6.3 on April 20 of last year she was on a very loose sliding scale would recommend checking frequent bedside glucose readings before considering if there is a need to restart oral medications with variable p.o. intake her glucoses have also been very variable Patient is a history of diastolic heart failure without need of medications at this point in time consideration for salt and fluid restriction could be undertaken but her oral intake given her low body weight should be also considered for palatability of diet Pending Studies at Discharge: Yes Studies:: Vitamin B1 level Stand-Alone Forms: My [employer] Skilled Items Patient informed of condition?: Yes DNR: Yes Discharge Level of Care: Skilled Communicable Disease: No Discharge Prognosis: Stable Lines: None Urinary Catheter: No Medications and DC Order Prescriptions: New famotidine 20 mg Tablet 20 mg PO QAM Qty: 30 0RF thiamine HCl (vitamin B1) 100 mg tablet 100 mg PO DAILY Qty: 30 0RF Continued multivitamin Tablet 1 tab PO DAILY cholecalciferol (vitamin D3) [Vitamin D3] 25 mcg (1,000 unit) Tablet 25 mcg PO DAILY cyanocobalamin (vitamin B-12) 1,000 mcg capsule 1,000 mcg PO DAILY Qty: 90 3RF Rx Instructions: purchase [id number] Discontinued alum-mag hydroxide-simeth [Antacid] 200-200-20 mg/5 mL Suspension 10 ml PO DIRECTED PRN (Reason: HEARTBURN/INDIGESTION) Discharge Orders: Discharge Order (Routine); Ordered 03/14/23 Ordered By: Mau Padilla Admission Data Admit Date/Time: 03/07/23 17:06 Attending Provider: Mau Padilla Admit Provider: Iban Price Primary Care Provider: Mateo Hampton Other Providers: Iban Price ; [place] ; [facility], ; [facility] ; Kayleen Nagel ; Amelia Diaz ; Erik Simons Other Interventions: Discharge Summary Assessment (RN) Last Done: 03/14/23 11:14 Coding Level of Care Code 17874 IN/OBS DISCH 30 MIN/LESS Diagnoses Failure to thrive Bleeding from the nose R04.0 Alzheimer's dementia G30.9; F02.80 Type 2 diabetes mellitus E11.9 Diabetes mellitus terminal make up operator insulin use: without terminal make up operator use Diabetes mellitus complication status: without complication Cardiac pacemaker in situ Z95.0 CHF (congestive heart failure) I50.9 Heart failure type: unspecified Vitamin B12 deficiency E53.8
== END 2023-03-14 12:11 | DRG 151 ==
LOC: ED 14:44 → SUATTDRO 17:06 → EDINP 17:06 → 3W 18:36

== ENCOUNTER 2024-02-11 10:50 | Observation (INO) ==
--- NOTE | 2024-02-11 11:03 | Emergency Department Note ---
Impression & Plan Fall, Anterior shoulder dislocation ED Provider Note NAME: GENET RAZO AGE: 88 SEX: F : 1935 ARRIVES VIA: Ambulance INFORMANT: Patient ED PROVIDER(S): Morteza Vela DO CHIEF COMPLAINT: fall HPI: Patient is a 88-year-old female with a past medical history of Alzheimer's, CHF, diabetes following falling out of bed. Patient does not remember this and has no complaints at this time with exception of right shoulder pain and a mild headache. No chest pain or shortness of breath. No other exacerbating or remitting factors. ADDITIONAL HISTORY OBTAINED: Per HPI Chronic Medical/Social Conditions Affecting Care: Per HPI PAST MEDICAL HISTORY:See Below PAST SURGICAL HISTORY:See Below FAMILY HISTORY:See Below SOCIAL HISTORY:See Below HOME MEDICATIONS:See Below ALLERGIES:See Below VITALS:See Below PHYSICAL EXAMINATION: GENERAL: Sitting up in bed, alert, mild distress holding right shoulder HEAD: Contusion to posterior occiput EYE EXAM: normal conjunctiva. PERRL and EOM's grossly intact. OROPHARYNX: mucous membranes are moist NECK: supple, no nuchal rigidity, no adenopathy, non-tender LUNGS: Clear to auscultation. Normal chest wall mechanics HEART: no murmurs, S1 normal and S2 normal ABDOMEN: abdomen soft, non-tender, normo-active bowel sounds, no masses, no rebound or guarding. BACK: Back is symmetrical on inspection and there is no deformity, no midline tenderness, no CVA tenderness. UPPER EXTREMITIES: No pain throughout the entire left upper extremity. Tenderness over the right humeral head. No tenderness throughout the elbow, forearm, wrist, or hand. Radial pulses are 2 out of 4 bilaterally, LOWER EXTREMITIES: Flexion-extension bilateral hips knees and ankles without tenderness NEURO EXAM: Awake alert following commands oriented to person, cranial nerves II-XII grossly intact, normal speech, no gross weakness of arms, no gross weakness of legs. No drift. Finger to nose intact. Gross sensation intact. MEDICAL DECISION MAKING: Patient is an 88-year-old female who presents ER for above-stated complaint. IV was established paroxetine. Labs show no significant leukocytosis or anemia. BMP with LFTs bilirubin was remarkable for slightly elevated glucose at 250. Lipase was normal. UA was clean. CT of the head and cervical spine was negative. X-ray of the right shoulder shows a dislocation. Chest x-ray was unremarkable. Shoulder was reduced at bedside by myself. She was given morphine and fentanyl. She tolerated the procedure well. Radial pulses intact. Shoulder immobilizer was placed. There is questionable fracture on the scapula and consequently CT was obtained. CT of the chest shows no acute fracture and reduction of the right shoulder without any proximate fractures. Patient was updated and discharged back to detention. Did attempt to call both point of contact Isabella and Enrique on several occasions and was unsuccessful. Discussed with Pt concerning signs and symptoms to watch out for. Pt was instructed to follow up with their PCP and discussed with the patient their option to return to the ED at anytime for persistent or worsening symptoms. The appropriate anticipatory guidance and out-patient management, including indications for return to the emergency department, were explained at length to the patient and understood. Consults/Care Managements Discussions: Per [facility] Triage Nursing notes reviewed. Limited review of prior medical records performed Vital Signs: reviewed and remarkable for no significant abnormalities Differential diagnosis: Differential diagnoses include major intracranial, cervical, spinal, thoracic, abdominal, pelvic and neurologic injury. Fracture, contusion, sprain, strain, laceration, abrasions included as well. ER treatment provided: See below Diagnostics interpreted by me include EKG and cardiac monitoring as listed below: -Cardiac Monitoring: An order was placed for continuous cardiac monitoring. The monitor shows a rate of 75 with sinus rhythm. -ECG: none -Laboratory studies:Interpreted by me as stated above in [facility] and shown below. Imaging studies: Xrays: As interpreted by me: Portable AP upright 1 view of the chest shows no focal with Repeated x-ray of the right shoulder shows relocation of the dislocation CTs show: CT of the head and cervical spine shows no acute pathology Procedures:Anterior Shoulder Dislocation Reduction Indication: Right shoulder dislocation Verbal consent obtained. Risks and benefits were explained with the usual customary discussion. A time out was taken. Neurovascular examination before the procedure revealed intact. The right shoulder glenohumeral dislocation was reduced by placing the patient supine and applying gentle downward inline traction on the humerus and with subtle external rotation, with the elbow flexed at 90 degrees, while scapula manipulation was applied. This resulted in an easy reduction without complication. Neurovascular examination after the procedure revealed intact. The patient had significant pain relief and tolerated the procedure well. Critical Care: None Past Med/Surg History Medical History Hiatal hernia Chronic renal failure, stage 3b Chest pain Elevated troponin Alzheimer's dementia Impacted cerumen of both ears Complete heart block History of cardiac pacemaker [employer]. Implanted 2017 Urinary incontinence Tubular adenoma of colon Memory loss Low back pain Left bundle-branch block Hernia Disc degeneration, lumbar Debility Constipation CHF (congestive heart failure) Anxiety Type 2 diabetes mellitus Hypertension Hyperlipidemia History of temporary cardiac pacemaker treatment Facial contusion Surgical History History of palate surgery History of Palatoplasty For Cleft Palate Soft Palate History of throat surgery History of ankle surgery History of cholecystectomy Family History Unknown Diabetes Mother Cancer Father Cancer Brother Cancer Other Hypertension Denies family history of Ovarian cancer Prostate cancer Myocardial infarction Breast cancer Colorectal cancer Social History Smoking Status: Never smoker Hx Alcohol Use: No Hx Substance Use: No Preferred Language: Japanese Communication Ability: Unable Communication Ability Comment: Extremely hard of hearing Communication Tools: Writing Tablet Visual Impairment: No Limitations Hearing Ability: Hard of Hearing Facilities Flight Check Pilot Required: Yes Beliefs That Will Affect Care: None Current Living Situation: Family Current Living Situation Comment: unknown current occupational status: retired Feels Safe at Home: Yes Assistive Devices: None Allergies Allergies Allergy/AdvReac Type Severity Reaction Status Date / Time No Known Allergies Allergy Verified 09/30/23 16:37 Home Meds Home Medications Medication Instructions Recorded Confirmed acetaminophen 325 mg tablet 650 mg PO Q6 PRN temp>100 09/30/23 09/30/23 (Tylenol) acetaminophen 325 mg tablet 650 mg PO Q6 PRN Pain 09/30/23 09/30/23 (Tylenol) escitalopram oxalate 5 mg tablet 5 mg PO QAM 09/30/23 09/30/23 famotidine 20 mg tablet 20 mg PO AMHS 09/30/23 09/30/23 Results & Data (ED) Vital Signs Vital Signs - 24 hr 02/11/24 10:57 02/11/24 10:59 02/11/24 11:30 Temperature 36.6 C Temperature Source Oral Pulse Rate 60 66 64 Pulse Rate from SpO2 Sensor Respiratory Rate 22 22 Respiratory Effort / Characteristics Non-Labored Spontaneous Respiratory Depth Normal Respiratory Pattern Regular Blood Pressure 131/96 193/90 H Blood Pressure Mean 107 124 Blood Pressure Position Lying Pulse Oximetry 95 94 Oxygen Delivery Method Room Air Room Air Oxygen Flow Rate Sepsis Recent Fever Within 48 Hours No Sepsis New/Unexplained Change in Mental Status N/A Sepsis Action Taken by Nursing No Action Required 02/11/24 11:50 02/11/24 12:00 02/11/24 12:45 Temperature Temperature Source Pulse Rate 60 55 L 60 Pulse Rate from SpO2 Sensor 56 L 60 Respiratory Rate 22 22 20 Respiratory Effort / Characteristics Respiratory Depth Respiratory Pattern Blood Pressure 143/79 H 162/79 H Blood Pressure Mean 100 106 Blood Pressure Position Pulse Oximetry 81 L 93 Oxygen Delivery Method Room Air Oxygen Flow Rate Sepsis Recent Fever Within 48 Hours Sepsis New/Unexplained Change in Mental Status Sepsis Action Taken by Nursing 02/11/24 13:00 02/11/24 14:00 02/11/24 14:25 Temperature Temperature Source Pulse Rate 60 Pulse Rate from SpO2 Sensor 60 60 Respiratory Rate 18 25 H Respiratory Effort / Characteristics Respiratory Depth Respiratory Pattern Blood Pressure 165/87 H 117/82 124/71 Blood Pressure Mean 113 93 88 Blood Pressure Position Pulse Oximetry 97 95 94 Oxygen Delivery Method Room Air Nasal Cannula Nasal Cannula Oxygen Flow Rate 2 2 Sepsis Recent Fever Within 48 Hours Sepsis New/Unexplained Change in Mental Status Sepsis Action Taken by Nursing 02/11/24 15:00 02/11/24 15:01 02/11/24 15:03 Temperature Temperature Source Pulse Rate Pulse Rate from SpO2 Sensor 67 Respiratory Rate Respiratory Effort / Characteristics Respiratory Depth Respiratory Pattern Blood Pressure 143/82 H Blood Pressure Mean 96 Blood Pressure Position Pulse Oximetry 94 81 L Oxygen Delivery Method Room Air Room Air Oxygen Flow Rate Sepsis Recent Fever Within 48 Hours Sepsis New/Unexplained Change in Mental Status Sepsis Action Taken by Nursing Laboratory Data 02/11/24 11:07 02/11/24 11:07 Lab Results 02/11/24 02/11/24 Range/Units 11:07 12:10 WBC 7.42 (4.8-10.8) K/ul RBC 5.18 (4.20-5.40) M/uL Hgb 14.8 (12.0-16.0) g/dl Hct 46.4 (37.0-47.0) % MCV 89.6 (80.0-100.0) fL MCH 28.6 (25.0-34.0) pg MCHC 31.9 L (32.0-36.0) g/dL RDW Std Deviation 43.8 (36.4-46.3) fL RDW Coeff of [place]idan 13.3 (11.5-14.5) % Plt Count 202 (130-400) K/uL MPV 10.7 (9.4-12.4) fL Immature Gran % (Auto) 0.4 % Neut % (Auto) 83.8 % Lymph % (Auto) 8.6 % [place] % (Auto) 5.5 % Eos % (Auto) 1.3 % Baso % (Auto) 0.4 % Neut # (Auto) 6.21 (1.40-6.50) K/uL Lymph # (Auto) 0.64 L (1.20-3.40) K/uL [place] # (Auto) 0.41 (0.11-0.59) K/uL Eos # (Auto) 0.10 (0.00-0.50) K/uL Baso # (Auto) 0.03 (0.00-0.20) K/uL Immature Gran # (Auto) 0.03 (0.01-0.20) K/uL Sodium 139 (136-145) mmol/L Potassium 4.1 (3.5-5.1) mmol/L Chloride 103 (98-107) mmol/L Carbon Dioxide 30 (21-32) mmol/L Anion Gap 6 (3-11) BUN 18 (6-23) mg/dl Creatinine 0.91 (0.6-1.2) mg/dl Est Cr Clr Drug Dosing 41.7 ml/min Est GFR ( Amer) 65.3 ml/min Est GFR (Non-Af Amer) 56.3 ml/min BUN/Creatinine Ratio 19.8 (10-20) Glucose 253 H (70-99(Fasting)) mg/dl Calcium 9.5 (8.6-10.3) mg/dl Total Bilirubin 1.0 (0.2-1.0) mg/dl AST 13 (13-39) U/L ALT 7 (7-52) U/L Alkaline Phosphatase 84 (34-104) U/L Total Protein 6.5 (6.0-8.3) gm/dl Albumin 3.9 (3.4-5.0) gm/dl Globulin 2.6 (2.5-4.0) gm/dl Albumin/Globulin Ratio 1.5 (0.9-2) Lipase 22 (11-82) U/L Urine Color Yellow Urine Appearance Clear (Clear) Urine pH 5.0 (4.5-7.5) Ur Specific Dickens 1.024 (1.000-1.030) Urine Protein Trace H (Negative) Urine Glucose (UA) 3+ H (Negative) Urine Ketones 1+ H (Negative) Urine Blood Trace H (Negative) Urine Nitrite Negative (Negative) Urine Bilirubin Negative (Negative) Urine Urobilinogen Negative (Negative) Ur Leukocyte Esterase Negative (Negative) Urine WBC (Auto) 0-5 (0-5) /hpf Urine RBC (Auto) 0-2 (0-2) /hpf U Hyaline Cast (Auto) 0-2 (0-2) /lpf U Epithel Cells (Auto) 0-2 (0-2) /hpf Urine Bacteria (Auto) None Seen (None Seen) Administered Medications Discontinued Medications Fentanyl Citrate (Fentanyl Citrate Pf 100 Mcg/2 Ml Vial) 50 mcg IV NOW STA Stop: 02/11/24 13:16 Last Admin: 02/11/24 13:24 Dose: 50 mcg Documented By: SHIVAM Morphine Sulfate (Morphine Sulfate 4 Mg/Ml 1 Ml Carp\Vial) 4 mg IV NOW STA Stop: 02/11/24 11:28 Last Admin: 02/11/24 11:34 Dose: 4 mg Documented By: SHIVAM Ondansetron HCl (Ondansetron Inj 2 Mg/Ml 2 Ml Vial) 4 mg IV NOW STA Stop: 02/11/24 11:28 Last Admin: 02/11/24 11:34 Dose: 4 mg Documented By: SHIVAM Ondansetron HCl (Ondansetron Inj 2 Mg/Ml 2 Ml Vial) 4 mg IV NOW STA Stop: 02/11/24 13:44 Last Admin: 02/11/24 14:59 Dose: 4 mg Imaging Data Radiologist's Impression: Cervical Spine CT 02/11/24 10:59 CT cervical spine wo con CLINICAL HISTORY: 88 years-old Female with fall. Acute neck pain with fall COMPARISON: 09/30/23. TECHNIQUE: Multiple axial CT images of the cervical spine were obtained without contrast. A dose lowering technique was utilized adhering to the principles of ALARA. FINDINGS: There is no evidence of fracture or subluxation involving the cervical spine. Vertebral body height and alignment are maintained. There is straightening of the cervical lordosis. Anterior osteophytes are seen throughout. The odontoid process and lateral masses are intact. The atlantoaxial articulation is preserved noting advanced productive degenerative change. The spinous processes appear intact. There is moderate multilevel cervical spondylosis. Uncovertebral and facet arthropathy contribute to neural foraminal narrowing at several levels. Levoscoliosis may be positional. The cervical soft tissues appear unremarkable. Large bilateral mastoid effusions. Right middle ear effusion. Partially imaged left subclavian pacer leads. The visualized lung apices appear clear. IMPRESSION: No acute cervical spine fracture or subluxation identified. ACT 112: Negative or not required by law. The above report was generated using voice recognition software. It may contain grammatical, syntax or spelling errors. Electronically signed by: Cale Moyer M.D. 02/11/2024 1:04 PM Chest X-Ray 02/11/24 10:59 XR chest 1V not portable CLINICAL HISTORY: fall TECHNIQUE: Single frontal radiograph of the chest was obtained. Comparison: Comparison is made to chest radiograph 09/30/2023 FINDINGS: An implanted pacemaker is seen. Cardiomegaly is noted. The lungs are clear. No evidence of pleural effusion or pneumothorax. Chronic dislocation of the right glenohumeral joint. IMPRESSION: 1. No acute chest disease. Stable cardiomegaly. 2. Chronic right shoulder dislocation. ACT 112: Negative or not required by law. Electronically signed by: Chuy Rossi M.D. 02/11/2024 12:[address] 02/11/24 10:59 CT head/brain wo con CLINICAL HISTORY: fall Technique: Contiguous axial CT images of the head were acquired from the base of the skull to the vertex without intravenous contrast administration. Images were viewed in brain, subdural and bone windows. Automated dose lowering techniques and/or adjustment according to patient size were utilized for this exam. Comparison: Comparison is made to CT head 09/30/2023. Findings: Areas of decreased attenuation are present in the periventricular and subcortical white matter bilaterally consistent with small vessel ischemic disease. Generalized cerebral atrophy with commensurate enlargement of the ventricles, sulci, and cisterns is also present. There is no acute intracranial hemorrhage or evidence of acute territorial infarction. No shift of the midline structures, mass effect, or extra-axial abnormalities are shown. Atherosclerotic calcifications are present in the intracranial segments of the internal carotid arteries. Imaged portions of the paranasal sinuses and mastoid air cells are clear. The orbits appear normal. There are no acute fractures of the calvaria or scalp swelling. Impression: No acute intracranial hemorrhage, no evidence of acute territorial infarction or other acute intracranial disease process. ACT 112: Negative or not required by law. Electronically signed by: Chuy Rossi M.D. 02/11/2024 12:46 PM Shoulder X-Ray 02/11/24 10:59 XR shoulder RT min 2V routine CLINICAL HISTORY: Right shoulder pain. COMPARISON STUDY: Right shoulder 09/30/2023. FINDINGS: There is a right anterior shoulder dislocation. Deformity within the humeral head consistent with a Hill-Sachs impaction fracture. This is age indeterminate but may be chronic. The glenoid appears intact. The right clavicle is intact. IMPRESSION: Right anterior shoulder dislocation with an age-indeterminate Hill- Sachs impaction fracture. ACT 112: Negative or not required by law. Electronically signed by: Tyrone Salcedo M.D. 02/11/2024 12:12 PM Shoulder X-Ray 02/11/24 13:28 XR shoulder RT min 2V routine CLINICAL HISTORY: r shoulder TECHNIQUE: 3 views of the right shoulder were obtained. Comparison: Comparison is made to shoulder radiographs, performed for 924, 09/30/2023, as well as CTA chest 05/24/2022 FINDINGS: Questionable irregularity of the inferior wing of the scapula, most prominent in the first radiograph. The dislocation has been reduced. There may be slight anterior subluxation. Soft tissue swelling is seen about the shoulder. The visualized portions of the lungs are clear. IMPRESSION: Interval reduction of the shoulder dislocation chronic anterior subluxation is seen, similar to prior exams. ACT 112: Negative or not required by law. Electronically signed by: Cuhy Rossi M.D. 02/11/2024 2:[address] 02/11/24 14:04 CT chest diagnostic wo con CT DOSE: 775.44 mGy.cm CLINICAL HISTORY: 88 years-old Female with ? scapula fx /chest wall trauma s/p fall. Acute chest trauma status post fall TECHNIQUE: Multiaxial CT images of the chest were performed without contrast. A dose lowering technique was utilized adhering to the principles of ALARA. COMPARISON: CTA chest 05/24/2022 FINDINGS: Limited study secondary to upper exam repositioning and respiratory motion artifact. There are a few scattered hypodense thyroid nodules measuring up to 10 mm. No lymphadenopathy Mild cardiomegaly with extensive coronary artery calcifications. Atherosclerosis of the aorta without aneurysm. No pneumothorax, large pleural effusion, or suspicious pulmonary nodule or mass. Areas of scattered bilateral subsegmental atelectasis versus scarring. Central airways are patent. Mild gaseous distention of the esophagus. Moderate to large hiatal hernia. Intrahepatic and extrahepatic biliary ductal dilation appears to be a chronic finding. Large right glenohumeral joint effusion is unchanged. There is a chronic corticated 1.5 cm loose body within the right axillary recess. 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 Partially imaged subacute nondisplaced right lateral eighth rib fracture. Healed chronic left-sided rib fractures. No acute fracture identified. Subcentimeter bone fragments noted caudal to the chromium likely chronic. IMPRESSION: 1. No acute posttraumatic intrathoracic abnormality. 2. Chronic large right glenohumeral joint effusion with intra-articular loose bodies. 3. 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 4. Healing subacute lateral right eighth rib fracture. ACT 112: Negative or not required by law. Electronically signed by: Cale Moyer M.D. 02/11/2024 2:48 PM Discharge Plan Visit Data Chief Complaint: Fall Stated Complaint: Fall ED Provider: Morteza Vela Discharge Problem: Fall, Anterior shoulder dislocation Discharge Instructions Krames/Other Patient Handouts: ED Dislocation: Shoulder (Reduced), ED Shoulder Immobilizer Activity Restrictions/Additional Instructions: Please follow up with your primary care doctor with in the next 24 hours. Any worsening of your symptoms, please return to the ED immediately. This includes any fevers greater than 100.4, worsening pain, chest pain, shortness breath, persistent nausea, vomiting, unable to eat or drink, or any other concerning signs or symptoms from your standpoint. You were found to have a blood pressure greater than 120 systolic over 90 diastolic. Due to the new Medicare guidelines, we are now recommending that you follow up with your primary care doctor in regards to this elevated blood pressure. Patient was found to have a dislocation of her right shoulder. This was reduced at bedside. CT of her head and cervical spine was otherwise unremarkable. She should follow-up with orthopedics within the next week. Tylenol Motrin as needed for pain Forms Stand Alone Forms: [facility] [employer] Prescriptions Prescriptions: No Action escitalopram oxalate 5 mg Tablet 5 mg PO QAM famotidine 20 mg tablet 20 mg PO AMHS acetaminophen [Tylenol] 325 mg Tablet 650 mg PO Q6 MDD 3g PRN (Reason: temp>100) acetaminophen [Tylenol] 325 mg Tablet 650 mg PO Q6 MDD 3g PRN (Reason: Pain) Referrals Referrals: Mateo Hampton MD [Primary Care Provider] - Discharge Problem: Fall Qualifiers: Encounter type: initial encounter Qualified Code(s): W19.XXXA - Unspecified fall, initial encounter Anterior shoulder dislocation Qualifiers: Encounter type: initial encounter Laterality: right Qualified Code(s): S43.014A - Anterior dislocation of right humerus, initial encounter
[2024-02-11 11:25] LABS: Basophils # (auto) 0.03 K/uL (0.00-0.20); Basophils % (auto) 0.4 %; Eosinophils % (auto) 1.3 %; Hematocrit (blood only) 46.4 % (37.0-47.0); Hemoglobin 14.8 g/dl (12.0-16.0); Immature Granulocytes # (auto) 0.03 K/uL (0.01-0.20); Immature Granulocytes % (auto) 0.4 %; Lymphocytes # (auto) 0.64 K/uL (1.20-3.40); Lymphocytes % (auto) 8.6 %; Mean Corpuscular Hemoglobin 28.6 pg (25.0-34.0); Mean Corpuscular Hgb Conc 31.9 g/dL (32.0-36.0); Mean Corpuscular Volume 89.6 fL (80.0-100.0); Mean Platelet Volume 10.7 fL (9.4-12.4); Monocytes # (auto) 0.41 K/uL (0.11-0.59); Monocytes % (auto) 5.5 %; Neutrophils # (auto) 6.21 K/uL (1.40-6.50); Neutrophils % (auto) 83.8 %; Platelet Count 202 K/uL (130-400); RDW Coefficient of Variation 13.3 % (11.5-14.5); RDW Standard Deviation 43.8 fL (36.4-46.3); Red Blood Count 5.18 M/uL (4.20-5.40); White Blood Count 7.42 K/ul (4.8-10.8)
[2024-02-11] MEDS: MoRPHine SULFATE 4 MG/ML 1 ML CARP\\VIAL IV STA (11:34)
[2024-02-11] MEDS: ONDANSETRON INJ 2 MG/ML 2 ML VIAL IV STA ×2 (11:34→14:59)
[2024-02-11 11:47] LABS: Albumin Globulin Ratio 1.5 (0.9-2); Albumin Level 3.9 gm/dl (3.4-5.0); BUN Creatinine Ratio 19.8 (10-20); Calcium 9.5 mg/dl (8.6-10.3); Creatinine Clr Calc Pharmacy 41.7 ml/min; Est GFR (African American) 65.3 ml/min; Est GFR (Non-African American) 56.3 ml/min; Globulin 2.6 gm/dl (2.5-4.0); Potassium 4.1 mmol/L (3.5-5.1); Total Protein 6.5 gm/dl (6.0-8.3)
--- NOTE | 2024-02-11 12:13 | XRay Report ---
XR chest 1V not portable CLINICAL HISTORY: fall TECHNIQUE: Single frontal radiograph of the chest was obtained. Comparison: Comparison is made to chest radiograph 09/30/2023 FINDINGS: An implanted pacemaker is seen. Cardiomegaly is noted. The lungs are clear. No evidence of pleural ef fusion or pneumothorax. Chronic dislocation of the right glenohumeral joint. IMPRESSION: 1. No acute chest disease. Stable cardiomegaly. 2. Chronic right shoulder dislocation. ACT 112: Negative or not required by law. Electronically signed by: Chuy Rossi M.D. 02/11/2024 12:11 PM
--- NOTE | 2024-02-11 12:13 | XRay Report ---
XR shoulder RT min 2V routine CLINICAL HISTORY: Right shoulder pain. COMPARISON STUDY: Right shoulder 09/30/2023. FINDINGS: There is a right anterior shoulder dislocation. Deformity within the humeral head consisten t with a Hill-Sachs impaction fracture. This is age indeterminate but may be chronic. The glenoid lashaun ears intact. The right clavicle is intact. IMPRESSION: Right anterior shoulder dislocation with an age-indeterminate Hill-Sachs impaction fract ure. ACT 112: Negative or not required by law. Electronically signed by: Tyrone Salcedo M.D. 02/11/2024 12:12 PM
[2024-02-11 12:33] LABS: Appearance Urine Clear (Clear); Bacteria Urine Automated None Seen (None Seen); Bilirubin Urine Negative (Negative); Blood Urine Trace (Negative); Cast Urine Automated 0-2 /lpf (0-2); Color Urine Yellow; Epithelial Cell Urine Auto 0-2 /hpf (0-2); Glucose Urine UA 3+ (Negative); Ketones Urine 1+ (Negative); Leukocyte Esterase Urine Negative (Negative); Nitrite Urine Negative (Negative); Protein Urine Trace (Negative); RBC Urine Automated 0-2 /hpf (0-2); Specific Gravity Urine 1.024 (1.000-1.030); Urobilinogen Urine Negative (Negative); WBC Urine Automated 0-5 /hpf (0-5)
--- NOTE | 2024-02-11 12:48 | CT Scan Report ---
CT head/brain wo con CLINICAL HISTORY: fall Technique: Contiguous axial CT images of the head were acquired from the base of the skull to the mimi padma without intravenous contrast administration. Images were viewed in brain, subdural and [facility]. Automated dose lowering techniques and/or adjustment according to patient size were utilized for this exam. Comparison: Comparison is made to CT head 09/30/2023. Findings: Areas of decreased attenuation are present in the periventricular and subcortical white matter bilate rally consistent with small vessel ischemic disease. Generalized cerebral atrophy with commensurate e nlargement of the ventricles, sulci, and cisterns is also present. There is no acute intracranial hem orrhage or evidence of acute territorial infarction. No shift of the midline structures, mass effect, or extra-axial abnormalities are shown. Atherosclerotic calcifications are present in the intracran ial segments of the internal carotid arteries. Imaged portions of the paranasal sinuses and mastoid air cells are clear. The orbits appear normal. There are no acute fractures of the calvaria or scalp swelling. Impression: No acute intracranial hemorrhage, no evidence of acute territorial infarction or other acute intracra nial disease process. ACT 112: Negative or not required by law. Electronically signed by: Chuy Rossi M.D. 02/11/2024 12:46 PM
--- NOTE | 2024-02-11 13:05 | CT Scan Report ---
CT cervical spine wo con CLINICAL HISTORY: 88 years-old Female with fall. Acute neck pain with fall COMPARISON: 09/30/23. TECHNIQUE: Multiple axial CT images of the cervical spine were obtained without contrast. A dose low ering technique was utilized adhering to the principles of ALARA. FINDINGS: There is no evidence of fracture or subluxation involving the cervical spine. Vertebral bod y height and alignment are maintained. There is straightening of the cervical lordosis. Anterior oste ophytes are seen throughout. The odontoid process and lateral masses are intact. The atlantoaxial art iculation is preserved noting advanced productive degenerative change. The spinous processes appear i ntact. There is moderate multilevel cervical spondylosis. Uncovertebral and facet arthropathy contrib bashir to neural foraminal narrowing at several levels. Levoscoliosis may be positional. The cervical soft tissues appear unremarkable. Large bilateral mastoid effusions. Right middle ear ef fusion. Partially imaged left subclavian pacer leads. The visualized lung apices appear clear. IMPRESSION: No acute cervical spine fracture or subluxation identified. ACT 112: Negative or not required by law. The above report was generated using voice recognition software. It may contain grammatical, syntax o r spelling errors. Electronically signed by: Cale Moyer M.D. 02/11/2024 1:04 PM
[2024-02-11] MEDS: fentaNYL citrate PF 100 MCG/2 ML VIAL IV STA (13:24)
--- NOTE | 2024-02-11 14:09 | XRay Report ---
XR shoulder RT min 2V routine CLINICAL HISTORY: r shoulder TECHNIQUE: 3 views of the right shoulder were obtained. Comparison: Comparison is made to shoulder radiographs, performed for 924, 09/30/2023, as well as CTA chest 05/24/2022 FINDINGS: Questionable irregularity of the inferior wing of the scapula, most prominent in the first radiograph . The dislocation has been reduced. There may be slight anterior subluxation. Soft tissue swelling is seen about the shoulder. The visualized portions of the lungs are clear. IMPRESSION: Interval reduction of the shoulder dislocation chronic anterior subluxation is seen, similar to prior exams. ACT 112: Negative or not required by law. Electronically signed by: Chuy Rossi M.D. 02/11/2024 2:07 PM
--- NOTE | 2024-02-11 14:49 | CT Scan Report ---
CT chest diagnostic wo con CT DOSE: 775.44 mGy.cm CLINICAL HISTORY: 88 years-old Female with ? scapula fx /chest wall trauma s/p fall. Acute chest tra brandon status post fall TECHNIQUE: Multiaxial CT images of the chest were performed without contrast. A dose lowering techni que was utilized adhering to the principles of ALARA. COMPARISON: CTA chest 05/24/2022 FINDINGS: Limited study secondary to upper exam repositioning and respiratory motion artifact. There are a few scattered hypodense thyroid nodules measuring up to 10 mm. No lymphadenopathy Mild cardiome yvan with extensive coronary artery calcifications. Atherosclerosis of the aorta without aneurysm. No pneumothorax, large pleural effusion, or suspicious pulmonary nodule or mass. Areas of scattered b ilateral subsegmental atelectasis versus scarring. Central airways are patent. Mild gaseous distention of the esophagus. Moderate to large hiatal hernia. Intrahepatic and extrahepa tic biliary ductal dilation appears to be a chronic finding. Large right glenohumeral joint effusion is unchanged. There is a chronic corticated 1.5 cm loose body within the right axillary recess. Sever e glenohumeral osteoarthritis is noted bilaterally. Partially imaged subacute nondisplaced right late ral eighth rib fracture. Healed chronic left-sided rib fractures. No acute fracture identified. Subce ntimeter bone fragments noted caudal to the chromium likely chronic. IMPRESSION: 1. No acute posttraumatic intrathoracic abnormality. 2. Chronic large right glenohumeral joint effusion with intra-articular loose bodies. 3. 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 4. Healing subacute lateral right eighth rib fracture. ACT 112: Negative or not required by law. Electronically signed by: Cale Moyer M.D. 02/11/2024 2:48 PM
[2024-02-11] MEDS: METOCLOPRAMIDE HCL INJ 5 MG/ML 2 ML VIAL IV STA (15:52)
--- NOTE | 2024-02-11 16:43 | Emergency Department Note ---
ED Visit Note Alerted by nursing staff that the patient is still becoming hypoxic with saturations of 81 to 87% on room air. Patient is status post shoulder reduction in the emergency department after multiple doses of fentanyl and morphine for sedation. She was initially on some supplemental oxygen postprocedure. In multiple attempts to take the patient off of her supplemental oxygen, she desaturates. Patient's last dose of pain medication was at 1324. It is now 1644 and she remains hypoxic on room air with saturations of 85. Patient does not wear any supplemental oxygen at baseline. Will admit the patient to the hospitalist service. Discussed case with director case and need for admission. Discussed case with hospitalist, Dr. Price, who will admit the patient for further evaluation and management .
--- NOTE | 2024-02-11 17:15 | History & Physical Report ---
Date of Service February 11, 2024 Assessment & Plan (1) Hypoxia: Plan: Patient desatted to 79-81% on RA after receiving sedation in the ED for her right shoulder reduction Not normally on supplemental oxygenation Unclear if patient has a past medical history of sleep apnea Supplemental oxygen as needed Continuous pulse oximetry Incentive spirometry (2) Anterior shoulder dislocation: Plan: Unwitnessed fall on the morning of 02/10 Imaging of head and neck negative Right shoulder x-ray revealed anterior shoulder dislocation with age- indeterminate Hill-Sachs impaction fracture Chest CT noted healing subacute lateral right eighth rib fracture Patient was given fentanyl and morphine in the ED and shoulder was reduced Difficult to assess pain due to patient's underlying dementia Acetaminophen as needed for pain 13 Dilaudid 0.25-0.50 q4h as needed for breakthrough pain; monitor for signs of sedation A.m. 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; noted Center care reported that patient was mentating at her baseline on day of fall (5) Type 2 diabetes mellitus: Plan: Last A1c at 7.0% on 10/21/2023 Glucose 253 on admission Not currently on diabetic medications SSI; with target BSG range 110-150mg/dL, CF 50, carb ratio 15 T2DM diet BSG ACHS Adjust regimen as needed (6) Constipation: Plan: Continue home constipation regimen Plan [facility]: [facility] T2DM diet; moist/minced VTE PPx: SCDs History of Present Illness Chief Complaint: Fall Primary Care Provider: Mateo Hampton MD Kristal is an 88-year-old female with PMH of T2DM, Alzheimer's dementia, memory loss, hearing loss, anxiety, LBBB, and CHF. She presented via EMS from [facility] for an unwitnessed fall in the morning of 02/10 around 0845. Not on blood thinners. Posterior head hematoma, and right shoulder pain on arrival. Per LTC staff, patient was mentating at around her baseline. Unable to obtain a history at time of admission, due to patient's current mental state. She does not respond appropriate to questioning, and is unable to explain why she is in the hospital. Alert and oriented to name, but not /purpose/location/time/month. Patient is unsure if she uses supplemental oxygen at [facility]. Patient's vitals are stable at time of admission; SpO2 97% on 2L NC. ED course: Zofran 4 mg IV x 2 Fentanyl 50 mcg Morphine sulfate 4 mg Unable to obtain ROS at this time. Allergies Allergy/AdvReac Type Severity Reaction Status Date / Time No Known Allergies Allergy Verified 09/30/23 16:37 Home Medications Medication Instructions Recorded Confirmed Type acetaminophen 325 mg tablet 650 mg PO Q6 PRN temp>100 09/30/23 02/11/24 History (Tylenol) acetaminophen 325 mg tablet 650 mg PO Q6 PRN Pain 09/30/23 02/11/24 History (Tylenol) escitalopram oxalate 5 mg tablet 5 mg PO QAM 09/30/23 02/11/24 History famotidine 20 mg tablet 20 mg PO BID 09/30/23 02/11/24 History bisacodyl 10 mg rectal suppository 10 mg CO DAILY PRN Constipation 02/11/24 02/11/24 History (Dulcolax (bisacodyl)) docusate sodium 100 mg capsule 100 mg PO QAM 02/11/24 02/11/24 History (Colace) magnesium hydroxide 400 mg/5 mL 2,400 mg PO DAILY PRN Constipation 02/11/24 02/11/24 History oral suspension (Milk of Magnesia) polyethylene glycol 3350 17 17 g PO QAM 02/11/24 02/11/24 History gram/dose oral powder (Miralax) sodium phosphates 19 gram-7 118 ml CO DAILY PRN Constipation 02/11/24 02/11/24 History gram/118 mL enema (Fleet Enema) Past Med/Surg History Medical History Hiatal hernia Chronic renal failure, stage 3b Chest pain Elevated troponin Alzheimer's dementia Impacted cerumen of both ears Complete heart block History of cardiac pacemaker [employer]. Implanted 2017 Urinary incontinence Tubular adenoma of colon Memory loss Low back pain Left bundle-branch block Hernia Disc degeneration, lumbar Debility Constipation CHF (congestive heart failure) Anxiety Type 2 diabetes mellitus Hypertension Hyperlipidemia History of temporary cardiac pacemaker treatment Facial contusion Surgical History History of palate surgery History of Palatoplasty For Cleft Palate Soft Palate History of throat surgery History of ankle surgery History of cholecystectomy Family History Unknown Diabetes Mother Cancer Father Cancer Brother Cancer Other Hypertension Denies family history of Ovarian cancer Prostate cancer Myocardial infarction Breast cancer Colorectal cancer Social History Smoking Status: Unknown if ever smoked Hx Substance Use: No Preferred Language: Kazakh Communication Ability: Unable Communication Ability Comment: Extremely hard of hearing Communication Tools: Writing Tablet Visual Impairment: No Limitations Hearing Ability: Hard of Hearing Computer Scientist Required: No Beliefs That Will Affect Care: None Current Living Situation: [facility] Current Living Situation Comment: [facility] current occupational status: retired Feels Safe at Home: Yes Assistive Devices: Walker and Wheelchair Review of Systems Review of Systems: See HPI above Physical Exam Physical Exam: General: no acute distress; lethargic; non-toxic appearing; well-nourished; cooperative; SpO2 97% on 2L NC HEENT: no scleral icterus; PERRLA; dry mucus membrane; unable to assess hearing patient Neck: supple; no lymphadenopathy; trachea midline Right shoulder: shoulder is NTP; no signs of bruising or lesions Skin: warm, dry without signs of tenting; no cyanosis; no rashes, bruising, lesions, or erythema noted CV: chest wall NTP; RRR; S1/S2 normal; no murmurs/rubs/gallops; pulses intact and symmetric at radial, DP, and PT Lungs: no acute respiratory distress; symmetrical chest wall expansion; clear breath sounds across all lung echols w/o adventitious sounds; no wheezing ABD: Soft, NTP; BS present; no rebound/guarding; no distention MSK: no tics or fasciculations; no edema noted in the LEs b/l, nonerythematous Neuro: Oriented only to name; lethargic; does not respond appropriately to questioning; sensation intact in the LEs b/l Results & Data Results & Data Vital Signs (Past 12 Hours) Vital Signs Temp Pulse Resp BP Pulse Ox O2 Del Method O2 Flow Rate 02/11/24 16:49 60 13 128/74 97 Nasal Cannula 2 02/11/24 16:40 60 15 81 L Room Air 04/09/24 16:20 60 19 123/72 91 Room Air 02/11/24 15:40 60 19 95 Room Air 02/11/24 15:30 60 18 94 Room Air 02/11/24 15:27 60 14 94 Room Air 02/11/24 15:03 81 L Room Air 02/11/24 15:01 143/82 H 02/11/24 15:00 94 Room Air 02/11/24 14:25 124/71 94 Nasal Cannula 2 02/11/24 14:00 25 H 117/82 95 Nasal Cannula 2 02/11/24 13:00 60 18 165/87 H 97 Room Air 02/11/24 12:45 60 20 162/79 H 93 Room Air 02/11/24 12:00 55 L 22 143/79 H 81 L 02/11/24 11:50 60 22 02/11/24 11:30 64 22 193/90 H 94 Room Air 02/11/24 10:59 66 02/11/24 10:57 36.6 C 60 22 131/96 95 Room Air Laboratory Results Abnormal lab results 02/11/24 02/11/24 Range/Units 11:07 12:10 MCHC 31.9 L (32.0-36.0) g/dL Lymph # (Auto) 0.64 L (1.20-3.40) K/uL Glucose 253 H (70-99(Fasting)) mg/dl Urine Protein Trace H (Negative) Urine Glucose (UA) 3+ H (Negative) Urine Ketones 1+ H (Negative) Urine Blood Trace H (Negative) Diagnostic Findings Cervical Spine CT 02/11/24 10:59 CT cervical spine wo con CLINICAL HISTORY: 88 years-old Female with fall. Acute neck pain with fall COMPARISON: 09/30/23. TECHNIQUE: Multiple axial CT images of the cervical spine were obtained without contrast. A dose lowering technique was utilized adhering to the principles of ALARA. FINDINGS: There is no evidence of fracture or subluxation involving the cervical spine. Vertebral body height and alignment are maintained. There is straightening of the cervical lordosis. Anterior osteophytes are seen throughout. The odontoid process and lateral masses are intact. The atlantoaxial articulation is preserved noting advanced productive degenerative change. The spinous processes appear intact. There is moderate multilevel cervical spondylosis. Uncovertebral and facet arthropathy contribute to neural foraminal narrowing at several levels. Levoscoliosis may be positional. The cervical soft tissues appear unremarkable. Large bilateral mastoid effusions. Right middle ear effusion. Partially imaged left subclavian pacer leads. The visualized lung apices appear clear. IMPRESSION: No acute cervical spine fracture or subluxation identified. ACT 112: Negative or not required by law. The above report was generated using voice recognition software. It may contain grammatical, syntax or spelling errors. Electronically signed by: Cale Moyer M.D. 02/11/2024 1:04 PM Chest X-Ray 02/11/24 10:59 XR chest 1V not portable CLINICAL HISTORY: fall TECHNIQUE: Single frontal radiograph of the chest was obtained. Comparison: Comparison is made to chest radiograph 09/30/2023 FINDINGS: An implanted pacemaker is seen. Cardiomegaly is noted. The lungs are clear. No evidence of pleural effusion or pneumothorax. Chronic dislocation of the right glenohumeral joint. IMPRESSION: 1. No acute chest disease. Stable cardiomegaly. 2. Chronic right shoulder dislocation. ACT 112: Negative or not required by law. Electronically signed by: Chuy Rossi M.D. 02/11/2024 12:[address] 02/11/24 10:59 CT head/brain wo con CLINICAL HISTORY: fall Technique: Contiguous axial CT images of the head were acquired from the base of the skull to the vertex without intravenous contrast administration. Images were viewed in brain, subdural and bone windows. Automated dose lowering techniques and/or adjustment according to patient size were utilized for this exam. Comparison: Comparison is made to CT head 09/30/2023. Findings: Areas of decreased attenuation are present in the periventricular and subcortical white matter bilaterally consistent with small vessel ischemic disease. Generalized cerebral atrophy with commensurate enlargement of the ventricles, sulci, and cisterns is also present. There is no acute intracranial hemorrhage or evidence of acute territorial infarction. No shift of the midline structures, mass effect, or extra-axial abnormalities are shown. Atherosclerotic calcifications are present in the intracranial segments of the internal carotid arteries. Imaged portions of the paranasal sinuses and mastoid air cells are clear. The orbits appear normal. There are no acute fractures of the calvaria or scalp swelling. Impression: No acute intracranial hemorrhage, no evidence of acute territorial infarction or other acute intracranial disease process. ACT 112: Negative or not required by law. Electronically signed by: Chuy Rossi M.D. 02/11/2024 12:46 PM Shoulder X-Ray 02/11/24 10:59 XR shoulder RT min 2V routine CLINICAL HISTORY: Right shoulder pain. COMPARISON STUDY: Right shoulder 09/30/2023. FINDINGS: There is a right anterior shoulder dislocation. Deformity within the humeral head consistent with a Hill-Sachs impaction fracture. This is age indeterminate but may be chronic. The glenoid appears intact. The right clavicle is intact. IMPRESSION: Right anterior shoulder dislocation with an age-indeterminate Hill- Sachs impaction fracture. ACT 112: Negative or not required by law. Electronically signed by: Tyrone Salcedo M.D. 02/11/2024 12:12 PM Shoulder X-Ray 02/11/24 13:28 XR shoulder RT min 2V routine CLINICAL HISTORY: r shoulder TECHNIQUE: 3 views of the right shoulder were obtained. Comparison: Comparison is made to shoulder radiographs, performed for 924, 09/30/2023, as well as CTA chest 05/24/2022 FINDINGS: Questionable irregularity of the inferior wing of the scapula, most prominent in the first radiograph. The dislocation has been reduced. There may be slight anterior subluxation. Soft tissue swelling is seen about the shoulder. The visualized portions of the lungs are clear. IMPRESSION: Interval reduction of the shoulder dislocation chronic anterior subluxation is seen, similar to prior exams. ACT 112: Negative or not required by law. Electronically signed by: Chuy Rossi M.D. 02/11/2024 2:[address] 02/11/24 14:04 CT chest diagnostic wo con CT DOSE: 775.44 mGy.cm CLINICAL HISTORY: 88 years-old Female with ? scapula fx /chest wall trauma s/p fall. Acute chest trauma status post fall TECHNIQUE: Multiaxial CT images of the chest were performed without contrast. A dose lowering technique was utilized adhering to the principles of ALARA. COMPARISON: CTA chest 05/24/2022 FINDINGS: Limited study secondary to upper exam repositioning and respiratory motion artifact. There are a few scattered hypodense thyroid nodules measuring up to 10 mm. No lymphadenopathy Mild cardiomegaly with extensive coronary artery calcifications. Atherosclerosis of the aorta without aneurysm. No pneumothorax, large pleural effusion, or suspicious pulmonary nodule or mass. Areas of scattered bilateral subsegmental atelectasis versus scarring. Central airways are patent. Mild gaseous distention of the esophagus. Moderate to large hiatal hernia. Intrahepatic and extrahepatic biliary ductal dilation appears to be a chronic finding. Large right glenohumeral joint effusion is unchanged. There is a chronic corticated 1.5 cm loose body within the right axillary recess. 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 Partially imaged subacute nondisplaced right lateral eighth rib fracture. Healed chronic left-sided rib fractures. No acute fracture identified. Subcentimeter bone fragments noted caudal to the chromium likely chronic. IMPRESSION: 1. No acute posttraumatic intrathoracic abnormality. 2. Chronic large right glenohumeral joint effusion with intra-articular loose bodies. 3. 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 4. Healing subacute lateral right eighth rib fracture. ACT 112: Negative or not required by law. Electronically signed by: Cale Moyer M.D. 02/11/2024 2:48 PM Code Status & VTE Plan Code Status DNR/DNI (per paperwork provided by [facility]; signed on 03/15/2023) VTE Prophylaxis Plan VTE Prophylaxis will be ordered: Yes Supervising Physician Co-Signing Physician Notes I personally saw and examined the patient. I independently reviewed the labs, EKG, imaging, problem list, medication list, past medical history and family history. I verified all kim points and agree with Tyrone Carey PA-C with the following exceptions and/or additions: 88 year old female presents to the ER with fall and right shoulder pain. Shoulder dislocation put back in place by ER but patient hypoxic following this therefore recommended observation overnight. Unable to get any history from the patient due to dementia and likely some confusion from opiates. When I ask her for her name she looks at her wristband with her name on it. O/E Alert but not orientated x3, HS RRR, no murmurs, Chest CTAB, Abdo SNT, Right radial pulse present with good tube station attendant strength A/P Hypoxia - suspect hypoventilation in setting of opiates, incentive spirometry, aim O2 sats > 90% Otherwise as above PG Care Time/CCT Total # of Minutes Spent Total Time Spent with Patient: Total time spent is greater than 50% in coordination of care (as documented) at patient's floor/unit and/or counseling patient: Coding [place] [address] INT INP/OBS CARE Patient Type Established Medical Decision Making Low Complexity Diagnoses Hypoxia R09.02 Anterior shoulder dislocation S43.014A Encounter type: initial encounter Laterality: right Fall W19.XXXA Encounter type: initial encounter Dementia due to Alzheimer's disease G30.9; F02.80 Type 2 diabetes mellitus without complication, without long-term current use of insulin E11.9 Diabetes mellitus complication status: without complication Diabetes mellitus snf insulin use: without marine oil terminal superintendent use Constipation K59.00 (2) Anterior shoulder dislocation Encounter type: initial encounter Laterality: right Qualified Code(s): S43.014A - Anterior dislocation of right humerus, initial encounter (3) Fall Encounter type: initial encounter Qualified Code(s): W19.XXXA - Unspecified fall, initial encounter (5) Type 2 diabetes mellitus Diabetes mellitus complication status: without complication Diabetes mellitus marine oil terminal superintendent insulin use: without marine oil terminal superintendent use Qualified Code(s): E11.9 - Type 2 diabetes mellitus without complications
[2024-02-11 18:27] LABS: Magnesium 1.7 mg/dl (1.7-2.4)
[2024-02-11] MEDS ORDERED: DEXTROSE 50% 50 ML SYRINGE IV PRN (21:57)
[2024-02-11] MEDS ORDERED: GLUCOSE 10 TAB/TUBE PO PRN (21:57)
[2024-02-11] MEDS ORDERED: GLUCOSE 40% GEL 15 GM TUBE PO PRN (21:57)
[2024-02-11] MEDS ORDERED: bisacodyL 10 MG SUPP PR PRN (21:57)
[2024-02-11] MEDS ORDERED: CARBOHYDRATES FOR HYPOGLYCEMIA PO PRN (21:57)
[2024-02-11] MEDS ORDERED: ACETAMINOPHEN 325 MG TAB PO PRN (21:57)
[2024-02-11] MEDS ORDERED: ONDANSETRON INJ 2 MG/ML 2 ML VIAL IV PRN (21:57)
[2024-02-11] MEDS ORDERED: MAGNESIUM HYDROXIDE SUSP 30 ML UDC PO PRN (21:57)
[2024-02-11] MEDS ORDERED: GLUCAGON FOR INJ 1 MG VIAL SQ PRN (21:57)
[2024-02-11] MEDS ORDERED: HYDROmorphone INJ 0.5 MG/0.5 ML SYR IV PRN ×2 (21:57)
[2024-02-11] MEDS ORDERED: MELATONIN 3 MG TAB PO PRN (21:57)
[2024-02-11] MEDS ORDERED: SOD PHOSPHATE/SOD BIPHOSPHATE ENEMA 132 ML BTL PR PRN (21:57)
[2024-02-11] MEDS: INSULIN ASPART PER UNIT CHARGE SC SCH (23:18)
[2024-02-11] MEDS: FAMOTIDINE 20 MG TAB PO SCH (23:24)
[2024-02-12 06:45] LABS: Basophils # (auto) 0.02 K/uL (0.00-0.20); Basophils % (auto) 0.3 %; Eosinophils # (auto) 0.15 K/uL (0.00-0.50); Eosinophils % (auto) 2.5 %; Hematocrit (blood only) 41.4 % (37.0-47.0); Hemoglobin 13.6 g/dl (12.0-16.0); Immature Granulocytes # (auto) 0.01 K/uL (0.01-0.20); Immature Granulocytes % (auto) 0.2 %; Lymphocytes # (auto) 1.27 K/uL (1.20-3.40); Lymphocytes % (auto) 20.8 %; Mean Corpuscular Hemoglobin 29.4 pg (25.0-34.0); Mean Corpuscular Hgb Conc 32.9 g/dL (32.0-36.0); Mean Corpuscular Volume 89.4 fL (80.0-100.0); Mean Platelet Volume 10.9 fL (9.4-12.4); Monocytes # (auto) 0.78 K/uL (0.11-0.59); Monocytes % (auto) 12.7 %; Neutrophils # (auto) 3.89 K/uL (1.40-6.50); Neutrophils % (auto) 63.5 %; Platelet Count 191 K/uL (130-400); RDW Coefficient of Variation 13.6 % (11.5-14.5); RDW Standard Deviation 44.4 fL (36.4-46.3); Red Blood Count 4.63 M/uL (4.20-5.40); White Blood Count 6.12 K/ul (4.8-10.8)
[2024-02-12] MEDS: ESCITALOPRAM OXALATE 10 MG TAB PO SCH (09:04)
[2024-02-12] MEDS: DOCUSATE SODIUM 100 MG CAP PO SCH (09:04)
[2024-02-12] MEDS: POLYETHYLENE (MIRALAX) 17 GM PACK PO SCH (09:09)
--- NOTE | 2024-02-12 13:00 | Discharge Summary ---
Discharge Summary Date of Service February 12, 2024 Notes For Next Care Provider Follow up with Orthopedics Medication Changes From Visit None Admission HPI Per Admitting Provider Kristal is an 88-year-old female with PMH of T2DM, Alzheimer's dementia, memory loss, hearing loss, anxiety, LBBB, and CHF. She presented via EMS from [facility] for an unwitnessed fall in the morning of 02/10 around 0845. Not on blood thinners. Posterior head hematoma, and right shoulder pain on arrival. Per LT staff, patient was mentating at around her baseline. Unable to obtain a history at time of admission, due to patient's current mental state. She does not respond appropriate to questioning, and is unable to explain why she is in the hospital. Alert and oriented to name, but not /purpose/location/time/month. Patient is unsure if she uses supplemental oxygen at [facility]. Patient's vitals are stable at time of admission; SpO2 97% on 2L NC. ED course: Zofran 4 mg IV x 2 Fentanyl 50 mcg Morphine sulfate 4 mg Unable to obtain ROS at this time. Principal Dx & Hospital Course #1 = Principal Diagnosis (1) Hypoxia: Patient desatted to 79-81% on RA after receiving sedation in the ED for her right shoulder reduction Not normally on supplemental oxygenation Unclear if patient has a past medical history of sleep apnea With atelectasis on CT chest, also with subacute right 8th rib fracture potentially pain controbuting Supplemental oxygen as needed-still requiring 1LNC at time of discharge to keep POx> 88% Incentive spirometry encouraged (2) Anterior shoulder dislocation: Unwitnessed fall on the morning of 02/10 Imaging of head and neck negative Right shoulder x-ray revealed anterior shoulder dislocation with age- indeterminate Hill-Sachs impaction fracture Chest CT noted healing subacute lateral right eighth rib fracture Patient was given fentanyl and morphine in the ED and shoulder was reduced Difficult to assess pain due to patient's underlying dementia but appears comfortable and not even taking acetaminophen Acetaminophen as needed for pain 13 CBC stable f/u with Ortho after discharge (3) Fall: Unwitnessed fall Imaging (as above) Fall precautions (4) 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, severe [facility] reported that patient was mentating at her baseline on day of fall (5) Type 2 diabetes mellitus: Last A1c at 7.0% on 10/21/2023 Glucose 253 on admission Not currently on diabetic medications T2DM diet BSG ACHS given here but no need to treat as outpt (6) Constipation: Continue home constipation regimen Plan Disposition: dc to [facility] as [facility] resident DNR/DNI VTE PPx: SCDs Discharge Exam Constitutional WD/WN, vitals as above Respiratory normal respiratory effort Auscultation: lungs clear to auscultation bilaterally Cardiovascular RRR, no murmur, no edema Gastrointestinal (Abdomen) normal bowel sounds, soft, nontender, no hepatosplenomegaly Musculoskeletal right UE in sling, +effusion right shoulder, no ttp over shoulder, no erythema or ecchymosis can move hand and fingers Psychiatric Orientation: alert, oriented to person and cooperative; + not oriented to place and + not oriented to time Updated Medication List Medication Instructions Recorded Confirmed Type acetaminophen 325 mg tablet 650 mg PO Q6 PRN temp>100 09/30/23 02/11/24 History (Tylenol) acetaminophen 325 mg tablet 650 mg PO Q6 PRN Pain 09/30/23 02/11/24 History (Tylenol) escitalopram oxalate 5 mg tablet 5 mg PO QAM 09/30/23 02/11/24 History famotidine 20 mg tablet 20 mg PO BID 09/30/23 02/11/24 History bisacodyl 10 mg rectal suppository 10 mg WA DAILY PRN Constipation 02/11/24 02/11/24 History (Dulcolax (bisacodyl)) docusate sodium 100 mg capsule 100 mg PO QAM 02/11/24 02/11/24 History (Colace) magnesium hydroxide 400 mg/5 mL 2,400 mg PO DAILY PRN Constipation 02/11/24 02/11/24 History oral suspension (Milk of Magnesia) polyethylene glycol 3350 17 17 g PO QAM 02/11/24 02/11/24 History gram/dose oral powder (Miralax) sodium phosphates 19 gram-7 118 ml WA DAILY PRN Constipation 02/11/24 02/11/24 History gram/118 mL enema (Fleet Enema) Hospital Stay Data Consultations 02/11/24 16:54 ED Decision to Admit Stat Diagnostic Imagining Performed 02/11/24 10:59 CT cervical spine wo con Stat CT head/brain wo con Stat 02/11/24 14:04 CT chest diagnostic wo con Stat Pending Results Patient Have Any Pending Studies at Discharge: No Discharge Instructions Given to Patient (Per Discharging Provider) You were admitted after requiring oxygen after having sedation to reduce your shoulder dislocation. This improved but you are still requiring 1 L of O2 via nasal cannula at the time of discharge. This is probably from not taking deep breaths. This should resolve with time and deep breathing exercises. For your right shoulder. You can keep the sling on in place for comfort and follow up with Orthopedics within 1 week. 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
== END 2024-02-12 14:48 ==
LOC: 3E 10:50 → ED 10:50 → SUATTDRO 17:46 → 3E 21:29